=== PATIENT | male | born 1950 | race Two or more races ===

== ENCOUNTER → 2018-08-31 | Outpatient (CLI) | payer OTHER, SELFPAY ==
--- NOTE | 2018-08-31 11:10 | US_ITS ---
STUDY: SCROTUM ULTRASOUND REASON FOR EXAM: Male, 68 years old. History of right testicular trauma 20 years ago, pain TECHNIQUE: Ultrasound evaluation of the scrotum was performed with color Doppler and static aparicio-scale imaging. COMPARISON: None. FINDINGS: RIGHT TESTICLE INTRATESTICULAR: There is a normal size of the right testicle. The right testicle measures 4.6 x 3.7 x 2.9 cm. There is a homogenous echotexture. There is normal arterial and normal venous vascularity. There is no demonstrated right testicular mass or cyst. EXTRATESTICULAR: The epididymis is normal in size. The epididymis head measures 0.9 x 1.0 x 0.9 cm. There is normal vascularity of the epididymis. There is an epididymal head cyst. There is a small hydrocele. There is no demonstrated varicocele. There is a hyperechoic nodule of the right epididymal body measuring 0.8 x 0.5 x 0.6 cm. LEFT TESTICLE INTRATESTICULAR: There is a normal size of the left testicle. The left testicle measures 4.9 x 3.3 x 3.3 cm. There is a homogenous echotexture. There is normal arterial and normal venous vascularity. There is no demonstrated left testicular mass or cyst. EXTRATESTICULAR: The epididymis is normal in size. The epididymis head measures 0.9 x 0.8 x 1.0 cm. There is normal vascularity of the epididymis. There is an epididymal head cyst. There is a small hydrocele. There is no demonstrated varicocele. There is no demonstrated extratesticular mass or cyst. US/Testicular with Arterial Flow IMPRESSION: The left and right testicles appear within normal limits. There are small bilateral epididymal head cysts and small bilateral hydroceles. There is a hyperechoic nodule of the right epididymal body measuring 0.8 x 0.5 x 0.6 cm. This is of unknown etiology or significance. It may represent process such as spermatocele. Close interval ultrasound follow-up is recommended. Electronically Signed: Calixto Vargas MD at 17:18 EDT , Service support ,
== END | disposition home or self-care (01) ==
LOC: US 11:07
PROVIDERS: Family Provider Family Medicine; PCP Family Medicine; Referring Provider Family Medicine; Visit Provider Family Medicine
DX: N50.811 Right testicular pain (principal)
CPT/HCPCS: 76870; 93976

== ENCOUNTER → 2018-09-14 08:59 | Outpatient (CLI) | payer OTHER, MEDICARE, SELFPAY ==
[2018-09-14 10:09] LABS: Hemoglobin 16.2 g/dL (13.0-16.5); Mean Corp Hgb Conc 35.2 g/dL (32-36); Mean Corpuscular Hgb 31.7 pg (27.0-32.0); Mean Platelet Vol. 8.8 fl (6.2-12.0); Platelet Count 217 K/mm3 (150-450); RBC Distribution Width CV 12.4 % (11.6-14.6); RBC Distribution Width SD 40.6 fl (35.1-43.9); Red Blood Count 5.11 M/mm3 (4.6-6.2); White Blood Count 4.3 K/mm3 (4.4-11.0)
[2018-09-14 10:31] LABS: ALB/GLOB Ratio 1.2 RATIO (0.9-2.4); AST(SGOT) 15 U/L (15-37); Alanine Aminotransfer ALT/SGPT 19 U/L (16-61); Albumin, Serum 3.9 g/dL (3.2-5.0); Alkaline Phosphatase 37 U/L (45-117); Anion Gap 10 (5-15); BUN 16 mg/dL (7-18); BUN/Creat Ratio 22.8 RATIO (10-20); Calcium,Total 8.4 mg/dL (8.5-10.1); Chloride 107 mmol/L (98-107); Cholesterol 209 mg/dL (200); EST Glomerular Filtration Rate 120 mL/min (>60); Est Glom Filt Rate - Afr Amer 145 mL/min (>60); Globulin 3.3 g/dL (2.2-4.2); Glucose 78 mg/dL (74-106); High Density Lipoprotein 69 mg/dL; PSA,Total - Annual Screen 2.72 ng/mL (0.00-4.00); Potassium 4.2 mmol/L (3.5-5.1); Protein, Total 7.2 g/dL (6.4-8.2); Sodium Level 140 mmol/L (136-145); Triglycerides 73 mg/dL; Very Low Density Lipoprotein 15 mg/dL (5-40)
== END ==
PROVIDERS: Family Provider Family Medicine; PCP Family Medicine; Referring Provider Family Medicine; Visit Provider Family Medicine
DX: Z01.818 Encounter for other preprocedural examination (principal); Z12.5 Encounter for screening for malignant neoplasm of prostate; N45.1 Epididymitis
CPT/HCPCS: 36415; 80053; 80061; 84153; 85027; G0103

== ENCOUNTER → 2018-10-04 17:55 | Outpatient (CLI) | payer OTHER, MEDICARE, SELFPAY ==
--- NOTE | 2018-10-04 | LES_PTH ---
PATIENT: GURINDER MI LOC: [facility] U#:[id number] AGE/SX: 74/M ROOM: RE10/04/[address]: Dr. Darrin Thorpe MD : 1950 BED: DIS: SPEC #: [id number] RECD: 10/04/18 17:55 STATUS: JEWEL MINDY #: [id number] JAYCEE: 10/04/18 00:[address]: Darrin Thorpe DEPT: SURGICAL PATHOLOGY RECD BY: Jamil Puri Tissues: Skin of arm Procedures: Surgery Specimen Level IV HEADER OPERATION: Excision right arm PRE-OP DIAGNOSIS: Atypical nevus TISSUE SUBMITTED: Fusiform area MICROSCOPIC DIAGNOSIS Skin lesion, right arm, fusiform area, excisional biopsy: Benign vascular proliferation, consistent with capillary hemangioma, completely excised. Hyperkeratosis. LYN:maida 10/08/18 MICROSCOPIC DESCRIPTION Slides are reviewed. GROSS DESCRIPTION Received is one container labeled with the patient's name and not further designated. The specimen consists of mcclain white skin ellipse measuring 1.2 x 0.7 cm and up to 0.5 cm in thickness. The specimen is inked, serially sectioned and submitted entirely in one cassette. /SJ:sp 10/05/18 TC: 1 CPT: 30779
== END ==
PROVIDERS: Family Provider Family Medicine; PCP Family Medicine; Referring Provider Family Medicine; Visit Provider Family Medicine
DX: D22.61 Melanocytic nevi of right upper limb, including shoulder (principal)
CPT/HCPCS: 88305

== ENCOUNTER 2018-10-23 05:29 | Day surgery (SDC) | payer OTHER, MEDICARE, SELFPAY ==
[2018-10-23] VITALS (11 sets, daily range): BP systolic 110–134; BP diastolic 75–88; PULSE 64–75; RESP 16–18; TEMP 36.2; O2SAT 93–100; BMI 27.1
[2018-10-23] MEDS: Lactated Ringers 1,000 ML 100 ML IV (06:04)
--- NOTE | 2018-10-23 06:11 | PCM.HP.STD ---
Problem List (1) Screening for intestinal cancer Status: Acute History of Present Illness Date of Admission: 10/23/18 The patient is a 68 year old M who presents for screening colonoscopy today. He is referred by his primary care physician Dr. Darrin Thorpe. His previous colonoscopy was possibly in 1995 greater than 10 years ago. He denies bright red blood per rectum or melena. No personal or family history of colon polyps or colon cancer. He otherwise has been enjoying good health. He denies cardiopulmonary disease. He is not on any anticoagulants. He has not had any abdominal pain or any unexpected weight loss. He has not had any difficulty with anesthesia Past Medical History Allergies No Known Allergies Allergy (Verified 10/23/18 05:49) Home Medications: Ambulatory Orders Medication Instructions Recorded Ibuprofen 200 mg PO PRN PRN 10/19/18 Multivitamin [Multiple Vitamins] 1 ea PO DAILY 10/19/18 Smoking Status: Former smoker Tobacco Use: Non-smoker Review of Systems Constitutional: Denies: Anorexia HEENT: Denies: Difficulty Swallowing Cardiovascular: Denies: Chest Pain Respiratory: Denies: Cough, Shortness of Breath Gastrointestinal: Denies: Abdominal Pain, Constipation, Diarrhea Endocrine: Denies: Change in Body Habitus VTE Information - Inpt Only VTE Present on Admission: No Patient Problems: Active and Suspected Problems Screening for intestinal cancer (Acute) - Physical Exam General: Alert, Oriented x3, Cooperative, No apparent distress HEENT: Atraumatic Oral: Moist Mucosa Neck: Supple Lungs: Clear to auscultation, Normal air movement Cardiovascular: Regular rate, Regular Rhythm Abdomen: Bowel Sounds Present, Soft, Non Tender, Non-Distended Extremities: No Calf Tenderness Neurological: - - Normal cognition, mild hearing loss Vital Signs Temp Pulse Resp BP Pulse Ox 97.2 F L 72 16 128/88 H 95 10/23/18 05:50 10/23/18 05:50 10/23/18 05:50 10/23/18 05:50 10/23/18 05:50 Oxygen Delivery Method Room Air Weight: 194 lb 7.163 oz Body Mass Index (BMI) 27.1 Assessment/Plan All Active Problems Screening for intestinal cancer (Acute) I recommended the patient is screening colonoscopy with possible biopsy or polypectomy is indicated. He is aware of the technique, benefits, risks, alternatives. He presents via our open access program today. Mareclo Reid M.D., F.A.C.S.
--- NOTE | 2018-10-23 06:30 | COLBX_PTH ---
PATIENT: GURINDER MI LOC: EN U#:[id number] AGE/SX: 68/M ROOM: RE10/23/[address]: Dr. Marcelo Reid MD : 1950 BED: DIS: 10/23/2018 SPEC #: [id number] RECD: 10/23/18 09:30 STATUS: JEWEL MINDY #: [id number] JAYCEE: 10/23/18 06:[address]: Marcelo Reid DEPT: SURGICAL PATHOLOGY RECD BY: [place] ENTERED: 10/23/18 10:39 SP TYPE: COLON BX OTHR DR: Dr. Darrin Thorpe MD Tissues: A - Transverse colon B - Rectum, NOS Procedures: Surgery Specimen Level IV HEADER OPERATION: Colonoscopy - open access (MOD) PRE-OP DIAGNOSIS: Colonoscopy screening TISSUE SUBMITTED: A. Mid transverse colon polyp biopsy, B. Rectal polyp MICROSCOPIC DIAGNOSIS A. Mid transverse colon polyp, biopsy: Fragments of tubular adenoma. B. Rectal polyp: Tubular adenoma. AM:tangela 10/24/18 MICROSCOPIC DESCRIPTION Slides are reviewed. GROSS DESCRIPTION A - Received in fixative is one container labeled with the patient's name and designated mid transverse colon polyp biopsy. The specimen consists of multiple irregular fragments of light mcclain soft tissue that in aggregate measure 0.6 x 0.3 x 0.1 cm. The specimen is totally submitted in one cassette. B - Received in fixative is one container labeled with the patient's name and designated rectal polyp. The specimen consists of one irregular fragment of light mcclain soft tissue that measures 0.3 x 0.3 x 0.1 cm. A minute fragment of fecal material is also noted. The specimen is totally submitted in one cassette. / SJ:tangela 10/23/18 TC:5 [facility]: [id number] x2
--- NOTE | 2018-10-23 06:58 | OP.ENDO_ITS ---
10/23/2018 Darrin Thorpe [address] [place] [address] Re : Colonoscopy procedure for Kishoreaddison Chang Dear Dr. Thorpe This procedure was performed on Tuesday, October 23, 2018. My impressions and recommendations are as follows: Impressions : - Hemorrhoids found on perianal exam. - One 4 mm polyp in the mid transverse colon, removed with a cold biopsy forceps. Resected and retrieved. - One 6 mm polyp in the rectum, removed with a hot snare. Resected and retrieved. - Diverticulosis in the sigmoid colon. Recommendations : - Discharge patient to home. - Resume previous diet. - Continue present medications. - Repeat colonoscopy in 5 years for surveillance based on pathology results. - Telephone my office for pathology results in 1 week. My findings are described in the full procedure note, which is enclosed. If I can be of further assistance, please feel free to contact me at Doctor phone number(s): Work: . Sincerely, Marcelo Reid MD 10/23/2018 6:57:58 AM This report has been signed electronically.
== END 2018-10-23 08:11 | disposition home or self-care (01) ==
LOC: EN 05:30 → AC 05:30
PROVIDERS: Family Provider Family Medicine; PCP Family Medicine; Referring Provider Surgery; Visit Provider Surgery
PROC: 0DJD8ZZ Inspection of Lower Intestinal Tract, Via Natural or Artificial Opening Endoscopic (ICD-10-PCS; CPT 45378; principal; 2018-10-23 06:25)
DX: Z12.11 Encounter for screening for malignant neoplasm of colon (principal); D12.3 Benign neoplasm of transverse colon; D12.8 Benign neoplasm of rectum; K64.9 Unspecified hemorrhoids; K57.30 Diverticulosis of large intestine without perforation or abscess without bleeding; Z87.891 Personal history of nicotine dependence
CPT/HCPCS: 45380; 45385; 88305; 99152; 99153; J7120

== ENCOUNTER 2020-04-24 20:09 | Outpatient (RCR) | payer OTHER, MEDICARE, SELFPAY ==
[2020-04-24] MEDS: COVID-19 VACC, MRNA(PFIZER)/PF 30 MCG/0.3 ML SYRINGE IM (14:55)
[2020-05-15] MEDS: COVID-19 VACC, MRNA(PFIZER)/PF 30 MCG/0.3 ML SYRINGE IM (14:40)
== END 2020-07-21 23:59 ==
LOC: IMMUN 20:09
PROVIDERS: PCP Family Medicine; Visit Provider Family Medicine
DX: Z23 Encounter for immunization (principal)
CPT/HCPCS: 0001A; 0002A; 91300

== ENCOUNTER 2021-02-27 08:26 | Outpatient (CLI) | payer OTHER, MEDICARE, SELFPAY ==
[2021-02-27 08:33] VITALS: BP 146/100; PULSE 86; RESP 16; TEMP 36.9; O2SAT 95; BMI 29.2
[2021-02-27] MEDS: 0.9% Saline Lock 10 ML Syringe IV (08:47)
[2021-02-27 09:13] VITALS: BP 133/86; PULSE 75; RESP 16; TEMP 36.9; O2SAT 97
[2021-02-27 09:58] VITALS: BP 145/92; PULSE 74; RESP 16; TEMP 36.9; O2SAT 97
== END 2021-02-27 23:59 | disposition home or self-care (01) ==
LOC: MS3OUT 08:26 → MS3 08:27
PROVIDERS: PCP Family Medicine; Referring Provider Nurse Practitioner Adult Health; Visit Provider Nurse Practitioner Adult Health
DX: Z23 Encounter for immunization (principal); U07.1 COVID-19
CPT/HCPCS: J7050; M0245; Q0245; A4216

== ENCOUNTER 2021-03-11 09:10 | Outpatient (CLI) | payer OTHER, MEDICARE, SELFPAY ==
--- NOTE | 2021-03-11 09:15 | RAD_ITS ---
INDICATION: COUGH EXAMINATION/TECHNIQUE: X-RAY - XR Chest 2 Views COMPARISON: Chest x-ray 01/27/2021. FINDINGS: LINES/DEVICES: None. LUNGS: Symmetric normal lung volumes. No airspace opacity or abnormal interstitial pattern. No nodule or mass. No pleural effusion or pneumothorax. MEDIASTINUM AND CARDIOVASCULAR STRUCTURES: Normal size and contour of the cardiomediastinal silhouette. No evidence of pulmonary vascular congestion. BONES AND SOFT TISSUES: No abnormality within limits of the exam. RAD/Chest PA and Lateral IMPRESSION: 1. No radiographic evidence of acute cardiopulmonary disease. Electronically Signed: Lee Mercedes DO at 20:49 EST ,
[2021-03-11 10:10] LABS: Hematocrit 47.8 % (40-54); Hemoglobin 16.2 g/dL (13.0-16.5); Mean Corp Hgb Conc 33.9 g/dL (32-36); Mean Corpuscular Hgb 29.9 pg (27.0-32.0); Mean Corpuscular Volume 88.4 fL (80-94); Mean Platelet Vol. 8.8 fl (6.2-12.0); Platelet Count 292 K/mm3 (150-450); RBC Distribution Width SD 42.3 fl (35.1-43.9); Red Blood Count 5.41 M/mm3 (4.6-6.2); White Blood Count 5.5 K/mm3 (4.4-11.0)
[2021-03-11 11:13] LABS: Anion Gap 6 (5-15); BUN 15 mg/dL (7-18); BUN/Creat Ratio 17.2 RATIO (10-20); Calcium,Total 8.5 mg/dL (8.5-10.1); Chloride 109 mmol/L (98-107); Creatinine, Serum 0.87 mg/dL (0.70-1.30); EST Glomerular Filtration Rate 92 mL/min (>60); Est Glom Filt Rate - Afr Amer 112 mL/min (>60); Glucose 98 mg/dL (74-106); Potassium 3.9 mmol/L (3.5-5.1); Sodium Level 140 mmol/L (136-145); Thyroid Stim Hormone (TSH) 2.87 uIU/mL (0.358-3.74)
== END 2021-03-11 23:59 | disposition short-term general hospital (02) ==
LOC: MTLAB 09:13
PROVIDERS: PCP Family Medicine; Referring Provider Family Medicine; Visit Provider Family Medicine
DX: R05.9 Cough, unspecified (principal)
CPT/HCPCS: 36415; 71046; 80048; 84443; 85027

== ENCOUNTER 2021-04-02 14:28 | Outpatient (CLI) | payer OTHER, MEDICARE, SELFPAY ==
[2021-04-02 17:56] LABS: BNP,B-Type NATRIURETIC PEPTIDE 4.1 pg/mL (0-100)
[2021-04-02 17:57] LABS: Vitamin B12 438 pg/mL (211-911)
[2021-04-02 18:10] LABS: AST(SGOT) 20 U/L (15-37); Alanine Aminotransfer ALT/SGPT 34 U/L (16-61); Albumin, Serum 3.7 g/dL (3.2-5.0); Alkaline Phosphatase 51 U/L (45-117); Anion Gap 6 (5-15); BUN 17 mg/dL (7-18); BUN/Creat Ratio 17.2 RATIO (10-20); Calcium,Total 8.1 mg/dL (8.5-10.1); Chloride 108 mmol/L (98-107); Creatinine, Serum 0.99 mg/dL (0.70-1.30); EST Glomerular Filtration Rate 80 mL/min (>60); Est Glom Filt Rate - Afr Amer 96 mL/min (>60); Globulin 3.6 g/dL (2.2-4.2); Glucose 90 mg/dL (74-106); Potassium 3.8 mmol/L (3.5-5.1); Protein, Total 7.3 g/dL (6.4-8.2); Sodium Level 138 mmol/L (136-145)
[2021-04-02 19:25] LABS: D-Dimer Quantitative (DVT/PE) 1.08 FEU/ug/m (0.27-0.49)
== END 2021-04-02 23:59 | disposition home or self-care (01) ==
LOC: MTLAB 14:28
PROVIDERS: PCP Family Medicine; Referring Provider Family Medicine; Visit Provider Family Medicine
DX: R53.83 Other fatigue (principal); R06.00 Dyspnea, unspecified
CPT/HCPCS: 36415; 80053; 82607; 82746; 83880; 85379

== ENCOUNTER 2021-04-05 13:07 | Outpatient (CLI) | payer OTHER, MEDICARE, SELFPAY ==
--- NOTE | 2021-04-05 13:20 | CT_ITS ---
STUDY: CTA CHEST REASON FOR EXAM: Male, 70 years old. Positive D Dimer. STAT RADIATION DOSAGE (If Supplied By Facility): CTDIvol = ( 12.37 ) mGy, DLP = ( 506.65 ) mGycm TECHNIQUE: The examination was performed with the intravenous administration of IV 100mL Isovue-370. Post-processing of the angiographic images was performed, with multiplanar reformation and 3D reconstruction. Individualized dose optimization techniques were used for this CT. COMPARISON: None. FINDINGS: Small benign-appearing bilateral axillary lymph nodes. Normal enhancement of the main pulmonary artery and right and left pulmonary arteries. Normal enhancement of the bilateral peripheral pulmonary arteries. There is no demonstrated pulmonary embolism. Normal thoracic aorta and visualized great vessels. There is no demonstrated aortic dissection. Normal heart and pericardium. There are visualized mediastinal lymph nodes, which are within normal size limits, and with normal morphology. Normal hilar regions. Normal visualized trachea and bronchi. There is elevation of the right hemidiaphragm. Normal pulmonary parenchyma. Normal pleura. Normal chest wall structures. There are degenerative changes of thoracic spine. There is a 1.8 cm x 1.6 cm cyst in the anterior aspect of the right lobe of the liver in the region of the dome. CT/CTA Chest W/WO Contrast IMPRESSION: No evidence of pulmonary embolism. 1.8 cm x 1.6 cm cyst in the anterior right lobe of the liver in the region of the dome of the liver. Electronically Signed: Aureliano Palomino MD at 13:43 EST ,
== END 2021-04-05 23:59 | disposition home or self-care (01) ==
LOC: CT 13:09
PROVIDERS: PCP Family Medicine; Referring Provider Family Medicine; Visit Provider Family Medicine
DX: R79.89 Other specified abnormal findings of blood chemistry (principal)
CPT/HCPCS: 71275; Q9967

== ENCOUNTER 2021-09-14 15:04 | Emergency (ER) | payer OTHER, MEDICARE, SELFPAY ==
[2021-09-14 15:05] VITALS: BP 166/98; PULSE 86; RESP 16; TEMP 36; O2SAT 98; BMI 31.4
--- NOTE | 2021-09-14 15:28 | EKG12_ITS ---
Test Reason : CP Blood Pressure : / mmHG Vent. Rate : 073 BPM Atrial Rate : 073 BPM P-R Int : 170 ms QRS Dur : 080 ms QT Int : 378 ms P-R-T Axes : 055 018 016 degrees QTc Int : 416 ms Normal sinus rhythm Normal ECG Confirmed by TAMI MCLAUGHLIN, DEANN ([id number]), technical writer and editor YURIDIA WHITE ([id number]) on 09/16/2021 1:56:22 PM Referred By: Chastity Confirmed By:DEANN GARRETT MD
--- NOTE | 2021-09-14 15:28 | ED.VIS.CHEST ---
HPI History of Present Illness Chief Complaint: Chest Pain Informant: patient Narrative Narrative: 71-year-old male presenting to the emergency department for the evaluation of chest pain. Patient states that he was driving and began to have a tightness near his subxiphoid region. He states he did not have any other associated symptoms with it and it did not radiate anywhere. It lasted about 15 to 20 minutes and started to dissipate. He believes it is gone now but is not sure. He denies any radiation to the back of the legs. No nausea. He states that earlier today he was painting using a roller stick wonders if he would have caused a muscle spasm. He denies any significant indigestion. Has not anything to eat today but has had 2 cups of coffee. He states is very normal for him to go significant time periods without food. [facility] Medical History Acute bronchitis, unspecified Acute maxillary sinusitis, unspecified Encounter for screening for COVID-19 Home Medications NK 09/14/21 [History Last Taken Unknown] Allergy/AdvReac Type Severity Reaction Status Date / Time No Known Allergies Allergy Verified 09/14/21 15:08 Social History (Updated 09/14/21 @ 18:[address] Rahul Haywood DO) Smoking Status: Former smoker substance use type: does not use ROS ROS ED Constitutional Constitutional ED: Denies chills, fever(s) or weight loss Eyes Eyes: Denies change in vision or diplopia ENT ENT ED: Denies ear pain, rhinorrhea or sore throat Cardiovascular Cardiovascular: Reports chest pain; Denies orthopnea, palpitations or racing heartbeat Respiratory/Chest Respiratory/Chest: Denies cough, dyspnea or orthopnea Gastrointestinal Gastrointestinal: Denies abdominal pain, diarrhea, nausea or vomiting Genitourinary Genitourinary ED: Denies dysuria, hematuria or urinary frequency Musculoskeletal Musculoskeletal: Denies arthralgias or myalgias Integumentary Denies abscess or rash Neurologic Neurologic: Denies headache(s) or weakness Psychiatric Psychiatric: Denies anxiety, depression, suicidal ideation or suicidal thoughts Endocrine Endocrinology: Denies polydipsia, polyphagia or polyuria Allergic/Immunologic Allergic/Immunologic ED: Denies mouth swelling, tongue swelling or urticaria EXAM Physical Exam Const Vital Signs: 09/14/21 15:05 09/14/21 15:11 09/14/21 16:04 Temperature 96.8 F L Temperature Source Temporal Pulse Rate 86 77 Respiratory Rate 16 18 Respiratory Effort Normal Non-Labored Blood Pressure 166/98 H 142/86 H Blood Pressure Mean 120 104 Pulse Ox 98 98 Oxygen Delivery Method Room Air Room Air 09/14/21 17:40 09/14/21 18:22 Temperature Temperature Source Pulse Rate 69 71 Respiratory Rate 18 19 H Respiratory Effort Blood Pressure 145/88 H 145/87 H Blood Pressure Mean 107 106 Pulse Ox 95 96 Oxygen Delivery Method Room Air Room Air Positive well nourished and well developed General Appearance ED: well developed HEENT Reports normocephalic, head/scalp atraumatic and moist mucous membranes Eyes PERRL and EOMs intact bilaterally Neck no lymphadenopathy, supple and no JVD Resp normal respiratory effort and clear to auscultation bilaterally Cardio regular rate, regular rhythm and no murmurs GI normal to inspection, nondistended, normoactive bowel sounds and non-tender Palpation: soft Back/Spine no CVA tenderness and normal ROM Extremity normal to inspection General Extremety ED: Negative for edema General Extremity: Negative for edema Neuro oriented x3 and CN's II-XII intact bilaterally Sensorium / Orientation: alert Motor Exam: strength 5/5 throughout Psych mental status grossly normal Mood & Affect: Negative for depressed or tearful Skin no rashes or lesions noted and no wounds Heart Score History: Slightly/Non-Suspicious ECG: Normal Age: >/= 65 years Risk Factors: 1 or 2 Risk Factors Score: 3 MDM MDM MDM Narrative Medical decision making narrative: My interpretation of the chest x-ray is no acute process. CBC with a hemoglobin of 17. 2 sets of cardiac enzymes high-sensitivity are negative. D-dimer is within the normal range. My interpretation of the chest x-ray is no acute process. Patient has been asymptomatic since being here. I wonder if the patient experienced esophageal spasm. I do not see anything concerning on his work-up here would recommend PCP follow-up return if worsening or repeat episode. Lab Data Attestation: I reviewed the patient's lab results. Labs: Laboratory Results - last 24 hr 09/14/21 09/14/21 09/14/21 15:20 15:20 15:20 WBC 7.2 RBC 5.56 Hgb 17.0 H Hct 49.3 MCV 88.7 MCH 30.6 MCHC 34.5 RDW Std Deviation 42.5 RDW Coeff of Olga 13.0 Plt Count 256 MPV 8.9 Immature Gran % (Auto) 0.400 Neut % (Auto) 62.7 Lymph % (Auto) 24.9 [place] % (Auto) 8.6 Eos % (Auto) 2.6 Baso % (Auto) 0.8 Absolute Neuts (auto) 4.5 Absolute Lymphs (auto) 1.79 Nucleated RBC % 0 D-Dimer Quant (PE/DVT) 0.44 Sodium 139 Potassium 3.9 Chloride 108 H Carbon Dioxide 26.0 Anion Gap 5 BUN 17 Creatinine 0.87 Estim Creat Clear Calc 85.35 Est GFR (MDRD) Af Amer 112 Est GFR (MDRD) Non-Af 93 BUN/Creatinine Ratio 19.6 Glucose 88 Calcium 8.8 Troponin I High Sens < 3 L 09/14/21 17:49 WBC RBC Hgb Hct MCV MCH MCHC RDW Std Deviation RDW Coeff of Olga Plt Count MPV Immature Gran % (Auto) Neut % (Auto) Lymph % (Auto) [place] % (Auto) Eos % (Auto) Baso % (Auto) Absolute Neuts (auto) Absolute Lymphs (auto) Nucleated RBC % D-Dimer Quant (PE/DVT) Sodium Potassium Chloride Carbon Dioxide Anion Gap BUN Creatinine Estim Creat Clear Calc Est GFR (MDRD) Af Amer Est GFR (MDRD) Non-Af BUN/Creatinine Ratio Glucose Calcium Troponin I High Sens < 3 L Radiography Diagnostic Testing: Clinical Impression(s) from Imaging Studies Chest X-Ray 09/14/21 15:33 IMPRESSION: There are no acute findings. Electronically Signed: Colin Arthur MD at 18:02 EDT Reading Location ID and State: [facility] / [place] , Service support , EKG Initial EKG: Attestation: I personally reviewed and interpreted this EKG as follows: Comments: Normal sinus rhythm with a ventricular rate of 73 bpm Discharge Plan Triage Chief Complaint: Chest Pain ED Provider: Rahul Haywood Dx/Rx/DC Orders Clinical Impression: Chest pain Instructions: ED Chest Pain, Uncertain Cause, ED Esophageal Spasm Prescriptions: No Action NK Primary Care Provider: Darrin Thorpe Referrals: Darrin Thorpe MD [Primary Care Provider] - 1 Week Disposition Disposition: Home, Self Care
--- NOTE | 2021-09-14 15:33 | RAD_ITS ---
STUDY: X-RAY CHEST REASON FOR EXAM: Male, 71 years old. Technologist Notes CHEST PAIN/PRESSURE WITH SWEATING 15-20 MIN AGO WHILE PT WAS DRIVING. NO CARDIAC HX, PT HAS NEVER FELT THIS WAY. chest pain TECHNIQUE: XR Chest 1 View COMPARISON: 03.11.21 FINDINGS: There is no demonstrated pleural abnormality. Normal size heart. Normal mediastinum and ahsan. Normal visualized pulmonary arteries. Normal visualized aortic arch and descending thoracic aorta. Normal visualized thoracic spine. Normal visualized ribs, clavicles, and shoulders. There is no demonstrated abnormality of the visualized soft tissue structures of the upper abdomen. RAD/Chest 1 View (Portable) IMPRESSION: There are no acute findings. Electronically Signed: Colin Arthur MD at 18:02 EDT ,
[2021-09-14 15:56] LABS: Absolute Lymphocyte Count 1.79 X10^3/uL (0.83-4.51); Absolute Neutrophil Count 4.5 X10^3/uL (2.0-7.7); Basophil# 0.06 X10^3/uL; Basophil% 0.8 % (0-1); Eosinophil# 0.19 X10^3/uL; Eosinophils% 2.6 % (0-5); Hematocrit 49.3 % (40-54); Lymphocyte # 1.79 X10^3/ul (0.83-4.51); Lymphocyte % 24.9 % (19-41); Mean Corp Hgb Conc 34.5 g/dL (32-36); Mean Corpuscular Hgb 30.6 pg (27.0-32.0); Mean Corpuscular Volume 88.7 fL (80-94); Mean Platelet Vol. 8.9 fl (6.2-12.0); Monocyte# 0.62 X10^3/uL; Monocyte% 8.6 % (0-10); NRBC Flagged by Analyzer 0 % (0-5); Neutrophil % 62.7 % (47-70); Platelet Count 256 K/mm3 (150-450); RBC Distribution Width SD 42.5 fl (35.1-43.9); Red Blood Count 5.56 M/mm3 (4.6-6.2); White Blood Count 7.2 K/mm3 (4.4-11.0)
[2021-09-14 16:04] VITALS: BP 142/86; PULSE 77; RESP 18; O2SAT 98
[2021-09-14 16:08] LABS: Anion Gap 5 (5-15); BUN 17 mg/dL (7-18); BUN/Creat Ratio 19.6 RATIO (10-20); Calcium,Total 8.8 mg/dL (8.5-10.1); Chloride 108 mmol/L (98-107); Creatinine, Serum 0.87 mg/dL (0.70-1.30); EST Glomerular Filtration Rate 93 mL/min (>60); Est Glom Filt Rate - Afr Amer 112 mL/min (>60); Estimated Creatinine Clearance 85.35 ml/min; Glucose 88 mg/dL (74-106); Potassium 3.9 mmol/L (3.5-5.1); Sodium Level 139 mmol/L (136-145); Troponin-I HS (w/2H Reflex) < 3 pg/mL (3.0-78.0)
[2021-09-14 16:15] LABS: D-Dimer Quantitative (DVT/PE) 0.44 FEU/ug/m (0.27-0.49)
[2021-09-14 17:40] VITALS: BP 145/88; PULSE 69; RESP 18; O2SAT 95
[2021-09-14 17:45] LABS: Reflex Troponin-HS? (from REC) Y
[2021-09-14 18:18] LABS: Troponin-I HS < 3 pg/mL (3.0-78.0)
[2021-09-14 18:22] VITALS: BP 145/87; PULSE 71; RESP 19; O2SAT 96
== END 2021-09-14 18:46 | disposition home or self-care (01) ==
PROVIDERS: Emergency Provider Emergency Medicine; PCP Family Medicine; Visit Provider Emergency Medicine
DX: R07.9 Chest pain, unspecified (principal); Z87.891 Personal history of nicotine dependence
CPT/HCPCS: 71045; 80048; 84484; 85025; 85379; 93005; 99284; A4216

== ENCOUNTER → 2021-09-15 | Outpatient (CLI) | payer OTHER, MEDICARE, SELFPAY ==
[2021-09-15 10:48] LABS: AST(SGOT) 18 U/L (15-37); Alanine Aminotransfer ALT/SGPT 27 U/L (16-61); Albumin, Serum 4.1 g/dL (3.2-5.0); Alkaline Phosphatase 41 U/L (45-117); Bilirubin, Direct 0.11 mg/dL (0.00-0.30); Cholesterol 227 mg/dL (200); Globulin 3.1 g/dL (2.2-4.2); High Density Lipoprotein 65 mg/dL; Protein, Total 7.2 g/dL (6.4-8.2); Triglycerides 86 mg/dL; Very Low Density Lipoprotein 17 mg/dL (5-40)
== END | disposition home or self-care (01) ==
PROVIDERS: PCP Family Medicine; Referring Provider Internal Medicine Cardiovascular Disease; Visit Provider Internal Medicine Cardiovascular Disease
DX: E66.9 Obesity, unspecified (principal)
CPT/HCPCS: 36415; 80061; 80076

== ENCOUNTER → 2021-09-15 | Outpatient (CLI) | payer OTHER, MEDICARE, SELFPAY ==
--- NOTE | 2021-09-15 14:01 | ECHOD_ITS ---
Reason For Study: CHEST PAIN Procedure This was a 2D Doppler, Color Flow transthoracic echocardiogram. The study was technically difficult. Exam performed in department. Left Ventricle Normal LV size. Left ventricular systolic function is normal. The estimated ejection fraction is 65 %. Stage 1 diastolic dysfunction. No regional wall motion abnormalities noted. Right Ventricle Normal RV size. Normal systolic function. Atria Normal left atrium. Normal right atrium. Mitral Valve Normal mitral valve. Tricuspid Valve Normal tricuspid valve. Mild tricuspid valve insufficiency. Pulmonary artery systolic pressure is 27 mmHg. Aortic Valve Normal aortic valve. Trisinus/trileaflet aortic valve. Pulmonic Valve Normal pulmonic valve. Great Vessels Normal aortic root. The pulmonary artery is normal size. Normal inferior vena cava. Pericardium/Pleural No pericardial effusion. Medication 22 gauge I.V. with prn adaptor inserted into right arm. Diluted definity 2ml given slow IV push to enhance endocardial definition. MMode/2D Measurements & Calculations LVIDd: 4.1 cm IVSd: 0.97 cm Ao root diam: 3.3 cm LVIDs: 2.6 cm LVPWd: 0.87 cm RVDd: 3.9 cm FS: 35.9 % LAV(MOD-bp): 39.3 ml LVAd ap4: 27.8 cm2 SV(MOD-sp4): 59.0 ml LAV(MOD-bp) Indexed: 17.7 ml/m2 LVLd ap4: 7.4 cm LAV(MOD-sp2): 40.3 ml EDV(MOD-sp4): 85.0 ml LAV(MOD-sp4): 38.1 ml EDV(sp4-el): 88.0 ml LVAs ap4: 13.9 cm2 LVLs ap4: 6.6 cm ESV(MOD-sp4): 26.0 ml ESV(sp4-el): 25.1 ml EF(MOD-sp4): 69.4 % EF(sp4-el): 71.5 % SV(sp4-el): 62.9 ml LA A4 area: 15.2 cm2 LA dimension(2D): 3.2 cm RA A4 area: 12.6 cm2 Time Measurements MV dec time: 0.23 sec Doppler Measurements & Calculations MV E max jw: 57.0 cm/sec Lat Peak E' Jw: 12.6 cm/sec Med Peak E' Jw: 9.5 cm/sec MV A max jw: 64.1 cm/sec E/E' lat: 4.5 E/E' med: 6.0 MV E/A: 0.89 MV dec slope: 252.8 cm/sec2 Ao V2 max: 125.9 cm/sec LV V1 max: 117.0 cm/sec Ao max P.3 mmHg LV V1 max P.5 mmHg PA V2 max: 111.8 cm/sec TR max jw: 241.9 cm/sec TR max P.5 mmHg ECHO/Echo Complete W/ Contrast Interpretation Summary Normal LV size. Left ventricular systolic function is normal. The estimated ejection fraction is 65 %. Stage 1 diastolic dysfunction. Mild tricuspid valve insufficiency. Pulmonary artery systolic pressure is 27 mmHg. Contrast injection was performed. Ordering Physician: Luis Onofre Referring Physician: CATRINA BURNETTE Performed By: Antonia Cantrell RDCS
== END | disposition home or self-care (01) ==
LOC: CVS 13:59
PROVIDERS: PCP Family Medicine; Referring Provider Internal Medicine Cardiovascular Disease; Visit Provider Internal Medicine Cardiovascular Disease
DX: R07.9 Chest pain, unspecified (principal)
CPT/HCPCS: 93306; Q9957; A4216; C8929

== ENCOUNTER → 2021-09-20 | Outpatient (CLI) | payer OTHER, MEDICARE, SELFPAY ==
--- NOTE | 2021-09-20 18:31 | STRESSREP ---
Stress Test Report Exercise stress test. 71-year-old man with a history of chest pain. Resting EKG demonstrates normal sinus rhythm with a rate of 67 bpm normal intervals are noted resting blood pressure is 160/88 mmHg. The patient exercised according to regular Beck protocol for total duration of 7 minutes and 16 seconds. The maximum heart rate attained was 157 bpm which was 103% of max impacted heart rate the maximum workload was 10.1 metabolic equivalents. At rest there were no ST or T wave changes noted to suggest ischemia and at peak exercise upsloping ST changes were noted with did not meet the criteria for ischemia. Shortness of breath was noted but no chest pain was noted. The peak blood pressure was 202/70 mmHg with a rate-pressure product of 26,866. No clinical angina was noted. Myocardial perfusion protocol. 14.4 mCi of technetium 99m sestamibi was injected at rest. The patient exercised according to regular Beck protocol and at peak exercise 44.4 mCi of technetium 99m sestamibi was injected stress images were obtained stress and rest images were reconstructed in comparing the short axis vertical long and horizontal long axis. Gated images were also obtained to Perfusion SPECT analysis: Review of the stress images demonstrate normal uptake of tracer noted in all areas of the myocardium. The resting images similar demonstrate normal uptake of tracer noted in all areas of the myocardium. No areas of reversibility are noted to suggest ischemia and no previous infarct is noted. Gated SPECT analysis: The gated ejection fraction is noted to be 68%. Conclusion: Normal exercise myocardial perfusion stress test at a high workload. No clinical angina noted. Hypertensive response to exercise.
== END | disposition home or self-care (01) ==
LOC: CVS 07:26
PROVIDERS: PCP Family Medicine; Referring Provider Internal Medicine Cardiovascular Disease; Visit Provider Internal Medicine Cardiovascular Disease
DX: R07.9 Chest pain, unspecified (principal)
CPT/HCPCS: 78452; 93017; A9500; A4216

== ENCOUNTER → 2021-12-27 | Outpatient (CLI) | payer OTHER, MEDICARE, SELFPAY | END | disposition home or self-care (01) | LOC: SL 20:11 | PROVIDERS: PCP Family Medicine; Visit Provider Physician Assistant Medical | DX: G47.33 Obstructive sleep apnea (adult) (pediatric) (principal); I10 Essential (primary) hypertension | CPT/HCPCS: 95810 ==

== ENCOUNTER → 2022-09-20 | Outpatient (CLI) | payer OTHER, MEDICARE, SELFPAY ==
[2022-09-20 11:03] LABS: AST(SGOT) 12 U/L (15-37); Alanine Aminotransfer ALT/SGPT 30 U/L (16-61); Albumin, Serum 3.7 g/dL (3.2-5.0); Alkaline Phosphatase 51 U/L (45-117); Bilirubin, Direct 0.11 mg/dL (0.00-0.30); Cholesterol 212 mg/dL (200); Globulin 3.5 g/dL (2.2-4.2); High Density Lipoprotein 62 mg/dL; Protein, Total 7.2 g/dL (6.4-8.2); Thyroid Stim Hormone (TSH) 2.84 uIU/mL (0.358-3.74); Triglycerides 130 mg/dL; Very Low Density Lipoprotein 26 mg/dL (5-40)
== END | disposition home or self-care (01) ==
LOC: LAB 10:03
PROVIDERS: PCP Family Medicine; Referring Provider Internal Medicine Cardiovascular Disease; Visit Provider Internal Medicine Cardiovascular Disease
DX: I10 Essential (primary) hypertension (principal); G47.33 Obstructive sleep apnea (adult) (pediatric)
CPT/HCPCS: 36415; 80061; 80076; 84443

== ENCOUNTER → 2023-04-13 | Outpatient (CLI) | payer OTHER, MEDICARE, SELFPAY ==
[2023-04-13 17:44] LABS: Absolute Lymphocyte Count 2.38 X10^3/uL (0.83-4.51); Absolute Neutrophil Count 4.1 X10^3/uL (2.0-7.7); Basophil# 0.07 X10^3/uL; Basophil% 0.9 % (0-1); Eosinophil# 0.35 X10^3/uL; Eosinophils% 4.5 % (0-5); Hematocrit 49.3 % (40-54); Hemoglobin 16.7 g/dL (13.0-16.5); Lymphocyte # 2.38 X10^3/ul (0.83-4.51); Lymphocyte % 30.7 % (19-41); Mean Corp Hgb Conc 33.9 g/dL (32-36); Mean Corpuscular Volume 88.5 fL (80-94); Mean Platelet Vol. 9.2 fl (6.2-12.0); Monocyte% 10.3 % (0-10); NRBC Flagged by Analyzer 0 % (0-5); Neutrophil # 4.12 X10^3/uL (2.7-7.7); Neutrophil % 53.2 % (47-70); Platelet Count 298 K/mm3 (150-450); RBC Distribution Width SD 42.1 fl (35.1-43.9); Red Blood Count 5.57 M/mm3 (4.6-6.2); White Blood Count 7.8 K/mm3 (4.4-11.0)
[2023-04-13 18:23] LABS: ALB/GLOB Ratio 1.1 RATIO (0.9-2.4); AST(SGOT) 17 U/L (15-37); Alanine Aminotransfer ALT/SGPT 36 U/L (16-61); Alkaline Phosphatase 50 U/L (45-117); Anion Gap 6 (5-15); BUN 20 mg/dL (7-18); BUN/Creat Ratio 22.8 RATIO (10-20); Calcium,Total 9.1 mg/dL (8.5-10.1); Chloride 108 mmol/L (98-107); Creatinine, Serum 0.88 mg/dL (0.70-1.30); EST Glomerular Filtration Rate 91 mL/min (>60); Est Glom Filt Rate - Afr Amer 110 mL/min (>60); Globulin 3.6 g/dL (2.2-4.2); Glucose 86 mg/dL (74-106); Potassium 3.9 mmol/L (3.5-5.1); Protein, Total 7.6 g/dL (6.4-8.2); Sodium Level 138 mmol/L (136-145); Thyroid Stim Hormone (TSH) 4.07 uIU/mL (0.358-3.74)
[2023-04-17 08:42] LABS: Ferritin 154 ng/mL (26-388); Free T3 3.1 pg/mL (2.18-3.98); T4 Free Direct 0.94 ng/dL (0.76-1.46)
[2023-04-20 14:10] LABS: Lyme Scn Total Ab w/Rflx Negative (Negative); PROEL- A/G Ratio 1.3 (0.7-1.7); PROEL- Alpha-1 Globulin 0.2 g/dL (0.0-0.4); PROEL- Alpha-2 Globulin 0.8 g/dL (0.4-1.0); PROEL- Gamma Globulin 0.9 g/dL (0.4-1.8); PROEL-M-Spike Not Observed g/dL (Not Observed); Testosterone, % Free 2.77 % (1.50-4.20); Testosterone, Free 9.06 ng/dL (5.00-21.00); Testosterone, Total 327 ng/dL (264-916)
== END | disposition home or self-care (01) ==
LOC: MFPLAB 15:48
PROVIDERS: PCP Family Medicine; Visit Provider Family Medicine
DX: R53.83 Other fatigue (principal); R79.89 Other specified abnormal findings of blood chemistry
CPT/HCPCS: 36415; 80053; 82728; 84165; 84402; 84403; 84439; 84443; 84481; 85025; 86618

== ENCOUNTER → 2023-04-20 | Outpatient (CLI) | payer OTHER, MEDICARE, SELFPAY ==
--- OUTSIDE RECORDS SUMMARY | 2023-04-20 06:58 | XMS RPT_ITS | CCD ---
Author Name Unknown Address [address] [place] [address] Organization [facility] Results Test Name Value Interpretation Reference Range Facil ity Summary Purpose Family History No Family History Records Found Advance Directives No Advanced Directives Records Found Additional Source Comments (unrecognized sect ion and content) No Status Records Found INFORMATION SOURCE (unrecogn ized section and content) FOR RECORDS PERTAINING TO PATIENTS WHO ARE OR HAVE BEEN ENROLLED IN A CHEMICAL DEPENDENCY/SUBSTANCEABUSE PROGRAM, SOME INFORMATION MAY BE OMITTED. This clinical summary was aggregated from multiple sources. Caution should be exercised in using it in the provision of clinical care. This summary normalizes information from multiple sources, and as a consequence, information in this document may materially change the coding, format and clinical context of patient data. In addition, data may be omitted in some cases. CLINICAL DECISIONS SHOULD BE BASED ON THE PRIMARY CLINICAL RECORDS. [facility]. provides no warranty or guarantee of the accuracy or completeness of information in this document.
--- NOTE | 2023-04-20 07:13 | CPS ---
Pre and Post only
== END | disposition home or self-care (01) ==
PROVIDERS: PCP Family Medicine; Referring Provider Family Medicine; Visit Provider Family Medicine
DX: R06.09 Other forms of dyspnea (principal)
CPT/HCPCS: 94010

== ENCOUNTER → 2023-05-03 | Outpatient (CLI) | payer OTHER, MEDICARE, SELFPAY ==
--- NOTE | 2023-05-03 10:08 | RAD_ITS ---
EXAM: XR CHEST, 2 VIEWS CLINICAL INDICATION: ACUTE BRONCHITIS TECHNIQUE: Frontal and lateral views of the chest. COMPARISON: September 14, 2021 FINDINGS: LUNGS AND PLEURAL SPACES: Redemonstration of lateral parenchymal scarring at the periphery of the left lower lung. No pneumothorax. No effusion. HEART: Unremarkable. Cardiac silhouette not enlarged. MEDIASTINUM: Central airways and mediastinal contour are unremarkable. BONES/JOINTS: Degenerative changes of the acromioclavicular joints and spine. No acute fracture. SOFT TISSUES: Unremarkable. RAD/Chest PA and Lateral IMPRESSION: No acute cardiopulmonary disease. Electronically Signed: Carlito Blankenship MD at 4:49 EDT ,
== END | disposition home or self-care (01) ==
LOC: MTRAD 10:07
PROVIDERS: PCP Family Medicine; Referring Provider Family Medicine; Visit Provider Family Medicine
DX: J20.9 Acute bronchitis, unspecified (principal)
CPT/HCPCS: 71046

== ENCOUNTER → 2023-06-27 | Outpatient (CLI) | payer OTHER, MEDICARE, SELFPAY ==
[2023-06-27 19:29] LABS: Ferritin 179 ng/mL (26-388); Free T3 2.7 pg/mL (2.18-3.98); T4 Free Direct 0.97 ng/dL (0.76-1.46); Thyroid Stim Hormone (TSH) 2.45 uIU/mL (0.358-3.74)
== END | disposition home or self-care (01) ==
LOC: MTLAB 16:25
PROVIDERS: PCP Family Medicine; Referring Provider Family Medicine; Visit Provider Family Medicine
DX: R79.89 Other specified abnormal findings of blood chemistry (principal); D58.2 Other hemoglobinopathies
CPT/HCPCS: 36415; 82728; 84439; 84443; 84481

== ENCOUNTER → 2023-07-21 | Outpatient (CLI) | payer OTHER, MEDICARE, SELFPAY | END | disposition home or self-care (01) | LOC: PSN 12:42 | PROVIDERS: PCP Family Medicine; Referring Provider Family Medicine; Visit Provider Family Medicine | DX: R06.09 Other forms of dyspnea (principal) | CPT/HCPCS: 94726; 94729 ==

== ENCOUNTER → 2024-01-10 | Outpatient (CLI) | payer OTHER, MEDICARE, SELFPAY ==
[2024-01-10 10:35] LABS: Absolute Lymphocyte Count 1.77 X10^3/uL (0.83-4.51); Absolute Neutrophil Count 3.9 X10^3/uL (2.0-7.7); Basophil# 0.08 X10^3/uL; Basophil% 1.2 % (0-1); Eosinophil# 0.26 X10^3/uL; Eosinophils% 3.9 % (0-5); Hematocrit 45.3 % (40-54); Hemoglobin 14.9 g/dL (13.0-16.5); Lymphocyte # 1.77 X10^3/ul (0.83-4.51); Lymphocyte % 26.7 % (19-41); Mean Corp Hgb Conc 32.9 g/dL (32-36); Mean Corpuscular Hgb 29.4 pg (27.0-32.0); Mean Corpuscular Volume 89.3 fL (80-94); NRBC Flagged by Analyzer 0 % (0-5); Neutrophil % 58.9 % (47-70); Platelet Count 289 K/mm3 (150-450); RBC Distribution Width SD 42.7 fl (35.1-43.9); Red Blood Count 5.07 M/mm3 (4.6-6.2); White Blood Count 6.6 K/mm3 (4.4-11.0)
[2024-01-10 12:38] LABS: ALB/GLOB Ratio 1.1 RATIO (0.9-2.4); AST(SGOT) 13 U/L (15-37); Alanine Aminotransfer ALT/SGPT 21 U/L (16-61); Albumin, Serum 3.6 g/dL (3.2-5.0); Alkaline Phosphatase 47 U/L (45-117); Anion Gap 6 (5-15); BUN 17 mg/dL (7-18); BUN/Creat Ratio 21.2 RATIO (10-20); Calcium,Total 8.9 mg/dL (8.5-10.1); Chloride 108 mmol/L (98-107); Cholesterol 207 mg/dL (200); EST Glomerular Filtration Rate 101 mL/min (>60); Est Glom Filt Rate - Afr Amer 122 mL/min (>60); Globulin 3.3 g/dL (2.2-4.2); Glucose 99 mg/dL (74-106); High Density Lipoprotein 68 mg/dL; PSA,Total - Annual Screen 1.63 ng/mL (0.00-4.00); Protein, Total 6.9 g/dL (6.4-8.2); Sodium Level 138 mmol/L (136-145); Triglycerides 77 mg/dL; Very Low Density Lipoprotein 15 mg/dL (5-40)
== END | disposition home or self-care (01) ==
LOC: MTLAB 09:14
PROVIDERS: PCP Family Medicine; Referring Provider Family Medicine; Visit Provider Family Medicine
DX: E78.00 Pure hypercholesterolemia, unspecified (principal); D58.2 Other hemoglobinopathies; Z12.5 Encounter for screening for malignant neoplasm of prostate
CPT/HCPCS: 36415; 80053; 80061; 84153; 85025; G0103

== ENCOUNTER 2024-05-17 07:15 | Day surgery (SDC) | payer OTHER, MEDICARE, SELFPAY ==
--- NOTE | 2024-05-15 09:24 | PAT.ANE_ITS ---
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 When Was Last Pacemaker Check QUESTION #4 FULL TEXT: You/Your Family Experience fever (hyperthermia) with Anesthesia Last Oral Intake Last Oral intake: Last Oral Intake NPO since Meds taken in AM with sips of water? Meds patient instructed to take am of surgery PONV PONV - information technology auditor: PONV - information technology auditor Female No 05/15/24 08:11 HX of Motion Sickness No 05/15/24 08:11 HX of N/V After Surgery No 05/15/24 08:11 Non-Smoker Yes 05/15/24 08:11 Duration of Surgery greater No 05/15/24 08:11 than 60 minutes Number of Risk Factors 1 05/15/24 08:11 PONV Score Low Risk 05/15/24 08:11 Height & Weight Height & Weight: Anesthesia: Height & Weight Height 5 ft 11 in 03/26/24 11:42 Respiratory Assessment Respiratory Assessment - information technology auditor: Respiratory Tract Infection Hx - information technology auditor Hx Respiratory Tract Infection No 05/15/24 08:11 STOP Sleep Apnea STOP Sleep Apnea - information technology auditor: STOP Sleep Apnea - information technology auditor Hx Hypertension Yes: CONTROLLED WITH MEDS 05/15/24 08:11 Hx Sleep Apnea No 05/15/24 08:11 CPAP BIPAP Do you snore loudly (louder No 05/15/24 08:11 than talking or can be heard Do you often feel tired/ Yes 05/15/24 08:11 fatigued/ sleepy during daytime? Has anyone observed you stop No 05/15/24 08:11 breathing during sleep? STOP Results Positive 05/15/24 08:11 QUESTION #5 FULL TEXT : Do you snore loudly (louder than talking or can be heard through closed doors)? 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 Specify any problems Hx of Preganancy in last 3 N/A 05/15/24 08:11 Months Nurse Filling Out Transfusion DSCHRIBER 05/15/24 08:11 & Questions: Date: 05/15/24 05/15/24 08:11 Time: 08:13 05/15/24 08:11 Patient unable to answer at this time (ie. confused, unrespo /Reproduction History /Reproductive History - information technology auditor: /Reproductive Hx- information technology auditor Hx Now No 05/15/24 08:11 Gestational Age (in weeks): EDC: Hx Hx Para Hx Section SAB No 05/15/24 08:11 [facility] Medical History (Updated 05/15/24 @ 08:20 by Daisy Andrews) Wears hearing aid Wears glasses Alcohol use High cholesterol Migraine headache Shortness of breath on exertion Non-smoker Leg cramps History of echocardiogram History of stress test Cardiology follow-up encounter Essential hypertension COVID-19 (02/20/21) Home Medications ?Medication ?Instructions ?Recorded ?Last Taken ?Type aspirin 81 mg tablet,delayed 81 mg PO DAILY 09/15/21 0 05/13/24 History release (Adult Low Dose Aspirin) Oral appliance #1 ea 01/24/22 Unknown Rx losartan 50 mg tablet 50 mg PO DAILY #90 tabs 10/06 Unknown Rx amlodipine 5 mg tablet 5 mg PO DAILY #90 tabs 11/02 Unknown Rx multivitamin (Daily Multi-Vitamin 1 tab PO DAILY 05/1505/13/24 History tablet) Allergy/AdvReac Type Severity Reaction Status Date / Time No Known Allergies Allergy Verified 05/15/24 08:09 Surgical History (Updated 05/15/24 @ 08:20 by Daisy Andrews) Hx of oral surgery History of colonoscopy with polypectomy (2019) History of tonsillectomy Social History (Updated 03/26/24 @ 11:38 by Janey Mike) household members: spouse current occupational status: retired Smoking Status: Never smoker how long ago did patient quit smokin + years ago alcohol intake: current alcohol intake frequency: a few times a month substance use type: does not use caffeine: Yes Type: coffee Number of servings: 2 Audit: Pertinent Findings Pertinent Findings EKG Perinent findings: 09/14/2021. Sinus rhythm 73 bpm. Stress test pertinent findings: 09/20/2021. Normal at high workload. Echo (EF%) pertinent findings: 09/15/2021. Normal size function EF 65% Consult pertinent findings: Cardiology 09/21/2023. Hypertension. Now slightly on the low side. Decrease losartan. Continue with amlodipine. Otherwise no changes. Recommendation Anesthesia Recommendation Anesthesia recommendation: OPTIMIZED for anesthesia
[2024-05-17] VITALS (9 sets, daily range): BP systolic 100–128; BP diastolic 67–84; PULSE 79–82; RESP 16; TEMP 36.1–36.8; O2SAT 93–98; BMI 30.4
--- NOTE | 2024-05-17 07:43 | HP.PCM_ITS ---
[facility] - General General Date of Admission: 05/17/24 Date of Service: 05/17/24 [facility] Narrative UGRINDER MI, is a 74 M who presents for surveillance colonoscopy. Patient has a history of colon polyps. He cannot recall when his last colonoscopy was performed. He has no family history of colon polyps or colon cancer [facility] Medical History Wears hearing aid Wears glasses Alcohol use High cholesterol Migraine headache Shortness of breath on exertion Non-smoker Leg cramps History of echocardiogram History of stress test Cardiology follow-up encounter Essential hypertension COVID-19 (02/20/21) Home Medications ?Medication ?Instructions ?Recorded ?Last Taken ?Type aspirin 81 mg tablet,delayed 81 mg PO DAILY 09/15/21 0 05/13/24 History release (Adult Low Dose Aspirin) Oral appliance #1 ea 01/24/22 Unknown Rx losartan 50 mg tablet 50 mg PO DAILY #90 tabs 10/0605/17/24 Rx amlodipine 5 mg tablet 5 mg PO DAILY #90 tabs 11/0205/17/24 Rx multivitamin (Daily Multi-Vitamin 1 tab PO DAILY 05/1505/13/24 History tablet) Allergy/AdvReac Type Severity Reaction Status Date / Time No Known Allergies Allergy Verified 05/17/24 07:27 Surgical History Hx of oral surgery History of colonoscopy with polypectomy (2018) History of tonsillectomy Social History household members: spouse current occupational status: retired Smoking Status: Former smoker how long ago did patient quit smokin + years ago alcohol intake: current alcohol intake frequency: a few times a month substance use type: does not use caffeine: Yes Type: coffee Number of servings: 2 Vital Signs Vital Signs Vital Signs: 05/17/24 07:28 05/17/24 07:28 Temperature 97.6 F L Temperature Source Temporal Pulse Rate 79 Respiratory Rate 16 Respiratory Pattern Normal Blood Pressure 128/78 H Blood Pressure Mean 94 Blood Pressure Source Monitor Blood Pressure Position Semi-Fowlers Blood Pressure Location Right Arm Pulse Ox 96 Oxygen Delivery Method Room Air Weight Weight: 218 lb 4.122 oz Body Mass Index (BMI) 30.4 Physical Exam Const alert, oriented x3 and no apparent distress Assessment & Plan Assessment/Plan (1) Encounter for screening for malignant neoplasm of colon: PLAN: Plan The patient is a 74-year-old male with personal history of colon polyps in the past. He presents today for colonoscopy. We discussed the details of the planned procedure as well as risks benefits and alternatives. He wishes to proceed. Is to be scheduled in a timely manner. Charges/Coding Visit Charges Inpatient E&M: 26633 Init Hosp L1
--- NOTE | 2024-05-17 07:58 | PRE.ANES_ITS ---
ASA Classification* ASA Classification ASA Classification: 2 Assessment & Plan Anesthesia* Anesthesia Assessment Anesthesia Assessment: Discussed sedation and/or anesthesia options, risks, benefits, and alternatives with patient/parents/legal guardian/POA. Questions invited. The patient/parents/legal guardian/POA seems to understand and agrees to proceed with anesthesia plan. Reviewed the physical assessment, medical history, allergy history and patient home medications list prior to surgery/procedure/anesthetic and documented any changes. Performed airway and anesthesia risk assessments. Anesthesia Type Anesthesia Type: MAC History Source History Obtained from:: Patient and Chart Anesthesia Focused Assessment* Temperature: 97.6 F Pulse Rate: 79 Blood Pressure: 128/78 Respiratory Rate: 16 Pulse Ox: 96 Oxygen Delivery Method: Room Air Airway Assessment Mouth opens: >3 cm Mallampati Score: III Teeth Condition: Loose (Patient has a pediatric incisor #25. It is slightly loose.) and Partial (Patient has implant that tooth #8. It is tight) Neck Range of motion (ROM): Limited ROM (Slight decrease in extension) Focused Labs Anesthesia Preop lab: CBC WBC 6.6 K/mm3 (4.4-11.0) 01/10/24 09:17 01/10/24 RBC 5.07 M/mm3 (4.6-6.2) 01/10/24 09:17 01/10/24 Hgb 14.9 g/dL (13.0-16.5) 01/10/24 09:17 01/10/24 Hct 45.3 % (40-54) 01/10/24 09:17 01/10/24 Plt Count 289 K/mm3 (150-450) 01/10/24 09:17 01/10/24 CHEMISTRY Potassium 4.0 mmol/L (3.5-5.1) 01/10/24 09:17 01/10/24 Sodium 138 mmol/L (136-145) 01/10/24 09:17 01/10/24 BUN 17 mg/dL (7-18) 01/10/24 09:17 01/10/24 Creatinine 0.80 mg/dL (0.70-1.30) 01/10/24 09:17 01/10/24 Glucose 99 mg/dL (74-106) 01/10/24 09:17 01/10/24 TSH 2.45 uIU/mL (0.358-3.74) 06/27/23 16:30 COAG Pre-Assessment Diagnosis/Proposed Procedure Planned Operative Procedure(s): CSCOPE OA Anesthesia History 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 When Was Last Pacemaker Check QUESTION #4 FULL TEXT: You/Your Family Experience fever (hyperthermia) with Anesthesia Last Oral Intake Last Oral intake: Last Oral Intake NPO since 04:30 05/17/24 07:28 Meds taken in AM with sips of Yes 05/17/24 07:28 water? Meds patient instructed to take am of surgery Any additional information?: Yes NPO since: 04:30 (Patient finished prep at 4:30 AM.) Meds taken in AM with sips of water?: Yes PONV PONV - outsole leveler: PONV - outsole leveler Female No 05/15/24 08:11 HX of Motion Sickness No 05/15/24 08:11 HX of N/V After Surgery No 05/15/24 08:11 Non-Smoker Yes 05/15/24 08:11 Duration of Surgery greater No 05/15/24 08:11 than 60 minutes Number of Risk Factors 1 05/15/24 08:11 PONV Score Low Risk 05/15/24 08:11 Height & Weight Height & Weight: Anesthesia: Height & Weight Height 5 ft 11 in 05/17/24 07:28 Weight: 99 kg 05/17/24 07:28 Body Mass Index (BMI) 30.4 05/17/24 07:28 Respiratory Assessment Respiratory Assessment - outsole leveler: Respiratory Tract Infection Hx - outsole leveler Hx Respiratory Tract Infection No 05/15/24 08:11 STOP Sleep Apnea STOP Sleep Apnea - outsole leveler: STOP Sleep Apnea - outsole leveler Hx Hypertension Yes: CONTROLLED WITH MEDS 05/15/24 08:11 Hx Sleep Apnea No 05/15/24 08:11 CPAP BIPAP Do you snore loudly (louder No 05/15/24 08:11 than talking or can be heard Do you often feel tired/ Yes 05/15/24 08:11 fatigued/ sleepy during daytime? Has anyone observed you stop No 05/15/24 08:11 breathing during sleep? STOP Results Positive 05/15/24 08:11 QUESTION #5 FULL TEXT : Do you snore loudly (louder than talking or can be heard through closed doors)? 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 Specify any problems Hx of Preganancy in last 3 N/A 05/15/24 08:11 Months Nurse Filling Out Transfusion DSCHRIBER 05/15/24 08:11 & Questions: Date: 05/15/24 05/15/24 08:11 Time: 08:13 05/15/24 08:11 Patient unable to answer at this time (ie. confused, unrespo /Reproduction History /Reproductive History - outsole leveler: /Reproductive Hx- outsole leveler Hx Now No 05/15/24 08:11 Gestational Age (in weeks): EDC: Hx Hx Para Hx Section SAB No 05/15/24 08:11 PFSH Medical History Wears hearing aid Wears glasses Alcohol use High cholesterol Migraine headache Shortness of breath on exertion Non-smoker Leg cramps History of echocardiogram History of stress test Cardiology follow-up encounter Essential hypertension COVID-19 (02/20/21) Home Medications ?Medication ?Instructions ?Recorded ?Last Taken ?Type aspirin 81 mg tablet,delayed 81 mg PO DAILY 09/15/21 0 05/13/24 History release (Adult Low Dose Aspirin) Oral appliance #1 ea 01/24/22 Unknown Rx losartan 50 mg tablet 50 mg PO DAILY #90 tabs 10/0605/17/24 Rx amlodipine 5 mg tablet 5 mg PO DAILY #90 tabs 11/0205/17/24 Rx multivitamin (Daily Multi-Vitamin 1 tab PO DAILY 05/1505/13/24 History tablet) Allergy/AdvReac Type Severity Reaction Status Date / Time No Known Allergies Allergy Verified 05/17/24 07:27 Surgical History Hx of oral surgery History of colonoscopy with polypectomy (2019) History of tonsillectomy Social History household members: spouse current occupational status: retired Smoking Status: Former smoker how long ago did patient quit smokin + years ago alcohol intake: current alcohol intake frequency: a few times a month substance use type: does not use caffeine: Yes Type: coffee Number of servings: 2 Review of Systems (Anesthesia) ROS Narrative System reviewed and no additional complaints, except as documented.
--- NOTE | 2024-05-17 08:15 | POL_PTH ---
PATIENT: GURIDNER MI LOC: EN U#:[id number] AGE/SX: 74/M ROOM: RE05/17/[address]: Dr. Marcus Ibrahim MD : 1950 BED: DIS: 05/17/2024 SPEC #: [id number] RECD: 05/17/24 14:20 STATUS: JEWEL REDylan #: [id number] JAYCEE: 05/17/24 08:[address]: Marcus Ibrahim DEPT: SURGICAL PATHOLOGY RECD BY: Kleber Clayton ENTERED: 05/17/24 14:20 SP TYPE: Polyp OTHR DR: Dr. Darrin Thorpe MD Tissues: A - POLYP Procedures: Surgery Specimen Level IV HEADER OPERATION: Colonoscopy with polypectomy PRE-OP DIAGNOSIS: Encounter for screening for malignant neoplasm of colon TISSUE SUBMITTED: A- Sigmoid polyp MICROSCOPIC DIAGNOSIS A. Sigmoid colon, polyp, biopsy: - Cauterized polypoid fragment of colonic mucosa - see note. Note: The findings are suggestive of hyperplastic polyp, however the cautery distortiont limits the assessment. MICROSCOPIC DESCRIPTION Slides are reviewed. GROSS DESCRIPTION A. Received in formalin in a container labeled with the patient's name, date of , and sigmoid polyp is a 0.2 x 0.2 x 0.2 cm fragment of mcclain-pink mucosal tissue. Submitted in toto in A1. [facility] 05-17-2024 CPT:[id number]
--- NOTE | 2024-05-17 09:05 | PCM.POST.ANE ---
Anesthesia: Postop Eval I Current Vital Signs Temperature: 97 F Pulse Rate: 82 Blood Pressure: 105/69 Respiratory Rate: 16 Pulse Ox: 98 Oxygen Delivery Method: Room Air Assessment Airway patent: Yes Spontaneous unlabored respirations: Yes Mental status: Awake and Calm nausea: No Vomiting: No Anesthesia Complication: No Fluid Hydration Crystalloid volume administer (ml): 30 Total IV fluid infused: 30 Progress Note Anesthesia document: Postop Eval 1 completed: Yes
--- NOTE | 2024-05-17 09:09 | POSTOPAN2_ITS ---
Anesthesia Postop Eval I Sum Postop Eval Completion status Anesthesia document: Postop Eval 1 completed: Yes Anesthesia Postop Eval I Summary Anesthesia Postop Eval I Summary: Anesthesia Postop Eval I: Assessment Summary Airway patent Yes 05/17/24 09:05 LOGGING EQUIPMENT [email or web address] Spontaneous unlabored Yes 05/17/24 09:05 LOGGING EQUIPMENT [email or web address] respirations Mental status Awake,Calm 05/17/24 09:05 LOGGING EQUIPMENT MECHANIC.OT nausea No 05/17/24 09:05 LOGGING EQUIPMENT MECHANIC.OT Vomiting No 05/17/24 09:05 LOGGING EQUIPMENT [email or web address] Anesthesia Postop Eval I: Fluid Summary Crystalloid volume administer 30 05/17/24 09:05 LOGGING EQUIPMENT MECHANIC.MDOT (ml) Colloids volume administered ( ml) Blood Product volume administered (ml) Total IV fluid infused 30 05/17/24 09:05 LOGGING EQUIPMENT [email or web address] Anesthesia Postop Eval I: Summary Notes Anesthesia Complication No 05/17/24 09:05 LOGGING EQUIPMENT [email or web address] Anesthesia Complication Comment: Post-operative progress note Anesthesia: Postop Eval II Evaluation Mental status: Awake and Calm Pain Level: 0 nausea: No Vomiting: No Complications Anesthesia Complication: No
--- NOTE | 2024-05-17 09:09 | PCM.POSTANE2 ---
Anesthesia Postop Eval I Sum Postop Eval Completion status Anesthesia document: Postop Eval 1 completed: Yes Anesthesia Postop Eval I Summary Anesthesia Postop Eval I Summary: Anesthesia Postop Eval I: Assessment Summary Airway patent Yes 05/17/24 09:05 [email or web address] Spontaneous unlabored Yes 05/17/24 09:05 PHARMACEUTICAL [email or web address] respirations Mental status Awake,Calm 05/17/24 09:05 PHARMACEUTICAL SALESPERSON.OT nausea No 05/17/24 09:05 PHARMACEUTICAL SALESPERSON.OT Vomiting No 05/17/24 09:05 [email or web address] Anesthesia Postop Eval I: Fluid Summary Crystalloid volume administer 30 05/17/24 09:05 PHARMACEUTICAL SALESPERSON.MDOT (ml) Colloids volume administered ( ml) Blood Product volume administered (ml) Total IV fluid infused 30 05/17/24 09:05 [email or web address] Anesthesia Postop Eval I: Summary Notes Anesthesia Complication No 05/17/24 09:05 [email or web address] Anesthesia Complication Comment: Post-operative progress note Anesthesia: Postop Eval II Evaluation Mental status: Awake and Calm Pain Level: 0 nausea: No Vomiting: No Complications Anesthesia Complication: No
--- NOTE | 2024-05-17 09:12 | OP.CCLET_ITS ---
05/17/2024 Darrin Thorpe [address] [place] [address] Re : Colonoscopy procedure for Kishore Chang Dear Dr. Thorpe This procedure was performed on Friday, May 17, 2024. My impressions and recommendations are as follows: Impressions : - Diverticulosis in the sigmoid colon. - One 5 mm polyp in the sigmoid colon, removed with a hot snare. Resected and retrieved. - Internal hemorrhoids. - The examination was otherwise normal on direct and retroflexion views. Recommendations : - Discharge patient to home (ambulatory). - High fiber diet indefinitely. - Await pathology results. - Repeat colonoscopy in 3 - 5 years for surveillance. - Return to my office PRN. - Continue present medications. My findings are described in the full procedure note, which is enclosed. If I can be of further assistance, please feel free to contact me at . Sincerely, Marcus Ibrahim MD 05/17/2024 9:11:53 AM This report has been signed electronically.
--- NOTE | 2024-05-17 09:12 | OP.COLON_ITS ---
Patient Name: Kishore Chang Procedure Date: 05/17/2024 8:41 AM Date of : 1950 Age: 74 Procedure: Colonoscopy Indications: High risk colon cancer surveillance: Personal history of colonic polyps Providers: Marcus Ibrahim MD Referring MD: Darrin Thorpe Medicines: Monitored Anesthesia Care Patient Profile: Refer to note in patient chart for documentation of history and physical. Last Colonoscopy: several years ago. Complications: No immediate complications. Estimated blood loss: Minimal. Procedure: Pre-Anesthesia Assessment: - Prior to the procedure, a History and Physical was performed, and patient medications and allergies were reviewed. The patient's tolerance of previous anesthesia was also reviewed. The risks and benefits of the procedure and the sedation options and risks were discussed with the patient. All questions were answered, and informed consent was obtained. Prior Anticoagulants: The patient has taken no anticoagulant or antiplatelet agents. ASA Grade Assessment: II - A patient with mild systemic disease. After reviewing the risks and benefits, the patient was deemed in satisfactory condition to undergo the procedure. After I obtained informed consent, the scope was passed under direct vision. Throughout the procedure, the patient's blood pressure, pulse, and oxygen saturations were monitored continuously. The colonoscope was introduced through the anus and advanced to the cecum, identified by appendiceal orifice and ileocecal valve. The ileocecal valve, appendiceal orifice, and rectum were photographed. The entire colon was well visualized. The colonoscopy was performed without difficulty. The patient tolerated the procedure well. The quality of the bowel preparation was adequate. Moderate Sedation: See the other procedure note for documentation of moderate sedation with intraservice time. Scope In: 8:47:14 AM Scope Withdrawal Time 0 hours 12 minutes 34 seconds Scope Out: 9:03:19 AM Total Procedure Duration Time 0 hours 16 minutes 5 seconds Findings: The perianal and digital rectal examinations were normal. Multiple small-mouthed diverticula were found in the sigmoid colon. A 5 mm polyp was found in the sigmoid colon. The polyp was semi-pedunculated. The polyp was removed with a hot snare. Resection and retrieval were complete. Verification of patient identification for the specimen was done by the physician using the patient's name, date and medical record number. Estimated blood loss was minimal. Internal hemorrhoids were found during retroflexion. The hemorrhoids were moderate. The exam was otherwise without abnormality on direct and retroflexion views. Impression: - Diverticulosis in the sigmoid colon. - One 5 mm polyp in the sigmoid colon, removed with a hot snare. Resected and retrieved. - Internal hemorrhoids. - The examination was otherwise normal on direct and retroflexion views. Recommendation: - Discharge patient to home (ambulatory). - High fiber diet indefinitely. - Await pathology results. - Repeat colonoscopy in 3 - 5 years for surveillance. - Return to my office PRN. - Continue present medications. Procedure Code(s): --- Professional --- 32550, Colonoscopy, flexible; with removal of tumor(s), polyp(s), or other lesion(s) by snare technique Diagnosis Code(s): --- Professional --- Z86.010, Personal history of colonic polyps K57.30, Diverticulosis of large intestine without perforation or abscess without bleeding K64.8, Other hemorrhoids D12.5, Benign neoplasm of sigmoid colon CPT copyright 2021 [employer]. All rights reserved. The codes documented in this report are preliminary and upon agricultural equipment mechanic review may be revised to meet current compliance requirements. Marcus Ibrahim MD 05/17/2024 9:11:53 AM This report has been signed electronically. Number of Addenda: 0 Note Initiated On: 05/17/2024 8:41 AM
--- NOTE | 2024-05-17 09:28 | POSTOPAN2_ITS ---
Anesthesia Postop Eval I Sum Postop Eval Completion status Anesthesia document: Postop Eval 1 completed: Yes Anesthesia Postop Eval I Summary Anesthesia Postop Eval I Summary: Anesthesia Postop Eval I: Assessment Summary Airway patent Yes 05/17/24 09:05 OB SCRUB [email or web address] Spontaneous unlabored Yes 05/17/24 09:05 OB SCRUB [email or web address].OT respirations Mental status Awake,Calm 05/17/24 09:10 OB SCRUB [email or web address] nausea No 05/17/24 09:10 OB SCRUB [email or web address] Vomiting No 05/17/24 09:10 OB SCRUB [email or web address].[email or web address] Anesthesia Postop Eval I: Fluid Summary Crystalloid volume administer 30 05/17/24 09:05 OB SCRUB [email or web address].MDOT (ml) Colloids volume administered ( ml) Blood Product volume administered (ml) Total IV fluid infused 30 05/17/24 09:05 OB SCRUB [email or web address].OT Anesthesia Postop Eval I: Summary Notes Anesthesia Complication No 05/17/24 09:10 OB SCRUB [email or web address].OT Anesthesia Complication Comment: Post-operative progress note Anesthesia: Postop Eval II Evaluation Mental status: Awake Pain Level: 0 nausea: No Vomiting: No
--- NOTE | 2024-05-17 09:28 | PCM.POSTANE2 ---
Anesthesia Postop Eval I Sum Postop Eval Completion status Anesthesia document: Postop Eval 1 completed: Yes Anesthesia Postop Eval I Summary Anesthesia Postop Eval I Summary: Anesthesia Postop Eval I: Assessment Summary Airway patent Yes 05/17/24 09:05 PEANUT [email or web address] Spontaneous unlabored Yes 05/17/24 09:05 PEANUT [email or web address].OT respirations Mental status Awake,Calm 05/17/24 09:10 PEANUT [email or web address] nausea No 05/17/24 09:10 PEANUT [email or web address] Vomiting No 05/17/24 09:10 PEANUT [email or web address] Anesthesia Postop Eval I: Fluid Summary Crystalloid volume administer 30 05/17/24 09:05 PEANUT [email or web address].MDOT (ml) Colloids volume administered ( ml) Blood Product volume administered (ml) Total IV fluid infused 30 05/17/24 09:05 PEANUT [email or web address].OT Anesthesia Postop Eval I: Summary Notes Anesthesia Complication No 05/17/24 09:10 PEANUT SALTER.OT Anesthesia Complication Comment: Post-operative progress note Anesthesia: Postop Eval II Evaluation Mental status: Awake Pain Level: 0 nausea: No Vomiting: No
== END 2024-05-17 10:00 | disposition home or self-care (01) ==
LOC: EN 07:16 → AC 07:18
PROVIDERS: PCP Family Medicine; Referring Provider Family Medicine; Visit Provider Surgery
PROC: 0DJD8ZZ Inspection of Lower Intestinal Tract, Via Natural or Artificial Opening Endoscopic (ICD-10-PCS; CPT 45378; principal; 2024-05-17 08:10)
DX: Z12.11 Encounter for screening for malignant neoplasm of colon (principal); K57.30 Diverticulosis of large intestine without perforation or abscess without bleeding; I10 Essential (primary) hypertension; E78.00 Pure hypercholesterolemia, unspecified; K64.8 Other hemorrhoids; K63.5 Polyp of colon; Z79.82 Long term (current) use of aspirin; Z87.891 Personal history of nicotine dependence; Z86.0100 Personal history of colon polyps, unspecified; Z86.16 Personal history of COVID-19
CPT/HCPCS: 45385; 88305; A4216

== ENCOUNTER 2024-10-20 08:15 | Emergency (ER) | payer OTHER, MEDICARE, SELFPAY ==
[2024-10-20 08:16] VITALS: BP 148/99; PULSE 100; RESP 16; TEMP 36.6; O2SAT 95; BMI 31.4
[2024-10-20 08:26] VITALS: O2SAT 95
--- NOTE | 2024-10-20 08:26 | EKG12_ITS ---
Test Reason : CP Blood Pressure : */* mmHG Vent. Rate : 99 BPM Atrial Rate : 99 BPM P-R Int : 162 ms QRS Dur : 72 ms QT Int : 336 ms P-R-T Axes : 61 25 37 degrees QTcB Int : 431 ms Normal sinus rhythm Low voltage QRS Borderline ECG Confirmed by Lee Miranda ([id number]), city editor YURIDIA WHITE ([id number]) on 10/21/2024 9:49:43 AM Referred By: Confirmed By: Lee Miranda
--- NOTE | 2024-10-20 08:30 | RAD_ITS ---
PROCEDURE: CHEST PA AND LATERAL 10/20/2024 REASON FOR EXAM: CHEST PAIN TECHNIQUE: Procedure Code: RADCXR Modality: DX Procedure: CHEST PA AND LATERAL COMPARISON: 05/14/2023. FINDINGS: The heart is normal in size. The lungs are clear. No acute osseous abnormalities. RAD/Chest PA and Lateral IMPRESSION: No acute abnormalities. Reading Location: [id number]
--- NOTE | 2024-10-20 08:32 | ED.VIS.CHEST ---
HPI History of Present Illness Chief Complaint: Chest Pain Informant: patient Narrative Narrative: Patient is a 74-year-old male with history of hypertension and GERD presenting with chest pain in his epigastric/xiphoid area. Patient states started at 11 PM last night. Notes he could not sleep because of the symptoms. He states he would try to change position and it would just come back worse. States it has been constant since then but has fluctuated in intensity. Denies any radiation of the pain. Did have an episode of vomiting this morning. Denies any shortness of breath. Did try to take a Pepcid this morning with his normal aspirin and blood pressure medicine but continued to have his symptoms. No did spaghetti for dinner last night. Has had symptoms like this in the past but it been reflux related. States has never had the symptoms last so long and when he told his about this when he came in for further evaluation. His notes this morning he seemed cold and clammy. He does note that his socks seemed a little tight this morning but otherwise denies any leg swelling. He denies any shortness of breath or difficulty breathing. Denies any fever or chills. Denies any black or blood in his stool. No other complaints or concerns at this time. [facility] Medical History Wears hearing aid Wears glasses Alcohol use High cholesterol Migraine headache Shortness of breath on exertion Non-smoker Leg cramps History of echocardiogram History of stress test Cardiology follow-up encounter Essential hypertension COVID-19 (02/20/21) Home Medications ?Medication ?Instructions ?Recorded ?Last Taken ?Type aspirin 81 mg tablet,delayed 81 mg PO DAILY 09/15/21 05/13/24 History release (Adult Low Dose Aspirin) Oral appliance #1 ea 01/24/22 Unknown Rx multivitamin (Daily Multi-Vitamin 1 tab PO DAILY 05/15/24 05/13/24 History tablet) amlodipine 5 mg tablet 5 mg PO DAILY #90 tabs 09/19/24 Unknown Rx losartan 50 mg tablet 50 mg PO DAILY #90 tabs 09/19/24 Unknown Rx pantoprazole 20 mg tablet,delayed 20 mg PO DAILY #14 tabs 10/20/24 Unknown Rx release Allergy/AdvReac Type Severity Reaction Status Date / Time No Known Allergies Allergy Verified 09/19/24 08:46 Surgical History Hx of oral surgery History of colonoscopy with polypectomy (2019) History of tonsillectomy Social History household members: spouse current occupational status: retired Smoking Status: Former smoker how long ago did patient quit smokin + years ago alcohol intake: current alcohol intake frequency: a few times a month substance use type: does not use caffeine: Yes Type: coffee Number of servings: 2 ROS ROS ED Constitutional Constitutional ED: Denies chills, fever(s) or sweats Cardiovascular Cardiovascular: Reports as per HPI and chest pain; Denies palpitations Respiratory/Chest Respiratory/Chest: Denies cough or dyspnea Gastrointestinal Gastrointestinal: Reports abdominal pain, nausea and vomiting; Denies diarrhea Musculoskeletal Musculoskeletal: Denies arthralgias or myalgias Integumentary Denies rash Neurologic Neurologic: Denies weakness Hematologic/Lymphatic Hematologic/Lymphatic: Denies easy bleeding or easy bruising EXAM Physical Exam Const Vital Signs: 10/20/24 08:16 10/20/24 08:26 10/20/24 09:15 Temperature 97.9 F Temperature Source Temporal Pulse Rate 100 90 Respiratory Rate 16 22 H Blood Pressure 148/99 H 138/86 H Blood Pressure Mean 115 103 Pulse Ox 95 95 95 Oxygen Delivery Method Room Air Room Air Room Air 10/20/24 10:12 Temperature 98.6 F Temperature Source Pulse Rate 996 H Respiratory Rate 22 H Blood Pressure 130/85 H Blood Pressure Mean 100 Pulse Ox 95 Oxygen Delivery Method Positive well nourished and well developed General Appearance ED: well developed and NAD; Negative for pallor HEENT Reports moist mucous membranes Neck supple and no JVD Chest Wall inspection of chest normal and palpation of chest normal Resp normal respiratory effort and clear to auscultation bilaterally Cardio regular rate, regular rhythm and no murmurs GI soft to palpation and non-distended GI Narrative: Mild epigastric tenderness palpation. Negative Turner sign. Normal bowel sounds. Protuberant abdomen. Extremity normal to inspection Extremity Narrative: 2+ radial pulses. General Extremety ED: Negative for edema General Extremity: Negative for edema Neuro oriented x3 Sensorium / Orientation: awake and alert Psych mental status grossly normal Skin no rashes or lesions noted and no wounds General Skin Exam: Negative for jaundice or pallor Heart Score History: Slightly/Non-Suspicious ECG: Normal Age: >/= 65 years Risk Factors: 1 or 2 Risk Factors Score: 3 MDM MDM MDM Narrative Medical decision making narrative: Patient evaluated for epigastric/xiphoid pain. Overall well-appearing. Vital signs consistent with mild hypertension the emergency room. Differential includes is not limited to ACS, pancreatitis, gastritis, peptic ulcer disease, cholecystitis. Based on HPI lower suspicion for pulmonary pathology as he does not report any shortness of breath or difficulty breathing. Lower suspicion for pulmonary emboli as he does not report any pleuritic pain, shortness of breath or signs symptoms of a DVT. Patient given Maalox as EKG does not show ACS but will obtain cardiac workup as he does have cardiac risk factors in addition to checking liver panel and lipase. Patient does have improvement of symptoms after Mylanta. Still has some mild gurgling discomfort states that more severe pain has improved. Workup otherwise normal. His high-sensitivity troponin is less than 6. Given his had constant symptoms since 11 PM last night (greater than 6 hours) I do not think he requires serial troponins. He does not have any ischemic EKG changes. Will be started on pantoprazole and given first dose in the emergency room. Given outpatient GI follow-up. Also encouraged follow-up with primary care doctor. Given return precautions. Discussed signs of GI bleeding in case he has a bleeding ulcer. Right now lab work not consistent with that as he has a slightly elevated hemoglobin and normal BUN. Discharged home in stable condition. Lab Data Attestation: I reviewed the patient's lab results. Labs: Laboratory Results - last 24 hr 10/20/24 08:23 WBC 9.2 RBC 5.74 Hgb 17.4 H Hct 50.8 MCV 88.5 MCH 30.3 MCHC 34.3 RDW Std Deviation 41.7 RDW Coeff of Olga 12.8 Plt Count 285 MPV 8.9 Immature Gran % (Auto) 0.400 Neut % (Auto) 76.2 H Lymph % (Auto) 14.7 L [place] % (Auto) 7.0 Eos % (Auto) 1.3 Baso % (Auto) 0.4 Absolute Neuts (auto) 7.0 Absolute Lymphs (auto) 1.35 Nucleated RBC % 0 Sodium 136 Potassium 4.2 Chloride 101 Carbon Dioxide 22.4 Anion Gap 12 BUN 12 Creatinine 0.71 Estim Creat Clear Calc 101.69 Est GFR (MDRD) Non-Af 97 BUN/Creatinine Ratio 17.5 Glucose 136 H Calcium 9.2 Total Bilirubin 0.47 Direct Bilirubin 0.19 AST 27 ALT 30 Alkaline Phosphatase 50 Troponin T High Sens < 6 Total Protein 7.8 Albumin 4.5 Globulin 3.3 Lipase 22 Radiography Diagnostic Testing: Clinical Impression(s) from Imaging Studies Chest X-Ray 10/20/24 08:30 IMPRESSION: No acute abnormalities. Reading Location: [address] Rhythm Strip Rhythm Strip: Sinus Rhythm Rate: 99 Ectopy: None EKG Initial EKG: Attestation: I personally reviewed and interpreted this EKG as follows: Interpretation: Sinus Rhythm Comments: Normal sinus rhythm rate of 90 bpm Normal axis Normal intervals Normal ST segments Prior EKG tracings: available for review Prior: Unchanged Discharge Plan Triage Chief Complaint: Chest Pain ED Provider: Dottie Rausch Dx/Rx/DC Orders Clinical Impression: Chest pain, Abdominal pain, acute, epigastric Instructions: ED Chest Pain, Uncertain Cause, ED Gastritis Ulcer No Abx Prescriptions: New pantoprazole 20 mg tablet,delayed release (DR/EC) 20 mg PO DAILY Qty: 14 0RF No Action aspirin [Adult Low Dose Aspirin] 81 mg tablet,delayed release (DR/EC) 81 mg PO DAILY (DME) Oral appliance See Rx Instructions .ROUTE .MEDSUPPLY Qty: 1 0RF Rx Instructions: As directed amlodipine 5 mg tablet 5 mg PO DAILY Qty: 90 3RF losartan 50 mg tablet 50 mg PO DAILY Qty: 90 3RF multivitamin [Daily Multi-Vitamin] Tablet 1 tab PO DAILY Primary Care Provider: Darrin Thorpe Referrals: Darrin Thorpe MD [Primary Care Provider] - Friend,DO Rudy [[facility] Staff - Active Staff] - Activity Restrictions/Additional Instructions: Your heart workup was normal today. Your lab work was all very reassuring as well as your EKG. I am concerned you could have inflammation of your stomach given a stomach ulcer that is causing your pain. Please follow-up with the GI doctor, let them know you are seen in the ER. You may take [id number] antacid such as Tums, Mylanta or Maalox as well for breakthrough symptoms. You been started on a daily antacid medication to further help with your symptoms. If you develop worsening pain, black or blood in your stool or other chest pain/further concerns please return to the emergency room. Print Language: New Zealander Disposition Disposition: Home, Self Care Discharge Date/Time: 10/20/24 10:12
[2024-10-20 08:47] LABS: Hematocrit 50.8 % (40-54); Hemoglobin 17.4 g/dL (13.0-16.5); Immature Granulocytes Count 0.040 X10^3/uL (0.0-0.0); Mean Corp Hgb Conc 34.3 g/dL (32-36); Mean Corpuscular Volume 88.5 fL (80-94); Mean Platelet Vol. 8.9 fl (6.2-12.0); NRBC Flagged by Analyzer 0 % (0-5); Platelet Count 285 K/mm3 (150-450); RBC Distribution Width CV 12.8 % (11.6-14.6); RBC Distribution Width SD 41.7 fl (35.1-43.9); Red Blood Count 5.74 M/mm3 (4.6-6.2); White Blood Count 9.2 K/mm3 (4.4-11.0)
--- OUTSIDE RECORDS SUMMARY | 2024-10-20 08:58 | XMS RPT_ITS | CCD ---
Author Organization [facility] CliniSyaz Care Team Providers Care Maintenance And Custodian Supervisor Name Role Phone Dr. Darrin Thorpe Primary Care Provider [phone] Dr. Darrin Thorpe Referring Provider Dr. Luis Onofre Attending Provider [phone] Luis Onofre Referring Provider Dr. Luis Onofre Other Provider Dr. Darrin Thorpe Primary Care Provider Dr. Darrin Thorpe Referring Provider Dr. Luis Onofre Attending Provider Dr. Luis Onofre Referring Provider Dr. Luis Onofre Other Provider DAWIT Grubbs Attending Provider PATRICIA Frazier Attending Provider Dr. Darrin Thorpe Primary Care Provider Dr. Darrin Thorpe Referring Provider Dr. Luis Onofre Attending Provider Dr. Darrin Thorpe Primary Care Provider [phone] Dr. Darrin Thorpe Referring Provider PATRICIA Flannery Attending Provider Dr. Darrin Thorpe Primary Care Provider [phone] Dr. Darrin Thorpe Referring Provider PATRICIA Flannery Attending Provider Dr. Darrin Thorpe MD Primary Care Provider 1([facility])3 [phone] Janey Mike Attending Provider Unavailable Maurilio MCLAUGHLIN, Dr. Clifford Referring Provider Marcus Vasquez Attending Provider Patrice MCLAUGHLIN, Dr. Marcus Quigley Attending Provider Patrice MCLAUGHLIN, Dr. Marcus Quigley Other Provider Maurilio MCLAUGHLIN, Dr. Clifford Primary Care Provider Maurilio MCLAUGHLIN, Dr. Clifford Referring Provider Nicole Frazier Attending Provider Nicole Frazier Attending Unavail able Thorpe, Darrin Referring Unavailable Thorpe, Darrin Primary Care Unavailable Thorpe, Darrin Primary Care Unavailable Janey Mike Attending Unavailable Maurilio, Darrin Primary Care Unavailable Marcus Ibrahim Consulting Unavailable Marcus Ibrahim Attending Unavailable Thorpe, Darrin Referring Unavailable Thorpe, Darrin Primary Care Unavailable Marcus Ibrahim Attending Unavailable Thorpe, Darrin Referring Unavailable Thorpe, Darrin Primary Care Unavailable Thorpe, Darrin Attending Unavailable Maurilio, Darrin Referring Unavailable Nicole Frazier Attending Unavail able Nicole Frazier Referring Unavail able Maurilio, Darrin Primary Care Unavailable Thorpe, Darrin Primary Care Unavailable Marcus Vasquez Attending Unavailable Thorpe, Darrin Referring Unavailable Medications Current Medications Medication Drug Class(es) Dates Sig (Normalized) Sig (Original) amLODIPine 5 mg oral tablet (20 sources) Dihydropyridine Calcium Channel Joseph Start: 09-20-2021 End: 09-19-2024 take 1 tablet by mouth once daily Amlodipine 5 mg tablet Active 5 mg PO DAILY 90 3 September 19, 2024 9:04am aspirin 81 mg delayed release oral tablet (9 sources) Platelet Aggregation Inhibitor, Nonsteroidal Anti-inflammatory Drug Start: 09-15-2021 Aspirin (Adult Low Dose Aspirin) 81 mg tablet,delayed release (DR/EC) Active 81 mg PO DAILY September 15, 2021 12:00am losartan potassium 50 mg oral tablet (20 sources) Angiotensin 2 Receptor Joseph Start: 09-21-2023 End: 09-19-2024 take 1 tablet by mouth once daily Losartan 50 mg tablet Active 50 mg PO DAILY 90 3 September 19, 2024 9:04am Start: 09-15-2021 End: 09-21-2023 take 1 tablet by mouth once daily Losartan 100 mg tablet Discontinued 100 mg PO DAILY 90 3 October 31, 2022 1:23pm September 21, 2023 9:22am Multivitamin (Daily Multi-Vitamin) tablet (2 sources) Start: 05-15-2024 Multivitamin ( Daily Multi-Vitamin) tablet Active 1 {tbl} PO DAILY May 15, 2024 12:00am Olivarez (Nk) (1 source) Start: 09-14-2021 Olivarez (Nk) A ctive September 14, 2021 12:00am Oral appliance (6 sources) Start: 01-24-2022 Oral appliance Active 0 .ROUTE .MEDSUPPLY 1 0 January 24, 2022 1:00am Obstructive sleep apnea syndrome Obstructive sleep apnea (adult) (pediatric) As directed Start: 01-24-2022 Oral appliance Active 0 .ROUTE .MEDSUPPLY January 24, 2022 12:00am As directed Start: 01-24-2022 Oral appliance Active 0 .ROUTE .MEDSUPPLY January 24, 2022 1:00am As directed Completed/Discontinued Medications Medication Drug Class(es) Dates Sig (Normalized) Sig (Original) omeprazole 20 mg delayed release oral capsule (9 sources) Proton Pump Inhibitor Start: 09-15-2021 End: 03-26-2024 take 1 capsule by mouth once daily as needed Omeprazole 20 mg capsule,delayed release(DR/EC) Discontinued 20 mg PO DAILY as needed September 15, 2021 12:00am March 26, 2024 12:39pm Problems Active Problems Problem Classification Problem Date Documented Date Episodic/Chronic Acute bronchitis (10 sources) Acute bronchitis; Translations: [Acute bronchitis, unspecified] 09-14-2021 Episodic Disorders of lipid metabolism (1 source) Pure hypercholesterolemia, unspecified; Translations: [Pure hypercholesterolemia, unspecified] Onset: 02-05-2024 Chronic Esophageal disorders (9 sources) Gastroesophageal reflux disease; Translations: [Gastro-esophageal reflux disease without esophagitis] 09-15-2021 Chronic Essential hypertension (20 sources) Hypertensive disorder; Translations: [Essential (primary) hypertension] Onset: 09-19-2024 Chronic Comment on above: CONTROLLED WITH MED Immunizations and screening for infectious disease (20 sources) Patient encounter status; Translations: [Encounter for screening for COVID-19] Episodic Nonspecific chest pain (11 sources) Chest pain; Translations: [Chest pain, unspecified] Episodic Other eye disorders (5 sources) Subconjunctival hemorrhage; Translations: [Conjunctival hemorrhage, unspecified eye] 01-05-2023 Episodic Other eye disorders (2 sources) Conjunctival hemorrhage, unspecified eye; Translations: [Conjunctival hemorrhage] 01-05-2023 Episodic Other injuries and conditions due to external causes (8 sources) Foreign body in ear; Translations: [Foreign body in right ear, initial encounter] 09-14-2021 Episodic Other injuries and conditions due to external causes (5 sources) Foreign body in right ear; Translations: [Foreign body in right ear, initial encounter] 09-14-2021 Episodic Other nutritional; endocrine; and metabolic disorders (9 sources) Obese class I; Translations: [Obesity, unspecified] 04-19-2022 Chronic Comment on above: As above BMI was 32. 5 today. Other upper respiratory infections (18 sources) Acute maxillary sinusitis; Translations: [Acute maxillary sinusitis, unspecified] Episodic Residual codes; unclassified (7 sources) Obstructive sleep apnea syndrome; Translations: [Obstructive sleep apnea (adult) (pediatric)] 09-20-2022 Chronic Comment on above: Mild, AHI is just ab ove the normal range. He is a good candidate for a dental appliance, the implementation process is delayed because of insurance hold-up. - Weight loss and increased exercise was recommended, he was provided counseling regarding this for approximately 5 minutes of the visit. - Patient was told to call us after he has the dental device and has become accustomed to using it. - Final determination of the efficacy of the future dental device will be with another split-night polysomnography, the first half with no treatment, and the second half wearing the dental device. Residual codes; unclassified (2 sources) Obstructive sleep apnea (adult) (pediatric); Translations: [Obstructive sleep apnea (adult)(pediatric)] Chronic Unclassified (1 source) Age more than 65 years; Translations: [Over 65 years old] Past or Other Problems Problem Classification Problem Date Documented Da te Episodic/Chronic Other screening for suspected conditions (not mental disorders or infectious disease) (2 sources) Encounter for screening for malignant neoplasm of colon; Translations: [Encounter for screening for malignant neoplasm of colon] Onset: 05-24-2024 Episodic Viral infection (10 sources) Disease caused by 2019-nCoV; Translations: [COVID-19] Onset: 02-20-2021 09-14-2021 Episodic Results Test Name Value Interpretation Reference Range Facility Cardiology Visit Reporton Cardiology Visit Report [facility] [address] [place] [address] OFFICE VISIT Date of Service: 09/19/24 MR#: [id number] Acct: [id number] Name: KISHORE CHANG Rep #: [id number] : 1950 Provider: PATRICIA Mast Age/Sex: 74/M Location: [facility] Status: Signed HPI HPI History of Present Illness Details: Kishore Chang is a 73 year old gentleman that is established with us for chest discomfort and hypertension. He did undergo a stress test which was negative for ischemia but he did have an exaggerated hypertensive response to exercise. Echocardiogram demonstrated an ejection fraction of 65% with stage I diastolic dysfunction. He was started on medications. Unfortunately he has gained weight. From a cardiac standpoint, patient is doing well. He does not have any chest discomfort/heaviness/ tightness. He does not have any worsening symptoms of shortness of breath. He denies any PND. He does not have any orthopnea. He does not have any symptoms of congestive heart failure. He does not have any palpitations that he is aware of. He does not have any lightheadedness or dizziness. He does not have any near-syncope or syncope. He does not have any lower extremity edema. He does not have any symptoms of claudication. Intake Vital Signs 09/21/23 08:53 05/17/24 07:28 09/19/24 08:43 Height 5 ft 11 in 5 ft 11 in 5 ft 11 in Weight: 226 lb BMI 31.5 BP 127/84 H Blood Pressure Location Lt brachial Position Sitting Respiration 18 Pulse 79 Pulse Source NIBP Intake Visit Reasons: 1 Y FU Radiologic Technologist Chief Required: No Is patient in pain?: No Allergies No Known Allergies Allergy (Verified 09/19/24 08:46) Medications ???Medication ???Instructions ???Recorded ???Confirmed ???Type aspirin 81 mg tablet,delayed 81 mg PO DAILY 09/15/21 09/19/24 H istory release (Adult Low Dose Aspirin) Oral appliance #1 ea 01/24/22 05/15/24 Rx multivitamin (Daily Multi-Vitamin 1 tab PO DAILY 05/15/24 09/19/24 History tablet) amlodipine 5 mg tablet 5 mg PO DAILY #90 tabs 09/19/24 Rx losartan 50 mg tablet 50 mg PO DAILY #90 tabs 09/19/24 0 09/19/24 Rx Ejection fraction %: 65 Have you fallen in the past year?: No PFSH Medical History Wears hearing aid Wears glasses Alcohol use High cholesterol Migraine headache Shortness of breath on exertion Non-smoker Leg cramps History of echocardiogram History of stress test Cardiology follow-up encounter Essential hypertension COVID-19 (02/20/21) Surgical History Hx of oral surgery History of colonoscopy with polypectomy (2018) History of tonsillectomy Social History household members: spouse current occupational status: retired Smoking Status: Former smoker how long ago did patient quit smokin + years ago alcohol intake: current alcohol intake frequency: a few times a month substance use type: does not use caffeine: Yes Type: coffee Number of servings: 2 ROS Const Const: Positive for weight gain (12 lbs since September 2024); Negative for fatigue or weakness Eyes Eyes: Negative for change in vision ENT ENT: Negative for dizziness or balance problems Cardio Chest Pain: No Palpitations: No Edema: Bilateral (Occasional mild) Resp Respiratory: Positive for SOB with activity (Get winded easily. Relates to deconditioning); Negative for SOB at rest or SOB orthopnea SOB lying down GI GI: Negative nausea or heartburn Musc Musc: Positive for muscle weakness; Negative for balance problems Neuro Neuro: Positive for lightheadedness (Occasionally when overheated. ); Negative for dizziness, near syncope, syncope or weakness Endo Endo: Negative for fatigue Cardiology Exam Const Appearance: cooperative, healthy appearing, comfortable, no acute distress and well developed Orientation: alert, awake and oriented x3 Head Head: normal to inspection Ears: hearing grossly normal bilaterally Nose: external nose normal Face and Sinus: face symmetric Mouth: oral mucosae normal, lip normal and moist mucous membranes Eyes General: appearance normal, both eyes and all related structures Eyelids: eyelids normal Conjunctivae: conjunctivae normal Pupils: PERRL EOM: EOM intact bilaterally Neck Neck: normal visual inspection and trachea midline; Negative no JVD Carotids: Negative bruit Chest Chest inspection: normal inspection of the chest Auscultation: Bilateral: Clear to Auscultation Cardio Palpation: normal PMI Rate: regular rate Rhythm: regular rhythm Heart sounds: S1 normal and S2 normal; Negative rub, gallop or murmur GI GI: soft, no hepatosplenomegaly and bowel sounds (more content not included)... Normal [facility] Colonoscopy Reporton 025 Colonoscopy Report [facility] Medical Records Department [address] [place] [address] Colonoscopy Report MR#: [id number] Acct: [id number] Name: KISHORE CHANG Rep #: [id number] : 1950 74 From: Marcus Ibrahim MD PCP: Dr. Darrin Thorpe MD Status:[facility] Patient Name: Kishore Chang Procedure Date: 05/17/2024 8:41 AM Date of : 1950 Age: 74 Procedure: Colonoscopy Indications: High risk colon cancer surveillance: Personal history of colonic polyps Providers: Marcus Ibrahim MD Referring MD: Darrin Thorpe Medicines: Monitored Anesthesia Care Patient Profile: Refer to note in patient chart for documentation of history and physical. Last Colonoscopy: several years ago. Complications: No immediate complications. Estimated blood loss: Minimal. Procedure: Pre-Anesthesia Assessment: - Prior to the procedure, a History and Physical was performed, and patient medications and allergies were reviewed. The patient's tolerance of previous anesthesia was also reviewed. The risks and benefits of the procedure and the sedation options and risks were discussed with the patient. All questions were answered, and informed consent was obtained. Prior Anticoagulants: The patient has taken no anticoagulant or antiplatelet agents. ASA Grade Assessment: II - A patient with mild systemic disease. After reviewing the risks and benefits, the patient was deemed in satisfactory condition to undergo the procedure. After I obtained informed consent, the scope was passed under direct vision. Throughout the procedure, the patient's blood pressure, pulse, and oxygen saturations were monitored continuously. The colonoscope was introduced through the anus and advanced to the cecum, identified by appendiceal orifice and ileocecal valve. The ileocecal valve, appendiceal orifice, and rectum were photographed. The entire colon was well visualized. The colonoscopy was performed without difficulty. The patient tolerated the procedure well. The quality of the bowel preparation was adequate. Moderate Sedation: See the other procedure note for documentation of moderate sedation with intraservice time. Scope In: 8:47:14 AM Scope Withdrawal Time 0 hours 12 minutes 34 seconds Scope Out: 9:03:19 AM Total Procedure Duration Time 0 hours 16 minutes 5 seconds Findings: The perianal and digital rectal examinations were normal. Multiple small-mouthed diverticula were found in the sigmoid colon. A 5 mm polyp was found in the sigmoid colon. The polyp was semi-pedunculated. The polyp was removed with a hot snare. Resection and retrieval were complete. Verification of patient identification for the specimen was done by the physician using the patient's name, date and medical record number. Estimated blood loss was minimal. Internal hemorrhoids were found during retroflexion. The hemorrhoids were moderate. The exam was otherwise without abnormality on direct and retroflexion views. Impression: - Diverticulosis in the sigmoid colon. - One 5 mm polyp in the sigmoid colon, removed with a hot snare. Resected and retrieved. - Internal hemorrhoids. - The examination was otherwise normal on direct and retroflexion views. Recommendation: - Discharge patient to home (ambulatory). - High fiber diet indefinitely. - Await pathology results. - Repeat colonoscopy in 3 - 5 years for surveillance. - Return to my office PRN. - Continue present medications. Procedure Code(s): --- Professional --- 45054, Colonoscopy, flexible; with removal of tumor(s), polyp(s), or other lesion(s) by snare technique Diagnosis Code(s): --- Professional --- Z86.010, Personal history of colonic polyps K57.30, Diverticulosis of large intestine without perforation or abscess without bleeding K64.8, Other hemorrhoids D12.5, Benign neoplasm of sigmoid colon CPT copyright 2021 [employer]. All rights reserved. The codes documented in this report are preliminary and upon tyre retreader review may be revised to meet current compliance requirements. Marcus Ibrahim MD 05/17/2024 9:11:53 AM This report has been signed electronically. Number of Addenda: 0 Note Initiated On: 05/17/2024 8:41 AM 05/17/24911 Date Marcus Ibrahim MD Cosigner Signature: Date (if indicated) CC: Dr. Darrin Thorpe MD; Dr. Marcus Ibrahim MD Date Dictated: 05/17/24840 Date Transcribed: County Records Management Officer: SW Signed [facility] MR/POSTOP.[facility] 05-17-2024 MR/POSTOP.[facility] Medical Records Department [address] [place] [id number] Anesthesia Postop Eval I 05/17/24904 MR#: [id number] Acct: [id number] Name: KISHORE CHANG Rep #: [id number] : 1950 74 From: Sidney John PCP: Dr. Darrin Thorpe MD Status:REG [facility] Y Race: [facility] Location: [place] [address] Anesthesia: Postop Eval I Current Vital Signs Temperature: 97 F Pulse Rate: 82 Blood Pressure: 105/69 Respiratory Rate: 16 Pulse Ox: 98 Oxygen Delivery Method: Room Air Assessment Airway patent: Yes Spontaneous unlabored respirations: Yes Mental status: Awake and Calm nausea: No Vomiting: No Anesthesia Complication: No Fluid Hydration Crystalloid volume administer (ml): 30 Total IV fluid infused: 30 Progress Note Anesthesia document: Postop Eval 1 completed: Yes 05/17/24904 Date Sidney Dotterer Cosigner Signature: Date CC: Signed Normal [facility] MR/QMCPCOMP5ue 05-17-2024 MR/POSTOPAN2 [facility] Medical Records Department [address] [place] [address] Anesthesia Postop Eval II 05/17/24927 MR#: [id number] Acct: [id number] Name: KISHORE CHANG Rep #: [id number] : 1950 74 From: Cristiana Koo PCP: Dr. Darrin Thorpe MD Status:REG SDC Y Race: WAD Location: [place] [address] Anesthesia Postop Eval I Sum Postop Eval Completion status Anesthesia document: Postop Eval 1 completed: Yes Anesthesia Postop Eval I Summary Anesthesia Postop Eval I Summary: Anesthesia Postop Eval I: Assessment Summary Airway patent Yes 05/17/24 09:05 [email or web address] Spontaneous unlabored Yes 05/17/24 09:05 SHRIMP [email or web address] respirations Mental status Awake,Calm 05/17/24 09:10 SHRIMP [email or web address] nausea No 05/17/24 09:10 SHRIMP [email or web address].MDOT Vomiting No 05/17/24 09:10 SHRIMP [email or web address] Anesthesia Postop Eval I: Fluid Summary Crystalloid volume administer 30 05/17/24 09:05 SHRIMP [email or web address].MDOT (ml) Colloids volume administered ( ml) Blood Product volume administered (ml) Total IV fluid infused 30 05/17/24 09:05 SHRIMP [email or web address] Anesthesia Postop Eval I: Summary Notes Anesthesia Complication No 05/17/24 09:10 SHRIMP [email or web address].MDOT Anesthesia Complication Comment: Post-operative progress note Anesthesia: Postop Eval II Evaluation Mental status: Awake Pain Level: 0 nausea: No Vomiting: No 05/17/24927 Cristiana Koo Cosigner Signature: CC: Signed Normal [facility] MR/POSTOPAN2 [facility] Medical Records Department [address] [place] [address] Anesthesia Postop Eval II 05/17/24908 MR#: [id number] Acct: [id number] Name: KISHORE CHANG Rep #: [id number] : 1950 74 From: Sidney John PCP: Dr. Darrin Thorpe MD Status:REG SDC Y Race: [facility] Location: [address] Anesthesia Postop Eval I Sum Postop Eval Completion status Anesthesia document: Postop Eval 1 completed: Yes Anesthesia Postop Eval I Summary Anesthesia Postop Eval I Summary: Anesthesia Postop Eval I: Assessment Summary Airway patent Yes 05/17/24 09:05 [email or web address] Spontaneous unlabored Yes 05/17/24 09:05 SHRIMP [email or web address] respirations Mental status Awake,Calm 05/17/24 09:05 SHRIMP [email or web address].MDOT nausea No 05/17/24 09:05 SHRIMP [email or web address].MDOT Vomiting No 05/17/24 09:05 SHRIMP [email or web address] Anesthesia Postop Eval I: Fluid Summary Crystalloid volume administer 30 05/17/24 09:05 SHRIMP [email or web address].MDOT (ml) Colloids volume administered ( ml) Blood Product volume administered (ml) Total IV fluid infused 30 05/17/24 09:05 SHRIMP [email or web address] Anesthesia Postop Eval I: Summary Notes Anesthesia Complication No 05/17/24 09:05 SHRIMP [email or web address].MDOT Anesthesia Complication Comment: Post-operative progress note Anesthesia: Postop Eval II Evaluation Mental status: Awake and Calm Pain Level: 0 nausea: No Vomiting: No Complications Anesthesia Complication: No 05/17/24909 Sidney Carbajaligner Signature: Date CC: Signed Normal [facility] Surgery Specimen Level Leora 05-17-2024 Surgery Specimen Level IV ------- -------- Patient Age/Sex Location Account Attending Physician -------- KISHORE CHANG 74/M EN [id number] Dr. Marcus Ibrahim MD -------- Specimen: [id number] Received: 05/17/24 Status: JEWEL Null Num: [id number] Spec Type: Polyp Subm Dr: Dr. Marcus Ibrahim MD HEADER OPERATION: Colonoscopy with polypectomy PRE-OP DIAGNOSIS: Encounter for screening for malignant neoplasm of colon TISSUE SUBMITTED: A- Sigmoid polyp -------- MICROSCOPIC DIAGNOSIS A. Sigmoid colon, polyp, biopsy: - Cauterized polypoid fragment of colonic mucosa - see note. Note: The findings are suggestive of hyperplastic polyp, however the cautery distortiont limits the assessment. MICROSCOPIC DESCRIPTION Slides are reviewed. GROSS DESCRIPTION A. Received in formalin in a container labeled with the patient's name, date of , and sigmoid polyp is a 0.2 x 0.2 x 0.2 cm fragment of mcclain-pink mucosal tissue. Submitted in toto in A1. [facility] 05-17-2024 CPT:08974 -------- Patient Age/Sex Location Account Attending Physician -------- KISHORE CHANG 74/M EN [id number] Dr. Marcus Ibrahim MD -------- Signed (signature on file) Dr. Ella Tubbs MD 05/22/24 1740 -------- Normal [facility] Comment on above: Performed By: #### P SUIV #### [facility] [address] [place], [address] MR/PAT.ANEon 05-15-2024 MR/PAT.[facility] Medical Records Department [address] [place] [address] PAT - Anesthesia 05/15/24923 MR#: [id number] Acct: [id number] Name: KISHORE CHANG Rep #: [id number] : 1950 74 From: Jhonathan Gil MD PCP: Dr. 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 When Was Last Pacemaker Check QUESTION #4 FULL TEXT: You/Your Family Experience fever (hyperthermia) with Anesthesia Last Oral Intake Last Oral intake: Last Oral Intake NPO since Meds taken in AM with sips of water? 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 Female No 05/15/24 08:11 HX of Motion Sickness No 05/15/24 08:11 HX of N/V After Surgery No 05/15/24 08:11 Non-Smoker Yes 05/15/24 08:11 Duration of Surgery greater No 05/15/24 08:11 than 60 minutes Number of Risk Factors 1 05/15/24 08:11 PONV Score Low Risk 05/15/24 08:11 Height Weight Height Weight: Anesthesia: Height Weight Height 5 ft 11 in 03/26/24 11:42 Respiratory Assessment 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 Has anyone observed you stop No 05/15/24 08:11 breathing during sleep? STOP Results Positive 05/15/24 08:11 QUESTION #5 FULL TEXT : Do you snore loudly (louder than talking or can be heard through closed doors)? 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 Hx Now No 05/15/24 08:11 Gestational Age (in weeks): EDC: Hx Hx Para Hx Section SAB No 05/15/24 08:11 [facility] Medical History (Updated 05/15/24 @ 08:20 by Daisy Andrews) Wears hearing aid Wears glasses Alcohol use High cholesterol Migraine headache Shortness of breath on exertion Non-smoker Leg cramps History of echocardiogram History of stress test Cardiology follow-up encounter Essential hypertension COVID-19 (02/20/21) Home Medications ???Medication ???Instructions ???Recorded ???Last Taken ???Type aspirin 81 mg tablet,delayed 81 mg PO DAILY 09/15/21 05/13/24 H istory release (Adult Low Dose Aspirin) Oral appliance #1 ea 01/24/22 Unknown Rx losartan 50 mg tablet 50 mg PO DAILY #90 tabs 09/21/23 U nknown Rx amlodipine 5 mg tablet 5 mg PO DAILY #90 tabs 11/03/23 Un known Rx multivitamin (Daily Multi-Vitamin 1 tab PO DAILY 05/15/24 05/13/24 History tablet) Allergy/AdvReac Type Severity Reaction Status Date / Time No Known Allergies Allergy Verified 05/15/24 08:09 Surgical History (Updat (more content not included)... Normal [facility] Urgent Care Visit Reporton 0 04-16-2024 Urgent Care Visit Report [facility] [address], [address] [place] [address] OFFICE VISIT Date of Service: 04/16/24 MR#: [id number] Acct: [id number] Name: SHMUELKISHORE ELOISA Rep #: [id number] : 1950 Provider: PATRICIA Briggs Age/Sex: 73/M Location: [facility] Status: Signed Intake Vital Signs 03/26/24 11:42 04/16/24 12:23 Height 5 ft 11 in Weight: 212 lb BMI 29.5 BP 122/62 H Position Sitting Pulse 103 H Temp 98.1 F Temp Source Oral Pulse Oximetry (%) 97 Oxygen Delivery Method room air Comment Sees [facility] Cardiology yearly for HTN Intake Visit Reasons: FB RIGHT EAR Accompanied by: Self Allergies No Known Allergies Allergy (Verified 04/16/24 12:18) Medications ???Medication ???Instructions ???Recorded ???Confirmed ???Type aspirin 81 mg tablet,delayed 81 mg PO DAILY 09/15/21 04/16/24 H istory release (Adult Low Dose Aspirin) Oral appliance #1 ea 01/24/22 04/16/24 Rx losartan 50 mg tablet 50 mg PO DAILY #90 tabs 09/21/23 0 04/16/24 Rx amlodipine 5 mg tablet 5 mg PO DAILY #90 tabs 11/03/23 Rx Have you fallen in the past year?: No Nurse's Note: Patient rubber piece from his hearing aide is in his ear. Patient noticed it today after the shower. [facility] Medical History (Updated 04/16/24 @ 12:35 by Marcus GOMEZ, PA) Foreign body in ear Essential hypertension GERD (gastroesophageal reflux disease) Obesity (BMI 30.0-34.9) Foreign body in right ear COVID-19 (02/20/21) Acute bronchitis, unspecified Acute maxillary sinusitis, unspecified Screening for intestinal cancer Surgical History History of colonoscopy with polypectomy (2019) History of tonsillectomy Social History (Updated 03/26/24 @ 11:38 by Janey Mike) household members: spouse current occupational status: retired Smoking Status: Former smoker how long ago did patient quit smokin + years ago alcohol intake: current alcohol intake frequency: a few times a month substance use type: does not use caffeine: Yes Type: coffee Number of servings: 2 HPI HPI Details: KISHORE CHANG, is a 73 M who presents to the office today for initial evaluation status post hearing aid cover was retained within the ear canal and is unable to remove it. He states it happened immediately prior to arrival here today, without complaints of lightheadedness or dizziness or nausea/vomiting. PMH NC. No [id number] products taken to assist. No other associated symptoms and no other alleviating/aggravati ng factors. ROS Const Constitutional: No other (As above) Exam Const General: cooperative, healthy appearing and no acute distress Orientation: alert and awake HENWI Head: normal to inspection Ears: hearing grossly normal bilaterally, external ears normal (after fb removed from AD EAC), TM's normal bilaterally and EAC's normal Nose: external nose normal Neck Neck: normal visual inspection, no lymphadenopathy, no meningeal signs and supple Resp Effort Inspection: normal respiratory effort and able to speak in complete sentences Cardio Rate: regular rate Pulses: radial pulses present Skin General: no rashes or lesions noted Neuro General: patient alert, patient awake and gait normal Cognition: normal cognition Speech: speech normal Psych Appearance: grossly normal Mental Status: mental status grossly normal Mood: congruent mood Affect: normal affect Speech and Movement: speech and movement normal Attitude: cooperative Office Procedures Foreign Body Removal/Debrideme Time Out Consent Signed: No Time out checklist: patient, procedure, site marked/identified, positioning of patient, supplies available and allergies confirmed Procedure Performed By Procedure performed by: Marcus Carter Foreign Body Removal Foreign body, simple: Yes Details Details: Verbal consent given prior to procedure performed. Forceps used in the right ear canal to remove rubber covering of hearing aids patient has in his possession. The cover was removed without incident without trauma to the EAC appreciated upon my inspection after removal. Patient tolerated procedure well. Coding Level of Care Code Attention Chester Diagnoses Foreign body in ear T16.9XXA CPT Codes Foreign Body Removal - Foreign body, simple: Yes (47171) Comment 44604, [id number] Assessment and Plan Assessment and Plan (1) Foreign body in ear: Status: Acute Plan: - w/ removal See procedure. Follow-up with the [facility] on an as-needed basis only. Patient states acknowledging understanding all the above. This note was generated with [employer] dictation software. It may contain incorrect words, spelling, and punctuation that were not noted in checking the note (more content not included)... Normal [facility] CBC W/Diff, Automatedon 11-2 Absolute Lymph 1.77 X10 3/uL Normal 0.83-4.51 [facility] Comment on above: Order Comment: Order Date: 01/09/24 Order Info: [id number] - CBCD Performed By: #### L 500.4050, L500.4100, L501.9910, L100.0100 #### [facility] [address] [place], [address] Absolute Neut 3.9 X10 3/uL Normal 2.0-7.7 [facility] Comment on above: Order Comment: Order Date: 01/09/24 Order Info: [id number] - CBCD Performed By: #### L 500.4050, L500.4100, L501.9910, L100.0100 #### [facility] [address] [place], [address] Basophils/100 WBC (Bld) 1.2 % High 0-1 [facility] Comment on above: Order Comment: Order Date: 01/09/24 Order Info: [id number] - CBCD Performed By: #### L 500.4050, L500.4100, L501.9910, L100.0100 #### [facility] [address] [place], [address] Eosinophils/100 WBC (Bld) 3.9 % Normal 0-5 [facility] Comment on above: Order Comment: Order Date: 01/09/24 Order Info: [id number] - CBCD Performed By: #### L 500.4050, L500.4100, L501.9910, L100.0100 #### [facility] [address] [place], [address] Erythrocyte distribution width (RBC) [Ratio] 13.0 % Normal 11.6-14.6 [facility] Comment on above: Order Comment: Order Date: 01/09/24 Order Info: [id number] - CBCD Performed By: #### L 500.4050, L500.4100, L501.9910, L100.0100 #### [facility] [address] [place], [address] Hematocrit (Bld) [Volume fraction] 45.3 % Normal 40-54 [facility] Comment on above: Order Comment: Order Date: 01/09/24 Order Info: [id number] - CBCD Performed By: #### L 500.4050, L500.4100, L501.9910, L100.0100 #### [facility] [address] [place], [address] Hemoglobin (Bld) [Mass/Vol] 14.9 g/dL Normal 13.0-16.5 [facility] Comment on above: Order Comment: Order Date: 01/09/24 Order Info: [id number]- - CBCD Performed By: #### L 500.4050, L500.4100, L501.9910, L100.0100 #### [facility] [address] [place], [address] IG% 0.300 Normal 0.0-0.9 [facility] Comment on above: Order Comment: Order Date: 01/09/24 Order Info: [id number] - CBCD Result Comment: IG% - Immature Granulocytes (promyelocytes, myelocytes and metamyelocytes) > 1% indicates that a LEFT SHIFT is Present. Performed By: #### L 500.4050, L500.4100, L501.9910, L100.0100 #### [facility] [address] [place], [address] Lymphocytes/100 WBC (Bld) 26.7 % Normal 19-41 [facility] Comment on above: Order Comment: Order Date: 01/09/24 Order Info: [id number]- - CBCD Performed By: #### L 500.4050, L500.4100, L501.9910, L100.0100 #### [facility] [address] [place], [address] MCH (RBC) [Entitic mass] 29.4 pg Normal 27.0-32.0 [facility] Comment on above: Order Comment: Order Date: 01/09/24 Order Info: [id number]- - CBCD Performed By: #### L 500.4050, L500.4100, L501.9910, L100.0100 #### [facility] [address] [place], [address] MCHC (RBC) [Mass/Vol] 32.9 g/dL Normal 32-36 [facility] Comment on above: Order Comment: Order Date: 01/09/24 Order Info: [id number] - CBCD Performed By: #### L 500.4050, L500.4100, L501.9910, L100.0100 #### [facility] [address] [place], [address] MCV (RBC) [Entitic vol] 89.3 fL Normal 80-94 [facility] Comment on above: Order Comment: Order Date: 01/09/24 Order Info: [id number] - CBCD Performed By: #### L 500.4050, L500.4100, L501.9910, L100.0100 #### [facility] [address] [place], [address] Monocytes/100 WBC (Bld) 9.0 % Normal 0-10 [facility] Comment on above: Order Comment: Order Date: 01/09/24 Order Info: 018- - CBCD Performed By: #### L 500.4050, L500.4100, L501.9910, L100.0100 #### [facility] [address] [place], [address] Neutrophils/100 WBC (Bld) 58.9 % Normal 47-70 [facility] Comment on above: Order Comment: Order Date: 01/09/24 Order Info: [id number] - CBCD Performed By: #### L 500.4050, L500.4100, L501.9910, L100.0100 #### [facility] [address] [place], [address] Nucleated RBC (Bld) [#/Vol] 0 10*3/uL Normal 0-5 [facility] Comment on above: Order Comment: Order Date: 01/09/24 Order Info: [id number] - CBCD Performed By: #### L 500.4050, L500.4100, L501.9910, L100.0100 #### [facility] [address] [place], [address] Platelet mean volume (Bld) [Entitic vol] 9.0 fL Normal 6.2-12.0 [facility] Comment on above: Order Comment: Order Date: 01/09/24 Order Info: [id number] - CBCD Performed By: #### L 500.4050, L500.4100, L501.9910, L100.0100 #### [facility] [address] [place], [address] Platelets (Bld) [#/Vol] 289 10*3/uL Normal 150-450 [facility] Comment on above: Order Comment: Order Date: 01/09/24 Order Info: 018- - CBCD Performed By: #### L 500.4050, L500.4100, L501.9910, L100.0100 #### [facility] [address] [place], [address] RBC (Bld) [#/Vol] 5.07 10*6/uL Normal 4.6-6.2 [facility] Comment on above: Order Comment: Order Date: 01/09/24 Order Info: [id number]- - CBCD Performed By: #### L 500.4050, L500.4100, L501.9910, L100.0100 #### [facility] [address] [place], [address] RDW SD 42.7 fl Normal 35.1-43.9 [facility] Comment on above: Order Comment: Order Date: 01/09/24 Order Info: [id number] - CBCD Performed By: #### L 500.4050, L500.4100, L501.9910, L100.0100 #### [facility] [address] [place], [address] WBC (Bld) [#/Vol] 6.6 10*3/uL Normal 4.4-11.0 [facility] Comment on above: Order Comment: Order Date: 01/09/24 Order Info: [id number] - CBCD Performed By: #### L 500.4050, L500.4100, L501.9910, L100.0100 #### [facility] [address] [place], [address] Comprehensive Metabolic Prof ilon 01-10-2024 Albumin [Mass/Vol] 3.6 g/dL Normal 3.2-5.0 [facility] Comment on above: Order Comment: Order Date: 01/09/24Order Info: [id number] - CMPOrder Info: [id number] - LIPIDOrder Info: [id number] - PSA Performed By: #### L 500.4050, L500.4100, L501.9910, L100.0100 ####[facility] [address] [place], [address] Albumin/Globulin [Mass ratio] 1.1 {ratio} Normal 0.9-2.4 [facility] Comment on above: Order Comment: Order Date: 01/09/24Order Info: [id number] - CMPOrder Info: [id number] - LIPIDOrder Info: [id number] - PSA Performed By: #### L 500.4050, L500.4100, L501.9910, L100.0100 ####[facility] [address] [place], [address] ALK P 47 U/L Normal 45-117 [facility] Comment on above: Order Comment: Order Date: 01/09/24Order Info: [id number] - CMPOrder Info: [id number] - LIPIDOrder Info: [id number] - PSA Performed By: #### L 500.4050, L500.4100, L501.9910, L100.0100 ####[facility] [address] [place], [address] ALT [Catalytic activity/Vol] 21 U/L Normal 16-61 [facility] Comment on above: Order Comment: Order Date: 01/09/24Order Info: [id number] - CMPOrder Info: [id number] - LIPIDOrder Info: [id number] - PSA Performed By: #### L 500.4050, L500.4100, L501.9910, L100.0100 ####[facility] [address] [place], [address] AST [Catalytic activity/Vol] 13 U/L Low 15-37 [facility] Comment on above: Order Comment: Order Date: 01/09/24Order Info: [id number]- - CMPOrder Info: [id number] - LIPIDOrder Info: [id number] - PSA Performed By: #### L 500.4050, L500.4100, L501.9910, L100.0100 ####[facility] [address] [place], [address] Bilirubin [Mass/Vol] 0.60 mg/dL Normal 0.20-1.00 [facility] Comment on above: Order Comment: Order Date: 01/09/24Order Info: [id number] - CMPOrder Info: [id number] - LIPIDOrder Info: [id number] - PSA Result Comment: For patients on eltrombopag therapy, use of Dimension [place] TBIL is not recommended. Performed By: #### L 500.4050, L500.4100, L501.9910, L100.0100 ####[facility] [address] [place], [address] BUN/CRE 21.2 RATIO High 10-20 [facility] Comment on above: Order Comment: Order Date: 01/09/24Order Info: [id number] - CMPOrder Info: [id number] - LIPIDOrder Info: [id number] - PSA Performed By: #### L 500.4050, L500.4100, L501.9910, L100.0100 ####[facility] [address] [place], [address] CA,Total 8.9 mg/dL Normal 8.5-10.1 [facility] Comment on above: Order Comment: Order Date: 01/09/24Order Info: [id number] - CMPOrder Info: [id number] - LIPIDOrder Info: [id number] - PSA Performed By: #### L 500.4050, L500.4100, L501.9910, L100.0100 ####[facility] [address] [place], [address] Chloride [Moles/Vol] 108 mmol/L High 98-107 [facility] Comment on above: Order Comment: Order Date: 01/09/24Order Info: [id number]- - CMPOrder Info: - LIPIDOrder Info: [id number] - PSA Performed By: #### L 500.4050, L500.4100, L501.9910, L100.0100 ####[facility] [address] [place], [address] CO2 [Moles/Vol] 24.0 mmol/L Normal 21.0-32.0 [facility] Comment on above: Order Comment: Order Date: 01/09/24Order Info: [id number] - CMPOrder Info: [id number] - LIPIDOrder Info: [id number] - PSA Performed By: #### L 500.4050, L500.4100, L501.9910, L100.0100 ####[facility] [address] [place], [address] Creatinine [Mass/Vol] 0.80 mg/dL Normal 0.70-1.30 [facility] Comment on above: Order Comment: Order Date: 01/09/24Order Info: 07- - CMPOrder Info: [id number] - LIPIDOrder Info: [id number] - PSA Result Comment: The validity of the calculated GFR GFRAA in patients over 70 years has not been determined. Clinical correlation is essential. Performed By: #### L 500.4050, L500.4100, L501.9910, L100.0100 ####[facility] [address] [place], [address] EST GFR - AA 122 mL/min Normal >60 [facility] Comment on above: Order Comment: Order Date: 01/09/24Order Info: [id number] - CMPOrder Info: [id number] - LIPIDOrder Info: [id number] - PSA Result Comment: Afri can Somali GFR Calc Performed By: #### L 500.4050, L500.4100, L501.9910, L100.0100 ####[facility] [address] [place], [address] GAP 6 Normal 5-15 [facility] Comment on above: Order Comment: Order Date: 01/09/24Order Info: [id number]- - CMPOrder Info: [id number] - LIPIDOrder Info: [id number] - PSA Performed By: #### L 500.4050, L500.4100, L501.9910, L100.0100 ####[facility] [address] [place], [address] GFR/1.73 sq M.predicted among non-blacks MDRD (S/P/Bld) [Vol rate/Area] 101 mL/min/{1.73_m2} Normal >60 [facility] Comment on above: Order Comment: Order Date: 01/09/24Order Info: [id number]- - CMPOrder Info: [id number] - LIPIDOrder Info: [id number] - PSA Result Comment: Non- GFR Calc Performed By: #### L 500.4050, L500.4100, L501.9910, L100.0100 ####[facility] [address] [place], [address] Globulin (S) [Mass/Vol] 3.3 g/dL Normal 2.2-4.2 [facility] Comment on above: Order Comment: Order Date: 01/09/24Order Info: [id number]- - CMPOrder Info: [id number] - LIPIDOrder Info: [id number] - PSA Performed By: #### L 500.4050, L500.4100, L501.9910, L100.0100 ####[facility] [address] [place], [address] Glucose [Mass/Vol] 99 mg/dL Normal 74-106 [facility] Comment on above: Order Comment: Order Date: 01/09/24Order Info: [id number] - CMPOrder Info: [id number] - LIPIDOrder Info: [id number] - PSA Performed By: #### L 500.4050, L500.4100, L501.9910, L100.0100 ####[facility] [address] [place], [address] Potassium [Moles/Vol] 4.0 mmol/L Normal 3.5-5.1 [facility] Comment on above: Order Comment: Order Date: 01/09/24Order Info: [id number] - CMPOrder Info: [id number] - LIPIDOrder Info: [id number] - PSA Performed By: #### L 500.4050, L500.4100, L501.9910, L100.0100 ####[facility] [address] [place], [address] Sodium [Moles/Vol] 138 mmol/L Normal 136-145 [facility] Comment on above: Order Comment: Order Date: 01/09/24Order Info: [id number] - CMPOrder Info: [id number] - LIPIDOrder Info: [id number] - PSA Performed By: #### L 500.4050, L500.4100, L501.9910, L100.0100 ####[facility] [address] [place], [address] T PROT 6.9 g/dL Normal 6.4-8.2 [facility] Comment on above: Order Comment: Order Date: 01/09/24Order Info: 07- - CMPOrder Info: [id number] - LIPIDOrder Info: [id number] - PSA Performed By: #### L 500.4050, L500.4100, L501.9910, L100.0100 ####[facility] [address] [place], [address] Urea nitrogen [Mass/Vol] 17 mg/dL Normal 7-18 [facility] Comment on above: Order Comment: Order Date: 01/09/24Order Info: 07-1 - CMPOrder Info: [id number] - LIPIDOrder Info: [id number] - PSA Performed By: #### L 500.4050, L500.4100, L501.9910, L100.0100 ####[facility] [address] [place], [address] Lipid Profileon 01-10-2024 Cholesterol [Mass/Vol] 207 mg/dL High 200 [facility] Comment on above: Order Comment: Order Date: 01/09/24Order Info: [id number]- - CMPOrder Info: [id number] - LIPIDOrder Info: 7- - PSA Result Comment: <200 mg/dL Desirable 200-240 mg/dL Borderline >240 mg/dL High Risk Performed By: #### L 500.4050, L500.4100, L501.9910, L100.0100 ####[facility] [address] [place], [address] Cholesterol in HDL [Mass/Vol] 68 mg/dL Normal [facility] Comment on above: Order Comment: Order Date: 01/09/24Order Info: 07-1 - CMPOrder Info: [id number] - LIPIDOrder Info: [id number] - PSA Result Comment: The drugs N-Acetylcysteine and Metamizole may falsely depress this assay. Reference Range HDL <40 mg/dL Low HDL Cholesterol HDL >or= 60 mg/dL High HDL Cholesterol Performed By: #### L 500.4050, L500.4100, L501.9910, L100.0100 ####[facility] [address] [place], [address] Cholesterol in LDL [Mass/Vol] 124 mg/dL Normal 0-130 [facility] Comment on above: Order Comment: Order Date: 01/09/24Order Info: [id number]- - CMPOrder Info: - LIPIDOrder Info: [id number] - PSA Performed By: #### L 500.4050, L500.4100, L501.9910, L100.0100 ####[facility] [address] [place], [address] Cholesterol in VLDL [Mass/Vol] 15 mg/dL Normal 5-40 [facility] Comment on above: Order Comment: Order Date: 01/09/24Order Info: [id number] - CMPOrder Info: - LIPIDOrder Info: [id number] - PSA Performed By: #### L 500.4050, L500.4100, L501.9910, L100.0100 ####[facility] [address] [place], [address] Triglyceride [Mass/Vol] 77 mg/dL Normal [facility] Comment on above: Order Comment: Order Date: 01/09/24Order Info: [id number] - CMPOrder Info: - LIPIDOrder Info: [id number] - PSA Result Comment: The drugs N-Acetylcysteine and Metamizole may falsely depress this assay. Serum Triglycerides Reference Interval Normal <150 mg/dL Borderline high 150 - 199 mg/dL High 200 - 499 mg/dL Very High > or = 500 mg/dL Performed By: #### L 500.4050, L500.4100, L501.9910, L100.0100 ####[facility] [address] [place], [address] PSA,Total - Annual Screenon 01-10-2024 PSA,TOT SCREEN 1.63 ng/mL Normal 0.00-4.00 [facility] Comment on above: Order Comment: Order Date: 01/09/24Order Info: [id number] - CMPOrder Info: - LIPIDOrder Info: [id number] - PSA Result Comment: This test was performed using the TPSA assay method for the [employer] chemistry system. Values obtained with different assay methods cannot be used interchangably. When changing PSA assays in the course of monitoring a patient, additional sequential testing should be carried out to confirm baseline values. Performed By: #### L 500.4050, L500.4100, L501.9910, L100.0100 ####[facility] [id number] [place], [address] Laboratory - Chemistry and C hemistry - challengeOrdered By: Darrin Thorpe on 04-17-2023 Ferritin [Mass/Vol] 154 ng/mL 26-388 [facility] No Panel InformationOrdered By: Darrin Thorpe on 04-17-2023 Free Triiodothyronine (T3) pg/dL 3.1 pg/mL 2.18-3.98 [facility] Thin prep Papanicolaou smear with manual screeningOrdered By: Darrin Thorpe on 04-17-2023 Thin prep Papanicolaou smear with manual screening 0.94 ng/dL 0.76-1.46 [facility] Absolute lymphocyte countOrd ered By: Darrin Thorpe on 04-13-2023 Lymphocytes Auto (Unsp spec) [#/Vol] 2.38 10*3/uL 0.83-4.51 [facility] Albumin Elph [Mass/Vol]Order ed By: Darrin Thorpe on 04-13-2023 Albumin [Mass/Vol] 4.0 g/dL 2.9-4.4 [facility] Automated lymphocyte count a s percentage of total leukocytesOrdered By: Darrin Thorpe on 04-13-2023 Lymphocytes/100 WBC Auto (Unsp spec) 30.7 % 19-41 [facility] Basophil percentageOrdered B y: Darrin Thorpe on 04-13-2023 Basophils/100 WBC (Bld) 0.9 % 0-1 [facility] Bilirubin [Mass/Vol] 0.60 mg/dL 0.20-1.00 [facility] Comment on above: For patients on eltr ombopag therapy, use of Dimension [place] TBIL is not recommended. Chloride [Moles/Vol] 108 mmol/L 98-107 [facility] Eosinophils/100 WBC (Bld) 4.5 % 0-5 [facility] Glucose [Mass/Vol] 86 mg/dL 74-106 [facility] Hemoglobin (Bld) [Mass/Vol] 16.7 g/dL 13.0-16.5 [facility] Monocytes/100 WBC (Bld) 10.3 % 0-10 [facility] Neutrophils (Bld) [#/Vol] 4.1 10*3/uL 2.0-7.7 [facility] Neutrophils/100 WBC (Bld) 53.2 % 47-70 [facility] Potassium [Moles/Vol] 3.9 mmol/L 3.5-5.1 [facility] Protein [Mass/Vol] 7.6 g/dL 6.4-8.2 [facility] Sodium [Moles/Vol] 138 mmol/L 136-145 [facility] Testosterone [Mass/Vol] 327 ng/dL 264-916 [facility] Comment on above: Adult male reference interval is based on a population ofhealthy nonobese males (BMI <30) between 19 and 39 yearsold. cain Gallardo.al. JCEM 2017,102;6127-5799. PMID:[id number]. WBC (Bld) [#/Vol] 7.8 10*3/uL 4.4-11.0 [facility] Determination of erythrocyte mean corpuscular volume (MCV)Ordered By: Darrin Thorpe on 04-13-2023 MCV (RBC) [Entitic vol] 88.5 fL 80-94 [facility] Erythrocyte distribution wid th ratioOrdered By: Darrin Thorpe on 04-13-2023 Erythrocyte distribution width (RBC) [Ratio] 13.0 % 11.6-14.6 [facility] Erythrocyte distribution wid th standard deviationOrdered By: Darrin Thorpe on 04-13-2023 Erythrocyte distribution width (RBC) [Entitic vol] 42.1 fL 35.1-43.9 [facility] Free testosterone percentage Ordered By: Darrin Thorpe on 04-13-2023 Testosterone Free/Testosterone.total [Mass fraction] 2.77 % 1.50-4.20 [facility] Hematocrit Auto (Bld) [Volum e fraction]Ordered By: Darrin Thorpe on 04-13-2023 Hematocrit (Bld) [Volume fraction] 49.3 % 40-54 [facility] Immature granulocytes/100 WB C Auto (Bld)Ordered By: Darrin Thorpe on 04-13-2023 Immature granulocytes/100 WBC (Bld) 0.400 % 0.0-0.9 [facility] Comment on above: IG% - Immature Granu locytes (promyelocytes, myelocytes and metamyelocytes) > 1% indicates that a LEFT SHIFT is Present. Laboratory - Chemistry and C hemistry - challengeOrdered By: Darrin Thorpe on 04-13-2023 Albumin/Globulin [Mass ratio] 1.1 {ratio} 0.9-2.4 [facility] ALP [Catalytic activity/Vol] 50 U/L 45-117 [facility] ALT [Catalytic activity/Vol] 36 U/L 16-61 [facility] CO2 [Moles/Vol] 24.0 mmol/L 21.0-32.0 [facility] Globulin (S) [Mass/Vol] 3.6 g/dL 2.2-4.2 [facility] Urea nitrogen/Creatinine [Mass ratio] 22.8 mg/mg 10-20 [facility] Laboratory - Hematology and Cell countsOrdered By: Darrin Thorpe on 04-13-2023 MCH (RBC) [Entitic mass] 30.0 pg 27.0-32.0 [facility] MCHC (RBC) [Mass/Vol] 33.9 g/dL 32-36 [facility] Nucleated RBC/100 WBC (Bld) [Ratio] 0 % 0-5 [facility] Platelet mean volume (Bld) [Entitic vol] 9.2 fL 6.2-12.0 [facility] Platelets (Bld) [#/Vol] 298 10*3/uL 150-450 [facility] No Panel InformationOrdered By: Darrin Thorpe on 04-13-2023 Addendum Document Comment . [facility] Comment on above: The SPE pattern appe ars unremarkable. Evidence ofmonoclonal protein is not apparent. Vvlzc-0-Jrwfyglld 0.2 g/dL 0.0-0.4 [facility] Blilv-7-Ccavfqras 0.8 g/dL 0.4-1.0 [facility] Estimated GFR (MDRD) Amer 110 mL/min >60 [facility] Comment on above: GFR Calc Estimated GFR (MDRD) Non-Af Amer 91 mL/min >60 [facility] Comment on above: Non- GFR Calc Gamma Globulins 0.9 g/dL 0.4-1.8 [facility] Protein Fractions Elph [Inte rp]Ordered By: Darrin Thorpe on 04-13-2023 Protein Fractions [Interp] Comment . [facility] Comment on above: Protein electrophore sis scan will follow via computer,mail, or pouncer machine delivery. RBC Auto (Bld) [#/Vol]Ordere d By: Darrin Thorpe on 04-13-2023 RBC (Bld) [#/Vol] 5.57 10*6/uL 4.6-6.2 [facility] Serum albumin to globulin ra stephany by protein electrophoresisOrdered By: Darrin Thorpe on 04-13-2023 Albumin/Globulin Elph [Mass ratio] 1.3 0.7-1.7 [facility] Serum globulin measurement ( mass/volume)Ordered By: Darrin Thorpe on 04-13-2023 Globulin (S) [Mass/Vol] 3.0 g/dL 2.2-3.9 [facility] Serum or plasma beta globuli n measurement by electrophoresis (mass/volume)Ordered By: Darrin Thorpe on 04-13-2023 Beta globulin Elph [Mass/Vol] 1.0 g/dL 0.7-1.3 [facility] Serum or plasma calcium zoila urement (mass/volume)Ordered By: Darrin Thorpe on 04-13-2023 Calcium [Mass/Vol] 9.1 mg/dL 8.5-10.1 [facility] Serum or plasma creatinine m easurement (mass/volume)Ordered By: Darrin Thorpe on 04-13-2023 Creatinine [Mass/Vol] 0.88 mg/dL 0.70-1.30 [facility] Comment on above: The validity of the calculated GFR & GFRAA in patients over 70 years has not been determined. Clinical correlation is essential. Serum or plasma protein mono clonal measurement by electrophoresis (mass/volume)Ordered By: Darrin Thorpe on 04-13-2023 Protein.monoclonal Elph [Mass/Vol] Not Observed g/dL Not Observed [facility] Serum or plasma testosterone free measurement (mass/volume)Ordered By: Darrin Thorpe on 04-13-2023 Testosterone Free [Mass/Vol] 9.06 ng/dL 5.00-21.00 [facility] Serum or plasma thyroid stim ulating hormone (TSH) measurement (units/volume)Ordered By: Darrin Thorpe on 04-13-2023 TSH Qn 4.07 uIU/mL 0.358-3.74 [facility] Serum or plasma urea nitroge n measurement (mass/volume)Ordered By: Darrin Thorpe on 04-13-2023 Urea nitrogen [Mass/Vol] 20 mg/dL 7-18 [facility] Thin prep Papanicolaou smear with manual screeningOrdered By: Darrin Thorpe on 04-13-2023 Thin prep Papanicolaou smear with manual screening 4.0 g/dL 3.2-5.0 [facility] Thin prep Papanicolaou smear with manual screening 17 U/L 15-37 [facility] Thin prep Papanicolaou smear with manual screening 6 5-15 [facility] Thin prep Papanicolaou smear with manual screening Negative Negative [facility] Comment on above: Lyme antibodies not detected. Reflex testing is notindicated.No laboratory evidence of infection with B. burgdorferi(Lyme disease). Negative results may occur in patientsrecently infected (less than or equal to 14 days) with B.burgdorferi. If recent infection is suspected, repeattesting on a new sample collected in 7 to 14 days isrecommended.Performed at: [facility] [id number] Director: Lc Monique PhD, Phone: [phone] at: [facility] [id number] Director: Kirit Concepcion MD, Phone: [phone] Total protein bloodOrdered B y: Darrin Thorpe on 04-13-2023 Protein [Mass/Vol] 7.0 g/dL 6.0-8.5 [facility] Basophil percentageOrdered B y: [place] Onofre on 09-20-2022 Bilirubin [Mass/Vol] 0.30 mg/dL 0.20-1.00 [facility] Comment on above: For patients on eltr ombopag therapy, use of Dimension [place] TBIL is not recommended. Cholesterol [Mass/Vol] 212 mg/dL <200 [facility] Comment on above: <200 mg/dL Desirable 200-240 mg/dL Borderline >240 mg/dL High Risk Protein [Mass/Vol] 7.2 g/dL 6.4-8.2 [facility] Triglyceride [Mass/Vol] 130 mg/dL <199 [facility] Comment on above: The drugs N-Acetylcy steine and Metamizole may falsely depress this assay.Serum Triglycerides Reference Interval Normal <150 mg/dL Borderline high 150 - 199 mg/dL High 200 - 499 mg/dL Very High > or = 500 mg/dL Direct bilirubinOrdered By: Luis Onofre on 09-20-2022 Bilirubin.direct [Mass/Vol] 0.11 mg/dL 0.00-0.30 [facility] Laboratory - Chemistry and C hemistry - challengeOrdered By: Luis Onofre on 09-20-2022 ALP [Catalytic activity/Vol] 51 U/L 45-117 [facility] ALT [Catalytic activity/Vol] 30 U/L 16-61 [facility] Globulin (S) [Mass/Vol] 3.5 g/dL 2.2-4.2 [facility] No Panel InformationOrdered By: Luis Onofre on 09-20-2022 Thyroid Stimulating Hormone (TSH) 2.84 uIU/mL 0.358-3.74 [facility] Serum or plasma albumin zoila urement (mass/volume)Ordered By: Luis Onofre on 09-20-2022 Albumin [Mass/Vol] 3.7 g/dL 3.2-5.0 [facility] Serum or plasma cholesterol in HDL measurement (mass/volume)Ordered By: Luis Onofre on 09-20-2022 Cholesterol in HDL [Mass/Vol] 62 mg/dL >40 [facility] Comment on above: The drugs N-Acetylcy steine and Metamizole may falsely depress this assay. Reference Range HDL <40 mg/dL Low HDL Cholesterol HDL >or= 60 mg/dL High HDL Cholesterol Serum or plasma cholesterol in VLDL measurement (mass/volume)Ordered By: Luis Onofre on 09-20-2022 Cholesterol in VLDL [Mass/Vol] 26 mg/dL 5-40 [facility] Serum or plasma low density lipoprotein (LDL) cholesterol measurement (mass/volume)Ordered By: [place] on 09-20-2022 Cholesterol in LDL [Mass/Vol] 124 mg/dL 0-130 [facility] Thin prep Papanicolaou smear with manual screeningOrdered By: [place] on 09-20-2022 Thin prep Papanicolaou smear with manual screening 12 U/L 15-37 [facility] Laboratory - Microbiology an d Antimicrobial susceptibilityon 11-06-2021 SARS-CoV-2 (COVID-19) RNA SARI+probe Ql (Unsp spec) Not detected [facility] Work Phone: No Panel Informationon 11-06 Influenza Types A,B Rapid (Clinic) Not detected [facility] Work Phone: Absolute lymphocyte counton 09-14-2021 Lymphocytes Auto (Unsp spec) [#/Vol] 1.79 10*3/uL 0.83-4.51 [facility] Work Phone: Basophil percentageon 2021 Bilirubin [Mass/Vol] 0.50 mg/dL 0.20-1.00 [facility] Work Phone: Comment on above: For patients on eltr ombopag therapy, use of Dimension [place] TBIL is not recommended. Cholesterol [Mass/Vol] 227 mg/dL <200 [facility] Work Phone: Comment on above: <200 mg/dL Desirable 200-240 mg/dL Borderline >240 mg/dL High Risk Protein [Mass/Vol] 7.2 g/dL 6.4-8.2 [facility] Work Phone: [phone] Triglyceride [Mass/Vol] 86 mg/dL <199 [facility] Work Phone: Comment on above: The drugs N-Acetylcy steine and Metamizole may falsely depress this assay.Serum Triglycerides Reference Interval Normal <150 mg/dL Borderline high 150 - 199 mg/dL High 200 - 499 mg/dL Very High > or = 500 mg/dL Basophils/100 WBC (Bld) 0.8 % 0-1 [facility] Work Phone: Chloride [Moles/Vol] 108 mmol/L 98-107 [facility] Work Phone: Eosinophils/100 WBC (Bld) 2.6 % 0-5 [facility] Work Phone: Glucose [Mass/Vol] 88 mg/dL 74-106 [facility] Work Phone: Neutrophils (Bld) [#/Vol] 4.5 10*3/uL 2.0-7.7 [facility] Work Phone: Neutrophils/100 WBC (Bld) 62.7 % 47-70 [facility] Work Phone: Potassium [Moles/Vol] 3.9 mmol/L 3.5-5.1 [facility] Work Phone: Sodium [Moles/Vol] 139 mmol/L 136-145 [facility] Work Phone: WBC (Bld) [#/Vol] 7.2 10*3/uL 4.4-11.0 [facility] Work Phone: Blood erythrocytes count (nu mber/volume)on 09-14-2021 RBC (Bld) [#/Vol] 5.56 10*6/uL 4.6-6.2 [facility] Work Phone: Blood hemoglobin measurement (mass/volume)on 09-14-2021 Hemoglobin (Bld) [Mass/Vol] 17.0 g/dL 13.0-16.5 [facility] Work Phone: Blood lymphocytes/100 leukoc yteson 09-14-2021 Lymphocytes/100 WBC (Bld) 24.9 % 19-41 [facility] Work Phone: Blood monocytes/100 leukocyt eson 09-14-2021 Monocytes/100 WBC (Bld) 8.6 % 0-10 [facility] Work Phone: Blood platelet mean volumeon 09-14-2021 Platelet mean volume (Bld) [Entitic vol] 8.9 fL 6.2-12.0 [facility] Work Phone: [phone] Determination of erythrocyte mean corpuscular volume (MCV)on 09-14-2021 MCV (RBC) [Entitic vol] 88.7 fL 80-94 [facility] Work Phone: [phone] Direct bilirubinon Bilirubin.direct [Mass/Vol] 0.11 mg/dL 0.00-0.30 [facility] Work Phone: [phone] Hematocrit Auto (Bld) [Volum e fraction]on 09-14-2021 Hematocrit (Bld) [Volume fraction] 49.3 % 40-54 [facility] Work Phone: [phone] Laboratory - Chemistry and C hemistry - challengeon 09-14-2021 ALP [Catalytic activity/Vol] 41 U/L 45-117 [facility] Work Phone: [phone] ALT [Catalytic activity/Vol] 27 U/L 16-61 [facility] Work Phone: [phone] Globulin (S) [Mass/Vol] 3.1 g/dL 2.2-4.2 [facility] Work Phone: [phone] CO2 [Moles/Vol] 26.0 mmol/L 21.0-32.0 [facility] Work Phone: [phone] Urea nitrogen/Creatinine [Mass ratio] 19.6 mg/mg 10-20 [facility] Work Phone: [phone] Laboratory - Hematology and Cell countson 09-14-2021 Erythrocyte distribution width (RBC) [Entitic vol] 42.5 fL 35.1-43.9 [facility] Work Phone: [phone] Erythrocyte distribution width (RBC) [Ratio] 13.0 % 11.6-14.6 [facility] Work Phone: [phone] Immature granulocytes/100 WBC (Bld) 0.400 % 0.0-0.9 [facility] Work Phone: [phone] Comment on above: IG% - Immature Granu locytes (promyelocytes, myelocytes and metamyelocytes) > 1% indicates that a LEFT SHIFT is Present. MCH (RBC) [Entitic mass] 30.6 pg 27.0-32.0 [facility] Work Phone: [phone] Nucleated RBC/100 WBC (Bld) [Ratio] 0 % 0-5 [facility] Work Phone: [phone] MCHC Auto (RBC) [Mass/Vol]on 09-14-2021 MCHC (RBC) [Mass/Vol] 34.5 g/dL 32-36 [facility] Work Phone: [phone] No Panel Informationon 09-14 Troponin I High Sensitivity < 3 pg/mL 3.0-78.0 [facility] Work Phone: [phone] Comment on above: Please Note: New Maritza t Units and Gender Specific Reference Ranges. For more information see Policy Stat Procedure [place] High Sensitivity Troponin (TNIH) and attachments. D-Dimer Quantitative (PE/DVT) 0.44 FEU/ug/m 0.27-0.49 [facility] Work Phone: [phone] Comment on above: NORMAL D-Dimer level (<0.50) indicates no DVT or PE. Estimated Creatinine Clearance Calc 85.35 ml/min [facility] Work Phone: [phone] Estimated GFR (MDRD) Amer 112 mL/min >60 [facility] Work Phone: [phone] Comment on above: GFR Calc Estimated GFR (MDRD) Non-Af Amer 93 mL/min >60 [facility] Work Phone: [phone] Comment on above: Non- GFR Calc Platelets bldon 09-14-2021 Platelets (Bld) [#/Vol] 256 10*3/uL 150-450 [facility] Work Phone: [phone] Serum or plasma albumin zoila urement (mass/volume)on 09-14-2021 Albumin [Mass/Vol] 4.1 g/dL 3.2-5.0 [facility] Work Phone: [phone] Serum or plasma calcium zoila urement (mass/volume)on 09-14-2021 Calcium [Mass/Vol] 8.8 mg/dL 8.5-10.1 [facility] Work Phone: Serum or plasma cholesterol in HDL measurement (mass/volume)on 09-14-2021 Cholesterol in HDL [Mass/Vol] 65 mg/dL >40 [facility] Work Phone: Comment on above: The drugs N-Acetylcy steine and Metamizole may falsely depress this assay. Reference Range HDL <40 mg/dL Low HDL Cholesterol HDL >or= 60 mg/dL High HDL Cholesterol Serum or plasma cholesterol in VLDL measurement (mass/volume)on 09-14-2021 Cholesterol in VLDL [Mass/Vol] 17 mg/dL 5-40 [facility] Work Phone: Serum or plasma creatinine m easurement (mass/volume)on 09-14-2021 Creatinine [Mass/Vol] 0.87 mg/dL 0.70-1.30 [facility] Work Phone: Comment on above: The validity of the calculated GFR & GFRAA in patients over 70 years has not been determined. Clinical correlation is essential. Serum or plasma low density lipoprotein (LDL) cholesterol measurement (mass/volume)on 09-14-2021 Cholesterol in LDL [Mass/Vol] 145 mg/dL 0-130 [facility] Work Phone: Serum or plasma urea nitroge n measurement (mass/volume)on 09-14-2021 Urea nitrogen [Mass/Vol] 17 mg/dL 7-18 [facility] Work Phone: Thin prep Papanicolaou smear with manual screeningon 09-14-2021 Thin prep Papanicolaou smear with manual screening 18 U/L 15-37 [facility] Work Phone: Thin prep Papanicolaou smear with manual screening 5 5-15 [facility] Work Phone: ALT/SGPTon 01-27-2017 Alanine aminotransferase (ALT) 27 U/L Normal 12-55 [facility] ([place]) Comment on above: Performed By: #### A ST, PSA, ALT, LIPID ####[address] [address] [place] 01-27-2017 Aspartate aminotransferase (AST) 17 U/L Normal 8-34 [facility] ([place] Comment on above: Performed By: #### A ST, PSA, ALT, LIPID ####[address] [address] LIPIDon 01-27-2017 Cholesterol 131 mg/dL Normal 50-199 [facility] ([place] Comment on above: Result Comment: Chol esterol Reference Interval:Less than 200 [id number] Borderline high [id number] and above High risk Performed By: #### A ST, PSA, ALT, LIPID ####[place] [address] HDL Cholesterol 70 mg/dL High 40-59 [facility] ([place] Comment on above: Result Comment: HDL Reference Interval:Less than 40 Low - high risk60 or above Optimal/lowers risk Performed By: #### A ST, PSA, ALT, LIPID ####[place] [address] LDL Cholesterol 51 mg/dL Normal 0-129 [facility] ([place] Comment on above: Result Comment: LDL is a calculated result and requires a 12-hr fast.LDL Reference Interval:Less than 100 [id number] Near or above [id number] Borderline high [id number] High grfa343 and above Very high risk Performed By: #### A ST, PSA, ALT, LIPID ####[place] [address] Triglyceride 48 mg/dL Normal 3-149 [facility] ([place] Comment on above: Result Comment: Trig lyceride Reference Interval:Less than 150 [id number] Borderline high [id number] High [id number] or higher Very high risk Performed By: #### A ST, PSA, ALT, LIPID ####[place] [address] PSAon 01-27-2017 Prostate Specific Antigen 1.49 ng/mL Normal 0.02-4.00 [facility] ([place] Comment on above: Performed By: #### A ST, PSA, ALT, LIPID ####[place] [address] Vital Signs Date Time Vital Sign Value Performing Clinician Emelia gil 09-19-2024 08:43-0400 Body height 180.[address] Darrin Thorpe MD Work Phone: [facility] 09-19-2024 08:43-0400 Body mass index (BMI) [Ratio] 31.5 kg/m2 Dr. Darrin Thorpe MD Work Phone: [phone] [place] [address] 09-19-2024 08:43-0400 Body weight 102.[address] Darrin Thorpe MD Work Phone: [phone] [place] [address] 09-19-2024 08:43-0400 Diastolic blood pressure 84 mm[Hg] Dr. Darrin Thorpe MD Work Phone: [phone] [place] [address] 09-19-2024 08:43-0400 Heart rate 79 /min Dr. Darrin Thorpe MD Work Phone: [phone] [place] [address] 09-19-2024 08:43-0400 Respiratory rate 18 /min Dr. Darrin Thorpe MD Work Phone: [phone] [address] 09-19-2024 08:43-0400 Systolic blood pressure 127 mm[Hg] Dr. Darrin Thorpe MD Work Phone: [phone] [address] 05-17-2024 09:21-0400 Body temperature 98.2 [degF] Dr. Darrin Thorpe MD Work Phone: [phone] [place] [address] 05-17-2024 09:21-0400 Diastolic blood pressure 79 mm[Hg] Dr. Darrin Thorpe MD Work Phone: [phone](013)287-802069 [address] 05-17-2024 09:21-0400 Heart rate 79 /min Dr. Darrin Thorpe MD Work Phone: [facility] 05-17-2024 09:21-0400 Respiratory rate 16 /min Dr. Darrin Thorpe MD Work Phone: [facility] 05-17-2024 09:21-0400 SaO2% (BldA) [Mass fraction] 93 % Dr. Darrin Thorpe MD Work Phone: [facility] 05-17-2024 09:21-0400 Systolic blood pressure 111 mm[Hg] Dr. Darrin Thorpe MD Work Phone: [phone] [place] [address] 05-17-2024 07:28-0400 Body height 180.[address] Darrin Thorpe MD Work Phone: [phone] [place] [address] 05-17-2024 07:28-0400 Body mass index (BMI) [Ratio] 30.4 kg/m2 Dr. Darrin Thorpe MD Work Phone: 1(995)146-797469 [address] 05-17-2024 07:28-0400 Body weight [address] Darrin Thorpe MD Work Phone: [phone] [place] [address] 04-16-2024 12:23-0500 Body temperature 98.1 [degF] Dr. Darrin Thorpe MD Work Phone: [phone](369)969-199806 [place] [address] 04-16-2024 12:23-0500 Diastolic blood pressure 62 mm[Hg] Dr. Darrin Thorpe MD Work Phone: 0([phone])564-164706 [place] [address] 04-16-2024 12:23-0500 Heart rate 103 /min Dr. Darrin Thorpe MD Work Phone: [phone] [place] [address] 04-16-2024 12:23-0500 SaO2% (BldA) [Mass fraction] 97 % Dr. Darrin Thorpe MD Work Phone: [phone] [place] [address] 04-16-2024 12:23-0500 Systolic blood pressure 122 mm[Hg] Dr. Darrin Thorpe MD Work Phone: [phone] [place] [address] 03-26-2024 11:42-0500 Body mass index (BMI) [Ratio] 29.5 kg/m2 Dr. Darrin Thorpe MD Work Phone: [phone] [place] [address] 03-26-2024 11:42-0500 Body weight 96.[address] Darrin Thorpe MD Work Phone: [phone] [place] [address] 01-05-2023 10:39-0500 Body temperature 98.7 [degF] Dr. Darrin Thorpe Work Phone: [facility] 01-05-2023 10:39-0500 Diastolic blood pressure 74 mm[Hg] Dr. Darrin Thorpe Work Phone: [facility] 01-05-2023 10:39-0500 Heart rate 89 /min Dr. Darrin Thorpe Work Phone: [facility] 01-05-2023 10:39-0500 Respiratory rate 14 /min Dr. Darrin Thorpe Work Phone: [facility] 01-05-2023 10:39-0500 SaO2% (BldA) [Mass fraction] 94 % Dr. Darrin Thorpe Work Phone: [facility] 01-05-2023 10:39-0500 Systolic blood pressure 132 mm[Hg] Dr. Darrin Thorpe Work Phone: [facility] 09-20-2022 09:20-0400 Body height 180.[address] Darrin Thorpe Work Phone: [facility] 09-20-2022 09:20-0400 Body mass index (BMI) [Ratio] 32.8 kg/m2 Dr. Darrin Thorpe Work Phone: [facility] 09-20-2022 09:20-0400 Body weight 106.[address] Darrin Thorpe Work Phone: [facility] 09-20-2022 09:20-0400 Diastolic blood pressure 60 mm[Hg] Dr. Darrin Thorpe Work Phone: [facility] 09-20-2022 09:20-0400 Heart rate 80 /min Dr. Darrin Thorpe Work Phone: [facility] 09-20-2022 09:20-0400 Respiratory rate 16 /min Dr. Darrin Thorpe Work Phone: [facility] 09-20-2022 09:20-0400 Systolic blood pressure 103 mm[Hg] Dr. Darrin Thorpe Work Phone: [facility] 12-16-2021 08:14-0400 Body height 180.[address] Darrin Thorpe Work Phone: [facility] Work Phone: 12-16-2021 08:14-0400 Body mass index (BMI) [Ratio] 32.3 kg/m2 Dr. Darrin Thorpe Work Phone: [facility] Work Phone: 12-16-2021 08:14-0400 Body weight 105.[address] Darrin Thorpe Work Phone: [facility] Work Phone: 12-16-2021 08:14-0400 Diastolic blood pressure 79 mm[Hg] Dr. Darrin Thorpe Work Phone: [facility] Work Phone: 12-16-2021 08:14-0400 Heart rate 79 /min Dr. Darrin Thorpe Work Phone: [facility] Work Phone: 12-16-2021 08:14-0400 Respiratory rate 18 /min Dr. Darrin Thorpe Work Phone: [facility] Work Phone: 12-16-2021 08:14-0400 SaO2% (BldA) [Mass fraction] 95 % Dr. Darrin Thorpe Work Phone: [facility] Work Phone: 12-16-2021 08:14-0400 Systolic blood pressure 127 mm[Hg] Dr. Darrin Thorpe Work Phone: [facility] Work Phone: 11-06-2021 12:29-0400 Body temperature 97.5 [degF] Dr. Darrin Thorpe Work Phone: [facility] Work Phone: 11-06-2021 12:29-0400 Diastolic blood pressure 80 mm[Hg] Dr. Darrin Thorpe Work Phone: [facility] Work Phone: 11-06-2021 12:29-0400 Heart rate 80 /min Dr. Darrin Thorpe Work Phone: [facility] Work Phone: 11-06-2021 12:29-0400 Respiratory rate 15 /min Dr. Darrin Thorpe Work Phone: [facility] Work Phone: 11-06-2021 12:29-0400 SaO2% (BldA) [Mass fraction] 96 % Dr. Darrin Thorpe Work Phone: [facility] Work Phone: 11-06-2021 12:29-0400 Systolic blood pressure 124 mm[Hg] Dr. Darrin Thorpe Work Phone: [facility] Work Phone: 09-15-2021 08:11-0400 Body height 180.[address] Darrin Thorpe Work Phone: [facility] Work Phone: 09-15-2021 08:11-0400 Body mass index (BMI) [Ratio] 31.5 kg/m2 Dr. Darrin Thorpe Work Phone: [facility] Work Phone: 09-15-2021 08:11-0400 Body weight 102.[address] Darrin Thorpe Work Phone: [facility] Work Phone: 09-15-2021 08:11-0400 Diastolic blood pressure 88 mm[Hg] Dr. Darrin Thorpe Work Phone: [facility] Work Phone: 09-15-2021 08:11-0400 Heart rate 80 /min Dr. Darrin Thorpe Work Phone: [facility] Work Phone: 09-15-2021 08:11-0400 Respiratory rate 16 /min Dr. Darrin Thorpe Work Phone: [facility] Work Phone: 09-15-2021 08:11-0400 SaO2% (BldA) [Mass fraction] 96 % Dr. Darrin Thorpe Work Phone: [facility] Work Phone: 09-15-2021 08:11-0400 Systolic blood pressure 142 mm[Hg] Dr. Darrin Thorpe Work Phone: [facility] Work Phone: 09-14-2021 18:22-0400 Diastolic blood pressure 87 mm[Hg] [facility] Work Phone: 09-14-2021 18:22-0400 Heart rate 71 /min [facility] Work Phone: 09-14-2021 18:22-0400 Respiratory rate 19 /min [facility] Work Phone: 09-14-2021 18:22-0400 SaO2% (BldA) [Mass fraction] 96 % [facility] Work Phone: 09-14-2021 18:22-0400 Systolic blood pressure 145 mm[Hg] [facility] Work Phone: 09-14-2021 15:05-0400 Body height 180.34 cm [facility] Work Phone: 09-14-2021 15:05-0400 Body mass index (BMI) [Ratio] 31.4 kg/m2 [facility] Work Phone: 09-14-2021 15:05-0400 Body temperature 96.8 [degF] [facility] Work Phone: 09-14-2021 15:05-0400 Body weight 102.05 kg [facility] Work Phone: Encounters Encounter Date Encounter Type Care Provider Facility Start: 10-23-2024 ambulatory Nicole GOMEZ Facility:[facility] Start: 09-19-2024 End: 09-19-2024 Patient encounter procedure Nicole GOMEZ -[facility] Work Phone: Start: 09-19-2024 End: 09-19-[address] Darrin Thorpe MD Work Phone: -[facility] Start: 05-17-2024 Non-patient / Non-visit Dr. Marcus Ibrahim MD -[facility] Start: 05-17-2024 End: 05-17-2024 Admission to same day surgery center Dr. Marcus Ibrahim MD -Endoscopy Work Phone: Start: 05-17-2024 End: 05-17-[address] Darrin Thorpe MD Work Phone: [facility] Work Phone: Start: 04-16-2024 End: 04-16-2024 Patient encounter procedure Marcus GOMEZ -[facility] Work Phone: Start: 04-16-2024 End: 04-16-2024 ambulatory Darrin Thorpe Facility:[facility] Start: 03-26-2024 Non-patient / Non-visit Dr. Daniel Thorpe MD Work Phone: -[facility] Work Phone: Start: 03-26-2024 ambulatory Darrin Thorpe Facility:[facility] Start: 01-10-2024 End: 01-10-2024 ambulatory Darrin Thorpe Facility:[facility] Start: 05-03-2023 End: 05-03-2023 ambulatory [facility] Work Phone: Start: 05-03-2023 End: 05-03-2023 Patient encounter procedure [facility]-Radiology, [place] Work Phone: Start: 04-20-2023 End: 04-20-[address] Darrin Thorpe Work Phone: [facility] Work Phone: Start: 04-20-2023 End: 04-20-[address] Darrin Thorpe Work Phone: [facility]-Pulmonary Services/Neurology Work Phone: Start: 04-13-2023 End: 04-13-[address] Darrin Thorpe Work Phone: [facility] Work Phone: Start: 04-13-2023 End: 04-13-[address] Darrin Thorpe Work Phone: [facility] Start: 01-05-2023 End: 01-05-[address] Darrin Thorpe Work Phone: [facility] Work Phone: Start: 09-20-2022 End: 09-20-[address] Darrin Thorpe Work Phone: [facility] Work Phone: Start: 09-20-2022 End: 09-20-[address] Darrin Thorpe Work Phone: [facility] Work Phone: Start: 12-27-2021 End: 12-27-[address] Darrin Thorpe Work Phone: [facility] Work Phone: Start: 12-27-2021 End: 12-27-[address] Darrin Thorpe Work Phone: [facility]-Sleep Lab Start: 12-16-2021 End: 12-16-[address] Darrin Thorpe Work Phone: [facility] Start: 11-06-2021 End: 11-06-[address] Darrin Thorpe Work Phone: [facility] Start: 09-20-2021 Non-patient / Non-visit Dr. Daniel Thorpe Work Phone: [facility] Start: 09-20-2021 End: 09-20-[address] Darrin Thorpe Work Phone: [facility]-Cardiovascular Services Start: 09-15-2021 Non-patient / Non-visit Dr. Daniel Thorpe Work Phone: [facility] Start: 09-15-2021 End: 09-15-[address] Darrin Thorpe Work Phone: [facility]-Cardiovascular Services Start: 09-15-2021 End: 09-15-[address] Darrin Thorpe Work Phone: [facility]-Laboratory Start: 09-15-2021 End: 09-15-[address] Darrin Thorpe Work Phone: [facility] Start: 09-14-2021 End: 09-14-2021 Emergency department patient visit [facility]-Emergency Department Procedures Date Procedure Procedure Detail Performing Clinician Start: 05-17-[address] Darrin riavs MD Work Phone: Start: 05-03-2023 Plain chest X-ray Start: 09-20-2021 Radionuclide imaging of perfusion of myocardium under exercise stress Dr. Darrin Thorpe Work Phone: Start: 09-14-2021 Plain chest X-ray Plan of Treatment Date Care Activity Detail Author Start: 05-17-2024 Patient discharge [facility] Albumin/Globulin [Ma ss Ratio] in Serum or Plasma by Electrophoresis [facility] Colonoscopy [facility] CT angiography of co ronary arteries [facility] Electrophoresis: albumin [facility] Electrophoresis: [id number] [facility] Electrophoresis: [id number] [facility] Electrophoresis: marleny ma globulin [facility] Globulin measurement [facility] Measurement of Borre alla burgdorferi antibody [facility] Patient Education ED Chest Pain, Uncertain Cause ED Esophageal Spasm [facility] Work Phone: Patient referral [place] Work Phone: Protein electrophore sis panel - Serum or Plasma [facility] Serum protein electrophoresis [facility] Serum testosterone measurement [facility] Testosterone Free [Mass/volume] in Serum or Plasma [facility] Testosterone measurement [facility] Total globulins measurement [facility] Immunizations Immunization Date Immunization Notes Care Provider Fa cility 05-15-2020 Covid (Pfizer) [facility] 04-24-2020 Covid (Pfizer) [facility] 11-15-2019 influenza, injectabl e, quadrivalent, preservative free Dr. Darrin Thorpe Work Phone: [facility] 11-15-2019 influenza, seasonal, injectable [facility] 12-19-2017 Influenza virus vaccine W [facility] Payers Date Payer Category Payer Self-pay [id number] 2023 Medicare [id number] 2023 [id number] Unknown [id number] 2.16.8 [id number] Unknown [id number] 2.16.8 [id number] Unknown [id number] 2.16.8 [id number] Unknown [id number] 2.16.8 [id number] Unknown [id number] 2.16.8 [id number] Unknown [id number] 2.16.8 [id number] Unknown [id number] 2.16.8 [id number] Social History Date Type Detail Facility Start: 09-14-2021 End: 01-05-2023 Tobacco smoking status NHIS Unknown if ever smoked [facility] Start: 10-19-2018 Non-smoker [facility] Start: 1950 Sex Assigned At Male W [facility] Start: 05-15-2024 Tobacco smoking stat us NHIS Never smoked tobacco (finding) [facility] Start: 05-17-2024 Sex Male (finding) [facility] Goals Date Patient Goal Desired Activity /State Mental Status Date Assessment Result Facility 05-17-2024 Cognitive function Voice/Name;Touch/Shaki ng [facility] Work Phone: 09-14-2021 Cognitive function Awake;Alert;A ppropriate;Fol lows Commands [facility] Work Phone: Clinical Notes 04-16-2024 to 05-17-2024 Note Date & Type Note Facility 05-17-2024 Consult note [facility] 05-17-2024 Consult note Note Date/Time May 17, 2024 8:06am [facility] Medical Records Department [address] [place] [place] [address] Pre-Anesthesia Evaluation 05/17/24 0758 MR#: [id number] Acct: [id number] Name: KISHORE CHANG Rep #:[id number] : 1950 74 From: Steve Snider MD PCP: Dr. Darrin Thorpe MD Status:REG SD Y Race: WAD Location: [place] [address] ASA Classification* ASA Classification ASA Classification: 2 Assessment & Plan Anesthesia* Anesthesia Assessment Anesthesia Assessment: Discussed sedation and/or anesthesia options, risks, benefits, and alternatives with patient/parents/legal guardian/POA. Questions invited. The patient/parents/legal guardian/POA seems to understand and agrees to proceedwith anesthesia plan. Reviewed the physical assessment, medical history, allergy history and patient home medications list prior to surgery/procedure/anesthetic and documented any changes. Performed airway and anesthesia risk assessments. Anesthesia Type Anesthesia Type: MAC History Source History Obtained from:: Patient and Chart Anesthesia Focused Assessment* Temperature: 97.6 F Pulse Rate: 79 Blood Pressure: 128/78 Respiratory Rate: 16 Pulse Ox: 96 Oxygen Delivery Method: Room Air Airway Assessment Mouth opens: >3 cm Mallampati Score: III Teeth Condition: Loose (Patient has a pediatric incisor #25. It is slightly loose.) and Partial (Patient has implant that tooth #8. It is tight) Neck Range of motion (ROM): Limited ROM (Slight decrease in extension) Focused Labs Anesthesia Preop lab: CBC WBC 6.6 K/mm3 (4.4-11.0) 01/10/24 09:17 01/10/24 RBC 5.07 M/mm3 (4.6-6.2) 01/10/24 09:17 01/10/24 Hgb 14.9 g/dL (13.0-16.5) 01/10/24 09:17 01/10/24 Hct 45.3 % (40-54) 01/10/24 09:17 01/10/24 Plt Count 289 K/mm3 (150-450) 01/10/24 09:17 01/10/24 CHEMISTRY Potassium 4.0 mmol/L (3.5-5.1) 01/10/24 09:17 01/10/24 Sodium 138 mmol/L (136-145) 01/10/24 09:17 01/10/24 BUN 17 mg/dL (7-18) 01/10/24 09:17 01/10/24 Creatinine 0.80 mg/dL (0.70-1.30) 01/10/24 09:17 01/10/24 Glucose 99 mg/dL (74-106) 01/10/24 09:17 01/10/24 TSH 2.45 uIU/mL (0.358-3.74) 06/27/23 16:30 COAG Pre-Assessment Diagnosis/Proposed Procedure Planned Operative Procedure(s): CSCOPE OA Anesthesia History 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 When Was Last Pacemaker Check QUESTION #4 FULL TEXT: You/Your Family Experience fever (hyperthermia) with Anesthesia Last Oral Intake Last Oral intake: Last Oral Intake NPO since :05/17/24 07:28 Meds taken in AM with sips of Yes 05/17/24 07:28 water? 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 Female No 05/15/24 08:11 HX of Motion Sickness No 05/15/24 08:11 HX of N/V After Surgery No 05/15/24 08:11 Non-Smoker Yes 05/15/24 08:11 Duration of Surgery greater No 05/15/24 08:11 than 60 minutes Number of Risk Factors 1 05/15/24 08:11 PONV Score Low Risk 05/15/24 08:11 Height & Weight Height & Weight: Anesthesia: Height & Weight Height 5 ft 11 in 05/17/24 07:28 Weight: 99 kg 05/17/24 07:28 Body Mass Index (BMI) 30.4 05/17/24 07:28 Respiratory Assessment 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 Has anyone observed you stop No 05/15/24 08:11 breathing during sleep? STOP Results Positive 05/15/24 08:11 QUESTION #5 FULL TEXT : Do you snore loudly (louder than talking or can be heard through closed doors)? 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 Specify any problems Hx of Preganancy in last 3 N/A 05/15/24 08:11 Months Nurse Filling Out Transfusion DSCHRIBER 05/15/24 08:11 & Questions: Date: 05/15/24 05/15/24 08:11 Time: 08:13 05/15/24 08:11 Patient unable to answer at this time (ie. 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: /Reproductive Hx- supervisor stage carpentry Hx Now No 05/15/24 08:11 Gestational Age (in weeks): EDC: Hx Hx Para Hx Section SAB No 05/15/24 08:11 [facility] Medical History Wears hearing aid Wears glasses Alcohol use High cholesterol Migraine headache Shortness of breath on exertion Non-smoker Leg cramps History of echocardiogram History of stress test Cardiology follow-up encounter Essential hypertension COVID-19 (02/20/21) Home Medications ?Medication ?Instructions ?Recorded ?Last Taken ?Type aspirin 81 mg tablet,delayed 81 mg PO DAILY 09/15/21 0 05/13/24 History release (Adult Low Dose Aspirin) Oral appliance #1 ea 01/24/22 Unknown Rx losartan 50 mg tablet 50 mg PO DAILY #90 tabs 10/0605/17/24 Rx amlodipine 5 mg tablet 5 mg PO DAILY #90 tabs 11/0205/17/24 Rx multivitamin (Daily Multi-Vitamin 1 tab PO DAILY 05/1505/13/24 History tablet) Allergy/AdvReac Type Severity Reaction Status Date / Time No Known Allergies Allergy Verified 05/17/24 07:27 Surgical History Hx of oral surgery History of colonoscopy with polypectomy (2019) History of tonsillectomy Social History household members: spouse current occupational status: retired Smoking Status: Former smoker how long ago did patient quit smokin + years ago alcohol intake: current alcohol intake frequency: a few times a month substance use type: does not use caffeine: Yes Type: coffee Number of servings: 2 Review of Systems (Anesthesia) ROS Narrative System reviewed and no additional complaints, except as documented. 05/17/24805 <Electronically signed by Steve tavarez MD> Date _ Steve Snider MD Cosigner Signature: Date CC: ~ Signed [facility] Work Phone: 1(359) 910-906804-04-2025 History and physical note Author Marcus Ibrahim [facility] Note Date/Time May 17, 2024 7:45 am [facility] Medical Records Department [address] [place] [address] History & Physical Exam 05/17/2443 MR#: [id number] Acct: [id number] Name: KISHORE CHANG Rep #:[id number] : 1950 74 From: Marcus Ibrahim MD PCP: Dr. Darrin Thorpe MD Status:[facility] Location: [place] [address] HPI - General General Date of Admission: 05/17/24 Date of Service: 05/17/24 HPI Narrative KISHORE CHANG, is a 74 M who presents for surveillance colonoscopy. Patient has a history of colon polyps. He cannot recall when his last colonoscopy was performed. He has no family history of colon polyps or colon cancer [facility] Medical History Wears hearing aid Wears glasses Alcohol use High cholesterol Migraine headache Shortness of breath on exertion Non-smoker Leg cramps History of echocardiogram History of stress test Cardiology follow-up encounter Essential hypertension COVID-19 (02/20/21) Home Medications ?Medication ?Instructions ?Recorded ?Last Taken ?Type aspirin 81 mg tablet,delayed 81 mg PO DAILY 09/15/21 0 05/13/24 History release (Adult Low Dose Aspirin) Oral appliance #1 ea 01/24/22 Unknown Rx losartan 50 mg tablet 50 mg PO DAILY #90 tabs 08/10/0605/17/24 Rx amlodipine 5 mg tablet 5 mg PO DAILY #90 tabs 11/0205/17/24 Rx multivitamin (Daily Multi-Vitamin 1 tab PO DAILY 05/1505/13/24 History tablet) Allergy/AdvReac Type Severity Reaction Status Date / Time No Known Allergies Allergy Verified 05/17/24 07:27 Surgical History Hx of oral surgery History of colonoscopy with polypectomy (2018) History of tonsillectomy Social History household members: spouse current occupational status: retired Smoking Status: Former smoker how long ago did patient quit smokin + years ago alcohol intake: current alcohol intake frequency: a few times a month substance use type: does not use caffeine: Yes Type: coffee Number of servings: 2 Vital Signs Vital Signs Vital Signs: 05/17/24 07:28 05/17/24 07:28 Temperature 97.6 F L Temperature Source Temporal Pulse Rate 79 Respiratory Rate 16 Respiratory Pattern Normal Blood Pressure 128/78 H Blood Pressure Mean 94 Blood Pressure Source Monitor Blood Pressure Position Semi-Fowlers Blood Pressure Location Right Arm Pulse Ox 96 Oxygen Delivery Method Room Air Weight Weight: 218 lb 4.122 oz Body Mass Index (BMI) 30.4 Physical Exam Const alert, oriented x3 and no apparent distress Assessment & Plan Assessment/Plan (1) Encounter for screening for malignant neoplasm of colon: PLAN: Plan The patient is a 74-year-old male with personal history of colon polyps in the past. He presents today for colonoscopy. We discussed the details of the planned procedure as well as risks benefits and alternatives. He wishes to proceed. Is to be scheduled in a timely manner. Charges/Coding Visit Charges Inpatient E&M: 66210 Init Hosp L1 05/17/24 0745 <Electronically signed by Marcus Ibrahim MD> Cosigner Signature (if applicable): CC: Dr. Darrin Thorpe MD; Dr. Marcus Ibrahim MD~ Signed [facility] Work Phone: 1(704) 899-211304-04-2025 Procedure note [facility] Medical Records Department [address] [place] [address] Colonoscopy Report MR#: [id number] Acct: [id number] Name: KISHORE CHANG Rep #:[id number] : 1950 74 From: Marcus Ibrahim MD PCP: Dr. Darrin Thorpe MD Status:REG [facility] Patient Name: Kishore Chang Procedure Date: 05/17/2024 8:41 AM Date of : 1950 Age: 74 Procedure: Colonoscopy Indications: High risk colon cancer surveillance: Personal history of colonic polyps Providers: Marcus Ibrahim MD Referring MD: Darrin Thorpe Medicines: Monitored Anesthesia Care Patient Profile: Refer to note in patient chart for documentation of history and physical. Last Colonoscopy: several years ago. Complications: No immediate complications. Estimated blood loss: Minimal. Procedure: Pre-Anesthesia Assessment: - Prior to the procedure, a History and Physical was performed, and patient medications and allergies were reviewed. The patient's tolerance of previous anesthesia was also reviewed. The risks and benefits of the procedure and the sedation options and risks were discussed with the patient. All questions were answered, and informed consent was obtained. Prior Anticoagulants: The patient has taken no anticoagulant or antiplatelet agents. ASA Grade Assessment: II - A patient with mild systemic disease. After reviewing the risks and benefits, the patient was deemed in satisfactory condition to undergo the procedure. After I obtained informed consent, the scope was passed under direct vision. Throughout the procedure, the patient's blood pressure, pulse, and oxygen saturations were monitored continuously. The colonoscope was introduced through the anus and advanced to the cecum, identified by appendiceal orifice and ileocecal valve. The ileocecal valve, appendiceal orifice, and rectum were photographed. The entire colon was well visualized. The colonoscopy was performed without difficulty. The patient tolerated the procedure well. The quality of the bowel preparation was adequate. Moderate Sedation: See the other procedure note for documentation of moderate sedation with intraservice time. Scope In: 8:47:14 AM Scope Withdrawal Time 0 hours 12 minutes 34 seconds Scope Out: 9:03:19 AM Total Procedure Duration Time 0 hours 16 minutes 5 seconds Findings: The perianal and digital rectal examinations were normal. Multiple small-mouthed diverticula were found in the sigmoid colon. A 5 mm polyp was found in the sigmoid colon. The polyp was semi-pedunculated. The polyp was removed with a hot snare. Resection and retrieval were complete. Verification of patient identification for the specimen was done by the physician using the patient's name, date and medical record number. Estimated blood loss was minimal. Internal hemorrhoids were found during retroflexion. The hemorrhoids were moderate. The exam was otherwise without abnormality on direct and retroflexion views. Impression: - Diverticulosis in the sigmoid colon. - One 5 mm polyp in the sigmoid colon, removed with a hot snare. Resected and retrieved. - Internal hemorrhoids. - The examination was otherwise normal on direct and retroflexion views. Recommendation: - Discharge patient to home (ambulatory). - High fiber diet indefinitely. - Await pathology results. - Repeat colonoscopy in 3 - 5 years for surveillance. - Return to my office PRN. - Continue present medications. Procedure Code(s): --- Professional --- 34791, Colonoscopy, flexible; with removal of tumor(s), polyp(s), or other lesion(s) by snare technique Diagnosis Code(s): --- Professional --- Z86.010, Personal history of colonic polyps K57.30, Diverticulosis of large intestine without perforation or abscess without bleeding K64.8, Other hemorrhoids D12.5, Benign neoplasm of sigmoid colon CPT copyright 2021 [employer]. All rights reserved. The codes documented in this report are preliminary and upon tyre retreader review may be revised to meet current compliance requirements. Marcus Ibrahim MD 05/17/2024 9:11:53 AM This report has been signed electronically. Number of Addenda: 0 Note Initiated On: 05/17/2024 8:41 AM 05/17/24 0912 Date _ Marcus Ibrahim MD Cosigner Signature: Date (if indicated) CC: Dr. Darrin Thorpe MD; Dr. Marcus Ibrahim MD ~ Date Dictated: 05/17/24840 Date Transcribed: County Records Management Officer: SW Signed [facility]04-04-2025 Procedure note [facility] Medical Records Department [address] [place] [address] Operative Report - CC Letter MR#: [id number] Acct: [id number] Name: KISHORE CHANG Rep #:[id number] : 1950 74 From: Marcus Ibrahim MD PCP: Dr. Darrin Thorpe MD Status:[facility] 05/17/2024 Darrin Thorpe [address] [place] [address] Re : Colonoscopy procedure for Kishore Chang Dear Dr. Thorpe This procedure was performed on Friday, May 17, 2024. My impressions and recommendations are as follows: Impressions : - Diverticulosis in the sigmoid colon. - One 5 mm polyp in the sigmoid colon, removed with a hot snare. Resected and retrieved. - Internal hemorrhoids. - The examination was otherwise normal on direct and retroflexion views. Recommendations : - Discharge patient to home (ambulatory). - High fiber diet indefinitely. - Await pathology results. - Repeat colonoscopy in 3 - 5 years for surveillance. - Return to my office PRN. - Continue present medications. My findings are described in the full procedure note, which is enclosed. If I can be of further assistance, please feel free to contact me at . Sincerely, Marcus Ibrahim MD 05/17/2024 9:11:53 AM This report has been signed electronically. 05/17/24911 Date _ Marcus Ibrahim MD Cosigndaniel Signature: Date (if indicated) CC: Dr. Darrin Thorpe MD; Dr. Marcus Ibrahim MD ~ Date Dictated: 05/17/24840 Date Transcribed: County Records Management Officer: ROCÍO Signed [facility]04-04-2025 Consult note [facility] Medical Records Department [address] [place] [address] Anesthesia Postop Eval II 05/17/24908 MR#: [id number] Acct: [id number] Name: KISHORE CHANG Rep #:[id number] : 1950 74 From: Sidney John PCP: Dr. Darrni Tohrpe MD Status:REG [facility] Y Race: WAD Location: [place] [address] Anesthesia Postop Eval I Sum Postop Eval Completion status Anesthesia document: Postop Eval 1 completed: Yes Anesthesia Postop Eval I Summary Anesthesia Postop Eval I Summary: Anesthesia Postop Eval I: Assessment Summary Airway patent Yes 05/17/24 09:05 [email or web address] Spontaneous unlabored Yes 05/17/24 09:05 SHRIMP [email or web address].MDOT respirations Mental status Awake,Calm 05/17/24 09:05 SHRIMP [email or web address].MDOT nausea No 05/17/24 09:05 SHRIMP [email or web address].MDOT Vomiting No 05/17/24 09:05 SHRIMP [email or web address].MDOT Anesthesia Postop Eval I: Fluid Summary Crystalloid volume administer 30 05/17/24 09:05 SHRIMP [email or web address].MDOT (ml) Colloids volume administered ( ml) Blood Product volume administered (ml) Total IV fluid infused 30 05/17/24 09:05 SHRIMP [email or web address].MDOT Anesthesia Postop Eval I: Summary Notes Anesthesia Complication No 05/17/24 09:05 SHRIMP [email or web address].MDOT Anesthesia Complication Comment: Post-operative progress note Anesthesia: Postop Eval II Evaluation Mental status: Awake and Calm Pain Level: 0 nausea: No Vomiting: No Complications Anesthesia Complication: No 05/17/24 0910 > Date _ Sidney Brandtchemadaniel Cosigner Signature: CC: ~ Signed [facility]04-04-2025 Consult note [facility] Medical Records Department [address] [place] [address] Anesthesia Postop Eval I 05/17/24904 MR#: [id number] Acct: [id number] Name: KISHORE CHANG Rep #:[id number] : 1950 74 From: Sidney John PCP: Dr. Darrin Thorpe MD Status:REG [facility] Y Race: [facility] Location: [place] [address] Anesthesia: Postop Eval I Current Vital Signs Temperature: 97 F Pulse Rate: 82 Blood Pressure: 105/69 Respiratory Rate: 16 Pulse Ox: 98 Oxygen Delivery Method: Room Air Assessment Airway patent: Yes Spontaneous unlabored respirations: Yes Mental status: Awake and Calm nausea: No Vomiting: No Anesthesia Complication: No Fluid Hydration Crystalloid volume administer (ml): 30 Total IV fluid infused: 30 Progress Note Anesthesia document: Postop Eval 1 completed: Yes 05/17/24904 > Date _ Sidney Carbajaligner Signature: Date CC: ~ Signed [facility]04-04-2025 Consult note [facility] Medical Records Department [address] [place] [address] Pre-Anesthesia Evaluation 05/17/24 075 MR#: [id number] Acct: [id number] Name: KISHORE CHANG Rep #:[id number] : 1950 74 From: Steve Sniedr MD PCP: Dr. Darrin Thorpe MD Status:REG SD Y Race: UTD Location: [place] [address] ASA Classification* ASA Classification ASA Classification: 2 Assessment & Plan Anesthesia* Anesthesia Assessment Anesthesia Assessment: Discussed sedation and/or anesthesia options, risks, benefits, and alternatives with patient/parents/legal guardian/POA. Questions invited. The patient/parents/legal guardian/POA seems to understand and agrees to proceedwith anesthesia plan. Reviewed the physical assessment, medical history, allergy history and patient home medications list prior to surgery/procedure/anesthetic and documented any changes. Performed airway and anesthesia risk assessments. Anesthesia Type Anesthesia Type: MAC History Source History Obtained from:: Patient and Chart Anesthesia Focused Assessment* Temperature: 97.6 F Pulse Rate: 79 Blood Pressure: 128/78 Respiratory Rate: 16 Pulse Ox: 96 Oxygen Delivery Method: Room Air Airway Assessment Mouth opens: >3 cm Mallampati Score: III Teeth Condition: Loose (Patient has a pediatric incisor #25. It is slightly loose.) and Partial (Patient has implant that tooth #8. It is tight) Neck Range of motion (ROM): Limited ROM (Slight decrease in extension) Focused Labs Anesthesia Preop lab: CBC WBC 6.6 K/mm3 (4.4-11.0) 01/10/24 09:17 01/10/24 RBC 5.07 M/mm3 (4.6-6.2) 01/10/24 09:17 01/10/24 Hgb 14.9 g/dL (13.0-16.5) 01/10/24 09:17 01/10/24 Hct 45.3 % (40-54) 01/10/24 09:17 01/10/24 Plt Count 289 K/mm3 (150-450) 01/10/24 09:17 01/10/24 CHEMISTRY Potassium 4.0 mmol/L (3.5-5.1) 01/10/24 09:17 01/10/24 Sodium 138 mmol/L (136-145) 01/10/24 09:17 01/10/24 BUN 17 mg/dL (7-18) 01/10/24 09:17 01/10/24 Creatinine 0.80 mg/dL (0.70-1.30) 01/10/24 09:17 01/10/24 Glucose 99 mg/dL (74-106) 01/10/24 09:17 01/10/24 TSH 2.45 uIU/mL (0.358-3.74) 06/27/23 16:30 COAG Pre-Assessment Diagnosis/Proposed Procedure Planned Operative Procedure(s): CSCOPE OA Anesthesia History 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 When Was Last Pacemaker Check QUESTION #4 FULL TEXT: You/Your Family Experience fever (hyperthermia) with Anesthesia Last Oral Intake Last Oral intake: Last Oral Intake NPO since 04:30 05/17/24 07:28 Meds taken in AM with sips of Yes 05/17/24 07:28 water? 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 Female No 05/15/24 08:11 HX of Motion Sickness No 05/15/24 08:11 HX of N/V After Surgery No 05/15/24 08:11 Non-Smoker Yes 05/15/24 08:11 Duration of Surgery greater No 05/15/24 08:11 than 60 minutes Number of Risk Factors 1 05/15/24 08:11 PONV Score Low Risk 05/15/24 08:11 Height & Weight Height & Weight: Anesthesia: Height & Weight Height 5 ft 11 in 05/17/24 07:28 Weight: 99 kg 05/17/24 07:28 Body Mass Index (BMI) 30.4 05/17/24 07:28 Respiratory Assessment 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 Has anyone observed you stop No 05/15/24 08:11 breathing during sleep? STOP Results Positive 05/15/24 08:11 QUESTION #5 FULL TEXT : Do you snore loudly (louder than talking or can be heard through closeddoors)? 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 Specify any problems Hx of Preganancy in last 3 N/A 05/15/24 08:11 Months Nurse Filling Out Transfusion DSCHRIBER 05/15/24 08:11 & Questions: Date: 05/15/24 05/15/24 08:11 Time: 08:13 05/15/24 08:11 Patient unable to answer at this time (ie. 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: /Reproductive Hx- supervisor stage carpentry Hx Now No 05/15/24 08:11 Gestational Age (in weeks): EDC: Hx Hx Para Hx Section SAB No 05/15/24 08:11 PFSH Medical History Wears hearing aid Wears glasses Alcohol use High cholesterol Migraine headache Shortness of breath on exertion Non-smoker Leg cramps History of echocardiogram History of stress test Cardiology follow-up encounter Essential hypertension COVID-19 (02/20/21) Home Medications ?Medication ?Instructions ?Recorded ?Last Taken ?Type aspirin 81 mg tablet,delayed 81 mg PO DAILY 09/15/21 0 05/13/24 History release (Adult Low Dose Aspirin) Oral appliance #1 ea 01/24/22 Unknown Rx losartan 50 mg tablet 50 mg PO DAILY #90 tabs 10/0605/17/24 Rx amlodipine 5 mg tablet 5 mg PO DAILY #90 tabs 11/0205/17/24 Rx multivitamin (Daily Multi-Vitamin 1 tab PO DAILY 05/1505/13/24 History tablet) Allergy/AdvReac Type Severity Reaction Status Date / Time No Known Allergies Allergy Verified 05/17/24 07:27 Surgical History Hx of oral surgery History of colonoscopy with polypectomy (2019) History of tonsillectomy Social History household members: spouse current occupational status: retired Smoking Status: Former smoker how long ago did patient quit smokin + years ago alcohol intake: current alcohol intake frequency: a few times a month substance use type: does not use caffeine: Yes Type: coffee Number of servings: 2 Review of Systems (Anesthesia) ROS Narrative System reviewed and no additional complaints, except as documented. 05/17/24 0806 daysi [facility]> Date _ Steve Snider MD Cosigner Signature: Date CC: ~ Signed [facility]04-04-2025 History and physical note [facility] Medical Records Department [address] [place] [address] History & Physical Exam 05/17/2443 MR#: [id number] Acct: [id number] Name: KISHORE CHANG Rep #:[id number] : 1950 74 From: Marcus Ibrahim MD PCP: Dr. Darrin Thorpe MD Status:[facility] Location: [place] [address] HPI - General General Date of Admission: 05/17/24 Date of Service: 05/17/24 HPI Narrative KISHORE CHANG, is a 74 M who presents for surveillance colonoscopy. Patient has a history of colon polyps. He cannot recall when his last colonoscopy was performed. He has no family history of colon polyps or colon cancer [facility] Medical History Wears hearing aid Wears glasses Alcohol use High cholesterol Migraine headache Shortness of breath on exertion Non-smoker Leg cramps History of echocardiogram History of stress test Cardiology follow-up encounter Essential hypertension COVID-19 (02/20/21) Home Medications ?Medication ?Instructions ?Recorded ?Last Taken ?Type aspirin 81 mg tablet,delayed 81 mg PO DAILY 09/15/21 0 05/13/24 History release (Adult Low Dose Aspirin) Oral appliance #1 ea 01/24/22 Unknown Rx losartan 50 mg tablet 50 mg PO DAILY #90 tabs 08/10/0605/17/24 Rx amlodipine 5 mg tablet 5 mg PO DAILY #90 tabs 11/0205/17/24 Rx multivitamin (Daily Multi-Vitamin 1 tab PO DAILY 05/1505/13/24 History tablet) Allergy/AdvReac Type Severity Reaction Status Date / Time No Known Allergies Allergy Verified 05/17/24 07:27 Surgical History Hx of oral surgery History of colonoscopy with polypectomy (2019) History of tonsillectomy Social History household members: spouse current occupational status: retired Smoking Status: Former smoker how long ago did patient quit smokin + years ago alcohol intake: current alcohol intake frequency: a few times a month substance use type: does not use caffeine: Yes Type: coffee Number of servings: 2 Vital Signs Vital Signs Vital Signs: 05/17/24 07:28 05/17/24 07:28 Temperature 97.6 F L Temperature Source Temporal Pulse Rate 79 Respiratory Rate 16 Respiratory Pattern Normal Blood Pressure 128/78 H Blood Pressure Mean 94 Blood Pressure Source Monitor Blood Pressure Position Semi-Fowlers Blood Pressure Location Right Arm Pulse Ox 96 Oxygen Delivery Method Room Air Weight Weight: 218 lb 4.122 oz Body Mass Index (BMI) 30.4 Physical Exam Const alert, oriented x3 and no apparent distress Assessment & Plan Assessment/Plan (1) Encounter for screening for malignant neoplasm of colon: PLAN: Plan The patient is a 74-year-old male with personal history of colon polyps in the past. He presents today for colonoscopy. We discussed the details of the planned procedure as well as risks benefits andalternatives. He wishes to proceed. Is to be scheduled in a timely manner. Charges/Coding Visit Charges Inpatient E&M: 32478 Init Hosp L1 05/17/24 0745 Cosigner Signature (if applicable): CC: Dr. Darrin Thorpe MD; Dr. Marcus Ibrahim MD~ Signed [facility]04-04-2025 [facility] Medical Records Department [address] [place] [address] History Physical Exam 05/17/24 0743 MR#: [id number] Acct: [id number] Name: KISHORE CHANG Rep #: [id number] : 1950 74 From: Marcus Ibrahim MD PCP: Dr. Darrin Thorpe MD Status:REG [facility] Location: [place] [address] HPI - General General Date of Admission: 05/17/24 Date of Service: 05/17/24 HPI Narrative KISHORE CAHNG, is a 74 M who presents for surveillance colonoscopy. Patient has a history of colon polyps. He cannot recall when his last colonoscopy was performed. He has no family history of colon polyps or colon cancer [facility] Medical History Wears hearing aid Wears glasses Alcohol use High cholesterol Migraine headache Shortness of breath on exertion Non-smoker Leg cramps History of echocardiogram History of stress test Cardiology follow-up encounter Essential hypertension COVID-19 (02/20/21) Home Medications ???Medication ???Instructions ???Recorded ???Last Taken ???Type aspirin 81 mg tablet,delayed 81 mg PO DAILY 09/15/21 05/13/24 H istory release (Adult Low Dose Aspirin) Oral appliance #1 ea 01/24/22 Unknown Rx losartan 50 mg tablet 50 mg PO DAILY #90 tabs 09/21/23 0 05/17/24 Rx amlodipine 5 mg tablet 5 mg PO DAILY #90 tabs 11/03/23 Rx multivitamin (Daily Multi-Vitamin 1 tab PO DAILY 05/15/24 05/13/24 History tablet) Allergy/AdvReac Type Severity Reaction Status Date / Time No Known Allergies Allergy Verified 05/17/24 07:27 Surgical History Hx of oral surgery History of colonoscopy with polypectomy (2019) History of tonsillectomy Social History household members: spouse current occupational status: retired Smoking Status: Former smoker how long ago did patient quit smokin + years ago alcohol intake: current alcohol intake frequency: a few times a month substance use type: does not use caffeine: Yes Type: coffee Number of servings: 2 Vital Signs Vital Signs Vital Signs: 05/17/24 07:28 05/17/24 07:28 Temperature 97.6 F L Temperature Source Temporal Pulse Rate 79 Respiratory Rate 16 Respiratory Pattern Normal Blood Pressure 128/78 H Blood Pressure Mean 94 Blood Pressure Source Monitor Blood Pressure Position Semi-Fowlers Blood Pressure Location Right Arm Pulse Ox 96 Oxygen Delivery Method Room Air Weight Weight: 218 lb 4.122 oz Body Mass Index (BMI) 30.4 Physical Exam Const alert, oriented x3 and no apparent distress Assessment Plan Assessment/Plan (1) Encounter for screening for malignant neoplasm of colon: PLAN: Plan The patient is a 74-year-old male with personal history of colon polyps in the past. He presents today for colonoscopy. We discussed the details of the planned procedure as well as risks benefits and alternatives. He wishes to proceed. Is to be scheduled in a timely manner. Charges/Coding Visit Charges Inpatient E M: 41038 Init Hosp L1 05/17/24 0745 Cosigner Signature (if applicable): CC: Dr. Darrin Thorpe MD; Dr. Marcus Ibrahim [facility] Evaluation note* Diagnosis Onset Date Resolution Status Admit Date Foreign body in ear acute April 16, 2024 12:13pm Encounter for screening for malignant neoplasm of colon acute Apri l 2024 7:15am [facility] Work Phone: Consult note Author Sidney John [facility] Note Date/Time May 17, 2024 9:05 am [facility] Medical Records Department [address] [place] [address] Anesthesia Postop Eval I 05/17/24904 MR#: [id number] Acct: [id number] Name: KISHORE CHANG Rep #:[id number] : 1950 74 From: Sidney John PCP: Dr. Darrin Thorpe MD Status:REG SD Y Race: [facility] Location: [place] [address] Anesthesia: Postop Eval I Current Vital Signs Temperature: 97 F Pulse Rate: 82 Blood Pressure: 105/69 Respiratory Rate: 16 Pulse Ox: 98 Oxygen Delivery Method: Room Air Assessment Airway patent: Yes Spontaneous unlabored respirations: Yes Mental status: Awake and Calm nausea: No Vomiting: No Anesthesia Complication: No Fluid Hydration Crystalloid volume administer (ml): 30 Total IV fluid infused: 30 Progress Note Anesthesia document: Postop Eval 1 completed: Yes 05/17/24904 <Electronically signed by Sidney John > Date _ Sidney Enamorado Signature: Date CC: ~ Signed [facility] Work Phone: Consult note Author Sidney John [facility] Note Date/Time May 17, 2024 9:10 am [facility] Medical Records Department [address] [place] [address] Anesthesia Postop Eval II 05/17/24908 MR#: [id number] Acct: [id number] Name: KISHORE CHANG Rep #:[id number] : 1950 74 From: Sidney John PCP: Dr. Darrin Thorpe MD Status:REG SDC Y Race: WAD Location: [place] [address] Anesthesia Postop Eval I Sum Postop Eval Completion status Anesthesia document: Postop Eval 1 completed: Yes Anesthesia Postop Eval I Summary Anesthesia Postop Eval I Summary: Anesthesia Postop Eval I: Assessment Summary Airway patent Yes 05/17/24 09:05 [email or web address] Spontaneous unlabored Yes 05/17/24 09:05 [email or web address] respirations Mental status Awake,Calm 05/17/24 09:05 [email or web address] nausea No 05/17/24 09:05 [email or web address] Vomiting No 05/17/24 09:05 [email or web address] Anesthesia Postop Eval I: Fluid Summary Crystalloid volume administer 30 05/17/24 09:05 SHRIMP [email or web address].MDOT (ml) Colloids volume administered ( ml) Blood Product volume administered (ml) Total IV fluid infused 30 05/17/24 09:05 SHRIMP [email or web address] Anesthesia Postop Eval I: Summary Notes Anesthesia Complication No 05/17/24 09:05 [email or web address] [email or web address] Anesthesia Complication Comment: Post-operative progress note Anesthesia: Postop Eval II Evaluation Mental status: Awake and Calm Pain Level: 0 nausea: No Vomiting: No Complications Anesthesia Complication: No 05/17/24 0910 <Electronically signed by Sidney John > Date _ Sidney John Cosigndaniel Signature: Date CC: ~ Signed [facility] Work Phone: Consult note Author Cristiana Koo [facility] Note Date/Time May 17, 2024 10:0 0am [facility] Medical Records Department [address] [place] [address] Anesthesia Postop Eval II 05/17/24927 MR#: [id number] Acct: [id number] Name: KISHORE CHANG Rep #:[id number] : 1950 74 From: Cristiana Koo PCP: Dr. Darrin Thorpe MD Status:REG SDC Y Race: WAD Location: [place] [address] Anesthesia Postop Eval I Sum Postop Eval Completion status Anesthesia document: Postop Eval 1 completed: Yes Anesthesia Postop Eval I Summary Anesthesia Postop Eval I Summary: Anesthesia Postop Eval I: Assessment Summary Airway patent Yes 05/17/24 09:05 SHRIMP [email or web address] Spontaneous unlabored Yes 05/17/24 09:05 SHRIMP [email or web address].MDOT respirations Mental status Awake,Calm 05/17/24 09:10 SHRIMP [email or web address].MDOT nausea No 05/17/24 09:10 SHRIMP [email or web address].MDOT Vomiting No 05/17/24 09:10 SHRIMP [email or web address] Anesthesia Postop Eval I: Fluid Summary Crystalloid volume administer 30 05/17/24 09:05 SHRIMP [email or web address].MDOT (ml) Colloids volume administered ( ml) Blood Product volume administered (ml) Total IV fluid infused 30 05/17/24 09:05 SHRIMP [email or web address] Anesthesia Postop Eval I: Summary Notes Anesthesia Complication No 05/17/24 09:10 SHRIMP [email or web address].MDOT Anesthesia Complication Comment: Post-operative progress note Anesthesia: Postop Eval II Evaluation Mental status: Awake Pain Level: 0 nausea: No Vomiting: No 05/17/24927 <Electronically signed by Cristiana quigley> Date _ Cristiana Carbajaligndaniel Signature: Date CC: ~ Signed [facility] Work Phone: Evaluation noteNo assessment information available [facility] Work Phone: Evaluation note* Diagnosis Onset Date Resolution Status Chest pain acute Hypertension chronic [facility] Work Phone: Evaluation note* Diagnosis Onset Date Resolution Status Hypertension chronic [facility] Work Phone: Evaluation note* Diagnosis Onset Date Resolution Status Hypertension chronic Acute nasopharyngitis [common cold] acute Encounter for immunization a cut Encounter for screening for COVID-19 acute Essential hypertension acute CESAR (obstructive sleep apnea) acute [facility] Work Phone: Evaluation note* Diagnosis Onset Date Resolution Status Essential hypertension acute CESAR (obstructive sleep apnea) acute [facility] Work Phone: evaluation note* Diagnosis Onset Date Resolution Status Subconjunctival hemorrhage a cute [facility] Work Phone: Evaluation note* Diagnosis Onset Date Resolution Status Admit Date Essential hypertension acute Au 2024 8:38am Hypertension chronic September 19, 2024 8:38am [facility] Work Phone: Reason for referral (narrative)No reason for referral [facility]: Summary Purpose Family History No Family History Records FoundNo Family History Records Found Advance Directives No Advanced Directives Records Found Advance Directive Response Recorded Date/ Time Living Will No September 14, 2021 3:19pm Power of Nursing Associate No September 14 3:19pm Advance Directive Response Recorded Date/ Time Living Will No September 14, 2021 2:19pm Power of Nursing Associate No September 14 2:19pm Advance Directive Response Recorded Date/ Time Living Will Yes May 15, 2024 8:11am Do you have a Healthcare Power of Nursing Associate? Yes May 15, 2024 8:11am Name of Medical Power of Nursing Associate May 15, 2024 8:11am Advance Directive Response Recorded Date/ Time Living Will No September 14, 2021 3:19pm Do you have a Healthcare Power of Nursing Associate? No September 14, 2021 3:19pm Chief Complaint and Reason for Visit Chief Complaint CHEST PAIN Chief Complaint CHEST PAIN CP INT LABS CHEST PAIN CHEST PAIN Reason for Visit Chest pain Hypertension Chief Complaint CHEST PAIN CP INT LABS CHEST PAIN CHEST PAIN CHEST PAIN Reason for Visit Hypertension Chief Complaint CHEST PAIN CP INT LABS CHEST PAIN CHEST PAIN CHEST PAIN COVID 3 M FU CESAR Reason for Visit Hypertension Acute nasopharyngitis [common cold] Encounter for immunization Encounter for screening for COVID-19 Essential hypertension CESAR (obstructive sleep apnea) Chief Complaint 9 M FU E ORDERS Reason for Visit Essential hypertensi on CESAR (obstructive sleep apnea) Chief Complaint RED RIGHT EYE Reason for Visit Subconjunctival hemo rrhage Chief Complaint RED RIGHT EYE Other forms of dyspnea Reason for Visit Subconjunctival hemo rrhage Chief Complaint Other forms of dyspn ea CHEST XRAY Chief Complaint Admit Date Amb Documentation March 26, 2024 11:36am FB RIGHT EAR April 16, 2024 12:1 3pm Reason for Visit Admit Date Foreign body in ear April 16, 2024 12:1 3pm Encounter for screening for malignant ne oplasm of colon May 17, 2024 7:15am Chief Complaint Admit Date 1 Y FU September 19, 2024 8:3 8am Reason for Visit Admit Date Essential hypertension September 19, 2024 8:38am Hypertension September 19, 2024 8:3 8am Additional Source Comments (unrecognized sect ion and content) No Status Records FoundNo Status Records Found INFORMATION SOURCE (unrecogn ized section and content) DATE CREATED AUTHOR 08/08/2017 [facility] ([place]) DATE CREATED AUTHOR AUTHOR'S ORGANIZ ATION 09/21/2024 [facility] Goals (unrecognized section and content) Goals may be documented in a n alternate sectionGoals may be documented in an alternate sectionGoals may be documented in an alternate sectionGoals may be documented in an alternate sectionGoals may be documented in an alternate sectionGoals may be documented in an alternate sectionGoals may be documented in an alternate sectionGoals may be documented in an alternate sectionGoals may be documented in an alternate section Care Teams (unrecognized sec tion and content) Team Status: Active Member Role Status Dates Dr. Darrin Thorpe MD Family Provider Active Dr. Darrin Thorpe MD Primary Care Provider Active Team Status: Inactive Member Role Status Dates Dr. Darrin Thorpe MD Primary Care Provider, Referring P rovider Active Dr. Luis Onofre MD Attending Provider Active Team Status: Inactive Member Role Status Dates Dr. Darrin Thorpe MD Primary Care Provider Active Dr. Luis Onofre MD Attending Provider, Referring Pro vider Active Team Status: Inactive Member Role Status Dates Dr. Darrin Thorpe MD Primary Care Provider, Referring P rovider Active Yony GOMEZ, PA Attending Provider Active Team Status: Inactive Member Role Status Dates Dr. Darrin Thorpe MD Primary Care Provider, Attending P rovider Active Team Status: Inactive Member Role Status Dates Dr. Darrin Thorpe MD Primary Care Provide r, Attending Provider, Referring Provider Active Team Status: Inactive Member Role Status Dates Dr. Darrin Thorpe MD Primary Care Provider Active Dr. Umair Cesar MD Attending Provider, Referring Provider Active Team Status: Active Member Role Status Dates Dr. Darrin Thorpe MD Primary Care Provider Active Team Status: Active Member Role Status Dates Dr. Darrin Thorpe MD Primary Care Provider Active Start: [facility] Team Status: Inactive Member Role Status Dates Dr. Darrin Thorpe MD Primary Care Provider Active Start: April 16, 2024 End: April 16, 2024 Dr. Darrin Thorpe MD Referring Provider Active St art: April 16, 2024 End: April 16, 2024 Marcus GOMEZ, PA Attending Provider Active Start: April 16, 2024 End: April 16, 2024 Team Status: Inactive Member Role Status Dates Dr. Darrin Thorpe MD Primary Care Provider Active Start: May 17, 2024 End: May 17, 2024 Dr. Darrin Thorpe MD Referring Provider Active St art: May 17, 2024 End: May 17, 2024 Dr. Marcus Ibrahim MD Attending Provider Active Start: May 17, 2024 End: May 17, 2024 Team Status: Active Member Role Status Dates Dr. Darrin Thorpe MD Primary Care Provider Active Start: May 17, 2024 Dr. Darrin Thorpe MD Referring Provider Active St art: May 17, 2024 Dr. Marcus Ibrahim MD Attending Provider Active Start: May 17, 2024 Dr. Marcus Ibrahim MD Other Provider Active St art: May 17, 2024 Team Status: Active Member Role/Relationship Status Dates Dr. Darrin Thorpe MD Primary Care Provider Active Team Status: Inactive Member Role/Relationship Status Dates Dr. Darrin Thorpe MD Primary Care Provider Active Start: September 19, 2024 End: September 19, 2024 Dr. Darrin Thorpe MD Referring Provider Active St art: September 19, 2024 End: September 19, 2024 Nicole Kay PA, PA Attending Provider Active Start: September 19, 2024 End: September 19, 2024 FOR RECORDS PERTAINING TO PATIENTS WHO ARE [...] BE BASED ON THE PRIMARY CLINICAL RECORDS. [employer] provides no warranty or guarantee of the accuracy or completeness of information in this document.
[2024-10-20 09:14] LABS: AST(SGOT) 27 U/L (<=37); Alanine Aminotransfer ALT/SGPT 30 U/L (<=46); Albumin, Serum 4.5 g/dL (3.4-4.8); Alkaline Phosphatase 50 U/L (40-129); Anion Gap 12 (5-15); BUN 12 mg/dL (4-19); BUN/Creat Ratio 17.5 RATIO (10-20); Bilirubin, Direct 0.19 mg/dL (0.00-0.30); Calcium,Total 9.2 mg/dL (7.6-11.0); Carbon Dioxide 22.4 mmol/L (21.0-32.0); Chloride 101 mmol/L (98-108); Estimated Creatinine Clearance 101.69 ml/min (50-250); Globulin 3.3 g/dL (2.2-4.2); Glucose 136 mg/dL (70-99); Lipase 22 U/L (13-75); Potassium 4.2 mmol/L (3.3-5.1)
[2024-10-20 09:15] VITALS: BP 138/86; PULSE 90; RESP 22; O2SAT 95
[2024-10-20 09:27] LABS: Troponin T High Sensitivity < 6 ng/L (<=22)
[2024-10-20 10:12] VITALS: BP 130/85; PULSE 996; RESP 22; TEMP 37; O2SAT 95
== END 2024-10-20 10:12 | disposition home or self-care (01) ==
PROVIDERS: Emergency Provider Emergency Medicine; PCP Family Medicine; Visit Provider Emergency Medicine
DX: R07.9 Chest pain, unspecified (principal); R10.13 Epigastric pain; I10 Essential (primary) hypertension; Z79.82 Long term (current) use of aspirin; Z79.899 Other long term (current) drug therapy; Z86.16 Personal history of COVID-19; Z87.891 Personal history of nicotine dependence
CPT/HCPCS: 71046; 80048; 80076; 83690; 84484; 85025; 93005; 99284; A4216

== ENCOUNTER → 2024-11-01 | Outpatient (CLI) | payer OTHER, MEDICARE, SELFPAY ==
--- OUTSIDE RECORDS SUMMARY | 2024-11-01 07:43 | XMS RPT_ITS | CCD ---
Author Organization [facility] [place] [facility] Care Team Providers [facility] Rep Name Role Phone Dr. Darrin Thorpe Primary Care Provider Dr. Darrin Thorpe Referring Provider Dr. Luis Onofre Attending Provider [phone]([phone] Luis Onofre Referring Provider 1([facility])-[phone] [place], Dr. Smith Other Provider Dr. Darrin Thorpe Primary Care Provider [phone]([phone] Dr. Darrin Thorpe Referring Provider 1([facility])[phone] Luis Onofre Attending Provider [place], Dr. Smith Referring Provider [phone] Luis Onofre Other Provider DAWIT Grubbs Attending Provider PATRICIA Frazier Attending Provider Dr. Darrin Thorpe Primary Care Provider Dr. Darrin Thorpe Referring Provider [phone]([facility])[phone] Luis Onofre Attending Provider Dr. Darrin Thorpe Primary Care Provider Dr. Darrin Thorpe Referring Provider PATRICIA Flannery Attending Provider Dr. Darrin Thorpe Primary Care Provider [phone] Dr. Darrin Thorpe Referring Provider PATRICIA Flannery Attending Provider [phone] Dr. Darrin Thorpe MD Primary Care Provider 1([facility])[phone] Janey Mike Attending Provider Unavailable Maurilio MCLAUGHLIN, Dr. Clifford Referring Provider Marcus Vasquez Attending Provider Patrice MCLAUGHLIN, Dr. Marcus Quigley Attending Provider Patrice MCLAUGHLIN, Dr. Marcus Quigley Other Provider Maurilio MCLAUGHLIN, Dr. Clifford Primary Care Provider Maurilio MCLAUGHLIN, Dr. Clifford Referring Provider [phone] Nicole Frazier Attending Provider Dr. Dottie Rausch DO Emergency Provider [phone] Darrin Thorpe Attending Unavailable Thorpe, Darrin Referring Unavailable Thorpe, Darrin Primary Care Unavailable Dottie Rausch Attending Unavailable Thorpe, Darrin Primary Care Unavailable Thorpe, Darrin Primary Care Unavailable Rahul GOMEZ, Nicole Chu Attending Unavail able Rahul GOMEZ, Nicole Chu Referring Unavail able Rahul GOMEZ, Nicole Chu Attending Unavail able Thorpe, Darrin Referring Unavailable Thorpe, Darrin Primary Care Unavailable Janey Mike Attending Unavailable Thorpe, Darrin Primary Care Unavailable Marcus Ibrahim Consulting Unavailable Marcus Ibrahim Attending Unavailable Thorpe, Darrin Referring Unavailable Thorpe, Darrin Primary Care Unavailable Marcus Vasquez Attending Unavailable Thorpe, Darrin Referring Unavailable Thorpe, Darrin Primary Care Unavailable Marcus Ibrahim Attending Unavailable Thorpe, Darrin Referring Unavailable Thorpe, Darrin Primary Care Unavailable Medications Current Medications Medication Drug Class(es) Dates Sig (Normalized) Sig (Original) aspirin 81 mg delayed release oral tablet (10 sources) Platelet Aggregation Inhibitor, Nonsteroidal Anti-inflammatory Drug Start: 09-15-2021 Aspirin (Adult Low Dose Aspirin) 81 mg tablet,delayed release (/EC) Active 81 mg PO DAILY September 15, 2021 12:00am losartan potassium 50 mg oral tablet (20 sources) Angiotensin 2 Receptor Joseph Start: 09-21-2023 End: 09-19-2024 take 1 tablet by mouth once daily Losartan 50 mg tablet Active 50 mg PO DAILY 90 September 19, 2024 9:04am Start: 09-15-2021 End: 09-21-2023 take 1 tablet by mouth once daily Losartan 100 mg tablet Discontinued 100 mg PO DAILY 90 October 31, 2022 1:23pm September 21, 2023 9:22am Multivitamin (Daily Multi-Vitamin) tablet (3 sources) Start: 05-15-2024 Multivitamin ( Daily Multi-Vitamin) tablet Active 1 {tbl} PO DAILY May 15, 2024 12:00am [place] (Nk) (1 source) Start: 09-14-2021 [place] (Nk) A ctive September 14, 2021 12:00am Oral appliance (7 sources) Start: 01-24-2022 Oral appliance Active 0 .ROUTE .MEDSUPPLY 1 0 January 24, 2022 1:00am Obstructive sleep apnea syndrome Obstructive sleep apnea (adult) (pediatric) As directed Start: 01-24-2022 Oral appliance Active 0 .ROUTE .MEDSUPPLY January 24, 2022 12:00am As directed Start: 01-24-2022 Oral appliance Active 0 .ROUTE .MEDSUPPLY January 24, 2022 1:00am As directed pantoprazole 20 mg delayed release oral tablet (1 source) Proton Pump Inhibitor Start: 10-20-2024 take 1 tablet by mouth once daily Pantoprazole 20 mg tablet,delayed release (DR/EC) Active 20 mg PO DAILY 14 0 October 20, 2024 12:00am Completed/Discontinued Medications Medication Drug Class(es) Dates Sig (Normalized) Sig (Original) amLODIPine 5 mg oral tablet (20 sources) Dihydropyridine Calcium Channel Joseph Start: 09-20-2021 End: 09-19-2024 take 1 tablet by mouth once daily Amlodipine 5 mg tablet Discontinued 5 mg PO DAILY 90 3 November 03, 2023 8:31am September 19, 2024 9:04am omeprazole 20 mg delayed release oral capsule (10 sources) Proton Pump Inhibitor Start: 09-15-2021 End: 03-26-2024 take 1 capsule by mouth once daily as needed Omeprazole 20 mg capsule,delayed release(DR/EC) Discontinued 20 mg PO DAILY as needed September 15, 2021 12:00am March 26, 2024 12:39pm Problems Active Problems Problem Classification Problem Date Documented Date Episodic/Chronic Abdominal pain (1 source) Epigastric pain; Translations: [Epigastric pain] 10-20-2024 Episodic Acute bronchitis (11 sources) Acute bronchitis; Translations: [Acute bronchitis, unspecified] 09-14-2021 Episodic Disorders of lipid metabolism (1 source) Pure hypercholesterolemia, unspecified; Translations: [Pure hypercholesterolemia, unspecified] Onset: 02-05-2024 Chronic Esophageal disorders (10 sources) Gastroesophageal reflux disease; Translations: [Gastro-esophageal reflux disease without esophagitis] 09-15-2021 Chronic Essential hypertension (20 sources) Hypertensive disorder; Translations: [Essential (primary) hypertension] Onset: 09-19-2024 Chronic Comment on above: CONTROLLED WITH MED Immunizations and screening for infectious disease (20 sources) Patient encounter status; Translations: [Encounter for screening for COVID-19] Episodic Nonspecific chest pain (14 sources) Chest pain; Translations: [Chest pain, unspecified] Onset: 10-24-2024 Episodic Other eye disorders (6 sources) Subconjunctival hemorrhage; Translations: [Conjunctival hemorrhage, unspecified eye] 01-05-2023 Episodic Other eye disorders (2 sources) Conjunctival hemorrhage, unspecified eye; Translations: [Conjunctival hemorrhage] 01-05-2023 Episodic Other injuries and conditions due to external causes (9 sources) Foreign body in ear; Translations: [Foreign body in right ear, initial encounter] 09-14-2021 Episodic Other injuries and conditions due to external causes (6 sources) Foreign body in right ear; Translations: [Foreign body in right ear, initial encounter] 09-14-2021 Episodic Other nutritional; endocrine; and metabolic disorders (10 sources) Obese class I; Translations: [Obesity, unspecified] 04-19-2022 Chronic Comment on above: As above BMI was 32. 5 today. Other upper respiratory infections (20 sources) Acute maxillary sinusitis; Translations: [Acute maxillary sinusitis, unspecified] Episodic Residual codes; unclassified (8 sources) Obstructive sleep apnea syndrome; Translations: [Obstructive [...] of colon] Onset: 05-24-2024 Episodic Viral infection (11 sources) Disease caused by 2019-nCoV; Translations: [COVID-19] Onset: 02-20-2021 09-14-2021 Episodic Results Test Name Value Interpretation Reference Range Facility Limited Chest CT Cardiac Onl yon 10-23-[address] Cardiac Only [facility] Imaging Services [address] [place] [id number] Cardiac Only MR#: [id number] Acct: [id number] Name: KISHORE CHANG Rep #: [id number] : 1950 M 74 From: Derrick Alejandro PCP: Dr. Darrin Thorpe MD Status: REG REF Study: Limited Chest CT Cardiac Only Date of Exam: Exam# [id number] Ordering Dr: Nicole Kay PROCEDURE: LIMITED CHEST CT CARDIAC ONLY 10/23/2024 REASON FOR EXAM: CAD Family history of coronary artery disease. TECHNIQUE: Procedure Code: CTCCTACHLIM Modality: CT Procedure: LIMITED CHEST CT CARDIAC ONLY CT performed for coronary artery calcium scoring. One or more dose reduction techniques were used (e.g., Automated exposure control, adjustment of the mA and/or kV according to patient size, use of iterative reconstruction technique). RADIATION DOSE SUMMARY: CTDlvol: 12.19 mGy DLP: 219.42 mGycm COMPARISON: Chest x-ray 10/20/2024. CT/Limited Chest CT Cardiac Only IMPRESSION: Nonspecific multiple mediastinal lymph nodes are seen. Incidental note is made of a right hepatic cyst. Limited imaging of the lungs demonstrates no acute process. No pleural effusion or pneumothorax is seen in visualized areas. The visualized upper abdomen demonstrates no significant abnormality. Reading Location: [place] [address] CC: Dr. Darrin Thorpe MD; PATRICIA Singh Seam Stay Stitcher: Signed Normal [facility] 12 Lead EKGon 10-20-2024 12 Lead EKG [facility] Cardiovascular Services [address] [place] [address] 12 Lead EKG 10/20/24 0820 MR#: [id number] Acct: [id number] Name: KISHORE CHANG Rep #: [id number] : 1950 74 From: Lee Miranda MD Attending Dr: Status: DEP ER Ordering Dr: Dottie Rausch DO Date: 10/20/24 Location: ED Sex: M UTD Admitted: Test Reason : CP Blood Pressure : */* mmHG Vent. Rate : 99 BPM Atrial Rate : 99 BPM P-R Int : 162 ms QRS Dur : 72 ms QT Int : 336 ms P-R-T Axes : 61 25 37 degrees QTcB Int : 431 ms Normal sinus rhythm Low voltage QRS Borderline ECG Confirmed by Lee Miranda ([id number]), manager editorial YURIDIA WHITE ([id number]) on 10/21/2024 9:49:43 AM Referred By: Confirmed By: Lee Miranda 10/21/24 0949 Date Lee Miranda MD CC: Dr. Dottie Rausch DO; Dr. Darrin Thorpe MD Signed Normal [facility] Absolute lymphocyte countOrd ered By: Dottie Rausch on 10-20-2024 Lymphocytes Auto (Unsp spec) [#/Vol] 1.35 10*3/uL 0.83-4.51 [facility] Absolute neutrophil countOrd ered By: Dottie Rausch on 10-20-2024 Neutrophils (Bld) [#/Vol] 7.0 10*3/uL 2.0-7.7 [facility] Anion gap in Serum or Plasma Ordered By: Dottie Rausch on 10-20-2024 Anion gap [Moles/Vol] 12 mmol/L 5-15 [facility] Automated lymphocyte count a s percentage of total leukocytesOrdered By: Dottie Rausch on 10-20-2024 Lymphocytes/100 WBC Auto (Unsp spec) 14.7 % Low 19-41 [facility] BUN/creatinine ratioOrdered By: Dottie Rausch on 10-20-2024 Urea nitrogen/Creatinine [Mass ratio] 17.5 mg/mg 10- [facility] Basic Metabolic Profile (BMP )on 10-20-2024 BUN/CRE 17.5 RATIO Normal - [facility] Comment on above: Performed By: #### L 100.0100, L500.4050, L500.4100, L501.9910 #### [facility] [address] [place], [address] Calcium [Mass/Vol] 9.2 mg/dL Normal 7.6-11.0 [facility] Comment on above: Performed By: #### L 100.0100, L500.4050, L500.4100, L501.9910 #### [facility] [address] [place], [address] Chloride [Moles/Vol] 101 mmol/L Normal 98-108 [facility] Comment on above: Performed By: #### L 100.0100, L500.4050, L500.4100, L501.9910 #### [facility] [address] [place], [address] CO2 [Moles/Vol] 22.4 mmol/L Normal 21.0-32.0 [facility] Comment on above: Performed By: #### L 100.0100, L500.4050, L500.4100, L501.9910 #### [facility] [address] [place], [address] Creatinine [Mass/Vol] 0.71 mg/dL Normal 0.70-1.20 [facility] Comment on above: Performed By: #### L 100.0100, L500.4050, L500.4100, L501.9910 #### [facility] [address] [place], [address] ECRCL 101.69 ml/min Normal 50-250 [facility] Comment on above: Performed By: #### L 100.0100, L500.4050, L500.4100, L501.9910 #### [facility] [address] [place], [address] GAP 12 Normal 5-15 [facility] Comment on above: Performed By: #### L 100.0100, L500.4050, L500.4100, L501.9910 #### [facility] [address] [place], [address] GFR/1.73 sq M.predicted among non-blacks MDRD (S/P/Bld) [Vol rate/Area] 97 mL/min/{1.73_m2} Normal >60 [facility] Comment on above: Result Comment: mL/m in/1.73m2 CKD-EPI Creatinine Equation (2020) Performed By: #### L 100.0100, L500.4050, L500.4100, L501.9910 #### [facility] [address] [place], [address] Glucose [Mass/Vol] 136 mg/dL High 70-99 [facility] Comment on above: Performed By: #### L 100.0100, L500.4050, L500.4100, L501.9910 #### [facility] [address] [place], [address] Potassium [Moles/Vol] 4.2 mmol/L Normal 3.3-5.1 [facility] Comment on above: Performed By: #### L 100.0100, L500.4050, L500.4100, L501.9910 #### [facility] [address] [place], [address] Sodium [Moles/Vol] 136 mmol/L Normal 133-145 [facility] Comment on above: Performed By: #### L 100.0100, L500.4050, L500.4100, L501.9910 #### [facility] [address] [place], [address] Urea nitrogen [Mass/Vol] 12 mg/dL Normal 4-19 [facility] Comment on above: Performed By: #### L 100.0100, L500.4050, L500.4100, L501.9910 #### [facility] [address] [place], [address] Basophil percentageOrdered B y: Dottie Rausch on 10-20-2024 Basophils/100 WBC (Bld) 0.4 % 0-1 [facility] Bilirubin directOrdered By: Dottie Rausch on 10-20-2024 Bilirubin.direct [Mass/Vol] 0.19 mg/dL 0.00-0.30 [facility] Bilirubin, totalOrdered By: Dottie Rausch on 10-20-2024 Bilirubin [Mass/Vol] 0.47 mg/dL 0.00-1.30 [facility] CBC W/Diff, Automatedon Absolute Lymph 1.35 X10 3/uL Normal 0.83-4.51 [facility] Comment on above: Performed By: #### L 501.4021, L100.0100 #### [facility] [address] [place], [address] Absolute Neut 7.0 X10 3/uL Normal 2.0-7.7 [facility] Comment on above: Performed By: #### L 501.4021, L100.0100 #### [facility] [address] [place], [address] Basophils/100 WBC (Bld) 0.4 % Normal 0-1 [facility] Comment on above: Performed By: #### L 501.4021, L100.0100 #### [facility] [address] [place], [address] Eosinophils/100 WBC (Bld) 1.3 % Normal 0-5 [facility] Comment on above: Performed By: #### L 501.4021, L100.0100 #### [facility] [address] [place], [address] Erythrocyte distribution width (RBC) [Ratio] 12.8 % Normal 11.6-14.6 [facility] Comment on above: Performed By: #### L 501.4021, L100.0100 #### [facility] [address] [place], [address] Hematocrit (Bld) [Volume fraction] 50.8 % Normal 40-54 [facility] Comment on above: Performed By: #### L 501.4021, L100.0100 #### [facility] [address] [place], [address] Hemoglobin (Bld) [Mass/Vol] 17.4 g/dL High 13.0-16.5 [facility] Comment on above: Performed By: #### L 501.4021, L100.0100 #### [facility] [address] [place], [address] IG% 0.400 Normal 0.0-0.9 [facility] Comment on above: Result Comment: IG% - Immature Granulocytes (promyelocytes, myelocytes and metamyelocytes) > 1% indicates that a LEFT SHIFT is Present. Performed By: #### L 501.4021, L100.0100 #### [facility] [address] [place], [address] Lymphocytes/100 WBC (Bld) 14.7 % Low 19-41 [facility] Comment on above: Performed By: #### L 501.4021, L100.0100 #### [facility] [address] [place], [address] MCH (RBC) [Entitic mass] 30.3 pg Normal 27.0-32.0 [facility] Comment on above: Performed By: #### L 501.4021, L100.0100 #### [facility] [address] [place], [address] MCHC (RBC) [Mass/Vol] 34.3 g/dL Normal 32-36 [facility] Comment on above: Performed By: #### L 501.4021, L100.0100 #### [facility] [address] [place], [address] MCV (RBC) [Entitic vol] 88.5 fL Normal 80-94 [facility] Comment on above: Performed By: #### L 501.4021, L100.0100 #### [facility] [address] [place], [address] Monocytes/100 WBC (Bld) 7.0 % Normal 0-10 [facility] Comment on above: Performed By: #### L 501.4021, L100.0100 #### [facility] [address] [place], [address] Neutrophils/100 WBC (Bld) 76.2 % High 47-70 [facility] Comment on above: Performed By: #### L 501.4021, L100.0100 #### [facility] [address] [place], [address] Nucleated RBC (Bld) [#/Vol] 0 10*3/uL Normal 0-5 [facility] Comment on above: Performed By: #### L 501.4021, L100.0100 #### [facility] [address] [place], [address] Platelet mean volume (Bld) [Entitic vol] 8.9 fL Normal 6.2-12.0 [facility] Comment on above: Performed By: #### L 501.4021, L100.0100 #### [facility] [address] [place], [address] Platelets (Bld) [#/Vol] 285 10*3/uL Normal 150-450 [facility] Comment on above: Performed By: #### L 501.4021, L100.0100 #### [facility] [address] [place], [address] RBC (Bld) [#/Vol] 5.74 10*6/uL Normal 4.6-6.2 [facility] Comment on above: Performed By: #### L 501.4021, L100.0100 #### [facility] [address] [place], [address] RDW SD 41.7 fl Normal 35.1-43.9 [facility] Comment on above: Performed By: #### L 501.4021, L100.0100 #### [facility] [address] [place], [address] WBC (Bld) [#/Vol] 9.2 10*3/uL Normal 4.4-11.0 [facility] Comment on above: Performed By: #### L 501.4021, L100.0100 #### [facility] [address] [place], [address] Carbon dioxide, total [Moles /volume] in Central venous bloodOrdered By: Dottie Rausch on 10-20-2024 CO2 [Moles/Vol] 22.4 mmol/L 21.0-32.0 [facility] Chest PA and Lateralon 10-20 Chest PA and Lateral [facility] Imaging Services [address] [place] [address] Chest PA and Lateral MR#: [id number] Acct: [id number] Name: KISHORE CHANG Rep #: [id number] : 1950 M 74 From: Juan Daniel Zavala MD PCP: Dr. Darrin Thorpe MD Status: PRE ER Study: Chest PA and Lateral Date of Exam: 10/20/24 Exam# [id number] Ordering Dr: Dottie Rausch DO PROCEDURE: CHEST PA AND LATERAL 10/20/2024 REASON FOR EXAM: CHEST PAIN TECHNIQUE: Procedure Code: RADCXR Modality: DX Procedure: CHEST PA AND LATERAL COMPARISON: 05/14/2023. FINDINGS: The heart is normal in size. The lungs are clear. No acute osseous abnormalities. RAD/Chest PA and Lateral IMPRESSION: No acute abnormalities. Reading Location: [address] CC: Dr. Dottie Rausch DO; Dr. Darrin Thorpe MD Seam Stay Stitcher: Signed Normal [facility] Chloride assayOrdered By: Gary Rausch on 10-20-2024 Chloride [Moles/Vol] 101 mmol/L 98-108 [facility] Emergency Department Summary on 10-20-2024 Emergency Department Summary [facility] Medical Records Department [address] [place] [address] Emergency Department Summary 10/20/24 MR#: [id number] Acct: [id number] Name: KISHORE CHANG Rep #: [id number] : 1950 74 From: Dottie Rausch DO PCP: Dr. Darrin Thorpe MD Status:DEP ER Location: ED HPI History of Present Illness Chief Complaint: Chest Pain Informant: patient Narrative Narrative: Patient is a 74-year-old male with history of hypertension and GERD presenting with chest pain in his epigastric/xiphoid area. Patient states started at 11 PM last night. Notes he could not sleep because of the symptoms. He states he would try to change position and it would just come back worse. States it has been constant since then but has fluctuated in intensity. Denies any radiation of the pain. Did have an episode of vomiting this morning. Denies any shortness of breath. Did try to take a Pepcid this morning with his normal aspirin and blood pressure medicine but continued to have his symptoms. No did spaghetti for dinner last night. Has had symptoms like this in the past but it been reflux related. States has never had the symptoms last so long and when he told his about this when he came in for further evaluation. His notes this morning he seemed cold and clammy. He does note that his socks seemed a little tight this morning but otherwise denies any leg swelling. He denies any shortness of breath or difficulty breathing. Denies any fever or chills. Denies any black or blood in his stool. No other complaints or concerns at this time. [facility] Medical History Wears hearing aid Wears glasses [...] Oral appliance #1 ea 01/24/22 Unknown Rx multivitamin (Daily Multi-Vitamin 1 tab PO DAILY 05/15/24 05/13/24 History tablet) amlodipine 5 mg tablet 5 mg PO DAILY #90 tabs 09/19/24 Un known Rx losartan 50 mg tablet 50 mg PO DAILY #90 tabs 09/19/24 U nknown Rx pantoprazole 20 mg tablet,delayed 20 mg PO DAILY #14 tabs 10/20/24 Unknown Rx release Allergy/AdvReac Type Severity Reaction Status Date / Time No Known Allergies Allergy Verified 09/19/24 08:46 Surgical History Hx of oral surgery History [...] Type: coffee Number of servings: 2 ROS ROS ED Constitutional Constitutional ED: Denies chills, fever(s) or sweats Cardiovascular Cardiovascular: Reports as per HPI and chest pain; Denies palpitations Respiratory/Chest Respiratory/Chest: Denies cough or dyspnea Gastrointestinal Gastrointestinal: Reports abdominal pain, nausea and vomiting; Denies diarrhea Musculoskeletal Musculoskeletal: Denies arthralgias or myalgias Integumentary Denies rash Neurologic Neurologic: Denies weakness Hematologic/Lymphatic Hematologic/Lymphatic : Denies easy bleeding or easy bruising EXAM Physical Exam Const Vital Signs: 10/20/24 08:16 10/20/24 08:26 10/20/24 09:15 Temperature 97.9 F Temperature Source Temporal Pulse Rate 100 90 Respiratory Rate 16 22 H Blood Pressure 148/99 H 138/86 H Blood Pressure Mean 115 103 Pulse Ox 95 95 95 Oxygen Delivery Method Room Air Room Air Room Air 10/20/24 10:12 Temperature 98.6 F Temperature Source Pulse Rate 996 H Respiratory Rate 22 H Blood Pressure 130/85 H Blood Pressure Mean 100 Pulse Ox 95 Oxygen Delivery Method Positive well nourished and well developed General Appearance ED: well developed and NAD; Negative for pallor HEENT Reports moist mucous membranes Neck supple and no JVD Chest Wall inspection of chest normal and palpation of chest normal Resp normal respiratory effort and clear to auscultation bilaterally Cardio regular rate, regular rhythm and no murmurs GI soft to palpation and non-distended GI Narrative: Mild epigastric tenderness palpation. Negative Turner sign. Normal bowel sounds. Protuberant (more content not included)... Normal [facility] Eosinophil percentageOrdered By: Dottie Rausch on 10-20-2024 Eosinophils/100 WBC (Bld) 1.3 % 0-5 [facility] Erythrocyte distribution wid th ratioOrdered By: Dottie Rausch on 10-20-2024 Erythrocyte distribution width (RBC) [Ratio] 12.8 % 11.6-14.6 [facility] Erythrocyte distribution wid th standard deviationOrdered By: Dottie Rausch on 10-20-2024 Erythrocyte distribution width (RBC) [Ratio] 41.7 fl 35.1-43.9 [facility] Glomerular filtration rate ( GFR) estimation/1.73 sq m using serum, plasma, or whole bOrdered By: Dottie Rausch on 10-20-2024 GFR/1.73 sq M.predicted among non-blacks MDRD (S/P/Bld) [Vol rate/Area] 97 mL/min/{1.73_m2} >60 [facility] Comment on above: mL/min/1.73m2 CKD-EP I Creatinine Equation (2020) Hematocrit Auto (Bld) [Volum e fraction]Ordered By: Dottie Rausch on 10-20-2024 Hematocrit (Bld) [Volume fraction] 50.8 % 40-54 [facility] Hemoglobin measurementOrdere d By: Dottie Rausch on 10-20-2024 Hemoglobin (Bld) [Mass/Vol] 17.4 g/dL High 13.0-16.5 [facility] Immature granulocytes/100 WB C Auto (Bld)Ordered By: Dottie Rausch on 10-20-2024 Immature granulocytes/100 WBC (Bld) 0.400 % 0.0-0.9 [facility] Comment on above: IG% - Immature Granu locytes (promyelocytes, myelocytes and metamyelocytes) > 1% indicates that a LEFT SHIFT is Present. L501.4021on 10-20-2024 Trop T High Sen < 6 Normal <=22 [facility] Comment on above: Performed By: #### L 501.4021, L100.0100 #### [facility] Laboratory [address], [place], [address] Laboratory - Chemistry and C hemistry - challengeOrdered By: Dottie Rausch on 10-20-2024 AST [Catalytic activity/Vol] 27 U/L <38 [facility] Lipaseon 10-20-2024 Lipase [Catalytic activity/Vol] 22 U/L Normal 13-75 [facility] Comment on above: Result Comment: Christiano paige note: LIPASE revised reference range effective 22. New Lipase methodology. Expected to produce lower values than the previous assay method. NEW Reference Range: 13 - 75 U/L Performed By: #### L 100.0100, L500.4050, L500.4100, L501.9910 #### [facility] Laboratory [address] [place], [address] Lipase measurementOrdered By : Dottie Rausch on 10-20-2024 Lipase [Catalytic activity/Vol] 22 U/L 13-75 [facility] Comment on above: Please note:LIPASE r evised reference range effective 22. New Lipase methodology. Expected to produce lower values than the previous assay method. NEW Reference Range: 13 - 75 U/L Liver Profileon 10-20-2024 Albumin [Mass/Vol] 4.5 g/dL Normal 3.4-4.8 [facility] Comment on above: Performed By: #### L 100.0100, L500.4050, L500.4100, L501.9910 #### [facility] Laboratory [address] [place], [address] ALK PHOS 50 U/L Normal 40-129 [facility] Comment on above: Performed By: #### L 100.0100, L500.4050, L500.4100, L501.9910 #### [facility] Laboratory [address] [place], [address] ALT [Catalytic activity/Vol] 30 U/L Normal <=46 [facility] Comment on above: Performed By: #### L 100.0100, L500.4050, L500.4100, L501.9910 #### [facility] Laboratory [address] [place], [address] AST [Catalytic activity/Vol] 27 U/L Normal <=37 [facility] Comment on above: Performed By: #### L 100.0100, L500.4050, L500.4100, L501.9910 #### [facility] Laboratory [address] [place], [address] Bilirubin [Mass/Vol] 0.47 mg/dL Normal 0.00-1.30 [facility] Comment on above: Performed By: #### L 100.0100, L500.4050, L500.4100, L501.9910 #### [facility] Laboratory [address] [place], [address] Bilirubin.direct [Mass/Vol] 0.19 mg/dL Normal 0.00-0.30 [facility] Comment on above: Performed By: #### L 100.0100, L500.4050, L500.4100, L501.9910 #### [facility] Laboratory [address] [place], [address] Globulin (S) [Mass/Vol] 3.3 g/dL Normal 2.2-4.2 [facility] Comment on above: Performed By: #### L 100.0100, L500.4050, L500.4100, L501.9910 #### [facility] Laboratory [address] [place], [address] T PROT 7.8 g/dL Normal 5.9-8.4 [facility] Comment on above: Performed By: #### L 100.0100, L500.4050, L500.4100, L501.9910 #### [facility] Laboratory [address] [place], [address] MCV (mean corpuscular volume ) determinationOrdered By: Dottie Rausch on 10-20-2024 MCV (RBC) [Entitic vol] 88.5 fL 80-94 [facility] Mean corpuscular hemoglobin (MCH) determinationOrdered By: Dottie Rausch on 10-20-2024 MCH (RBC) [Entitic mass] 30.3 pg 27.0-32.0 [facility] Mean corpuscular hemoglobin concentration (MCHC) determinationOrdered By: Dottie Rausch on 10-20-2024 MCHC (RBC) [Mass/Vol] 34.3 g/dL 32-36 [facility] Mean platelet volume determi nationOrdered By: Dottie Rausch on 10-20-2024 Platelet mean volume (Bld) [Entitic vol] 8.9 fL 6.2-12.0 [facility] Monocyte percentageOrdered B y: Dottie Rausch on 10-20-2024 Monocytes/100 WBC (Bld) 7.0 % 0-10 [facility] Neutrophil percentageOrdered By: Dottie Rausch on 10-20-2024 Neutrophils/100 WBC (Bld) 76.2 % High 47-70 [facility] Nucleated red blood cell per centageOrdered By: Dottie Rausch on 10-20-2024 Nucleated RBC/100 WBC (Bld) [Ratio] 0 % 0-5 [facility] Platelet countOrdered By: Gary Rausch on 10-20-2024 Platelets (Bld) [#/Vol] 285 10*3/uL 150-450 [facility] Potassium measurement (mass/ volume)Ordered By: Dottie Rausch on 10-20-2024 Potassium (Unsp spec) [Mass/Vol] 4.2 mmol/L 3.3-5.1 [facility] RBC Auto (Bld) [#/Vol]Ordere d By: Dottie Rausch on 10-20-2024 RBC (Bld) [#/Vol] 5.74 10*6/uL 4.6-6.2 [facility] Serum creatinine measurement (mass/volume)Ordered By: Dottie Rausch on 10-20-2024 Creatinine [Mass/Vol] 0.71 mg/dL 0.70-1.20 [facility] Serum globulin measurementOr dered By: Dottie Rausch on 10-20-2024 Globulin (S) [Mass/Vol] 3.3 g/dL 2.2-4.2 [facility] Serum glucose measurement (m ass/volume)Ordered By: Dottie Rausch on 10-20-2024 Glucose [Mass/Vol] 136 mg/dL High 70-99 [facility] Serum or plasma alanine hidalgo otransferase (ALT) measurementOrdered By: Dottie Rausch on 10-20-2024 ALT [Catalytic activity/Vol] 30 U/L <47 [facility] Serum or plasma albumin zoila urement (mass/volume)Ordered By: Dottie Rausch on 10-20-2024 Albumin [Mass/Vol] 4.5 g/dL 3.4-4.8 [facility] Serum or plasma alkaline aissatou sphatase measurementOrdered By: Dottie Rausch on 10-20-2024 ALP [Catalytic activity/Vol] 50 U/L 40-129 [facility] Serum or plasma calcium zoila urement (mass/volume)Ordered By: Dottie Rausch on 10-20-2024 Calcium [Mass/Vol] 9.2 mg/dL 7.6-11.0 [facility] Serum or plasma urea nitroge n measurement (mass/volume)Ordered By: Dottie Rausch on 10-20-2024 Urea nitrogen [Mass/Vol] 12 mg/dL 4-19 [facility] Sodium levelOrdered By: Sharan Rausch on 10-20-2024 Sodium [Moles/Vol] 136 mmol/L 133-145 [facility] Total proteinOrdered By: Lauren Rausch on 10-20-2024 Protein [Mass/Vol] 7.8 g/dL 5.9-8.4 [facility] Troponin T HS 2 HRon 025 Trop T High Sen Normal <=22 [facility] Comment on above: Result Comment: Canc elled via OM: Order cancelled - Patient discharged Performed By: #### L 499.0042 #### [facility] Laboratory [address] [place], [address] Troponin T HS 4 HRon 025 Trop T High Sen Normal <=22 [facility] Comment on above: Result Comment: Canc elled via OM: Order cancelled - Patient discharged Performed By: #### L 100.0100, L500.4050, L500.4100, L501.9910 #### [facility] Laboratory [address] [place], [address] Troponin T.cardiac [Mass/vol ume] in Serum or Plasma by High sensitivity methodOrdered By: Dottie Rausch on 10-20-2024 Troponin T.cardiac High sensitivity method [Mass/Vol] < 6 ng/L <22 [facility] White blood cell (WBC) count Ordered By: Dottie Rausch on 10-20-2024 WBC (Bld) [#/Vol] 9.2 10*3/uL 4.4-11.0 [facility] Cardiology Visit Reporton Cardiology Visit Report [facility] [address] [place], [place] [address] OFFICE VISIT Date of Service: 09/19/24 MR#: [id number] Acct: [id number] Name: KISHORE CHANG Rep #: [id number] : 1950 Provider: PATRICIA Mast Age/Sex: 74/M Location: [facility] Status: Signed HPI HPI History of Present [...] NIBP Intake Visit Reasons: 1 Y FU Outsole Skiver Required: No Is patient in pain?: No [...] bowel sounds (more content not included)... Normal [facility] Colonoscopy Reporton 025 Colonoscopy Report [facility] Medical Records Department [address] [place] [address] Colonoscopy Report MR#: [id number] Acct: [id number] Name: KISHORE CHANG Rep #: [id number] : 1950 74 From: Marcus Ibrahim MD PCP: Dr. Darrin Thorpe MD Status:[facility] Patient Name: Kishore Chang Procedure Date: 05/17/2024 [...] present medications. Procedure Code(s): --- Professional --- 32614, Colonoscopy, flexible; with removal of tumor(s), polyp(s), or other lesion(s) by snare technique Diagnosis Code(s): --- Professional --- Z86.010, Personal history of colonic polyps K57.30, Diverticulosis of large intestine without perforation or abscess without bleeding K64.8, Other hemorrhoids D12.5, Benign neoplasm of sigmoid colon CPT copyright 2021 [employer]. All rights reserved. The codes documented in this report are preliminary and upon site monitor review may be revised to meet current compliance requirements. Marcus Ibrahim MD 05/17/2024 9:11:53 AM This report has been signed electronically. Number of Addenda: 0 Note Initiated On: 05/17/2024 8:41 AM 05/17/24911 Date Marcus Ibrahim MD Cosigner Signature: Date (if indicated) CC: Dr. Darrin Thorpe MD; Dr. Marcus Ibrahim MD Date Dictated: 05/17/24840 Date Transcribed: Seam Stay Stitcher: [facility] MR/POSTOP.[facility] 05-17-2024 MR/POSTOP.[facility] Medical Records Department [address] [place] [address] Anesthesia Postop Eval I 05/17/24904 MR#: [id number] Acct: [id number] Name: KISHORE CHANG Rep #: [id number] : 1950 74 From: Sidney oJhn PCP: Dr. Darrin Thorpe MD Status:REG [facility] Y Race: [facility] Location: [place] [address] Anesthesia: Postop Eval I Current Vital Signs [...] Eval 1 completed: Yes 05/17/24904 Date Sidney Enamorado Signature: Date CC: Signed Normal [facility] [id number] 05-17-2024 MR/POSTOPAN2 [facility] Medical Records Department [address] [place] [address] Anesthesia Postop Eval II 05/17/24927 MR#: [id number] Acct: [id number] Name: KISHORE CHANG Rep #: [id number] : 1950 74 From: Cristiana Koo PCP: Dr. Darrin Thorpe MD Status:REG [facility]C Y Race: PRD Location: [place] [address] Anesthesia Postop Eval I Sum Postop Eval Completion status Anesthesia document: Postop Eval 1 completed: Yes Anesthesia Postop Eval I Summary Anesthesia Postop Eval I Summary: Anesthesia Postop Eval I: Assessment Summary Airway patent Yes 05/17/24 09:05 WINE [email or web address].MDOT Spontaneous unlabored Yes 05/17/24 09:05 WINE PASTEURIZER.MDOT respirations Mental status Awake,Calm 05/17/24 09:10 WINE PASTEURIZER.MDOT nausea No 05/17/24 09:10 WINE PASTEURIZER.MDOT Vomiting No 05/17/24 09:10 WINE [email or web address].MDOT Anesthesia Postop Eval I: Fluid Summary Crystalloid volume administer 30 05/17/24 09:05 WINE PASTEURIZER.MDOT (ml) Colloids volume administered ( ml) Blood Product volume administered (ml) Total IV fluid infused 30 05/17/24 09:05 WINE [email or web address].MDOT Anesthesia Postop Eval I: Summary Notes Anesthesia Complication No 05/17/24 09:10 WINE [email or web address].MDOT Anesthesia Complication Comment: Post-operative progress note Anesthesia: Postop Eval II Evaluation Mental status: Awake Pain Level: 0 nausea: No Vomiting: No 05/17/24927 Date Cristiana Enamorado Signature: CC: Signed Normal [facility] MR/POSTOPAN2 [facility] Medical Records Department [address] [place] [address] Anesthesia Postop Eval II 05/17/24908 MR#: [id number] Acct: [id number] Name: IKSHORE CHANG Rep #: [id number] : 1950 74 From: Sidney John PCP: Dr. Darrin Thorpe MD Status:REG SDC Y Race: [facility] Location: [place] [address] Anesthesia Postop Eval I Sum Postop Eval Completion status Anesthesia document: Postop Eval 1 completed: Yes Anesthesia Postop Eval I Summary Anesthesia Postop Eval I Summary: Anesthesia Postop Eval I: Assessment Summary Airway patent Yes 05/17/24 09:05 WINE [email or web address].MDOT Spontaneous unlabored Yes 05/17/24 09:05 WINE PASTEURIZER.MDOT respirations Mental status Awake,Calm 05/17/24 09:05 WINE PASTEURIZER.MDOT nausea No 05/17/24 09:05 WINE PASTEURIZER.MDOT Vomiting No 05/17/24 09:05 WINE [email or web address].MDOT Anesthesia Postop Eval I: Fluid Summary Crystalloid volume administer 30 05/17/24 09:05 WINE PASTEURIZER.MDOT (ml) Colloids volume administered ( ml) Blood Product volume administered (ml) Total IV fluid infused 30 05/17/24 09:05 WINE [email or web address].MDOT Anesthesia Postop Eval I: Summary Notes Anesthesia Complication No 05/17/24 09:05 WINE [email or web address].MDOT Anesthesia Complication Comment: Post-operative progress note Anesthesia: Postop Eval II Evaluation Mental status: Awake and Calm Pain Level: 0 nausea: No Vomiting: No Complications Anesthesia Complication: No 05/17/24909 Sidney Carbajaligndaniel Signature: Date CC: Signed Normal [facility] Surgery Specimen Level Leora 05-17-2024 Surgery Specimen Level IV ------- -------- Patient Age/Sex Location Account Attending Physician -------- KISHORE CHANG 74/M EN [id number] Dr. Marcus Ibrahim MD -------- Specimen: [id number] Received: 05/17/24 Status: JEWEL Null Num: [id number] Spec Type: Polyp Subm Dr: Dr. Marcus [...] the patient's name, date of , and "sigmoid polyp" is a 0.2 x 0.2 x 0.2 cm fragment of mcclain-pink mucosal tissue. Submitted in toto in A1. [facility] 05-17-2024 [facility]:[id number] -------- Patient Age/Sex Location Account Attending Physician -------- KISHORE CHANG 74/M EN [id number] Dr. Marcus Ibrahim MD -------- Signed (signature on file) Dr. Ella Tubbs MD 05/22/24 6238 -------- Normal [facility] Comment on above: Performed By: #### P SUIV #### [facility] Laboratory [address] [facility] [address] [place], [place], [address] MR/PAT.ANEon 05-15-2024 MR/PAT.[facility] Medical Records Department [address] [place] [address] PAT - Anesthesia 05/15/24923 MR#: [id number] Acct: [id number] Name: KISHORE CHANG Rep #: [id number] : 1950 74 From: Jhonathan Gil MD PCP: Dr. Darrin Thorpe MD Status:PRE [facility] Y Race: UTD Location: EN Pre-Assessment Diagnosis/Proposed Procedure Planned Operative Procedure(s): CSCOPE OA Anesthesia History Anesthesia History - commission broker: Anesthesia History - commission broker Hx Hospitalization No 05/15/24 08:11 Any Problems [...] take am of surgery PONV PONV - commission broker: PONV - commission broker Female No 05/15/24 08:11 HX of Motion [...] 03/26/24 11:42 Respiratory Assessment Respiratory Assessment - commission broker: Respiratory Tract Infection Hx - commission broker Hx Respiratory Tract Infection No 05/15/24 08:11 STOP Sleep Apnea STOP Sleep Apnea - commission broker: STOP Sleep Apnea - commission broker Hx Hypertension Yes: CONTROLLED WITH MEDS 05/15/24 [...] Tobacco Use History Tobacco Use History - commission broker: Tobacco Use History - commission broker Tobacco Use Smoking Status Never smoker 05/15/24 08:11 Hx Tobacco Use No 05/15/24 08:11 Years Smoking Packs Smoked per Day Smoking Cessation Date was within the last 15 years Hx Smoking Cessation Date 02/13/89 05/15/24 08:11 Hx Smoking Cessation Counseling Hematologic Medial History Hematologic Hx - commission broker: Hematologic 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 Normal [facility] Urgent Care Visit Reporton 0 04-16-2024 Urgent Care Visit Report [facility] [address], [address] [place] [address] OFFICE VISIT Date of Service: 04/16/24 MR#: [id number] Acct: [id number] Name: KISHORE CHANG Rep #: [id number] : 1950 Provider: PATRICIA Briggs Age/Sex: 73/M Location: [facility] Status: Signed Intake Vital Signs 03/26/24 11:42 04/16/24 12:23 Height 5 ft 11 in Weight: 212 lb BMI 29.5 BP 122/62 H Position Sitting Pulse 103 H Temp 98.1 F Temp Source Oral Pulse Oximetry (%) 97 Oxygen Delivery Method room air Comment Sees [facility] Cardiology yearly for HTN Intake Visit Reasons: [...] Patient noticed it today after the shower. [facility] Medical History (Updated 04/16/24 @ 12:35 by [...] or dizziness or nausea/vomiting. PMH NC. No krld-mdi-[id number] products taken to assist. No other associated symptoms and no other alleviating/aggravati ng factors. ROS Const Constitutional: No other (As above) Exam Const General: cooperative, healthy appearing and no acute distress Orientation: alert and awake [facility] Head: normal to inspection Ears: hearing grossly [...] Body Removal - Foreign body, simple: Yes (04505) Comment [id number], [address] Assessment and Plan Assessment and Plan (1) Foreign body in ear: Status: Acute Plan: - w/ removal See procedure. Follow-up with the [facility] on an as-needed basis only. Patient states acknowledging understanding all the above. This note was generated with [employer] dictation software. It may contain incorrect words, spelling, and punctuation that were not noted in checking the note (more content not included)... Normal [facility] CBC W/Diff, Automatedon 11-2 Absolute Lymph 1.77 X10 3/uL Normal 0.83-4.51 [facility] Comment on above: Order Comment: Order Date: 01/09/24 Order Info: 0184-1 - CBCD Performed By: #### L 100.0100, L500.4050, L500.4100, L501.9910 #### [facility] Laboratory [address] [place], [address] Absolute Neut 3.9 X10 3/uL Normal 2.0-7.7 [facility] Comment on above: Order Comment: Order Date: 01/09/24 Order Info: 0184-1 - CBCD Performed By: #### L 100.0100, L500.4050, L500.4100, L501.9910 #### [facility] [address] [place], [address] Basophils/100 WBC (Bld) 1.2 % High 0-1 [facility] Comment on above: Order Comment: Order Date: 01/09/24 Order Info: 018-1 - CBCD Performed By: #### L 100.0100, L500.4050, L500.4100, L501.9910 #### [facility] [address] [place], [address] Eosinophils/100 WBC (Bld) 3.9 % Normal 0-5 [facility] Comment on above: Order Comment: Order Date: 01/09/24 Order Info: 018- - CBCD Performed By: #### L 100.0100, L500.4050, L500.4100, L501.9910 #### [facility] [address] [place], [address] Erythrocyte distribution width (RBC) [Ratio] 13.0 % Normal 11.6-14.6 [facility] Comment on above: Order Comment: Order Date: 01/09/24 Order Info: 0184-1 - CBCD Performed By: #### L 100.0100, L500.4050, L500.4100, L501.9910 #### [facility] [address] [place], [address] Hematocrit (Bld) [Volume fraction] 45.3 % Normal 40-54 [facility] Comment on above: Order Comment: Order Date: 01/09/24 Order Info: 0184-1 - CBCD Performed By: #### L 100.0100, L500.4050, L500.4100, L501.9910 #### [facility] Laboratory [address] [place], [address] Hemoglobin (Bld) [Mass/Vol] 14.9 g/dL Normal 13.0-16.5 [facility] Comment on above: Order Comment: Order Date: 01/09/24 Order Info: 0184- - CBCD Performed By: #### L 100.0100, L500.4050, L500.4100, L501.9910 #### [facility] [address] [place], [address] IG% 0.300 Normal 0.0-0.9 [facility] Comment on above: Order Comment: Order Date: 01/09/24 Order Info: [id number] - CBCD Result Comment: IG% - Immature Granulocytes (promyelocytes, myelocytes and metamyelocytes) > 1% indicates that a LEFT SHIFT is Present. Performed By: #### L 100.0100, L500.4050, L500.4100, L501.9910 #### [facility] [address] [place], [address] Lymphocytes/100 WBC (Bld) 26.7 % Normal 19-41 [facility] Comment on above: Order Comment: Order Date: 01/09/24 Order Info: 0184- - CBCD Performed By: #### L 100.0100, L500.4050, L500.4100, L501.9910 #### [facility] [address] [place], [address] MCH (RBC) [Entitic mass] 29.4 pg Normal 27.0-32.0 [facility] Comment on above: Order Comment: Order Date: 01/09/24 Order Info: 0184- - CBCD Performed By: #### L 100.0100, L500.4050, L500.4100, L501.9910 #### [facility] [address] [place], [address] MCHC (RBC) [Mass/Vol] 32.9 g/dL Normal 32-36 [facility] Comment on above: Order Comment: Order Date: 01/09/24 Order Info: 0184-1 - CBCD Performed By: #### L 100.0100, L500.4050, L500.4100, L501.9910 #### [facility] [address] [place], [address] MCV (RBC) [Entitic vol] 89.3 fL Normal 80-94 [facility] Comment on above: Order Comment: Order Date: 01/09/24 Order Info: 018-1 - CBCD Performed By: #### L 100.0100, L500.4050, L500.4100, L501.9910 #### [facility] [address] [place], [address] Monocytes/100 WBC (Bld) 9.0 % Normal 0-10 [facility] Comment on above: Order Comment: Order Date: 01/09/24 Order Info: 018- - CBCD Performed By: #### L 100.0100, L500.4050, L500.4100, L501.9910 #### [facility] [address] [place], [address] Neutrophils/100 WBC (Bld) 58.9 % Normal 47-70 [facility] Comment on above: Order Comment: Order Date: 01/09/24 Order Info: 0184-1 - CBCD Performed By: #### L 100.0100, L500.4050, L500.4100, L501.9910 #### [facility] [address] [place], [address] Nucleated RBC (Bld) [#/Vol] 0 10*3/uL Normal 0-5 [facility] Comment on above: Order Comment: Order Date: 01/09/24 Order Info: 0184-1 - CBCD Performed By: #### L 100.0100, L500.4050, L500.4100, L501.9910 #### [facility] [address] [place], [address] Platelet mean volume (Bld) [Entitic vol] 9.0 fL Normal 6.2-12.0 [facility] Comment on above: Order Comment: Order Date: 01/09/24 Order Info: 0184-1 - CBCD Performed By: #### L 100.0100, L500.4050, L500.4100, L501.9910 #### [facility] [address] [place], [address] Platelets (Bld) [#/Vol] 289 10*3/uL Normal 150-450 [facility] Comment on above: Order Comment: Order Date: 01/09/24 Order Info: [id number]- - CBCD Performed By: #### L 100.0100, L500.4050, L500.4100, L501.9910 #### [facility] [address] [place], [address] RBC (Bld) [#/Vol] 5.07 10*6/uL Normal 4.6-6.2 [facility] Comment on above: Order Comment: Order Date: 01/09/24 Order Info: [id number]- - CBCD Performed By: #### L 100.0100, L500.4050, L500.4100, L501.9910 #### [facility] [address] [place], [address] RDW SD 42.7 fl Normal 35.1-43.9 [facility] Comment on above: Order Comment: Order Date: 01/09/24 Order Info: [id number] - CBCD Performed By: #### L 100.0100, L500.4050, L500.4100, L501.9910 #### [facility] [address] [place], [address] WBC (Bld) [#/Vol] 6.6 10*3/uL Normal 4.4-11.0 [facility] Comment on above: Order Comment: Order Date: 01/09/24 Order Info: [id number] - CBCD Performed By: #### L 100.0100, L500.4050, L500.4100, L501.9910 #### [facility] [address] [place], [address] Comprehensive Metabolic Prof ilon 01-10-2024 Albumin [Mass/Vol] 3.6 g/dL Normal 3.2-5.0 [facility] Comment on above: Order Comment: Order Date: 01/09/24 Order Info: [id number] - CMP Order Info: [id number] - LIPID Order Info: [id number] - PSA Performed By: #### L 100.0100, L500.4050, L500.4100, L501.9910 #### [facility] [address] [place], [address] Albumin/Globulin [Mass ratio] 1.1 {ratio} Normal 0.9-2.4 [facility] Comment on above: Order Comment: Order Date: 01/09/24 Order Info: [id number]- - CMP Order Info: [id number] - LIPID Order Info: [id number] - PSA Performed By: #### L 100.0100, L500.4050, L500.4100, L501.9910 #### [facility] [address] [place], [address] ALK P 47 U/L Normal 45-117 [facility] Comment on above: Order Comment: Order Date: 01/09/24 Order Info: [id number] - CMP Order Info: [id number] - LIPID Order Info: [id number] - PSA Performed By: #### L 100.0100, L500.4050, L500.4100, L501.9910 #### [facility] [address] [place], [address] ALT [Catalytic activity/Vol] 21 U/L Normal 16-61 [facility] Comment on above: Order Comment: Order Date: 01/09/24 Order Info: [id number]- - CMP Order Info: - LIPID Order Info: [id number] - PSA Performed By: #### L 100.0100, L500.4050, L500.4100, L501.9910 #### [facility] [address] [place], [address] AST [Catalytic activity/Vol] 13 U/L Low 15-37 [facility] Comment on above: Order Comment: Order Date: 01/09/24 Order Info: [id number] - CMP Order Info: - LIPID Order Info: [id number] - PSA Performed By: #### L 100.0100, L500.4050, L500.4100, L501.9910 #### [facility] [address] [place], [address] Bilirubin [Mass/Vol] 0.60 mg/dL Normal 0.20-1.00 [facility] Comment on above: Order Comment: Order Date: 01/09/24 Order Info: [id number] - CMP Order Info: - LIPID Order Info: [id number] - PSA Result Comment: For patients on eltrombopag therapy, use of Dimension [place] TBIL is not recommended. Performed By: #### L 100.0100, L500.4050, L500.4100, L501.9910 #### [facility] [address] [place], [address] BUN/CRE 21.2 RATIO High 10-20 [facility] Comment on above: Order Comment: Order Date: 01/09/24 Order Info: [id number] - CMP Order Info: [id number] - LIPID Order Info: [id number] - PSA Performed By: #### L 100.0100, L500.4050, L500.4100, L501.9910 #### [facility] [address] [place], [place], [address] CA,Total 8.9 mg/dL Normal 8.5-10.1 [facility] Comment on above: Order Comment: Order Date: 01/09/24 Order Info: 07 - CMP Order Info: [id number] - LIPID Order Info: [id number] - PSA Performed By: #### L 100.0100, L500.4050, L500.4100, L501.9910 #### [facility] [address] [place], [place], [id number] Chloride [Moles/Vol] 108 mmol/L High 98-107 [facility] Comment on above: Order Comment: Order Date: 01/09/24 Order Info: 07 - CMP Order Info: - LIPID Order Info: [id number] - PSA Performed By: #### L 100.0100, L500.4050, L500.4100, L501.9910 #### [facility] [address] [place], [place], [id number] CO2 [Moles/Vol] 24.0 mmol/L Normal 21.0-32.0 [facility] Comment on above: Order Comment: Order Date: 01/09/24 Order Info: 07 - CMP Order Info: [id number] - LIPID Order Info: [id number] - PSA Performed By: #### L 100.0100, L500.4050, L500.4100, L501.9910 #### [facility] [address] [place], [place], [id number] Creatinine [Mass/Vol] 0.80 mg/dL Normal 0.70-1.30 [facility] Comment on above: Order Comment: Order Date: 01/09/24 Order Info: [id number] - CMP Order Info: [id number] - LIPID Order Info: [id number] - PSA Result Comment: The validity of the calculated GFR GFRAA in patients over 70 years has not been determined. Clinical correlation is essential. Performed By: #### L 100.0100, L500.4050, L500.4100, L501.9910 #### [facility] [address] [place], [address] EST GFR - AA 122 mL/min Normal >60 [facility] Comment on above: Order Comment: Order Date: 01/09/24 Order Info: [id number] - CMP Order Info: [id number] - LIPID Order Info: [id number] - PSA Result Comment: Afri can Dominican GFR Calc Performed By: #### L 100.0100, L500.4050, L500.4100, L501.9910 #### [facility] [address] [place], [address] GAP 6 Normal 5-15 [facility] Comment on above: Order Comment: Order Date: 01/09/24 Order Info: [id number] - CMP Order Info: - LIPID Order Info: [id number] - PSA Performed By: #### L 100.0100, L500.4050, L500.4100, L501.9910 #### [facility] [address] [place], [address] GFR/1.73 sq M.predicted among non-blacks MDRD (S/P/Bld) [Vol rate/Area] 101 mL/min/{1.73_m2} Normal >60 [facility] Comment on above: Order Comment: Order Date: 01/09/24 Order Info: [id number] - CMP Order Info: - LIPID Order Info: 1 - PSA Result Comment: Non- GFR Calc Performed By: #### L 100.0100, L500.4050, L500.4100, L501.9910 #### [facility] [address] [place], [address] Globulin (S) [Mass/Vol] 3.3 g/dL Normal 2.2-4.2 [facility] Comment on above: Order Comment: Order Date: 01/09/24 Order Info: [id number] - CMP Order Info: - LIPID Order Info: [id number] - PSA Performed By: #### L 100.0100, L500.4050, L500.4100, L501.9910 #### [facility] [address] [place], [address] Glucose [Mass/Vol] 99 mg/dL Normal 74-106 [facility] Comment on above: Order Comment: Order Date: 01/09/24 Order Info: [id number]- - CMP Order Info: [id number] - LIPID Order Info: [id number] - PSA Performed By: #### L 100.0100, L500.4050, L500.4100, L501.9910 #### [facility] [address] [place], [address] Potassium [Moles/Vol] 4.0 mmol/L Normal 3.5-5.1 [facility] Comment on above: Order Comment: Order Date: 01/09/24 Order Info: [id number] - CMP Order Info: [id number] - LIPID Order Info: [id number] - PSA Performed By: #### L 100.0100, L500.4050, L500.4100, L501.9910 #### [facility] [address] [place], [address] Sodium [Moles/Vol] 138 mmol/L Normal 136-145 [facility] Comment on above: Order Comment: Order Date: 01/09/24 Order Info: 07 - CMP Order Info: [id number] - LIPID Order Info: [id number] - PSA Performed By: #### L 100.0100, L500.4050, L500.4100, L501.9910 #### [facility] [address] [place], [address] T PROT 6.9 g/dL Normal 6.4-8.2 [facility] Comment on above: Order Comment: Order Date: 01/09/24 Order Info: [id number]- - CMP Order Info: [id number] - LIPID Order Info: [id number] - PSA Performed By: #### L 100.0100, L500.4050, L500.4100, L501.9910 #### [facility] [address] [place], [address] Urea nitrogen [Mass/Vol] 17 mg/dL Normal 7-18 [facility] Comment on above: Order Comment: Order Date: 01/09/24 Order Info: [id number]- - CMP Order Info: [id number] - LIPID Order Info: [id number] - PSA Performed By: #### L 100.0100, L500.4050, L500.4100, L501.9910 #### [facility] [address] [place], [address] Lipid Profileon 01-10-2024 Cholesterol [Mass/Vol] 207 mg/dL High 200 [facility] Comment on above: Order Comment: Order Date: 01/09/24 Order Info: 0786 - CMP Order Info: [id number] - LIPID Order Info: [id number] - PSA Result Comment: <200 mg/dL Desirable 200-240 mg/dL Borderline >240 mg/dL High Risk Performed By: #### L 100.0100, L500.4050, L500.4100, L501.9910 #### [facility] [address] [place], [address] Cholesterol in HDL [Mass/Vol] 68 mg/dL Normal [facility] Comment on above: Order Comment: Order Date: 01/09/24 Order Info: [id number]- - CMP Order Info: [id number] - LIPID Order Info: [id number] - PSA Result Comment: The drugs N-Acetylcysteine and Metamizole may falsely depress this assay. Reference Range HDL <40 mg/dL Low HDL Cholesterol HDL >or= 60 mg/dL High HDL Cholesterol Performed By: #### L 100.0100, L500.4050, L500.4100, L501.9910 #### [facility] [address] [place], [address] Cholesterol in LDL [Mass/Vol] 124 mg/dL Normal 0-130 [facility] Comment on above: Order Comment: Order Date: 01/09/24 Order Info: [id number] - CMP Order Info: - LIPID Order Info: [id number] - PSA Performed By: #### L 100.0100, L500.4050, L500.4100, L501.9910 #### [facility] [address] [place], [address] Cholesterol in VLDL [Mass/Vol] 15 mg/dL Normal 5-40 [facility] Comment on above: Order Comment: Order Date: 01/09/24 Order Info: [id number] - CMP Order Info: - LIPID Order Info: [id number] - PSA Performed By: #### L 100.0100, L500.4050, L500.4100, L501.9910 #### [facility] [address] [place], [address] Triglyceride [Mass/Vol] 77 mg/dL Normal [facility] Comment on above: Order Comment: Order Date: 01/09/24 Order Info: [id number] - CMP Order Info: - LIPID Order Info: [id number] - PSA Result Comment: The drugs N-Acetylcysteine and Metamizole may falsely depress this assay. Serum Triglycerides Reference Interval Normal <150 mg/dL Borderline high 150 - 199 mg/dL High 200 - 499 mg/dL Very High > or = 500 mg/dL Performed By: #### L 100.0100, L500.4050, L500.4100, L501.9910 #### [facility] [address] [place], [address] PSA,Total - Annual Screenon 01-10-2024 PSA,TOT SCREEN 1.63 ng/mL Normal 0.00-4.00 [facility] Comment on above: Order Comment: Order Date: 01/09/24 Order Info: [id number] - CMP Order Info: - LIPID Order Info: [id number] - PSA Result Comment: This test was performed using the TPSA assay method for the [employer] chemistry system. Values obtained with different assay methods cannot be used interchangably. When changing PSA assays in the course of monitoring a patient, additional sequential testing should be carried out to confirm baseline values. Performed By: #### L 100.0100, L500.4050, L500.4100, L501.9910 #### [facility] [address] [place], [address] Laboratory - Chemistry and C hemistry - challengeOrdered By: Darrin Thorpe on 04-17-2023 Ferritin [Mass/Vol] 154 ng/mL 26-388 [facility] No Panel InformationOrdered By: Darrin Thorpe on 04-17-2023 Free Triiodothyronine (T3) pg/dL 3.1 pg/mL 2.18-3.98 [facility] Thin prep Papanicolaou smear with manual screeningOrdered By: Darrin Thorpe on 04-17-2023 Thin prep Papanicolaou smear with manual screening 0.94 ng/dL 0.76-1.46 [facility] Absolute lymphocyte countOrd ered By: Darrin Thorpe on 04-13-2023 Lymphocytes Auto (Unsp spec) [#/Vol] 2.38 10*3/uL 0.83-4.51 [facility] Albumin Elph [Mass/Vol]Order ed By: Darrin Thorpe on 04-13-2023 Albumin [Mass/Vol] 4.0 g/dL 2.9-4.4 [facility] Automated lymphocyte count a s percentage of total leukocytesOrdered By: Darrin Thorpe on 04-13-2023 Lymphocytes/100 WBC Auto (Unsp spec) 30.7 % 19-41 [facility] Basophil percentageOrdered B y: Darrin Thorpe on 04-13-2023 Basophils/100 WBC (Bld) 0.9 % 0-1 [facility] Bilirubin [Mass/Vol] 0.60 mg/dL 0.20-1.00 [facility] Comment on above: For patients on eltr ombopag therapy, use of Dimension [place] TBIL is not recommended. Chloride [Moles/Vol] 108 mmol/L 98-107 [facility] Eosinophils/100 WBC (Bld) 4.5 % 0-5 [facility] Glucose [Mass/Vol] 86 mg/dL 74-106 [facility] Hemoglobin (Bld) [Mass/Vol] 16.7 g/dL 13.0-16.5 [facility] Monocytes/100 WBC (Bld) 10.3 % 0-10 [facility] Neutrophils (Bld) [#/Vol] 4.1 10*3/uL 2.0-7.7 [facility] Neutrophils/100 WBC (Bld) 53.2 % 47-70 [facility] Potassium [Moles/Vol] 3.9 mmol/L 3.5-5.1 [facility] Protein [Mass/Vol] 7.6 g/dL 6.4-8.2 [facility] Sodium [Moles/Vol] 138 mmol/L 136-145 [facility] Testosterone [Mass/Vol] 327 ng/dL 264-916 [facility] Comment on above: Adult male reference interval is based on a population ofhealthy nonobese males (BMI <30) between 19 and 39 yearsold. cain Gallardo.al. JCEM 2017,102;2689-9865. PMID:[id number]. WBC (Bld) [#/Vol] 7.8 10*3/uL 4.4-11.0 [facility] Determination of erythrocyte mean corpuscular volume (MCV)Ordered By: Darrin Thorpe on 04-13-2023 MCV (RBC) [Entitic vol] 88.5 fL 80-94 [facility] Erythrocyte distribution wid th ratioOrdered By: Darrin Thorpe on 04-13-2023 Erythrocyte distribution width (RBC) [Ratio] 13.0 % 11.6-14.6 [facility] Erythrocyte distribution wid th standard deviationOrdered By: Darrin Thorpe on 04-13-2023 Erythrocyte distribution width (RBC) [Entitic vol] 42.1 fL 35.1-43.9 [facility] Free testosterone percentage Ordered By: Darrin Thorpe on 04-13-2023 Testosterone Free/Testosterone.total [Mass fraction] 2.77 % 1.50-4.20 [facility] Hematocrit Auto (Bld) [Volum e fraction]Ordered By: Darrin Thorpe on 04-13-2023 Hematocrit (Bld) [Volume fraction] 49.3 % 40-54 [facility] Immature granulocytes/100 WB C Auto (Bld)Ordered By: Darrin Thorpe on 04-13-2023 Immature granulocytes/100 WBC (Bld) 0.400 % 0.0-0.9 [facility] Comment on above: IG% - Immature Granu locytes (promyelocytes, myelocytes and metamyelocytes) > 1% indicates that a LEFT SHIFT is Present. Laboratory - Chemistry and C hemistry - challengeOrdered By: Darrin Thorpe on 04-13-2023 Albumin/Globulin [Mass ratio] 1.1 {ratio} 0.9-2.4 [facility] ALP [Catalytic activity/Vol] 50 U/L 45-117 [facility] ALT [Catalytic activity/Vol] 36 U/L 16-61 [facility] CO2 [Moles/Vol] 24.0 mmol/L 21.0-32.0 [facility] Globulin (S) [Mass/Vol] 3.6 g/dL 2.2-4.2 [facility] Urea nitrogen/Creatinine [Mass ratio] 22.8 mg/mg 10-20 [facility] Laboratory - Hematology and Cell countsOrdered By: Darrin Thorpe on 04-13-2023 MCH (RBC) [Entitic mass] 30.0 pg 27.0-32.0 [facility] MCHC (RBC) [Mass/Vol] 33.9 g/dL 32-36 [facility] Nucleated RBC/100 WBC (Bld) [Ratio] 0 % 0-5 [facility] Platelet mean volume (Bld) [Entitic vol] 9.2 fL 6.2-12.0 [facility] Platelets (Bld) [#/Vol] 298 10*3/uL 150-450 [facility] No Panel InformationOrdered By: Darrin Thorpe on 04-13-2023 Addendum Document Comment . [facility] Comment on above: The SPE pattern appe ars unremarkable. Evidence ofmonoclonal protein is not apparent. Knxpu-9-Wguoprwvc 0.2 g/dL 0.0-0.4 [facility] Vcswe-9-Gbqsopghz 0.8 g/dL 0.4-1.0 [facility] Estimated GFR (MDRD) Amer 110 mL/min >60 [facility] Comment on above: GFR Calc Estimated GFR (MDRD) Non-Af Amer 91 mL/min >60 [facility] Comment on above: Non- GFR Calc Gamma Globulins 0.9 g/dL 0.4-1.8 [facility] Protein Fractions Elph [Inte rp]Ordered By: Darrin Thorpe on 04-13-2023 Protein Fractions [Interp] Comment . [facility] Comment on above: Protein electrophore sis scan will follow via computer,mail, or environmental technology professor delivery. RBC Auto (Bld) [#/Vol]Ordere d By: Darrin Thorpe on 04-13-2023 RBC (Bld) [#/Vol] 5.57 10*6/uL 4.6-6.2 [facility] Serum albumin to globulin ra stephany by protein electrophoresisOrdered By: Darrin Thorpe on 04-13-2023 Albumin/Globulin Elph [Mass ratio] 1.3 0.7-1.7 [facility] Serum globulin measurement ( mass/volume)Ordered By: Darrin Thorpe on 04-13-2023 Globulin (S) [Mass/Vol] 3.0 g/dL 2.2-3.9 [facility] Serum or plasma beta globuli n measurement by electrophoresis (mass/volume)Ordered By: Darrin Thorpe on 04-13-2023 Beta globulin Elph [Mass/Vol] 1.0 g/dL 0.7-1.3 [facility] Serum or plasma calcium zoila urement (mass/volume)Ordered By: Darrin Thorpe on 04-13-2023 Calcium [Mass/Vol] 9.1 mg/dL 8.5-10.1 [facility] Serum or plasma creatinine m easurement (mass/volume)Ordered By: Darrin Thorpe on 04-13-2023 Creatinine [Mass/Vol] 0.88 mg/dL 0.70-1.30 [facility] Comment on above: The validity of the calculated GFR & GFRAA in patients over 70 years has not been determined. Clinical correlation is essential. Serum or plasma protein mono clonal measurement by electrophoresis (mass/volume)Ordered By: Darrin Thorpe on 04-13-2023 Protein.monoclonal Elph [Mass/Vol] Not Observed g/dL Not Observed [facility] Serum or plasma testosterone free measurement (mass/volume)Ordered By: Darrin Thorpe on 04-13-2023 Testosterone Free [Mass/Vol] 9.06 ng/dL 5.00-21.00 [facility] Serum or plasma thyroid stim ulating hormone (TSH) measurement (units/volume)Ordered By: Darrin Thorpe on 04-13-2023 TSH Qn 4.07 uIU/mL 0.358-3.74 [facility] Serum or plasma urea nitroge n measurement (mass/volume)Ordered By: Darrin Thorpe on 04-13-2023 Urea nitrogen [Mass/Vol] 20 mg/dL 7-18 [facility] Thin prep Papanicolaou smear with manual screeningOrdered By: Darrin Thorpe on 04-13-2023 Thin prep Papanicolaou smear with manual screening 4.0 g/dL 3.2-5.0 [facility] Thin prep Papanicolaou smear with manual screening 17 U/L 15-37 [facility] Thin prep Papanicolaou smear with manual screening 6 5-15 [facility] Thin prep Papanicolaou smear with manual screening Negative Negative [facility] Comment on above: Lyme antibodies not detected. Reflex testing is notindicated.No laboratory evidence of infection with B. burgdorferi(Lyme disease). Negative results may occur in patientsrecently infected (less than or equal to 14 days) with B.burgdorferi. If recent infection is suspected, repeattesting on a new sample collected in 7 to 14 days isrecommended.Performed at: - [facility] [id number] Director: Lc Monique PhD, Phone: [phone] at: - [facility] [id number] Director: Kirit Concepcion MD, Phone: [phone] Total protein bloodOrdered B y: Darrin Thorpe on 04-13-2023 Protein [Mass/Vol] 7.0 g/dL 6.0-8.5 [facility] Basophil percentageOrdered B y: Luis Onofre on 09-20-2022 Bilirubin [Mass/Vol] 0.30 mg/dL 0.20-1.00 [facility] Comment on above: For patients on eltr ombopag therapy, use of Dimension [place] TBIL is not recommended. Cholesterol [Mass/Vol] 212 mg/dL <200 [facility] Comment on above: <200 mg/dL Desirable 200-240 mg/dL Borderline >240 mg/dL High Risk Protein [Mass/Vol] 7.2 g/dL 6.4-8.2 [facility] Triglyceride [Mass/Vol] 130 mg/dL <199 [facility] Comment on above: The drugs N-Acetylcy steine and Metamizole may falsely depress this assay.Serum Triglycerides Reference Interval Normal <150 mg/dL Borderline high 150 - 199 mg/dL High 200 - 499 mg/dL Very High > or = 500 mg/dL Direct bilirubinOrdered By: Luis Onofre on 09-20-2022 Bilirubin.direct [Mass/Vol] 0.11 mg/dL 0.00-0.30 [facility] Laboratory - Chemistry and C hemistry - challengeOrdered By: Luis Onofre on 09-20-2022 ALP [Catalytic activity/Vol] 51 U/L 45-117 [facility] ALT [Catalytic activity/Vol] 30 U/L 16-61 [facility] Globulin (S) [Mass/Vol] 3.5 g/dL 2.2-4.2 [facility] No Panel InformationOrdered By: Luis Onofre on 09-20-2022 Thyroid Stimulating Hormone (TSH) 2.84 uIU/mL 0.358-3.74 [facility] Serum or plasma albumin zoila urement (mass/volume)Ordered By: uLis Onofre on 09-20-2022 Albumin [Mass/Vol] 3.7 g/dL 3.2-5.0 [facility] Serum or plasma cholesterol in HDL measurement (mass/volume)Ordered By: Luis Onofre on 09-20-2022 Cholesterol in HDL [Mass/Vol] 62 mg/dL >40 [facility] Comment on above: The drugs N-Acetylcy steine and Metamizole may falsely depress this assay. Reference Range HDL <40 mg/dL Low HDL Cholesterol HDL >or= 60 mg/dL High HDL Cholesterol Serum or plasma cholesterol in VLDL measurement (mass/volume)Ordered By: Luis Onofre on 09-20-2022 Cholesterol in VLDL [Mass/Vol] 26 mg/dL 5-40 [facility] Serum or plasma low density lipoprotein (LDL) cholesterol measurement (mass/volume)Ordered By: Luis Onofre on 09-20-2022 Cholesterol in LDL [Mass/Vol] 124 mg/dL 0-130 [facility] Thin prep Papanicolaou smear with manual screeningOrdered By: Luis Onofre on 09-20-2022 Thin prep Papanicolaou smear with manual screening 12 U/L 15-37 [facility] Laboratory - Microbiology an d Antimicrobial susceptibilityon 11-06-2021 SARS-CoV-2 (COVID-19) RNA SARI+probe Ql (Unsp spec) Not detected [facility] Work Phone: No Panel Informationon 11-06 Influenza Types A,B Rapid (Clinic) Not detected [facility] Work Phone: Absolute lymphocyte counton 09-14-2021 Lymphocytes Auto (Unsp spec) [#/Vol] 1.79 10*3/uL 0.83-4.51 [facility] Work Phone: Basophil percentageon 2021 Bilirubin [Mass/Vol] 0.50 mg/dL 0.20-1.00 [facility] Work Phone: Comment on above: For patients on eltr ombopag therapy, use of Dimension [place] TBIL is not recommended. Cholesterol [Mass/Vol] 227 mg/dL <200 [facility] Work Phone: Comment on above: <200 mg/dL Desirable 200-240 mg/dL Borderline >240 mg/dL High Risk Protein [Mass/Vol] 7.2 g/dL 6.4-8.2 [facility] Work Phone: [phone] Triglyceride [Mass/Vol] 86 mg/dL <199 [facility] Work Phone: Comment on above: The drugs N-Acetylcy steine and Metamizole may falsely depress this assay.Serum Triglycerides Reference Interval Normal <150 mg/dL Borderline high 150 - 199 mg/dL High 200 - 499 mg/dL Very High > or = 500 mg/dL Basophils/100 WBC (Bld) 0.8 % 0-1 [facility] Work Phone: Chloride [Moles/Vol] 108 mmol/L 98-107 [facility] Work Phone: Eosinophils/100 WBC (Bld) 2.6 % 0-5 [facility] Work Phone: Glucose [Mass/Vol] 88 mg/dL 74-106 [facility] Work Phone: Neutrophils (Bld) [#/Vol] 4.5 10*3/uL 2.0-7.7 [facility] Work Phone: Neutrophils/100 WBC (Bld) 62.7 % 47-70 [facility] Work Phone: Potassium [Moles/Vol] 3.9 mmol/L 3.5-5.1 [facility] Work Phone: Sodium [Moles/Vol] 139 mmol/L 136-145 [facility] Work Phone: WBC (Bld) [#/Vol] 7.2 10*3/uL 4.4-11.0 [facility] Work Phone: Blood erythrocytes count (nu mber/volume)on 09-14-2021 RBC (Bld) [#/Vol] 5.56 10*6/uL 4.6-6.2 [facility] Work Phone: Blood hemoglobin measurement (mass/volume)on 09-14-2021 Hemoglobin (Bld) [Mass/Vol] 17.0 g/dL 13.0-16.5 [facility] Work Phone: Blood lymphocytes/100 leukoc yteson 09-14-2021 Lymphocytes/100 WBC (Bld) 24.9 % 19-41 [facility] Work Phone: Blood monocytes/100 leukocyt eson 09-14-2021 Monocytes/100 WBC (Bld) 8.6 % 0-10 [facility] Work Phone: [phone] Blood platelet mean volumeon 09-14-2021 Platelet mean volume (Bld) [Entitic vol] 8.9 fL 6.2-12.0 [facility] Work Phone: [phone] Determination of erythrocyte mean corpuscular volume (MCV)on 09-14-2021 MCV (RBC) [Entitic vol] 88.7 fL 80-94 [facility] Work Phone: [phone] Direct bilirubinon Bilirubin.direct [Mass/Vol] 0.11 mg/dL 0.00-0.30 [facility] Work Phone: [phone] Hematocrit Auto (Bld) [Volum e fraction]on 09-14-2021 Hematocrit (Bld) [Volume fraction] 49.3 % 40-54 [facility] Work Phone: [phone] Laboratory - Chemistry and C hemistry - challengeon 09-14-2021 ALP [Catalytic activity/Vol] 41 U/L 45-117 [facility] Work Phone: [phone] ALT [Catalytic activity/Vol] 27 U/L 16-61 [facility] Work Phone: [phone] Globulin (S) [Mass/Vol] 3.1 g/dL 2.2-4.2 [facility] Work Phone: [phone] CO2 [Moles/Vol] 26.0 mmol/L 21.0-32.0 [facility] Work Phone: [phone] Urea nitrogen/Creatinine [Mass ratio] 19.6 mg/mg 10-20 [facility] Work Phone: [phone] Laboratory - Hematology and Cell countson 09-14-2021 Erythrocyte distribution width (RBC) [Entitic vol] 42.5 fL 35.1-43.9 [facility] Work Phone: [phone] Erythrocyte distribution width (RBC) [Ratio] 13.0 % 11.6-14.6 [facility] Work Phone: [phone] Immature granulocytes/100 WBC (Bld) 0.400 % 0.0-0.9 [facility] Work Phone: [phone] Comment on above: IG% - Immature Granu locytes (promyelocytes, myelocytes and metamyelocytes) > 1% indicates that a LEFT SHIFT is Present. MCH (RBC) [Entitic mass] 30.6 pg 27.0-32.0 [facility] Work Phone: [phone] Nucleated RBC/100 WBC (Bld) [Ratio] 0 % 0-5 [facility] Work Phone: [phone] MCHC Auto (RBC) [Mass/Vol]on 09-14-2021 MCHC (RBC) [Mass/Vol] 34.5 g/dL 32-36 [facility] Work Phone: [phone] No Panel Informationon 09-14 Troponin I High Sensitivity < 3 pg/mL 3.0-78.0 [facility] Work Phone: [phone] Comment on above: Please Note: New Maritza t Units and Gender Specific Reference Ranges. For more information see Policy Stat Procedure [place] High Sensitivity Troponin (TNIH) and attachments. D-Dimer Quantitative (PE/DVT) 0.44 FEU/ug/m 0.27-0.49 [facility] Work Phone: [phone] Comment on above: NORMAL D-Dimer level (<0.50) indicates no DVT or PE. Estimated Creatinine Clearance Calc 85.35 ml/min [facility] Work Phone: [phone] Estimated GFR (MDRD) Amer 112 mL/min >60 [facility] Work Phone: [phone] Comment on above: GFR Calc Estimated GFR (MDRD) Non-Af Amer 93 mL/min >60 [facility] Work Phone: [phone] Comment on above: Non- GFR Calc Platelets bldon 09-14-2021 Platelets (Bld) [#/Vol] 256 10*3/uL 150-450 [facility] Work Phone: [phone] Serum or plasma albumin zoila urement (mass/volume)on 09-14-2021 Albumin [Mass/Vol] 4.1 g/dL 3.2-5.0 [facility] Work Phone: [phone] Serum or plasma calcium zoila urement (mass/volume)on 09-14-2021 Calcium [Mass/Vol] 8.8 mg/dL 8.5-10.1 [facility] Work Phone: Serum or plasma cholesterol in HDL measurement (mass/volume)on 09-14-2021 Cholesterol in HDL [Mass/Vol] 65 mg/dL >40 [facility] Work Phone: Comment on above: The drugs N-Acetylcy steine and Metamizole may falsely depress this assay. Reference Range HDL <40 mg/dL Low HDL Cholesterol HDL >or= 60 mg/dL High HDL Cholesterol Serum or plasma cholesterol in VLDL measurement (mass/volume)on 09-14-2021 Cholesterol in VLDL [Mass/Vol] 17 mg/dL 5-40 [facility] Work Phone: [phone] Serum or plasma creatinine m easurement (mass/volume)on 09-14-2021 Creatinine [Mass/Vol] 0.87 mg/dL 0.70-1.30 [facility] Work Phone: Comment on above: The validity of the calculated GFR & GFRAA in patients over 70 years has not been determined. Clinical correlation is essential. Serum or plasma low density lipoprotein (LDL) cholesterol measurement (mass/volume)on 09-14-2021 Cholesterol in LDL [Mass/Vol] 145 mg/dL 0-130 [facility] Work Phone: Serum or plasma urea nitroge n measurement (mass/volume)on 09-14-2021 Urea nitrogen [Mass/Vol] 17 mg/dL 7-18 [facility] Work Phone: [phone] Thin prep Papanicolaou smear with manual screeningon 09-14-2021 Thin prep Papanicolaou smear with manual screening 18 U/L 15-37 [facility] Work Phone: [phone] Thin prep Papanicolaou smear with manual screening 5 5-15 [facility] Work Phone: [phone] ALT/SGPTon 01-27-2017 Alanine aminotransferase (ALT) 27 U/L Normal 12-55 [facility] ([place]) Comment on above: Performed By: #### A ST, PSA, ALT, LIPID ####[facility] [place] [id number] Maldonado 01-27-2017 Aspartate aminotransferase (AST) 17 U/L Normal 8-34 [facility] ([place]) Comment on above: Performed By: #### A ST, PSA, ALT, LIPID ####[address] [address] LIPIDon 01-27-2017 Cholesterol 131 mg/dL Normal 50-199 [facility] ([place]) Comment on above: Result Comment: Chol esterol Reference Interval:Less than 200 [id number] Borderline high [id number] and above High risk Performed By: #### A ST, PSA, ALT, LIPID ####[place] [address] [place] [address] HDL Cholesterol 70 mg/dL High 40-59 [facility] ([place]) Comment on above: Result Comment: HDL Reference Interval:Less than 40 Low - high risk60 or above Optimal/lowers risk Performed By: #### A ST, PSA, ALT, LIPID ####[place] [address] LDL Cholesterol 51 mg/dL Normal 0-129 [facility] ([place]) Comment on above: Result Comment: LDL is a calculated result and requires a 12-hr fast.LDL Reference Interval:Less than 100 [id number] Near or above [id number] Borderline high [id number] High [id number] and above Very high risk Performed By: #### A ST, PSA, ALT, LIPID ####[place] [address] [place] [address] Triglyceride 48 mg/dL Normal 3-149 [facility] ([place]) Comment on above: Result Comment: Trig lyceride Reference Interval:Less than 150 [id number] Borderline high [id number] High [id number] or higher Very high risk Performed By: #### A ST, PSA, ALT, LIPID ####[place] [address] [place] [id number] PSAon 01-27-2017 Prostate Specific Antigen 1.49 ng/mL Normal 0.02-4.00 [facility] ([place]) Comment on above: Performed By: #### A ST, PSA, ALT, LIPID ####[place] [address] [place] [address] Vital Signs Date Time Vital Sign Value Performing Clinician Faci lity 10-20-2024 10:12-0400 Body temperature 98.6 [degF] Dr. Darrin Thorpe MD Work Phone: 3([phone])260-552717 [place] [address] 10-20-2024 10:12-0400 Diastolic blood pressure 85 mm[Hg] Dr. Darrin Thorpe MD Work Phone: 2(490)376-016817 [place] [address] 10-20-2024 10:12-0400 Heart rate 996 /min Dr. Darrin Thorpe MD Work Phone: 5(803)234-927817 [place] [address] 10-20-2024 10:12-0400 Respiratory rate 22 /min Dr. Drarin Thorpe MD Work Phone: 6(634)423-835017 [place] [address] 10-20-2024 10:12-0400 SaO2% (BldA) [Mass fraction] 95 % Dr. Darrin Thorpe MD Work Phone: 2(750)485-687417 [place] [address] 10-20-2024 10:12-0400 Systolic blood pressure 130 mm[Hg] Dr. Darrin Thorpe MD Work Phone: 3(594)291-558217 [place] [address] 10-20-2024 08:16-0400 Body height 180.[address] Darrin Thorpe MD Work Phone: 4(874)520-717317 [place] [address] 10-20-2024 08:16-0400 Body mass index (BMI) [Ratio] 31.4 kg/m2 Dr. Darrin Thorpe MD Work Phone: 5(068)445-020917 [place] [address] 10-20-2024 08:16-0400 Body weight 102.[address] Darrin Thorpe MD Work Phone: 8(568)322-227917 [place] [address] 09-19-2024 08:43-0400 Body height 180.[address] Darrin Thorpe MD Work Phone: 8(795)200-399217 [place] [address] 09-19-2024 08:43-0400 Body mass index (BMI) [Ratio] 31.5 kg/m2 Dr. Darrin Thorpe MD Work Phone: 6(088)014-617317 [place] [address] 09-19-2024 08:43-0400 Body weight 102.[address] Darrin Thorpe MD Work Phone: [facility] 09-19-2024 08:43-0400 Diastolic blood pressure 84 mm[Hg] Dr. Darrin Thorpe MD Work Phone: 4(455)659-915317 [place] [address] 09-19-2024 08:43-0400 Heart rate 79 /min Dr. Darrin Thorpe MD Work Phone: 6(731)761-552117 [place] [address] 09-19-2024 08:43-0400 Respiratory rate 18 /min Dr. Darrin Thorpe MD Work Phone: 4(650)748-628617 [place] [address] 09-19-2024 08:43-0400 Systolic blood pressure 127 mm[Hg] Dr. Darrin Thorpe MD Work Phone: 1(011)858-172617 [place] [address] 05-17-2024 09:21-0400 Body temperature 98.2 [degF] Dr. Darrin Thorpe MD Work Phone: 7(922)015-573517 [place] [address] 05-17-2024 09:21-0400 Diastolic blood pressure 79 mm[Hg] Dr. Darrin Thorpe MD Work Phone: 8(119)794-987617 [place] [address] 05-17-2024 09:21-0400 Heart rate 79 /min Dr. Darrin Thorpe MD Work Phone: 0(161)885-415117 [place] [address] 05-17-2024 09:21-0400 Respiratory rate 16 /min Dr. Darrin Thorpe MD Work Phone: 3(498)832-893765 [address] 05-17-2024 09:21-0400 SaO2% (BldA) [Mass fraction] 93 % Dr. Darrin Thorpe MD Work Phone: 1(448)974-876217 [place] [address] 05-17-2024 09:21-0400 Systolic blood pressure 111 mm[Hg] Dr. Darrin Thorpe MD Work Phone: 6(408)302-061017 [place] [address] 05-17-2024 07:28-0400 Body height 180.[address] Darrin Thorpe MD Work Phone: 0(794)116-774217 [place] [address] 05-17-2024 07:28-0400 Body mass index (BMI) [Ratio] 30.4 kg/m2 Dr. Darrin Thorpe MD Work Phone: [facility] 05-17-2024 07:28-0400 Body weight [address] Darrin Thorpe MD Work Phone: 4(514)435-117017 [place] [address] 04-16-2024 12:23-0500 Body temperature 98.1 [degF] Dr. Darrin Thorpe MD Work Phone: 5(182)507-773817 [place] [address] 04-16-2024 12:23-0500 Diastolic blood pressure 62 mm[Hg] Dr. Darrin Thorpe MD Work Phone: 8(538)941-585617 [place] [address] 04-16-2024 12:23-0500 Heart rate 103 /min Dr. Darrin Thorpe MD Work Phone: 6(162)387-165465 [address] 04-16-2024 12:23-0500 SaO2% (BldA) [Mass fraction] 97 % Dr. Darrin Thorpe MD Work Phone: 6(632)829-539117 [place] [address] 04-16-2024 12:23-0500 Systolic blood pressure 122 mm[Hg] Dr. Darrin Thorpe MD Work Phone: 1(375)448-413465 [address] 03-26-2024 11:42-0500 Body mass index (BMI) [Ratio] 29.5 kg/m2 Dr. Darrin Thorpe MD Work Phone: 2(756)793-211765 [address] 03-26-2024 11:42-0500 Body weight 96.[address] Darrin Thorpe MD Work Phone: 2(946)307-565417 [place] [address] 01-05-2023 10:39-0500 Body temperature 98.7 [degF] Dr. Darrin Thorpe Work Phone: 0(949)930-282817 [place] [address] 01-05-2023 10:39-0500 Diastolic blood pressure 74 mm[Hg] Dr. Darrin Thorpe Work Phone: 6(697)546-797317 [place] [address] 01-05-2023 10:39-0500 Heart rate 89 /min Dr. Darrin Thopre Work Phone: 1(133)147-664865 [address] 01-05-2023 10:39-0500 Respiratory rate 14 /min Dr. Darrin Thorpe Work Phone: 0(369)900-999417 [place] [address] 01-05-2023 10:39-0500 SaO2% (BldA) [Mass fraction] 94 % Dr. Darrin Thorpe Work Phone: [facility] 01-05-2023 10:39-0500 Systolic blood pressure 132 mm[Hg] Dr. Darrin Thorpe Work Phone: [facility] 09-20-2022 09:20-0400 Body height 180.[address] Darrin Thorpe Work Phone: [facility] 09-20-2022 09:20-0400 Body mass index (BMI) [Ratio] 32.8 kg/m2 Dr. Darrin Thorpe Work Phone: [facility] 09-20-2022 09:20-0400 Body weight 106.[address] Darrin Thorpe Work Phone: [facility] 09-20-2022 09:20-0400 Diastolic blood pressure 60 mm[Hg] Dr. Darrin Thorpe Work Phone: [facility] 09-20-2022 09:20-0400 Heart rate 80 /min Dr. Darrin Thorpe Work Phone: [facility] 09-20-2022 09:20-0400 Respiratory rate 16 /min Dr. Darrin Thorpe Work Phone: [facility] 09-20-2022 09:20-0400 Systolic blood pressure 103 mm[Hg] Dr. Darrin Thorpe Work Phone: [facility] 12-16-2021 08:14-0400 Body height 180.[address] Darrin Thorpe Work Phone: [facility] Work Phone: 12-16-2021 08:14-0400 Body mass index (BMI) [Ratio] 32.3 kg/m2 Dr. Darrin Thorpe Work Phone: [facility] Work Phone: 12-16-2021 08:14-0400 Body weight 105.[address] Darrin Thorpe Work Phone: [facility] Work Phone: 12-16-2021 08:14-0400 Diastolic blood pressure 79 mm[Hg] Dr. Darrin Thorpe Work Phone: [facility] Work Phone: 12-16-2021 08:14-0400 Heart rate 79 /min Dr. Darrin Thorpe Work Phone: [facility] Work Phone: 12-16-2021 08:14-0400 Respiratory rate 18 /min Dr. Darrin Thorpe Work Phone: [facility] Work Phone: 12-16-2021 08:14-0400 SaO2% (BldA) [Mass fraction] 95 % Dr. Darrin Thorpe Work Phone: [facility] Work Phone: 12-16-2021 08:14-0400 Systolic blood pressure 127 mm[Hg] Dr. Darrin Thorpe Work Phone: [facility] Work Phone: 11-06-2021 12:29-0400 Body temperature 97.5 [degF] Dr. Darrin Thorpe Work Phone: [facility] Work Phone: 11-06-2021 12:29-0400 Diastolic blood pressure 80 mm[Hg] Dr. Darrin Thorpe Work Phone: [facility] Work Phone: 11-06-2021 12:29-0400 Heart rate 80 /min Dr. Darrin Thorpe Work Phone: [facility] Work Phone: 11-06-2021 12:29-0400 Respiratory rate 15 /min Dr. Darrin Thorpe Work Phone: [facility] Work Phone: 11-06-2021 12:29-0400 SaO2% (BldA) [Mass fraction] 96 % Dr. Darrin Thorpe Work Phone: [facility] Work Phone: 11-06-2021 12:29-0400 Systolic blood pressure 124 mm[Hg] Dr. Darrin Thorpe Work Phone: [facility] Work Phone: 09-15-2021 08:11-0400 Body height 180.[address] Darrin Thorpe Work Phone: [facility] Work Phone: 09-15-2021 08:11-0400 Body mass index (BMI) [Ratio] 31.5 kg/m2 Dr. Darrin Thorpe Work Phone: [facility] Work Phone: 09-15-2021 08:11-0400 Body weight 102.[address] Darrin Thorpe Work Phone: [facility] Work Phone: 09-15-2021 08:11-0400 Diastolic blood pressure 88 mm[Hg] Dr. Darrin Thorpe Work Phone: [facility] Work Phone: 09-15-2021 08:11-0400 Heart rate 80 /min Dr. Darrin Thorpe Work Phone: [facility] Work Phone: 09-15-2021 08:11-0400 Respiratory rate 16 /min Dr. Darrin Thorpe Work Phone: [facility] Work Phone: 09-15-2021 08:11-0400 SaO2% (BldA) [Mass fraction] 96 % Dr. Darrin Thorpe Work Phone: [facility] Work Phone: 09-15-2021 08:11-0400 Systolic blood pressure 142 mm[Hg] Dr. Darrin Thorpe Work Phone: [facility] Work Phone: 09-14-2021 18:22-0400 Diastolic blood pressure 87 mm[Hg] [facility] Work Phone: 09-14-2021 18:22-0400 Heart rate 71 /min [facility] Work Phone: 09-14-2021 18:22-0400 Respiratory rate 19 /min [facility] Work Phone: 09-14-2021 18:22-0400 SaO2% (BldA) [Mass fraction] 96 % [facility] Work Phone: 09-14-2021 18:22-0400 Systolic blood pressure 145 mm[Hg] [facility] Work Phone: 09-14-2021 15:05-0400 Body height 180.34 cm [facility] Work Phone: 09-14-2021 15:05-0400 Body mass index (BMI) [Ratio] 31.4 kg/m2 [facility] Work Phone: 09-14-2021 15:05-0400 Body temperature 96.8 [degF] [facility] Work Phone: 09-14-2021 15:05-0400 Body weight 102.05 kg [facility] Work Phone: Encounters Encounter Date Encounter Type Care Provider Facility Start: 10-23-2024 ambulatory Darrin Thorpe Facility:[facility] Start: 10-20-2024 End: 10-20-2024 Emergency department patient visit Dr. Darrin Thorpe MD Work Phone: -Emergency Department Work Phone: Start: 09-19-2024 End: 09-19-2024 Patient encounter procedure Nicole GOMEZ -[facility] Work Phone: Start: 09-19-2024 End: 09-19-[address] Darrin Thorpe MD Work Phone: -[facility] Start: 05-17-2024 Non-patient / Non-visit Dr. Marcus Ibrahim MD -[facility] Start: 05-17-2024 End: 05-17-2024 Admission to same day surgery center Dr. Marcus Ibrahim MD -Endoscopy Work Phone: Start: 05-17-2024 End: 05-17-[address] Darrin Thorpe MD Work Phone: [facility] Work Phone: Start: 04-16-2024 End: 04-16-2024 Patient encounter procedure Marcus GOME[facility] Work Phone: Start: 04-16-2024 End: 04-16-2024 ambulatory Marcus GOMEZ Facility:[facility] Start: 03-26-2024 Non-patient / Non-visit Dr. Daniel Thorpe MD Work Phone: -[facility] Work Phone: Start: 03-26-[facility] Start: 01-10-2024 End: 01-10-2024 ambulatory Darrin Thorpe Facility:[facility] Start: 05-03-2023 End: 05-03-2023 ambulatory [facility] Work Phone: Start: 05-03-2023 End: 05-03-2023 [facility] Start: 04-20-2023 End: 04-20-[address] Darrin Thorpe Work Phone: [facility] Work Phone: Start: 04-20-2023 End: 04-20-[address] Darrin Thorpe Work Phone: [facility]-Pulmonary Services/Neurology Work Phone: Start: 04-13-2023 End: 04-13-[address] Darrin Thorpe Work Phone: [facility] Work Phone: Start: 04-13-2023 End: 04-13-[address] Darrin Thorpe Work Phone: [facility] Start: 01-05-2023 End: 01-05-[address] Darrin Thorpe Work Phone: [facility] Work Phone: Start: 09-20-2022 End: 09-20-[address] Darrin Thorpe Work Phone: [facility] Work Phone: Start: 09-20-2022 End: 09-20-[address] Darrin Thorpe Work Phone: [facility] Work Phone: Start: 12-27-2021 End: 12-27-[address] Darrin Thorpe Work Phone: [facility] Work Phone: Start: 12-27-2021 End: 12-27-[address] Darrin Thorpe Work Phone: [facility]-Sleep Lab Start: 12-16-2021 End: 12-16-[address] Darrin Thorpe Work Phone: [facility] Start: 11-06-2021 End: 11-06-[address] Darrin Thorpe Work Phone: [facility] Start: 09-20-2021 Non-patient / Non-visit Dr. Daniel Thorpe Work Phone: [facility] Start: 09-20-2021 End: 09-20-[address] [facility] Start: 09-15-2021 Non-patient / Non-visit Dr. Daniel Thorpe Work Phone: [facility] Start: 09-15-2021 End: 09-15-[address] Darrin Thorpe Work Phone: [facility]-Cardiovascular Services Start: 09-15-2021 End: 09-15-[address] Darrin Thorpe Work Phone: [facility]-Laboratory Start: 09-15-2021 End: 09-15-[address] Darrin Thorpe Work Phone: [facility] Start: 09-14-2021 End: 09-14-2021 Emergency department patient visit [facility]-Emergency Department Procedures Date Procedure Procedure Detail Performing Clinician Start: 10-20-2024 X-ray of chest, PA a nd lateral views Dr. Darrin Thorpe MD Work Phone: Start: 10-20-[address] Darrin Thorpe MD Work Phone: Start: 05-17-[address] Darrin rivas MD Work Phone: Start: 05-03-2023 Plain chest X-ray Start: 09-20-2021 Radionuclide imaging of perfusion of myocardium under exercise stress Dr. Darrin Thorpe Work Phone: Start: 09-14-2021 Plain chest X-ray Plan of Treatment Date Care Activity Detail Author Start: 10-20-2024 End: 10-20-2024 [facility] Start: 10-20-2024 [facility] Start: 05-17-[address] [facility] Albumin/Globulin [Ma ss Ratio] in Serum or Plasma by Electrophoresis [facility] Colonoscopy [facility] CT angiography of co ronary arteries [facility] Electrophoresis: albumin [facility] Electrophoresis: [id number] [facility] Electrophoresis: [id number] [facility] Electrophoresis: gamma globulin [facility] Globulin measurement [facility] Measurement of Borre alla burgdorferi antibody [facility] Patient Education [facility] Work Phone: Patient referral [facility] Work Phone: Protein electrophore sis panel - Serum or Plasma [facility] Serum protein electrophoresis [facility] Serum testosterone measurement [facility] Testosterone Free [M ass/volume] in Serum or Plasma [facility] Testosterone measurement [facility] Total globulins measurement [facility] Immunizations Immunization Date Immunization Notes Care Provider Fa cility 05-15-2020 Covid (Pfizer) [facility] 04-24-2020 Covid (Pfizer) [facility] 11-15-2019 influenza, injectabl e, quadrivalent, preservative free Dr. Darrin Thorpe Work Phone: [facility] 11-15-2019 influenza, seasonal, injectable [facility] 12-19-2017 Influenza virus vaccine [facility] Payers Date Payer Category Payer Self-pay [id number] 2023 Medicare [id number] Unknown [id number] Unknown [id number] Unknown [id number] 2.16.8 [id number] Unknown [id number] 2.16.8 [id number] Unknown [id number] 2.16.8 [id number] Unknown [id number] 2.16.8 [id number] Unknown [id number] 2.16.8 [id number] Unknown [id number] 2.16.8 [id number] Unknown [id number] 2.16.8 [id number] Unknown [id number] 2.16.8 [id number] Social History Date Type Detail Facility Start: 09-14-2021 End: 01-05-2023 Tobacco smoking status NHIS Unknown if ever smoked [facility] Start: 10-19-2018 Non-smoker [facility] Start: 1950 Sex Assigned At Male [facility] Start: 05-15-2024 Tobacco smoking stat [facility] Never smoked tobacco (finding) [facility] Start: 05-17-2024 Sex Male (finding) [facility] Start: 10-20-2024 Tobacco smoking stat [facility] Ex-smoker (finding) [facility] Goals Date Patient Goal Desired Activity /State Mental Status Date Assessment Result Facility 10-20-2024 Cognitive function Voice/Name [facility] Work Phone: 05-17-2024 Cognitive function Voice/Name;Touch/Shaki ng [facility] Work Phone: 09-14-2021 Cognitive function Awake;Alert;A ppropriate;Fol lows Commands [facility] Work Phone: Clinical Notes 04-16-2024 to 10-20-2024 Note Date & Type Note Facility 10-20-2024 Radiology Diagnostic study note [facility] Imaging Services [address] [place], [place] [address] Chest PA and Lateral MR#: [id number] Acct: [id number] Name: KISHORE CHANG Rep #: [id number] : 1950 M 74 From: Vernon Zavala MD PCP: Dr. Darrin Thorpe MD Status: PRE ER Study:Chest PA and Lateral Date of Exam: 10/20/24 Exam# [id number] Ordering Dr: Jovanna Rausch DO PROCEDURE: CHEST PA AND LATERAL 10/20/2024 REASON FOR EXAM: CHEST PAIN TECHNIQUE: Procedure Code: RADCXR Modality: DX Procedure: CHEST PA AND LATERAL COMPARISON: 05/14/2023. FINDINGS: The heart is normal in size. The lungs are clear. No acute osseous abnormalities. RAD/Chest PA and Lateral IMPRESSION: No acute abnormalities. Reading Location: [address] CC: Dr. Dottie Rausch DO; Dr. Darrin Thorpe MD ~ Seam Stay Stitcher: Signed [facility] 09-19-2024 Evaluation note Diagnosis Onset Date Resolution Essential hypertension acute Au yessi 2024 8:38am [facility] Work Phone: 1(785) 806-351204-04-2025 Consult note [facility] Medical Records Department [address] [place] [address] Anesthesia Postop Eval II 05/17/24927 MR#: [id number] Acct: [id number] Name: KISHORE CHANG Rep #:[id number] : 1950 74 From: Cristiana Koo PCP: Dr. Darrin Thorpe MD Status:REG SDC Y Race: [facility] Location: [place] [address] Anesthesia Postop Eval I Sum Postop Eval Completion status Anesthesia document: Postop Eval 1 completed: Yes Anesthesia Postop Eval I Summary Anesthesia Postop Eval I Summary: Anesthesia Postop Eval I: Assessment Summary Airway patent Yes 05/17/24 09:05 WINE [email or web address].MDOT Spontaneous unlabored Yes 05/17/24 09:05 WINE PASTEURIZER.MDOT respirations Mental status Awake,Calm 05/17/24 09:10 WINE [email or web address].MDOT nausea No 05/17/24 09:10 WINE PASTEURIZER.MDOT Vomiting No 05/17/24 09:10 WINE [email or web address].MDOT Anesthesia Postop Eval I: Fluid Summary Crystalloid volume administer 30 05/17/24 09:05 WINE PASTEURIZER.MDOT (ml) Colloids volume administered ( ml) Blood Product volume administered (ml) Total IV fluid infused 30 05/17/24 09:05 WINE PASTEURIZER.MDOT Anesthesia Postop Eval I: Summary Notes Anesthesia Complication No 05/17/24 09:10 WINE [email or web address].MDOT Anesthesia Complication Comment: Post-operative progress note Anesthesia: Postop Eval II Evaluation Mental status: Awake Pain Level: 0 nausea: No Vomiting: No 05/17/24927 a> Date _ Cristiana Sirca Cosigner Signature: Date CC: ~ Signed [facility]04-04-2025 Consult note Author Steve Snider [facility] Note Date/Time May 17, 2024 8:06 am [facility] Medical Records Department [address] [place] [address] Pre-Anesthesia Evaluation 05/17/24 0758 MR#: [id number] Acct: [id number] Name: KISHORE CHANG Rep #:[id number] : 1950 74 From: Steve Snider MD PCP: Dr. Darrin Thorpe MD Status:REG SDC Y Race: [facility] Location: [place] [address] ASA Classification* ASA Classification ASA Classification: 2 [...] CSCOPE OA Anesthesia History Anesthesia History - commission broker: Anesthesia History - commission broker Hx Hospitalization No 05/15/24 08:11 Any Problems [...] sips of water?: Yes PONV PONV - commission broker: PONV - commission broker Female No 05/15/24 08:11 HX of Motion [...] 05/17/24 07:28 Respiratory Assessment Respiratory Assessment - commission broker: Respiratory Tract Infection Hx - commission broker Hx Respiratory Tract Infection No 05/15/24 08:11 STOP Sleep Apnea STOP Sleep Apnea - commission broker: STOP Sleep Apnea - commission broker Hx Hypertension Yes: CONTROLLED WITH MEDS 05/15/24 [...] Tobacco Use History Tobacco Use History - commission broker: Tobacco Use History - commission broker Tobacco Use Smoking Status Never smoker 05/15/24 08:11 Hx Tobacco Use No 05/15/24 08:11 Years Smoking Packs Smoked per Day Smoking Cessation Date was within the last 15 years Hx Smoking Cessation Date 02/13/89 05/15/24 08:11 Hx Smoking Cessation Counseling Hematologic Medial History Hematologic Hx - commission broker: Hematologic Medical Hx - weigh box tender Hx of Blood Transfusion No 05/15/24 08:11 [...] confused, unrespo /Reproduction History /Reproductive History - commission broker: /Reproductive Hx- commission broker Hx Now No 05/15/24 08:11 Gestational Age (in weeks): EDC: Hx Hx Para Hx Section SAB No 05/15/24 08:11 PFS Medical History Wears hearing aid Wears glasses [...] additional complaints, except as documented. 05/17/24 0806 <Electronically signed by Steve tavarez MD> Date _ Steve Snider MD Cosigner Signature: Date CC: ~ Signed [facility] Work Phone: 1(811) 175-785304-04-2025 History and physical note Author Marcus Ibrahim [facility] Note Date/Time May 17, 2024 7:45 am [facility] Medical Records Department [address] [place] [address] History & Physical Exam 05/17/24 0743 MR#: [id number] Acct: [id number] Name: KISHORE CHANG Rep #:[id number] : 1950 74 From: Marcus Ibrahim MD PCP: Dr. Darrin Thorpe MD Status:[facility] Location: [place] [address] HPI - General General Date of Admission: 05/17/24 Date of Service: 05/17/24 HPI Narrative KISHORE CHANG, is a 74 M who presents for surveillance colonoscopy. Patient has a history of colon polyps. He cannot recall when his last colonoscopy was performed. He has no family history of colon polyps or colon cancer [facility] Medical History Wears hearing aid Wears glasses [...] tablet 50 mg PO DAILY #90 tabs 08/0 10/0605/17/24 Rx amlodipine 5 mg tablet 5 [...] timely manner. Charges/Coding Visit Charges Inpatient E&M: 98993 Init Hosp L1 05/17/24 4096 <Electronically signed by Marcus Ibrahim MD> Cosigner Signature (if applicable): CC: Dr. Darrin Thorpe MD; Dr. Marcus Ibrahim MD~ Signed [facility] Work Phone: 1(222) 690-323204-04-2025 Procedure note [facility] Medical Records Department [address] [place] [address] Colonoscopy Report MR#: [id number] Acct: [id number] Name: KISHORE CHANG Rep #:[id number] : 1950 74 From: Marcus Ibrahim MD PCP: Dr. Darrin Thorpe MD Status:REG [facility] Patient Name: Kishore Chang [...] present medications. Procedure Code(s): --- Professional --- 76789, Colonoscopy, flexible; with removal of tumor(s), polyp(s), or other lesion(s) by snare technique Diagnosis Code(s): --- Professional --- Z86.010, Personal history of colonic polyps K57.30, Diverticulosis of large intestine without perforation or abscess without bleeding K64.8, Other hemorrhoids D12.5, Benign neoplasm of sigmoid colon CPT copyright 2021 [employer]. All rights reserved. The codes documented in this report are preliminary and upon site monitor review may be revised to meet current compliance requirements. Marcus Ibrahim MD 05/17/2024 9:11:53 AM This report has been signed electronically. Number of Addenda: 0 Note Initiated On: 05/17/2024 8:41 AM 05/17/24 0912 Date _ Marcus Ibrahim MD Cosigner Signature: Date (if indicated) CC: Dr. Darrin Thorpe MD; Dr. Marcus Ibraihm MD ~ Date Dictated: 05/17/24840 Date Transcribed: Seam Stay Stitcher: ROCÍO Pitts [facility]04-04-2025 Procedure note [facility] Medical Records Department [address] [place] [address] Operative Report - CC Letter MR#: [id number] Acct: [id number] Name: KISHORE CHANG Rep #:[id number] : 1950 74 From: Marcus Ibrahim MD PCP: Dr. Darrin Thorpe MD Status:REG [facility] 05/17/2024 Darrin Thorpe [address] [place] [address] Re : Colonoscopy procedure for Kishore Chang [...] electronically. 05/17/24911 Date _ Marcus Ibrahim MD Cosigner Signature: Date (if indicated) CC: Dr. Darrin Thorpe MD; Dr. Marcus Ibrahim MD ~ Date Dictated: 05/17/24840 Date Transcribed: Seam Stay Stitcher: ROCÍO Signed [facility]04-04-2025 Consult note [facility] Medical Records Department [address] [place] [address] Anesthesia Postop Eval II 05/17/24908 MR#: [id number] Acct: [id number] Name: KISHORE CHANG Rep #:[id number] : 1950 74 From: Sidney John PCP: Dr. Darrin Thorpe MD Status:REG [facility] Y Race: PRD Location: [place] [address] Anesthesia Postop Eval I Sum Postop Eval Completion status Anesthesia document: Postop Eval 1 completed: Yes Anesthesia Postop Eval I Summary Anesthesia Postop Eval I Summary: Anesthesia Postop Eval I: Assessment Summary Airway patent Yes 05/17/24 09:05 WINE [email or web address] Spontaneous unlabored Yes 05/17/24 09:05 WINE [email or web address].MDOT respirations Mental status Awake,Calm 05/17/24 09:05 WINE [email or web address].MDOT nausea No 05/17/24 09:05 WINE PASTEURIZER.MDOT Vomiting No 05/17/24 09:05 WINE PASTEURIZER.MDOT Anesthesia Postop Eval I: Fluid Summary Crystalloid volume administer 30 05/17/24 09:05 WINE PASTEURIZER.MDOT (ml) Colloids volume administered ( ml) Blood Product volume administered (ml) Total IV fluid infused 30 05/17/24 09:05 WINE PASTEURIZER.MDOT Anesthesia Postop Eval I: Summary Notes Anesthesia Complication No 05/17/24 09:05 WINE [email or web address].MDOT Anesthesia Complication Comment: Post-operative progress note Anesthesia: Postop Eval II Evaluation Mental status: Awake and Calm Pain Level: 0 nausea: No Vomiting: No Complications Anesthesia Complication: No 05/17/2410 > Date _ Sidney Carbajaligner Signature: Date CC: ~ Signed [facility]04-04-2025 Consult note [facility] Medical Records Department [address] [place] [address] Anesthesia Postop Eval I 05/17/24 09 MR#: [id number] Acct: [id number] Name: KISHORE CHANG Rep #:[id number] : 1950 74 From: Sidney John PCP: Dr. Darrin Thorpe MD Status:REG [facility] Y Race: PRD Location: [place] [address] Anesthesia: Postop Eval I Current Vital Signs [...] completed: Yes 05/17/24904 > Date _ Sidney Enamorado Signature: Date CC: ~ Signed [facility]04-04-2025 Consult note [facility] Medical Records Department [address] [place] [address] Pre-Anesthesia Evaluation 05/17/24 0758 MR#: [id number] Acct: [id number] Name: KISHORE CHANG Rep #:[id number] : 1950 74 From: Steve Snider MD PCP: Dr. Darrin Thorpe MD Status:REG [facility] Y Race: [facility] Location: [place] [address] ASA Classification* ASA Classification ASA Classification: 2 [...] CSCOPE OA Anesthesia History Anesthesia History - commission broker: Anesthesia History - commission broker Hx Hospitalization No 05/15/24 08:11 Any Problems [...] sips of water?: Yes PONV PONV - commission broker: PONV - commission broker Female No 05/15/24 08:11 HX of Motion [...] 05/17/24 07:28 Respiratory Assessment Respiratory Assessment - commission broker: Respiratory Tract Infection Hx - commission broker Hx Respiratory Tract Infection No 05/15/24 08:11 STOP Sleep Apnea STOP Sleep Apnea - commission broker: STOP Sleep Apnea - commission broker Hx Hypertension Yes: CONTROLLED WITH MEDS 05/15/24 [...] Tobacco Use History Tobacco Use History - commission broker: Tobacco Use History - commission broker Tobacco Use Smoking Status Never smoker 05/15/24 08:11 Hx Tobacco Use No 05/15/24 08:11 Years Smoking Packs Smoked per Day Smoking Cessation Date was within the last 15 years Hx Smoking Cessation Date 02/13/89 05/15/24 08:11 Hx Smoking Cessation Counseling Hematologic Medial History Hematologic Hx - commission broker: Hematologic Medical Hx - weigh box tender Hx of Blood Transfusion No 05/15/24 08:11 [...] confused, unrespo /Reproduction History /Reproductive History - commission broker: /Reproductive Hx- commission broker Hx Now No 05/15/24 08:11 Gestational Age [...] no additional complaints, except as documented. 05/17/24 08 daysi [place]> Date _ Steve Snider MD Cosigner Signature: Date CC: ~ Signed [facility]04-04-2025 History and physical note [facility] Medical Records Department [address] [place] [address] History & Physical Exam 05/17/2443 MR#: [id number] Acct: [id number] Name: KISHORE CHANG Rep #:[id number] : 1950 74 From: Marcus Ibrahim MD PCP: Dr. Darrin Thorpe MD Status:REG [facility] Location: AC15-1 HPI - General General Date of Admission: 05/17/24 Date of Service: 05/17/24 HPI Narrative KISHORE CHANG, is a 74 M who presents for surveillance colonoscopy. Patient has a history of colon polyps. He cannot recall when his last colonoscopy was performed. He has no family history of colon polyps or colon cancer [facility] Medical History Wears hearing aid Wears glasses [...] timely manner. Charges/Coding Visit Charges Inpatient E&M: 30726 Init Hosp L1 05/17/24 0745 Cosigner Signature (if applicable): CC: Dr. Darrin Thorpe MD; Dr. Marcus Ibrahim MD~ Signed [facility]04-04-2025 [facility] Medical Records Department [address] [place] [address] History Physical Exam 05/17/24 0743 MR#: [id number] Acct: [id number] Name: KISHORE CHANG Rep #: [id number] : 1950 74 From: Marcus Ibrahim MD PCP: Dr. Darrin Thorpe MD Status:[facility] Location: [place] [address] HPI - General General Date of Admission: 05/17/24 Date of Service: 05/17/24 HPI Narrative KISHORE CHANG, is a 74 M who presents for surveillance colonoscopy. Patient has a history of colon polyps. He cannot recall when his last colonoscopy was performed. He has no family history of colon polyps or colon cancer [facility] Medical History Wears hearing aid Wears glasses [...] manner. Charges/Coding Visit Charges Inpatient E M: 49397 Init Hosp L1 05/17/24 0745 Cosigner Signature (if applicable): CC: Dr. Darrin Thorpe MD; Dr. Marcus Ibrahim MD [facility]03-04-2025 Evaluation note* Diagnosis Onset Date Resolution Status Admit Date Foreign body in ear acute April 16, 2024 12:13pm Encounter for screening for malignant neoplasm of colon acute Apri l 2024 7:15am [facility] Work Phone: Consult note Author Sidney John [facility] Note Date/Time May 17, 2024 9:05 am [facility] Medical Records Department [address] [place] [address] Anesthesia Postop Eval I 05/17/24904 MR#: [id number] Acct: [id number] Name: KISHORE CHANG Rep #:[id number] : 1950 74 From: Sidney John PCP: Dr. Darrin Thorpe MD Status:REG SDC Y Race: PRD Location: [place] [address] Anesthesia: Postop Eval I Current Vital Signs [...] Sidney Enamorado Signature: Date CC: ~ Signed [facility] Work Phone: Consult note Author Sidney John [facility] Note Date/Time May 17, 2024 9:10 am [facility] Medical Records Department [address] [place] [address] Anesthesia Postop Eval II 05/17/24 0909 MR#: [id number] Acct: [id number] Name: KISHORE CHANG Rep #:[id number] : 1950 74 From: Sidney John PCP: Dr. 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 Spontaneous unlabored Yes 05/17/24 09:05 WINE PASTEURIZER.MDOT respirations Mental status Awake,Calm 05/17/24 09:05 WINE [email or web address].MDOT nausea No 05/17/24 09:05 WINE PASTEURIZER.MDOT Vomiting No 05/17/24 09:05 WINE [email or web address].MDOT Anesthesia Postop Eval I: Fluid Summary Crystalloid volume administer 30 05/17/24 09:05 WINE PASTEURIZER.MDOT (ml) Colloids volume administered ( ml) Blood Product volume administered (ml) Total IV fluid infused 30 05/17/24 09:05 WINE PASTEURIZER.MDOT Anesthesia Postop Eval I: Summary Notes Anesthesia Complication No 05/17/24 09:05 WINE PASTEURIZER.MDOT Anesthesia Complication Comment: Post-operative progress note Anesthesia: Postop Eval II Evaluation Mental status: Awake and Calm Pain Level: 0 nausea: No Vomiting: No Complications Anesthesia Complication: No 05/17/24909 <Electronically signed by Sidney John > Date _ Sidney Enamorado Signature: Date CC: ~ Signed [facility] Work Phone: Consult note Author Cristiana Koo [facility] Note Date/Time May 17, 2024 10:0 0am [facility] Medical Records Department [address] [place] [address] Anesthesia Postop Eval II 05/17/24927 MR#: [id number] Acct: [id number] Name: KISHORE CHANG Rep #:[id number] : 1950 74 From: Cristiana Koo PCP: Dr. 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 Spontaneous unlabored Yes 05/17/24 09:05 WINE PASTEURIZER.MDOT respirations Mental status Awake,Calm 05/17/24 09:10 WINE PASTEURIZER.MDOT nausea No 05/17/24 09:10 WINE PASTEURIZER.MDOT Vomiting No 05/17/24 09:10 WINE PASTEURIZER.MDOT Anesthesia Postop Eval I: Fluid Summary Crystalloid volume administer 30 05/17/24 09:05 WINE PASTEURIZER.MDOT (ml) Colloids volume administered ( ml) Blood Product volume administered (ml) Total IV fluid infused 30 05/17/24 09:05 WINE PASTEURIZER.MDOT Anesthesia Postop Eval I: Summary Notes Anesthesia Complication No 05/17/24 09:10 WINE [email or web address].MDOT Anesthesia Complication Comment: Post-operative progress note Anesthesia: Postop Eval II Evaluation Mental status: Awake Pain Level: 0 nausea: No Vomiting: No 05/17/24927 <Electronically signed by Cristiana quigley> Date _ Cristiana Enamorado Signature: Date CC: ~ Signed [facility] Work Phone: Evaluation noteNo assessment information available [facility] Work Phone: Evaluation note* Diagnosis Onset Date Resolution Status Chest pain acute Hypertension chronic [facility] Work Phone: Evaluation note* Diagnosis Onset Date Resolution Status Hypertension chronic [facility] Work Phone: Evaluation note* Diagnosis Onset Date Resolution Status Hypertension chronic Acute nasopharyngitis [common cold] acute Encounter for immunization a cute Encounter for screening for COVID-19 acute Essential hypertension acute CESAR (obstructive sleep apnea) acute [facility] Work Phone: Evaluation note* Diagnosis Onset Date Resolution Status Essential hypertension acute CESAR (obstructive sleep apnea) acute [facility] Work Phone: Evaluation note* Diagnosis Onset Date Resolution Status Subconjunctival hemorrhage a cute [facility] Work Phone: Evaluation note* Diagnosis Onset Date Resolution Status Admit Date Essential hypertension acute Au 2024 8:38am Hypertension chronic September 19, 2024 8:38am [facility] Work Phone: Hospital Discharge instructionsAdditional Instructions Your heart workup was normal today. Your lab work was all very reassuring as well as your EKG. I am concerned you could have inflammation of your stomach given a stomach ulcer that is causing your pain. Please follow-up with the GI doctor, let them know you are seen in the ER. You may take ocra-ymr-jfbqfdm antacid such as Tums, Mylanta or Maalox as well for breakthrough symptoms. You been started on a daily antacid medication to further help with your symptoms. If you develop worsening pain, black or blood in your stool or other chest pain/further concerns please return to the emergency room.[facility] Work Phone: Reason for referral (narrative)No reason for referral information [facility] Work Phone: Summary Purpose Family History No Family History Records FoundNo Family History Records Found Advance Directives No Advanced Directives Records Found Advance Directive Response Recorded Date/ Time Living Will No September 14, 2021 3:19pm Power of President And Chief Executive Officer No September 14 3:19pm Advance Directive Response Recorded Date/ Time Living Will No September 14, 2021 2:19pm Power of President And Chief Executive Officer No September 14 2:19pm Advance Directive Response Recorded Date/ Time Living Will Yes May 15, 2024 8:11am Do you have a Healthcare Power of President And Chief Executive Officer? Yes May 15, 2024 8:11am Name of Medical Power of President And Chief Executive Officer May 15, 2024 8:11am Advance Directive Response Recorded Date/ Time Living Will No September 14, 2021 3:19pm Do you have a Healthcare Power of President And Chief Executive Officer? No September 14, 2021 3:19pm Advance Directive Response Recorded Date/ Time Living Will No September 14, 2021 3:19pm Do you have a Healthcare Power of President And Chief Executive Officer? No September 14, 2021 3:19pm Do you have a Healthcare Power of President And Chief Executive Officer? No October 20, 2024 8:20am Chief Complaint and Reason for Visit Chief [...] 8:38am Hypertension September 19, 2024 8:3 8am Chief Complaint Admit Date 1 Y FU September 19, 2024 8:3 8am cp October 20, 2024 8:15am Reason for Visit Admit Date Essential hypertension September 19, 2024 8:38am Additional Source Comments (unrecognized sect ion and content) No Status Records FoundNo Status Records Found INFORMATION SOURCE (unrecogn ized section and content) DATE CREATED AUTHOR 08/08/2017 [facility] ([place] DATE CREATED AUTHOR AUTHOR'S ORGANIZ ATION 10/25/2024 [facility] Goals (unrecognized section and content) Goals may [...] Care Provider Active Start: March 26, 2024 Janey Rashid Attending Provider Active Start: [facility]2024 Team Status: Inactive Member Role Status Dates Dr. Darrin Thorpe MD Primary Care Provider Active Start: April 16, 2024 End: April 16, 2024 Dr. Darrin Thorpe MD Referring Provider Active St art: April 16, 2024 End: April 16, 2024 Marcus Carter PA, PA Attending Provider Active Start: April 16, 2024 End: April 16, 2024 Team Status: Inactive Member Role Status Dates Dr. Darrin Thorpe MD Primary Care Provider Active Start: May 17, 2024 End: May 17, 2024 Dr. Darrin Thorpe MD Referring Provider Active St art: May 17, 2024 End: May 17, 2024 Dr. Marcus Ibrhaim MD Attending Provider Active Start: May 17, [...] September 19, 2024 End: September 19, 2024 Team Status: Inactive Member Role/Relationship Status Dates Dr. Darrin Thorpe MD Primary Care Provider Active Start: October 20, 2024 End: October 20, 2024 Dr. Dottie Rausch DO Emergency Provider Active Start: October 20, 2024 End: October 20, 2024 FOR RECORDS PERTAINING TO PATIENTS WHO [...] BE BASED ON THE PRIMARY CLINICAL RECORDS. [facility] provides no warranty or guarantee of the accuracy or completeness of information in this document.
[2024-11-01 12:15] LABS: AST(SGOT) 19 U/L (<=37); Alanine Aminotransfer ALT/SGPT 22 U/L (<=46); Albumin, Serum 4.1 g/dL (3.4-4.8); Alkaline Phosphatase 41 U/L (40-129); Bilirubin, Direct 0.20 mg/dL (0.00-0.30); Cholesterol 203 mg/dL (<=200); Globulin 2.7 g/dL (2.2-4.2); Low Density Lipoprotein Calc. 128 mg/dL; Triglycerides 93 mg/dL; Very Low Density Lipoprotein 19 mg/dL (5-40); cholesterol:hdl ratio screen 3.62
== END | disposition home or self-care (01) ==
LOC: MTLAB 07:34
PROVIDERS: PCP Family Medicine; Referring Provider Physician Assistant Medical; Visit Provider Physician Assistant Medical
DX: I25.10 Atherosclerotic heart disease of native coronary artery without angina pectoris (principal)
CPT/HCPCS: 36415; 80061; 80076

== ENCOUNTER 2024-11-02 12:28 | Emergency (ER) | payer OTHER, MEDICARE, SELFPAY ==
[2024-11-02 12:28] VITALS: BP 129/78; PULSE 67; RESP 16; TEMP 36.8; O2SAT 95; BMI 31.1
--- NOTE | 2024-11-02 13:18 | EKG12_ITS ---
Test Reason : DIZZINESS Blood Pressure : */* mmHG Vent. Rate : 67 BPM Atrial Rate : 67 BPM P-R Int : 178 ms QRS Dur : 86 ms QT Int : 394 ms P-R-T Axes : 54 7 8 degrees QTcB Int : 416 ms Normal sinus rhythm Normal ECG Confirmed by TAMI MCLAUGHLIN, DEANN ([id number]), editor trade journal MANDEEP DOUGLAS ([id number]) on 11/04/2024 8:27:54 AM Referred By: Confirmed By: DEANN GARRETT MD
--- NOTE | 2024-11-02 13:18 | CT_ITS ---
PROCEDURE: BRAIN/HEAD WITHOUT CONTRAST 11/02/2024 REASON FOR EXAM: DIZZINESS TECHNIQUE: Procedure Code: CTBR Modality: CT Procedure: BRAIN/HEAD WITHOUT CONTRAST Coronal and Sagittal reconstruction series were provided. One or more dose reduction techniques were used (e.g., Automated exposure control, adjustment of the mA and/or kV according to patient size, use of iterative reconstruction technique. RADIATION DOSE SUMMARY: CTDlvol: 44.99 mGy DLP: 812.98 mGycm COMPARISON: None. FINDINGS: BRAIN: No acute intraparenchymal hemorrhage. No mass lesion. No CT evidence for acute territorial infarct. No midline shift or extra-axial collection. VENTRICLES: No hydrocephalus. ORBITS: Old right lamina papyracea fracture. No acute abnormality. SINUSES AND MASTOIDS: Mild ethmoid sinus mucosal thickening bilaterally. The mastoid air cells are clear. SOFT TISSUES: No acute abnormality seen. BONES: No acute osseous abnormality seen. CT/Brain/Head without Contrast IMPRESSION: No acute intracranial abnormality. Reading Location: [id number]
[2024-11-02 13:28] VITALS: BP 115/73; PULSE 74; RESP 17; O2SAT 98
[2024-11-02 13:28] LABS: Hematocrit 44.2 % (40-54); Hemoglobin 15.1 g/dL (13.0-16.5); Immature Granulocytes Count 0.030 X10^3/uL (0.0-0.0); Mean Corp Hgb Conc 34.2 g/dL (32-36); Mean Corpuscular Volume 88.6 fL (80-94); Mean Platelet Vol. 8.9 fl (6.2-12.0); NRBC Flagged by Analyzer 0 % (0-5); Platelet Count 271 K/mm3 (150-450); RBC Distribution Width CV 12.6 % (11.6-14.6); RBC Distribution Width SD 41.1 fl (35.1-43.9); Red Blood Count 4.99 M/mm3 (4.6-6.2); White Blood Count 7.3 K/mm3 (4.4-11.0)
--- OUTSIDE RECORDS SUMMARY | 2024-11-02 13:34 | XMS RPT_ITS | CCD ---
Author Organization [facility] CliniSymt Care Team Providers Care Supervisor Pile Driving Name Role Phone Dr. Darrin Thorpe Primary Care Provider Dr. Darrin Thorpe Referring Provider Dr. Luis Onofre Attending Provider 1([phone] Luis Onofre Referring Provider 1([facility])-[phone] [place], Dr. Smith Other Provider Dr. Darrin Thorpe Primary Care Provider 1([facility])[phone] Dr. Darrin Thorpe Referring Provider 1([facility])[phone] Luis Onofre Attending Provider [place], Dr. Smith Referring Provider [phone] Luis Onofre Other Provider DAWIT Grubbs Attending Provider PATRICIA Frazier Attending Provider Dr. Darrin Thorpe Primary Care Provider [phone] Dr. Darrin Thorpe Referring Provider 1([facility])[phone] Luis Onofre Attending Provider Dr. Darrin Thorpe Primary Care Provider Dr. Darrin Thorpe Referring Provider PATRICIA Flannery Attending Provider Dr. Darrin Thorpe Primary Care Provider Dr. Darrin Thorpe Referring Provider PATRICIA Flannery Attending Provider Dr. Darrin Thorpe MD Primary Care Provider 1([facility])[phone] Janey Mike Attending Provider Unavailable Maurilio MCLAUGHLIN, Dr. Clifford Referring Provider Marcus Vasquez Attending Provider Patrice MCLAUGHLIN, Dr. Marcus Quigley Attending Provider Patrice MCLAUGHLIN, Dr. Marcus Quigley Other Provider Maurilio MCLAUGHLIN, Dr. Clifford Primary Care Provider [phone] Maurilio MCLAUGHLIN, Dr. Clifford Referring Provider Nicole Frazier Attending Provider Shalom MCGRAW, Dr. Sinclair Emergency Provider Rahul GOMEZ, Nicole Chu Attending Unavail able Rahul GOMEZ, Nicole Chu Referring Unavail able Thorpe, Darrin Primary Care Unavailable Rahul GOMEZ, Nicole Chu Attending Unavail able Rahul GOMEZ, Nicole Chu Referring Unavail able Thorpe, Darrin Primary Care Unavailable Janey Mike Attending Unavailable Thorpe, Darrin Primary Care Unavailable Thorpe, Darrin Referring Unavailable Thorpe, Darrin Primary Care Unavailable Marcus Ibrahim Consulting Unavailable Marcus Ibrahim Attending Unavailable Thorpe, Darrin Referring Unavailable Thorpe, Darrin Primary Care Unavailable Marcus Vasquez Attending Unavailable Rahul GOMEZ, Nicole Chu Attending Unavail able Thorpe, Darrin Referring Unavailable Thorpe, Darrin Primary Care Unavailable Thorpe, Darrin Referring Unavailable Thorpe, Darrin Primary Care Unavailable Marcus Ibrahim Attending Unavailable Thorpe, Darrin Primary Care Unavailable Thorpe, Darrin Attending Unavailable Thorpe, Darrin Referring Unavailable Dottie Rausch Attending Unavailable Thorpe, Darrin Primary Care Unavailable Medications [...] {tbl} PO DAILY May 15, 2024 12:00am [place] (Nk) (1 source) Start: 09-14-2021 [place] (Nk) A ctive September 14, 2021 12:00am [...] tablet Discontinued 5 mg PO DAILY 90 November 03, 2023 8:31am September 19, 2024 [...] Test Name Value Interpretation Reference Range Facility Lipid Profileon 11-01-2024 CHOL:HDL 3.62 Normal [facility] Comment on above: Performed By: #### L 500.3400, L500.4100 #### [facility] [address] [place], [address] Cholesterol [Mass/Vol] 203 mg/dL High <=200 [place] Comment on above: Result Comment: Chol esterol level, Desirable <200 mg/dL Borderline high cholesterol 200-239 mg/dL High cholesterol >=240 mg/dL Recommendations of the NCEP Adult Treatment Panel for the following risk-cutoff thresholds for the [place] population. Performed By: #### L 500.3400, L500.4100 #### [facility] [address] [place], [address] Cholesterol in HDL [Mass/Vol] 56 mg/dL Normal [facility] Comment on above: Result Comment: Ximena onal Cholesterol Education Program (NCEP) guidelines: <40 mg/dL: Low HDL-cholesterol (major risk factor for CHD) >= 60 mg/dL: High HDL-cholesterol (negative risk factor for CHD) HDL-cholesterol is affected by a number of factors, e.g. smoking, exercise, hormones, sex and age. Performed By: #### L 500.3400, L500.4100 #### [facility] [address] [place], [address] Cholesterol in LDL [Mass/Vol] 128 mg/dL Normal [facility] Comment on above: Result Comment: Bord gcuxwe=458-916 mg/dL Higher Mdvy=182 mg/dL or greater Friedwald Equation for LDL-C Performed By: #### L 500.3400, L500.4100 #### [facility] [address] [place], [address] Cholesterol in VLDL [Mass/Vol] 19 mg/dL Normal 5-40 [facility] Comment on above: Performed By: #### L 500.3400, L500.4100 #### [facility] [address] [place], [address] Triglyceride [Mass/Vol] 93 mg/dL Normal [facility] Comment on above: Result Comment: The drugs N-Acetylcysteine and Metamizole may falsely depress this assay. Normal range: <150 mg/dL Borderline High: 150-199 mg/dL High: 200-499 mg/dL Very High: >500 mg/dL Performed By: #### L 500.3400, L500.4100 #### [facility] [address] [place], [address] Liver Profileon 11-01-2024 Albumin [Mass/Vol] 4.1 g/dL Normal 3.4-4.8 [facility] Comment on above: Performed By: #### L 500.3400, L500.4100 #### [facility] [address] [place], [address] ALK PHOS 41 U/L Normal 40-129 [facility] Comment on above: Performed By: #### L 500.3400, L500.4100 #### [facility] [address] [place], [address] ALT [Catalytic activity/Vol] 22 U/L Normal <=46 [facility] Comment on above: Performed By: #### L 500.3400, L500.4100 #### [facility] [address] [place], [address] AST [Catalytic activity/Vol] 19 U/L Normal <=37 [facility] Comment on above: Performed By: #### L 500.3400, L500.4100 #### [facility] [address] [place], [address] Bilirubin [Mass/Vol] 0.48 mg/dL Normal 0.00-1.30 [facility] Comment on above: Performed By: #### L 500.3400, L500.4100 #### [facility] [address] [place], [address] Bilirubin.direct [Mass/Vol] 0.20 mg/dL Normal 0.00-0.30 [facility] Comment on above: Performed By: #### L 500.3400, L500.4100 #### [facility] [address] [place], [address] Globulin (S) [Mass/Vol] 2.7 g/dL Normal 2.2-4.2 [facility] Comment on above: Performed By: #### L 500.3400, L500.4100 #### [facility] [address] [place], [address] T PROT 6.8 g/dL Normal 5.9-8.4 [facility] Comment on above: Performed By: #### L 500.3400, L500.4100 #### [facility] [address] [place], [address] Coronary Angiography CTon Coronary Angiography CT [facility] Imaging Services [address] [place] [address] 10/31/24 0756 MR#: [id number] Acct: [id number] Name: KISHORE CHANG Rep #: [id number] : 1950 74 From: Luis Onofre MD PCP: Dr. Darrin Thorpe MD Status:REG REF Y Location: CT Calcium Scoring Date of Study:: 10/23/24 Indications Indications: Family history Coronary Calcium Scoring: High-resolution Computed Tomographic imaging of the chest was performed on [10/23/2024], with particular attention paid to the coronary arteries. Images from the examination were analyzed for the presence and extent of coronary artery calcification , using coronary calcium quantification software. The patient tolerated the procedure well and there were no complications. The results of the coronary calcification analysis are provided below. Findings Coronary Artery Left Main (LM): 0 Left Anterior Descending (LAD): 173 Left Circumflex (LCX): 0 Right Coronary Artery (RCA): 109 Total Agatston Score: 282 Percentile Rankin-50 Calcium Scoring Interpretation: Different methods to categorize the overall amount of coronary plaque. Overall amount CAC SIS Visual of coronary plaque P1 Mild -100 <2 1-2 vessels with mild amount of plaque P2 Moderate 101-300 3-4 1-2 vessels with moderate amount, 3 vessels with mild amount of plaque P3 Severe 301-999 5-7 3 vessels with moderate amount, 1 vessel with severe amount of plaque P4 Extensive >1000 >8 2-3 vessels with severe amount of plaque Calcium Score: Moderate: 1-2 vessels w/moderate amt, 3 vessels w/mild amt of plaque Conclusion: Mild to moderate two-vessel plaquing noted. 10/31/24 0757 Date Luis Onofre MD Cosigner Signature (if applicable): Date CC: Dr. Luis Onofre MD; Dr. Darrin Thorpe MD; PATRICIA Singh Signed Normal [facility] Limited Chest CT Cardiac Onl yon 10-23-[address] Cardiac Only [facility] Imaging Services [address] [place] [address] Cardiac Only MR#: [id number] Acct: [id number] Name: KISHORE CHANG Rep #: [id number] : 1950 M 74 From: Derrick Alejandro PCP: Dr. Darrin Thorpe MD Status: REG REF Study: Limited Chest CT Cardiac Only Date of Exam: Exam# [id number] Ordering Dr: Nicole Kay PA PROCEDURE: LIMITED CHEST CT CARDIAC ONLY 10/23/2024 [...] abdomen demonstrates no significant abnormality. Reading Location: [place] [address] CC: Dr. Darrin Thorpe MD; PATRICIA Singh Cst: Signed Normal [facility] 12 Lead EKGon 10-20-2024 12 Lead EKG [facility] Cardiovascular Services [address] [place] [address] 12 Lead EKG 10/20/24 0820 MR#: [id number] Acct: [id number] Name: KISHORE CHANG Rep #: [id number] : 1950 74 From: Lee Miranda MD [...] QRS Borderline ECG Confirmed by Lee Miranda ([id number]), index editor YURIDIA WHITE ([id number]) on 10/21/2024 9:49:43 AM Referred By: Confirmed By: Lee Miranda 10/21/2449 Date Lee Miranda MD CC: Dr. Dottie Rausch DO; Dr. Darrin Thorpe MD Signed Normal [facility] Absolute lymphocyte countOrd ered By: Dottie Rausch on 10-20-2024 Lymphocytes Auto (Unsp spec) [#/Vol] 1.35 10*3/uL 0.83-4.51 [facility] Absolute neutrophil countOrd ered By: Dottie Rausch on 10-20-2024 Neutrophils (Bld) [#/Vol] 7.0 10*3/uL 2.0-7.7 [facility] Anion gap in Serum or Plasma Ordered By: Dottie Rausch on 10-20-2024 Anion gap [Moles/Vol] 12 mmol/L 5-15 [facility] Automated lymphocyte count a s percentage of total leukocytesOrdered By: Dottie Rausch on 10-20-2024 Lymphocytes/100 WBC Auto (Unsp spec) 14.7 % Low 19-41 [facility] BUN/creatinine ratioOrdered By: Dottie Rausch on 10-20-2024 Urea nitrogen/Creatinine [Mass ratio] 17.5 mg/mg - [facility] Basic Metabolic Profile (BMP )on 10-20-2024 BUN/CRE 17.5 RATIO Normal - [facility] Comment on above: Performed By: #### L 501.3540, L500.3400, L500.2500 ####[facility] [address] [place], [address] Calcium [Mass/Vol] 9.2 mg/dL Normal 7.6-11.0 [facility] Comment on above: Performed By: #### L 501.2450, L500.3400, L500.2500 ####[facility] [address] [place], [address] Chloride [Moles/Vol] 101 mmol/L Normal 98-108 [facility] Comment on above: Performed By: #### L 501.2450, L500.3400, L500.2500 ####[facility] [address] [place], [address] CO2 [Moles/Vol] 22.4 mmol/L Normal 21.0-32.0 [facility] Comment on above: Performed By: #### L 501.2450, L500.3400, L500.2500 ####[facility] [address] [place], [address] Creatinine [Mass/Vol] 0.71 mg/dL Normal 0.70-1.20 [facility] Comment on above: Performed By: #### L 501.2450, L500.3400, L500.2500 ####[facility] [address] [place], [address] ECRCL 101.69 ml/min Normal 50-250 [facility] Comment on above: Performed By: #### L 501.2450, L500.3400, L500.2500 ####[facility] [address] [place], [address] GAP 12 Normal 5-15 [facility] Comment on above: Performed By: #### L 501.2450, L500.3400, L500.2500 ####[facility] [address] [place], [address] GFR/1.73 sq M.predicted among non-blacks MDRD (S/P/Bld) [Vol rate/Area] 97 mL/min/{1.73_m2} Normal >60 [place] Comment on above: Result Comment: mL/m in/1.73m2 CKD-EPI Creatinine Equation (2020) Performed By: #### L 501.2450, L500.3400, L500.2500 ####[facility] [address] [place], [address] Glucose [Mass/Vol] 136 mg/dL High 70-99 [facility] Comment on above: Performed By: #### L 501.2450, L500.3400, L500.2500 ####[facility] [address] [place], [address] Potassium [Moles/Vol] 4.2 mmol/L Normal 3.3-5.1 [facility] Comment on above: Performed By: #### L 501.2450, L500.3400, L500.2500 ####[facility] [address] [place], [address] Sodium [Moles/Vol] 136 mmol/L Normal 133-145 [facility] Comment on above: Performed By: #### L 501.2450, L500.3400, L500.2500 ####[facility] [address] [place], [address] Urea nitrogen [Mass/Vol] 12 mg/dL Normal 4-19 [facility] Comment on above: Performed By: #### L 501.2450, L500.3400, L500.2500 ####[facility] [address] [place], [address] Basophil percentageOrdered B y: Dottie Rausch on 10-20-2024 Basophils/100 WBC (Bld) 0.4 % 0-1 [facility] Bilirubin directOrdered By: Dottie Rausch on 10-20-2024 Bilirubin.direct [Mass/Vol] 0.19 mg/dL 0.00-0.30 [facility] Bilirubin, totalOrdered By: Dottie Rausch on 10-20-2024 Bilirubin [Mass/Vol] 0.47 mg/dL 0.00-1.30 [facility] CBC W/Diff, Automatedon Absolute Lymph 1.35 X10 3/uL Normal 0.83-4.51 [facility] Comment on above: Performed By: #### L 501.4021, L100.0100 ####[facility] [address] [place], [address] Absolute Neut 7.0 X10 3/uL Normal 2.0-7.7 [facility] Comment on above: Performed By: #### L 501.4021, L100.0100 ####[facility] [address] [place], [address] Basophils/100 WBC (Bld) 0.4 % Normal 0-1 [facility] Comment on above: Performed By: #### L 501.4021, L100.0100 ####[facility] [address] [place], [address] Eosinophils/100 WBC (Bld) 1.3 % Normal 0-5 [facility] Comment on above: Performed By: #### L 501.4021, L100.0100 ####[facility] [address] [place], [address] Erythrocyte distribution width (RBC) [Ratio] 12.8 % Normal 11.6-14.6 [facility] Comment on above: Performed By: #### L 501.4021, L100.0100 ####[facility] [address] [place], [address] Hematocrit (Bld) [Volume fraction] 50.8 % Normal 40-54 [facility] Comment on above: Performed By: #### L 501.4021, L100.0100 ####[facility] [address] [place], [address] Hemoglobin (Bld) [Mass/Vol] 17.4 g/dL High 13.0-16.5 [facility] Comment on above: Performed By: #### L 501.4021, L100.0100 ####[facility] [address] [place], [address] IG% 0.400 Normal 0.0-0.9 [facility] Comment on above: Result Comment: IG% - Immature Granulocytes (promyelocytes, myelocytes and metamyelocytes) > 1% indicates that a LEFT SHIFT is Present. Performed By: #### L 501.4021, L100.0100 ####[facility] [address] [place], [address] Lymphocytes/100 WBC (Bld) 14.7 % Low 19-41 [facility] Comment on above: Performed By: #### L 501.4021, L100.0100 ####[facility] [address] [place], [address] MCH (RBC) [Entitic mass] 30.3 pg Normal 27.0-32.0 [facility] Comment on above: Performed By: #### L 501.4021, L100.0100 ####[facility] [address] [place], [address] MCHC (RBC) [Mass/Vol] 34.3 g/dL Normal 32-36 [facility] Comment on above: Performed By: #### L 501.4021, L100.0100 ####[facility] [address] [place], [address] MCV (RBC) [Entitic vol] 88.5 fL Normal 80-94 [facility] Comment on above: Performed By: #### L 501.4021, L100.0100 ####[facility] [address] [place], [address] Monocytes/100 WBC (Bld) 7.0 % Normal 0-10 [facility] Comment on above: Performed By: #### L 501.4021, L100.0100 ####[facility] [address] [place], [address] Neutrophils/100 WBC (Bld) 76.2 % High 47-70 [facility] Comment on above: Performed By: #### L 501.4021, L100.0100 ####[facility] [address] [place], [address] Nucleated RBC (Bld) [#/Vol] 0 10*3/uL Normal 0-5 [facility] Comment on above: Performed By: #### L 501.4021, L100.0100 ####[facility] [address] [place], [address] Platelet mean volume (Bld) [Entitic vol] 8.9 fL Normal 6.2-12.0 [facility] Comment on above: Performed By: #### L 501.4021, L100.0100 ####[facility] [address] [place], [address] Platelets (Bld) [#/Vol] 285 10*3/uL Normal 150-450 [facility] Comment on above: Performed By: #### L 501.4021, L100.0100 ####[facility] [address] [place], [address] RBC (Bld) [#/Vol] 5.74 10*6/uL Normal 4.6-6.2 [facility] Comment on above: Performed By: #### L 501.4021, L100.0100 ####[facility] [address] [place], [address] RDW SD 41.7 fl Normal 35.1-43.9 [facility] Comment on above: Performed By: #### L 501.4021, L100.0100 ####[facility] [address] [place], [address] WBC (Bld) [#/Vol] 9.2 10*3/uL Normal 4.4-11.0 [facility] Comment on above: Performed By: #### L 501.4021, L100.0100 ####[facility] [address] [place], [address] Carbon dioxide, total [Moles /volume] in Central venous bloodOrdered By: Dottie Rausch on 10-20-2024 CO2 [Moles/Vol] 22.4 mmol/L 21.0-32.0 [facility] Chest PA and Lateralon 10-20 Chest PA and Lateral [facility] Imaging Services [address] [place] [address] Chest PA and Lateral MR#: [id number] Acct: [id number] Name: KISHORE CHANG Rep #: [id number] : 1950 M 74 From: Juan Daniel Zavala MD PCP: Dr. Darrin Thorpe MD Status: PRE ER Study: Chest PA and Lateral Date of Exam: 10/20/24 Exam# [id number] Ordering Dr: Dottie Rausch DO PROCEDURE: CHEST PA AND LATERAL 10/20/2024 REASON FOR EXAM: CHEST PAIN TECHNIQUE: Procedure Code: RADCXR Modality: DX Procedure: CHEST PA AND LATERAL COMPARISON: 05/14/2023. FINDINGS: The heart is normal in size. The lungs are clear. No acute osseous abnormalities. RAD/Chest PA and Lateral IMPRESSION: No acute abnormalities. Reading Location: [address] CC: Dr. Dottie Rausch DO; Dr. Darrin Thorpe MD Cst: Signed Normal [facility] Chloride assayOrdered By: Gary Rausch on 10-20-2024 Chloride [Moles/Vol] 101 mmol/L 98-108 [facility] Emergency Department Summary on 10-20-2024 Emergency Department Summary [facility] Medical Records Department [address] [place] [address] Emergency Department Summary 10/20/24 MR#: [id number] Acct: [id number] Name: KISHORE CHANG Rep #: [id number] : 1950 74 From: Dottie Rausch DO [...] other complaints or concerns at this time. [facility] Medical History Wears hearing aid Wears glasses [...] sounds. Protuberant (more content not included)... Normal [facility] Eosinophil percentageOrdered By: Dottie Rausch on 10-20-2024 Eosinophils/100 WBC (Bld) 1.3 % 0-5 [facility] Erythrocyte distribution wid th ratioOrdered By: Dottie Rausch on 10-20-2024 Erythrocyte distribution width (RBC) [Ratio] 12.8 % 11.6-14.6 [facility] Erythrocyte distribution wid th standard deviationOrdered By: Dottie Rausch on 10-20-2024 Erythrocyte distribution width (RBC) [Ratio] 41.7 fl 35.1-43.9 [facility] Glomerular filtration rate ( GFR) estimation/1.73 sq m using serum, plasma, or whole bOrdered By: Dottie Rausch on 10-20-2024 GFR/1.73 sq M.predicted among non-blacks MDRD (S/P/Bld) [Vol rate/Area] 97 mL/min/{1.73_m2} >60 [place] Comment on above: mL/min/1.73m2 CKD-EP I Creatinine Equation (2020) Hematocrit Auto (Bld) [Volum e fraction]Ordered By: Dottie Rausch on 10-20-2024 Hematocrit (Bld) [Volume fraction] 50.8 % 40-54 [facility] Hemoglobin measurementOrdere d By: Dottie Rausch on 10-20-2024 Hemoglobin (Bld) [Mass/Vol] 17.4 g/dL High 13.0-16.5 [facility] Immature granulocytes/100 WB C Auto (Bld)Ordered By: Dottie Rausch on 10-20-2024 Immature granulocytes/100 WBC (Bld) 0.400 % 0.0-0.9 [facility] Comment on above: IG% - Immature Granu locytes (promyelocytes, myelocytes and metamyelocytes) > 1% indicates that a LEFT SHIFT is Present. L501.4021on 10-20-2024 Trop T High Sen < 6 Normal <=22 [facility] Comment on above: Performed By: #### L 501.4021, L100.0100 ####[facility] [address] [place], [address] Laboratory - Chemistry and C hemistry - challengeOrdered By: Dottie Rausch on 10-20-2024 AST [Catalytic activity/Vol] 27 U/L <38 [facility] Lipaseon 10-20-2024 Lipase [Catalytic activity/Vol] 22 U/L Normal 13-75 [facility] Comment on above: Result Comment: Christiano paige note: LIPASE revised reference range effective 22. New Lipase methodology. Expected to produce lower values than the previous assay method. NEW Reference Range: 13 - 75 U/L Performed By: #### L 501.2450, L500.3400, L500.2500 ####[facility] [address] [place], [address] Lipase measurementOrdered By : Dottie Rausch on 10-20-2024 Lipase [Catalytic activity/Vol] 22 U/L 13-75 [facility] Comment on above: Please note:LIPASE r evised reference range effective 22. New Lipase methodology. Expected to produce lower values than the previous assay method. NEW Reference Range: 13 - 75 U/L Liver Profileon 10-20-2024 Albumin [Mass/Vol] 4.5 g/dL Normal 3.4-4.8 [facility] Comment on above: Performed By: #### L 501.2450, L500.3400, L500.2500 ####[facility] [address] [place], [address] ALK PHOS 50 U/L Normal 40-129 [facility] Comment on above: Performed By: #### L 501.2450, L500.3400, L500.2500 ####[facility] [address] [place], [address] ALT [Catalytic activity/Vol] 30 U/L Normal <=46 [facility] Comment on above: Performed By: #### L 501.2450, L500.3400, L500.2500 ####[facility] [address] [place], [address] AST [Catalytic activity/Vol] 27 U/L Normal <=37 [facility] Comment on above: Performed By: #### L 501.2450, L500.3400, L500.2500 ####[facility] [address] [place], [address] Bilirubin [Mass/Vol] 0.47 mg/dL Normal 0.00-1.30 [facility] Comment on above: Performed By: #### L 501.2450, L500.3400, L500.2500 ####[facility] [address], [address] Bilirubin.direct [Mass/Vol] 0.19 mg/dL Normal 0.00-0.30 [facility] Comment on above: Performed By: #### L 501.2450, L500.3400, L500.2500 ####[facility] [address] [place], [address] Globulin (S) [Mass/Vol] 3.3 g/dL Normal 2.2-4.2 [facility] Comment on above: Performed By: #### L 501.2450, L500.3400, L500.2500 ####[facility] [address] [place], [address] T PROT 7.8 g/dL Normal 5.9-8.4 [facility] Comment on above: Performed By: #### L 501.2450, L500.3400, L500.2500 ####[facility] [address] [place], [address] MCV (mean corpuscular volume ) determinationOrdered By: Dottie Rausch on 10-20-2024 MCV (RBC) [Entitic vol] 88.5 fL 80-94 [facility] Mean corpuscular hemoglobin (MCH) determinationOrdered By: Dottie Rausch on 10-20-2024 MCH (RBC) [Entitic mass] 30.3 pg 27.0-32.0 [facility] Mean corpuscular hemoglobin concentration (MCHC) determinationOrdered By: Dottie Rausch on 10-20-2024 MCHC (RBC) [Mass/Vol] 34.3 g/dL 32-36 [facility] Mean platelet volume determi nationOrdered By: Dottie Rausch on 10-20-2024 Platelet mean volume (Bld) [Entitic vol] 8.9 fL 6.2-12.0 [facility] Monocyte percentageOrdered B y: Dottie Rausch on 10-20-2024 Monocytes/100 WBC (Bld) 7.0 % 0-10 [facility] Neutrophil percentageOrdered By: Dottie Rausch on 10-20-2024 Neutrophils/100 WBC (Bld) 76.2 % High 47-70 [facility] Nucleated red blood cell per centageOrdered By: Dottie Rausch on 10-20-2024 Nucleated RBC/100 WBC (Bld) [Ratio] 0 % 0-5 [facility] Platelet countOrdered By: Gary Rausch on 10-20-2024 Platelets (Bld) [#/Vol] 285 10*3/uL 150-450 [facility] Potassium measurement (mass/ volume)Ordered By: Dottie Rausch on 10-20-2024 Potassium (Unsp spec) [Mass/Vol] 4.2 mmol/L 3.3-5.1 [facility] RBC Auto (Bld) [#/Vol]Ordere d By: Dottie Rausch on 10-20-2024 RBC (Bld) [#/Vol] 5.74 10*6/uL 4.6-6.2 [facility] Serum creatinine measurement (mass/volume)Ordered By: Dottie Rausch on 10-20-2024 Creatinine [Mass/Vol] 0.71 mg/dL 0.70-1.20 [facility] Serum globulin measurementOr dered By: Dottie Rausch on 10-20-2024 Globulin (S) [Mass/Vol] 3.3 g/dL 2.2-4.2 [facility] Serum glucose measurement (m ass/volume)Ordered By: Dottei Rausch on 10-20-2024 Glucose [Mass/Vol] 136 mg/dL High 70-99 [facility] Serum or plasma alanine hidalgo otransferase (ALT) measurementOrdered By: Dottie Rausch on 10-20-2024 ALT [Catalytic activity/Vol] 30 U/L <47 [facility] Serum or plasma albumin zoila urement (mass/volume)Ordered By: Dottie Rausch on 10-20-2024 Albumin [Mass/Vol] 4.5 g/dL 3.4-4.8 [facility] Serum or plasma alkaline aissatou sphatase measurementOrdered By: Dottie Rausch on 10-20-2024 ALP [Catalytic activity/Vol] 50 U/L 40-129 [facility] Serum or plasma calcium zoila urement (mass/volume)Ordered By: Dottie Rausch on 10-20-2024 Calcium [Mass/Vol] 9.2 mg/dL 7.6-11.0 [facility] Serum or plasma urea nitroge n measurement (mass/volume)Ordered By: Dottie Rausch on 10-20-2024 Urea nitrogen [Mass/Vol] 12 mg/dL 4-19 [facility] Sodium levelOrdered By: Sharan Rausch on 10-20-2024 Sodium [Moles/Vol] 136 mmol/L 133-145 [facility] Total proteinOrdered By: Lauren Rausch on 10-20-2024 Protein [Mass/Vol] 7.8 g/dL 5.9-8.4 [facility] Troponin T HS 2 HRon 025 Trop T High Sen Normal <=22 [facility] Comment on above: Result Comment: Cankarely elled via OM: Order cancelled - Patient discharged Performed By: #### L 499.0042 ####[facility] [address] [place], [address] Troponin T HS 4 HRon 025 Trop T High Sen Normal <=22 [facility] Comment on above: Result Comment: Canc elled via OM: Order cancelled - Patient discharged Performed By: #### L 499.0043 #### [facility] [address] [place], [address] Troponin T.cardiac [Mass/vol ume] in Serum or Plasma by High sensitivity methodOrdered By: Dottie Rausch on 10-20-2024 Troponin T.cardiac High sensitivity method [Mass/Vol] < 6 ng/L <22 [facility] White blood cell (WBC) count Ordered By: Dottie Rausch on 10-20-2024 WBC (Bld) [#/Vol] 9.2 10*3/uL 4.4-11.0 [facility] Cardiology Visit Reporton Cardiology Visit Report [facility] 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 Normal [facility] Colonoscopy Reporton 025 Colonoscopy Report [facility] Medical Records Department [address] [place] [address] Colonoscopy Report MR#: [id number] Acct: [id number] Name: KISHORE CHANG Rep #: [id number] : 1950 74 From: Marcus Ibrahim MD [...] present medications. Procedure Code(s): --- Professional --- 47794, Colonoscopy, flexible; with removal of tumor(s), polyp(s), or other lesion(s) by snare technique Diagnosis Code(s): --- Professional --- Z86.010, Personal history of colonic polyps K57.30, Diverticulosis of large intestine without perforation or abscess without bleeding K64.8, Other hemorrhoids D12.5, Benign neoplasm of sigmoid colon CPT copyright 2021 [employer]. All rights reserved. The codes documented in this report are preliminary and upon tree thinner review may be revised to meet current compliance requirements. Marcus Ibrahim MD 05/17/2024 9:11:53 AM This report has been signed electronically. Number of Addenda: 0 Note Initiated On: 05/17/2024 8:41 AM 05/17/24911 Date Marcus Ibrahim MD Cosigner Signature: Date (if indicated) CC: Dr. Darrin Thorpe MD; Dr. Marcus Ibrahim MD Date Dictated: 05/17/24840 Date Transcribed: Cst: ROCÍO [facility] MR/POSTOP.ANEon 05-17-2024 MR/POSTOP.[facility] Medical Records Department [address] [place] [address] Anesthesia Postop Eval I 05/17/24904 MR#: [id number] Acct: [id number] Name: KISHORE CHANG Rep #: [id number] : 1950 74 From: Sidney John PCP: Dr. Darrin Thorpe MD Status:REG SDC Y Race: UTD Location: [place] [address] Anesthesia: Postop Eval I Current Vital Signs [...] Eval 1 completed: Yes 05/17/24904 Date Sidney John Cosigner Signature: Date CC: Signed Normal [facility]/[id number] 05-17-[address] Medical Records Department [address] [place] [address] Anesthesia Postop Eval II 05/17/24927 MR#: [id number] Acct: [id number] Name: KISHORE CHANG Rep #: [id number] : 1950 74 From: Cristiana Koo PCP: Dr. Darrin Thorpe MD Status:REG SDC Y Race: [facility] Location: [place] [address] Anesthesia Postop Eval I Sum Postop Eval Completion status Anesthesia document: Postop Eval 1 completed: Yes Anesthesia Postop Eval I Summary Anesthesia Postop Eval I Summary: Anesthesia Postop Eval I: Assessment Summary Airway patent Yes 05/17/24 09:05 FUNNEL COATER.MDOT Spontaneous unlabored Yes 05/17/24 09:05 FUNNEL COATER.MDOT respirations Mental status Awake,Calm 05/17/24 09:10 FUNNEL COATER.MDOT nausea No 05/17/24 09:10 FUNNEL COATER.MDOT Vomiting No 05/17/24 09:10 FUNNEL COATER.MDOT Anesthesia Postop Eval I: Fluid Summary Crystalloid volume administer 30 05/17/24 09:05 FUNNEL COATER.MDOT (ml) Colloids volume administered ( ml) Blood Product volume administered (ml) Total IV fluid infused 30 05/17/24 09:05 FUNNEL COATER.DEEPAK Anesthesia Postop Eval I: Summary Notes Anesthesia Complication No 05/17/24 09:10 FUNNEL COATER.MDSAWYER Anesthesia Complication Comment: Post-operative progress note Anesthesia: Postop Eval II Evaluation Mental status: Awake Pain Level: 0 nausea: No Vomiting: No 05/17/24927 Date Cristiana Carbajaligndaniel Signature: Date CC: Signed Normal [facility] MR/POSTOPAN2 [facility] Medical Records Department [address] [place] [address] Anesthesia Postop Eval II 05/17/24908 MR#: [id number] Acct: [id number] Name: KISHORE CHANG Rep #: [id number] : 1950 74 From: Sidney John PCP: Dr. Darrin Thorpe MD Status:REG [facility] Y Race: MAD Location: [place] [address] Anesthesia Postop Eval I Sum Postop Eval Completion status Anesthesia document: Postop Eval 1 completed: Yes Anesthesia Postop Eval I Summary Anesthesia Postop Eval I Summary: Anesthesia Postop Eval I: Assessment Summary Airway patent Yes 05/17/24 09:05 FUNNEL COATER.OT Spontaneous unlabored Yes 05/17/24 09:05 FUNNEL COATEROT respirations Mental status Awake,Calm 05/17/24 09:05 FUNNEL COATER.MDOT nausea No 05/17/24 09:05 FUNNEL COATER.MDOT Vomiting No 05/17/24 09:05 FUNNEL COATERZulmaMDSAWYER Anesthesia Postop Eval I: Fluid Summary Crystalloid volume administer 30 05/17/24 09:05 FUNNEL COATERSUZANNE (ml) Colloids volume administered ( ml) Blood Product volume administered (ml) Total IV fluid infused 30 05/17/24 09:05 FUNNEL COATERSUZANNE Anesthesia Postop Eval I: Summary Notes Anesthesia Complication No 05/17/24 09:05 LAURA Anesthesia Complication Comment: Post-operative progress note Anesthesia: Postop Eval II Evaluation Mental status: Awake and Calm Pain Level: 0 nausea: No Vomiting: No Complications Anesthesia Complication: No 05/17/24 0910 Date Sidney Carbajalsusan Signature: Date CC: Signed Normal [facility] Surgery Specimen Level Leora 05-17-2024 Surgery Specimen Level IV ------- -------- Patient Age/Sex Location Account Attending Physician -------- LEARNED,KISHORE AMIN 74/M EN [id number] Dr. Marcus Ibrahim MD -------- Specimen: [id number] Received: 05/17/24 Status: JEWEL Null Num: [id number] Spec Type: Polyp Subm Dr: Dr. Marcus [...] mucosal tissue. Submitted in toto in A1. [facility] 05-17-2024 CPT:06275 -------- Patient Age/Sex Location Account Attending Physician -------- KISHORE CHANG 74/M EN [id number] Dr. Marcus Ibrahim MD -------- Signed (signature on file) Dr. Ella Tubbs MD 05/22/24 1740 -------- Normal [facility] Comment on above: Performed By: #### P SUIV ####[facility] [address] [place], [address] MR/PATJesus 05-15-2024 MR/PAT.DARLEEN [facility] Medical Records Department [address] [place] [address] PAT - Anesthesia 05/15/24923 MR#: [id number] Acct: [id number] Name: KISHORE CHANG Rep #: [id number] : 1950 74 From: Jhonathan Gil MD PCP: Dr. Darrin Thorpe MD Status:PRE [facility] Y Race: [facility] Location: EN Pre-Assessment Diagnosis/Proposed Procedure Planned Operative Procedure(s): CSCOPE OA Anesthesia History Anesthesia History - plater hot dip: Anesthesia History - plater hot dip Hx Hospitalization No 05/15/24 08:11 Any Problems [...] take am of surgery PONV PONV - plater hot dip: PONV - plater hot dip Female No 05/15/24 08:11 HX of Motion [...] 03/26/24 11:42 Respiratory Assessment Respiratory Assessment - plater hot dip: Respiratory Tract Infection Hx - plater hot dip Hx Respiratory Tract Infection No 05/15/24 08:11 STOP Sleep Apnea STOP Sleep Apnea - plater hot dip: STOP Sleep Apnea - plater hot dip Hx Hypertension Yes: CONTROLLED WITH MEDS 05/15/24 [...] Tobacco Use History Tobacco Use History - plater hot dip: Tobacco Use History - plater hot dip Tobacco Use Smoking Status Never smoker 05/15/24 08:11 Hx Tobacco Use No 05/15/24 08:11 Years Smoking Packs Smoked per Day Smoking Cessation Date was within the last 15 years Hx Smoking Cessation Date 02/13/89 05/15/24 08:11 Hx Smoking Cessation Counseling Hematologic Medial History Hematologic Hx - plater hot dip: 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 Normal [facility] Urgent Care Visit Reporton 0 04-16-2024 Urgent Care Visit Report [facility] [address] , [address] [place] [address] OFFICE VISIT Date of Service: 04/16/24 MR#: [id number] Acct: [id number] Name: KISHORE CHANG Rep #: [id number] : 1950 Provider: PATRICIA [place] Age/Sex: 73/M Location: [facility] Status: Signed Intake Vital Signs 03/26/24 11:42 04/16/24 12:23 Height 5 ft 11 in Weight: 212 lb BMI 29.5 BP 122/62 H Position Sitting Pulse 103 H Temp 98.1 F Temp Source Oral Pulse Oximetry (%) 97 Oxygen Delivery Method room air Comment Sees [facility] Cardiology yearly for HTN Intake Visit Reasons: [...] Patient noticed it today after the shower. [facility] Medical History (Updated 04/16/24 @ 12:35 by PATRICIA Mckay) Foreign body in ear Essential hypertension GERD [...] or dizziness or nausea/vomiting. PMH NC. No dujd-qlk-mwmnxse products taken to assist. No other associated symptoms and no other alleviating/aggravati ng factors. ROS Const Constitutional: No other (As above) Exam Const General: cooperative, healthy appearing and no acute distress Orientation: alert and awake HENMT Head: normal to inspection Ears: hearing grossly [...] well. Coding Level of Care Code Attention Passport Support Associate Diagnoses Foreign body in ear T16.9XXA CPT Codes Foreign Body Removal - Foreign body, simple: Yes (50193) Comment 06888, [address] Assessment and Plan Assessment and Plan (1) Foreign body in ear: Status: Acute Plan: - w/ removal See procedure. Follow-up with the [facility] on an as-needed basis only. Patient states acknowledging understanding all the above. This note was generated with [employer] software. It may contain incorrect words, spelling, and punctuation that were not noted in checking the note (more content not included)... Normal [facility] CBC W/Diff, Automatedon 11-2 -2023 Absolute Lymph 1.77 X10 3/uL Normal 0.83-4.51 [facility] Comment on above: Order Comment: Order Date: 01/09/24 Order Info: 0184-1 - CBCD Performed By: #### L 100.0100, L500.4050, L500.4100, L501.9910 #### [facility] [address] [place], [address] Absolute Neut 3.9 X10 3/uL Normal 2.0-7.7 [facility] Comment on above: Order Comment: Order Date: 01/09/24 Order Info: 0184-1 - CBCD Performed By: #### L 100.0100, L500.4050, L500.4100, L501.9910 #### [facility] [address] [place], [address] Basophils/100 WBC (Bld) 1.2 % High 0-1 [facility] Comment on above: Order Comment: Order Date: 01/09/24 Order Info: 0184-1 - CBCD Performed By: #### L 100.0100, L500.4050, L500.4100, L501.9910 #### [facility] [address] [place], [address] Eosinophils/100 WBC (Bld) 3.9 % Normal 0-5 [facility] Comment on above: Order Comment: Order Date: 01/09/24 Order Info: 0184-1 - CBCD Performed By: #### L 100.0100, L500.4050, L500.4100, L501.9910 #### [facility] [address] [place], [address] Erythrocyte distribution width (RBC) [Ratio] 13.0 % Normal 11.6-14.6 [facility] Comment on above: Order Comment: Order Date: 01/09/24 Order Info: 0184-1 - CBCD Performed By: #### L 100.0100, L500.4050, L500.4100, L501.9910 #### [facility] [address] [place], [address] Hematocrit (Bld) [Volume fraction] 45.3 % Normal 40-54 [facility] Comment on above: Order Comment: Order Date: 01/09/24 Order Info: 0184-1 - CBCD Performed By: #### L 100.0100, L500.4050, L500.4100, L501.9910 #### [facility] [address] [place], [address] Hemoglobin (Bld) [Mass/Vol] 14.9 g/dL Normal 13.0-16.5 [facility] Comment on above: Order Comment: Order Date: 01/09/24 Order Info: 0184- - CBCD Performed By: #### L 100.0100, L500.4050, L500.4100, L501.9910 #### [facility] [address] [place], [address] IG% 0.300 Normal 0.0-0.9 [facility] Comment on above: Order Comment: Order Date: 01/09/24 Order Info: 0184-1 - CBCD Result Comment: IG% - Immature Granulocytes (promyelocytes, myelocytes and metamyelocytes) > 1% indicates that a LEFT SHIFT is Present. Performed By: #### L 100.0100, L500.4050, L500.4100, L501.9910 #### [facility] [address] [place], [address] Lymphocytes/100 WBC (Bld) 26.7 % Normal 19-41 [facility] Comment on above: Order Comment: Order Date: 01/09/24 Order Info: 0184-1 - CBCD Performed By: #### L 100.0100, L500.4050, L500.4100, L501.9910 #### [facility] [address] [place], [address] MCH (RBC) [Entitic mass] 29.4 pg Normal 27.0-32.0 [facility] Comment on above: Order Comment: Order Date: 01/09/24 Order Info: 0184-1 - CBCD Performed By: #### L 100.0100, L500.4050, L500.4100, L501.9910 #### [facility] [address] [place], [address] MCHC (RBC) [Mass/Vol] 32.9 g/dL Normal 32-36 [facility] Comment on above: Order Comment: Order Date: 01/09/24 Order Info: 018- - CBCD Performed By: #### L 100.0100, L500.4050, L500.4100, L501.9910 #### [facility] [address] [place], [address] MCV (RBC) [Entitic vol] 89.3 fL Normal 80-94 [facility] Comment on above: Order Comment: Order Date: 01/09/24 Order Info: 018- - CBCD Performed By: #### L 100.0100, L500.4050, L500.4100, L501.9910 #### [facility] [address] [place], [address] Monocytes/100 WBC (Bld) 9.0 % Normal 0-10 [facility] Comment on above: Order Comment: Order Date: 01/09/24 Order Info: 0184-1 - CBCD Performed By: #### L 100.0100, L500.4050, L500.4100, L501.9910 #### [facility] [address] [place], [address] Neutrophils/100 WBC (Bld) 58.9 % Normal 47-70 [facility] Comment on above: Order Comment: Order Date: 01/09/24 Order Info: 0184-1 - CBCD Performed By: #### L 100.0100, L500.4050, L500.4100, L501.9910 #### [facility] [address] [place] [place], [address] Nucleated RBC (Bld) [#/Vol] 0 10*3/uL Normal 0-5 [facility] Comment on above: Order Comment: Order Date: 01/09/24 Order Info: 0184-1 - CBCD Performed By: #### L 100.0100, L500.4050, L500.4100, L501.9910 #### [facility] [address] [place], [address] Platelet mean volume (Bld) [Entitic vol] 9.0 fL Normal 6.2-12.0 [facility] Comment on above: Order Comment: Order Date: 01/09/24 Order Info: 0184-1 - CBCD Performed By: #### L 100.0100, L500.4050, L500.4100, L501.9910 #### [facility] [address] [place] [place], [address] Platelets (Bld) [#/Vol] 289 10*3/uL Normal 150-450 [facility] Comment on above: Order Comment: Order Date: 01/09/24 Order Info: 0184-1 - CBCD Performed By: #### L 100.0100, L500.4050, L500.4100, L501.9910 #### [facility] [address] [place], [address] RBC (Bld) [#/Vol] 5.07 10*6/uL Normal 4.6-6.2 [facility] Comment on above: Order Comment: Order Date: 01/09/24 Order Info: 0184-1 - CBCD Performed By: #### L 100.0100, L500.4050, L500.4100, L501.9910 #### [facility] [address] [place], [address] RDW SD 42.7 fl Normal 35.1-43.9 [facility] Comment on above: Order Comment: Order Date: 01/09/24 Order Info: 0184-1 - CBCD Performed By: #### L 100.0100, L500.4050, L500.4100, L501.9910 #### [facility] [address] [place], [address] WBC (Bld) [#/Vol] 6.6 10*3/uL Normal 4.4-11.0 [facility] Comment on above: Order Comment: Order Date: 01/09/24 Order Info: 0184-1 - CBCD Performed By: #### L 100.0100, L500.4050, L500.4100, L501.9910 #### [facility] [address] [place], [address] Comprehensive Metabolic Prof [facility] 01-10-2024 Albumin [Mass/Vol] 3.6 g/dL Normal 3.2-5.0 [facility] Comment on above: Order Comment: Order Date: 01/09/24 Order Info: [id number] - CMP Order Info: [id number] - LIPID Order Info: 2857-1 - PSA Performed By: #### L 100.0100, L500.4050, L500.4100, L501.9910 #### [facility] [address] [place], [address] Albumin/Globulin [Mass ratio] 1.1 {ratio} Normal 0.9-2.4 [facility] Comment on above: Order Comment: Order Date: 01/09/24 Order Info: [id number] - CMP Order Info: [id number] - LIPID Order Info: 2857-1 - PSA Performed By: #### L 100.0100, L500.4050, L500.4100, L501.9910 #### [facility] [address] [place], [address] ALK P 47 U/L Normal 45-117 [facility] Comment on above: Order Comment: Order Date: 01/09/24 Order Info: 07- - CMP Order Info: [id number] - LIPID Order Info: [id number] - PSA Performed By: #### L 100.0100, L500.4050, L500.4100, L501.9910 #### [facility] [address] [place], [address] ALT [Catalytic activity/Vol] 21 U/L Normal 16-61 [facility] Comment on above: Order Comment: Order Date: 01/09/24 Order Info: 07 - CMP Order Info: [id number] - LIPID Order Info: [id number] - PSA Performed By: #### L 100.0100, L500.4050, L500.4100, L501.9910 #### [facility] [address] [place], [address] AST [Catalytic activity/Vol] 13 U/L Low 15-37 [facility] Comment on above: Order Comment: Order Date: 01/09/24 Order Info: 0786- - CMP Order Info: [id number] - LIPID Order Info: [id number] - PSA Performed By: #### L 100.0100, L500.4050, L500.4100, L501.9910 #### [facility] [address] [place], [address] Bilirubin [Mass/Vol] 0.60 mg/dL Normal 0.20-1.00 [facility] Comment on above: Order Comment: Order Date: 01/09/24 Order Info: 0786- - CMP Order Info: [id number] - LIPID Order Info: [id number] - PSA Result Comment: For patients on eltrombopag therapy, use of Dimension [place] TBIL is not recommended. Performed By: #### L 100.0100, L500.4050, L500.4100, L501.9910 #### [facility] [address] [place], [address] BUN/CRE 21.2 RATIO High 10-20 [facility] Comment on above: Order Comment: Order Date: 01/09/24 Order Info: [id number] - CMP Order Info: [id number] - LIPID Order Info: [id number] - PSA Performed By: #### L 100.0100, L500.4050, L500.4100, L501.9910 #### [facility] [address] [place], [address] CA,Total 8.9 mg/dL Normal 8.5-10.1 [facility] Comment on above: Order Comment: Order Date: 01/09/24 Order Info: [id number] - CMP Order Info: - LIPID Order Info: [id number] - PSA Performed By: #### L 100.0100, L500.4050, L500.4100, L501.9910 #### [facility] [address] [place], [address] Chloride [Moles/Vol] 108 mmol/L High 98-107 [facility] Comment on above: Order Comment: Order Date: 01/09/24 Order Info: [id number] - CMP Order Info: [id number] - LIPID Order Info: [id number] - PSA Performed By: #### L 100.0100, L500.4050, L500.4100, L501.9910 #### [facility] [address] [place], [address] CO2 [Moles/Vol] 24.0 mmol/L Normal 21.0-32.0 [facility] Comment on above: Order Comment: Order Date: 01/09/24 Order Info: [id number] - CMP Order Info: [id number] - LIPID Order Info: 1 - PSA Performed By: #### L 100.0100, L500.4050, L500.4100, L501.9910 #### [facility] [address] [place], [address] Creatinine [Mass/Vol] 0.80 mg/dL Normal 0.70-1.30 [facility] Comment on above: Order Comment: Order Date: 01/09/24 Order Info: [id number]- - CMP Order Info: [id number] - LIPID Order Info: [id number] - PSA Result Comment: The validity of the calculated GFR GFRAA in patients over 70 years has not been determined. Clinical correlation is essential. Performed By: #### L 100.0100, L500.4050, L500.4100, L501.9910 #### [facility] [address] [place], [address] EST GFR - AA 122 mL/min Normal >60 [facility] Comment on above: Order Comment: Order Date: 01/09/24 Order Info: [id number] - CMP Order Info: - LIPID Order Info: [id number] - PSA Result Comment: Afri can [place] GFR Calc Performed By: #### L 100.0100, L500.4050, L500.4100, L501.9910 #### [facility] [address] [place], [address] GAP 6 Normal 5-15 [facility] Comment on above: Order Comment: Order Date: 01/09/24 Order Info: [id number] - CMP Order Info: - LIPID Order Info: [id number] - PSA Performed By: #### L 100.0100, L500.4050, L500.4100, L501.9910 #### [facility] [address] [place], [address] GFR/1.73 sq M.predicted among non-blacks MDRD (S/P/Bld) [Vol rate/Area] 101 mL/min/{1.73_m2} Normal >60 [facility] Comment on above: Order Comment: Order Date: 01/09/24 Order Info: [id number] - CMP Order Info: [id number] - LIPID Order Info: [id number] - PSA Result Comment: Non- GFR Calc Performed By: #### L 100.0100, L500.4050, L500.4100, L501.9910 #### [facility] [address] [place], [address] Globulin (S) [Mass/Vol] 3.3 g/dL Normal 2.2-4.2 [facility] Comment on above: Order Comment: Order Date: 01/09/24 Order Info: [id number] - CMP Order Info: [id number] - LIPID Order Info: [id number] - PSA Performed By: #### L 100.0100, L500.4050, L500.4100, L501.9910 #### [facility] [address] [place], [address] Glucose [Mass/Vol] 99 mg/dL Normal 74-106 [facility] Comment on above: Order Comment: Order Date: 01/09/24 Order Info: [id number] - CMP Order Info: [id number] - LIPID Order Info: [id number] - PSA Performed By: #### L 100.0100, L500.4050, L500.4100, L501.9910 #### [facility] [address] [place], [address] Potassium [Moles/Vol] 4.0 mmol/L Normal 3.5-5.1 [facility] Comment on above: Order Comment: Order Date: 01/09/24 Order Info: [id number] - CMP Order Info: [id number] - LIPID Order Info: [id number] - PSA Performed By: #### L 100.0100, L500.4050, L500.4100, L501.9910 #### [facility] [address] [place], [address] Sodium [Moles/Vol] 138 mmol/L Normal 136-145 [facility] Comment on above: Order Comment: Order Date: 01/09/24 Order Info: [id number] - CMP Order Info: [id number] - LIPID Order Info: [id number] - PSA Performed By: #### L 100.0100, L500.4050, L500.4100, L501.9910 #### [facility] [address] [place], [address] T PROT 6.9 g/dL Normal 6.4-8.2 [facility] Comment on above: Order Comment: Order Date: 01/09/24 Order Info: [id number] - CMP Order Info: [id number] - LIPID Order Info: [id number] - PSA Performed By: #### L 100.0100, L500.4050, L500.4100, L501.9910 #### [facility] [address] [place], [address] Urea nitrogen [Mass/Vol] 17 mg/dL Normal 7-18 [facility] Comment on above: Order Comment: Order Date: 01/09/24 Order Info: [id number] - CMP Order Info: [id number] - LIPID Order Info: [id number] - PSA Performed By: #### L 100.0100, L500.4050, L500.4100, L501.9910 #### [facility] [address] [place], [address] Lipid Profileon 01-10-2024 Cholesterol [Mass/Vol] 207 mg/dL High 200 [place] Comment on above: Order Comment: Order Date: 01/09/24Order Info: [id number] - CMPOrder Info: [id number] - LIPIDOrder Info: [id number] - PSA Result Comment: <200 mg/dL Desirable 200-240 mg/dL Borderline >240 mg/dL High Risk Performed By: #### L 100.0100, L500.4050, L500.4100, L501.9910 ####[facility] [address] [place], [address] Cholesterol in HDL [Mass/Vol] 68 mg/dL Normal [facility] Comment on above: Order Comment: Order Date: 01/09/24Order Info: [id number] - CMPOrder Info: [id number] - LIPIDOrder Info: [id number] - PSA Result Comment: The drugs N-Acetylcysteine and Metamizole may falsely depress this assay. Reference Range HDL <40 mg/dL Low HDL Cholesterol HDL >or= 60 mg/dL High HDL Cholesterol Performed By: #### L 100.0100, L500.4050, L500.4100, L501.9910 ####[facility] [address] [place], [address] Cholesterol in LDL [Mass/Vol] 124 mg/dL Normal 0-130 [facility] Comment on above: Order Comment: Order Date: 01/09/24Order Info: [id number] - CMPOrder Info: - LIPIDOrder Info: [id number] - PSA Performed By: #### L 100.0100, L500.4050, L500.4100, L501.9910 ####[facility] [address] [place], [address] Cholesterol in VLDL [Mass/Vol] 15 mg/dL Normal 5-40 [facility] Comment on above: Order Comment: Order Date: 01/09/24Order Info: [id number] - CMPOrder Info: - LIPIDOrder Info: [id number] - PSA Performed By: #### L 100.0100, L500.4050, L500.4100, L501.9910 ####[facility] [address] [place], [address] Triglyceride [Mass/Vol] 77 mg/dL Normal [facility] Comment on above: Order Comment: Order Date: 01/09/24Order Info: [id number] - CMPOrder Info: [id number] - LIPIDOrder Info: [id number] - PSA Result Comment: The drugs N-Acetylcysteine and Metamizole may falsely depress this assay. Serum Triglycerides Reference Interval Normal <150 mg/dL Borderline high 150 - 199 mg/dL High 200 - 499 mg/dL Very High > or = 500 mg/dL Performed By: #### L 100.0100, L500.4050, L500.4100, L501.9910 ####[facility] [address] [place], [address] PSA,Total - Annual Screenon 01-10-2024 PSA,TOT SCREEN 1.63 ng/mL Normal 0.00-4.00 [facility] Comment on above: Order Comment: Order Date: 01/09/24Order Info: [id number] - CMPOrder Info: [id number] - LIPIDOrder Info: [id number] - PSA Result Comment: This test was performed using the TPSA assay method for the [employer] chemistry system. Values obtained with different assay methods cannot be used interchangably. When changing PSA assays in the course of monitoring a patient, additional sequential testing should be carried out to confirm baseline values. Performed By: #### L 100.0100, L500.4050, L500.4100, L501.9910 ####[facility] [address] [place], [address] Laboratory - Chemistry and C hemistry - challengeOrdered By: Darrin Thorpe on 04-17-2023 Ferritin [Mass/Vol] 154 ng/mL 26-388 [facility] No Panel InformationOrdered By: Darrin Thorpe on 04-17-2023 Free Triiodothyronine (T3) pg/dL 3.1 pg/mL 2.18-3.98 [facility] Thin prep Papanicolaou smear with manual screeningOrdered By: Darrin Thorpe on 04-17-2023 Thin prep Papanicolaou smear with manual screening 0.94 ng/dL 0.76-1.46 [facility] Absolute lymphocyte countOrd ered By: Darrin Thorpe on 04-13-2023 Lymphocytes Auto (Unsp spec) [#/Vol] 2.38 10*3/uL 0.83-4.51 [facility] Albumin Elph [Mass/Vol]Order ed By: Darrin Tohrpe on 04-13-2023 Albumin [Mass/Vol] 4.0 g/dL 2.9-4.4 [facility] Automated lymphocyte count a s percentage of total leukocytesOrdered By: Darrin Thorpe on 04-13-2023 Lymphocytes/100 WBC Auto (Unsp spec) 30.7 % 19-41 [facility] Basophil percentageOrdered B y: Darrin Thorpe on 04-13-2023 Basophils/100 WBC (Bld) 0.9 % 0-1 [facility] Bilirubin [Mass/Vol] 0.60 mg/dL 0.20-1.00 [facility] Comment on above: For patients on eltr ombopag therapy, use of Dimension [place] TBIL is not recommended. Chloride [Moles/Vol] 108 mmol/L 98-107 [facility] Eosinophils/100 WBC (Bld) 4.5 % 0-5 [facility] Glucose [Mass/Vol] 86 mg/dL 74-106 [facility] Hemoglobin (Bld) [Mass/Vol] 16.7 g/dL 13.0-16.5 [facility] Monocytes/100 WBC (Bld) 10.3 % 0-10 [facility] Neutrophils (Bld) [#/Vol] 4.1 10*3/uL 2.0-7.7 [facility] Neutrophils/100 WBC (Bld) 53.2 % 47-70 [facility] Potassium [Moles/Vol] 3.9 mmol/L 3.5-5.1 [facility] Protein [Mass/Vol] 7.6 g/dL 6.4-8.2 [facility] Sodium [Moles/Vol] 138 mmol/L 136-145 [facility] Testosterone [Mass/Vol] 327 ng/dL 264-916 [facility] Comment on above: Adult male reference interval is based on a population ofhealthy nonobese males (BMI <30) between 19 and 39 yearsold. Sami, et.al. JCEM 2017,102;8221-4846. PMID:[id number]. WBC (Bld) [#/Vol] 7.8 10*3/uL 4.4-11.0 [facility] Determination of erythrocyte mean corpuscular volume (MCV)Ordered By: Darrin Thorpe on 04-13-2023 MCV (RBC) [Entitic vol] 88.5 fL 80-94 [facility] Erythrocyte distribution wid th ratioOrdered By: Darrin Thorpe on 04-13-2023 Erythrocyte distribution width (RBC) [Ratio] 13.0 % 11.6-14.6 [facility] Erythrocyte distribution wid th standard deviationOrdered By: Darrin Thorpe on 04-13-2023 Erythrocyte distribution width (RBC) [Entitic vol] 42.1 fL 35.1-43.9 [facility] Free testosterone percentage Ordered By: Darrin Thorpe on 04-13-2023 Testosterone Free/Testosterone.total [Mass fraction] 2.77 % 1.50-4.20 [facility] Hematocrit Auto (Bld) [Volum e fraction]Ordered By: Darrin Thorpe on 04-13-2023 Hematocrit (Bld) [Volume fraction] 49.3 % 40-54 [facility] Immature granulocytes/100 WB C Auto (Bld)Ordered By: Darrin Thorpe on 04-13-2023 Immature granulocytes/100 WBC (Bld) 0.400 % 0.0-0.9 [facility] Comment on above: IG% - Immature Granu locytes (promyelocytes, myelocytes and metamyelocytes) > 1% indicates that a LEFT SHIFT is Present. Laboratory - Chemistry and C hemistry - challengeOrdered By: Darrin Thorpe on 04-13-2023 Albumin/Globulin [Mass ratio] 1.1 {ratio} 0.9-2.4 [facility] ALP [Catalytic activity/Vol] 50 U/L 45-117 [facility] ALT [Catalytic activity/Vol] 36 U/L 16-61 [facility] CO2 [Moles/Vol] 24.0 mmol/L 21.0-32.0 [facility] Globulin (S) [Mass/Vol] 3.6 g/dL 2.2-4.2 [facility] Urea nitrogen/Creatinine [Mass ratio] 22.8 mg/mg 10-20 [facility] - Hematology and Cell countsOrdered By: Darrin Thorpe on 04-13-2023 MCH (RBC) [Entitic mass] 30.0 pg 27.0-32.0 [facility] MCHC (RBC) [Mass/Vol] 33.9 g/dL 32-36 [facility] Nucleated RBC/100 WBC (Bld) [Ratio] 0 % 0-5 [facility] Platelet mean volume (Bld) [Entitic vol] 9.2 fL 6.2-12.0 [facility] Platelets (Bld) [#/Vol] 298 10*3/uL 150-450 [facility] No Panel InformationOrdered By: Darrin Thorpe on 04-13-2023 Addendum Document Comment . [facility] Comment on above: The SPE pattern appe ars unremarkable. Evidence ofmonoclonal protein is not apparent. Mjkyf-4-Pgksdcigy 0.2 g/dL 0.0-0.4 [facility] Tdoqc-7-Cgcmxtovo 0.8 g/dL 0.4-1.0 [facility] Estimated GFR (MDRD) Amer 110 mL/min >60 [facility] Comment on above: GFR Calc Estimated GFR (MDRD) Non-Af Amer 91 mL/min >60 [facility] Comment on above: Non- GFR Calc Gamma Globulins 0.9 g/dL 0.4-1.8 [facility] Protein Fractions Elph [Inte rp]Ordered By: Darrin Thorpe on 04-13-2023 Protein Fractions [Interp] Comment . [facility] Comment on above: Protein electrophore sis scan will follow via computer,mail, or pharmacy director delivery. RBC Auto (Bld) [#/Vol]Ordere d By: Darrin Thorpe on 04-13-2023 RBC (Bld) [#/Vol] 5.57 10*6/uL 4.6-6.2 [facility] Serum albumin to globulin ra stephany by protein electrophoresisOrdered By: Darrin Thorpe on 04-13-2023 Albumin/Globulin Elph [Mass ratio] 1.3 0.7-1.7 [facility] Serum globulin measurement ( mass/volume)Ordered By: Darrin Thorpe on 04-13-2023 Globulin (S) [Mass/Vol] 3.0 g/dL 2.2-3.9 [facility] Serum or plasma beta globuli n measurement by electrophoresis (mass/volume)Ordered By: Darrin Thorpe on 04-13-2023 Beta globulin Elph [Mass/Vol] 1.0 g/dL 0.7-1.3 [facility] Serum or plasma calcium zoila urement (mass/volume)Ordered By: Darrin Thorpe on 04-13-2023 Calcium [Mass/Vol] 9.1 mg/dL 8.5-10.1 [facility] Serum or plasma creatinine m easurement (mass/volume)Ordered By: Darrin Thorpe on 04-13-2023 Creatinine [Mass/Vol] 0.88 mg/dL 0.70-1.30 [facility] Comment on above: The validity of the calculated GFR & GFRAA in patients over 70 years has not been determined. Clinical correlation is essential. Serum or plasma protein mono clonal measurement by electrophoresis (mass/volume)Ordered By: Darrin Thorpe on 04-13-2023 Protein.monoclonal Elph [Mass/Vol] Not Observed g/dL Not Observed [facility] Serum or plasma testosterone free measurement (mass/volume)Ordered By: Darrin Thorpe on 04-13-2023 Testosterone Free [Mass/Vol] 9.06 ng/dL 5.00-21.00 [facility] Serum or plasma thyroid stim ulating hormone (TSH) measurement (units/volume)Ordered By: Darrin Thorpe on 04-13-2023 TSH Qn 4.07 uIU/mL 0.358-3.74 [facility] Serum or plasma urea nitroge n measurement (mass/volume)Ordered By: Darrin Thorpe on 04-13-2023 Urea nitrogen [Mass/Vol] 20 mg/dL 7-18 [facility] Thin prep Papanicolaou smear with manual screeningOrdered By: Darrin Thorpe on 04-13-2023 Thin prep Papanicolaou smear with manual screening 4.0 g/dL 3.2-5.0 [facility] Thin prep Papanicolaou smear with manual screening 17 U/L 15-37 [facility] Thin prep Papanicolaou smear with manual screening 6 5-15 [facility] Thin prep Papanicolaou smear with manual screening Negative Negative [facility] Comment on above: Lyme antibodies not detected. Reflex testing is notindicated.No laboratory evidence of infection with B. burgdorferi(Lyme disease). Negative results may occur in patientsrecently infected (less than or equal to 14 days) with B.burgdorferi. If recent infection is suspected, repeattesting on a new sample collected in 7 to 14 days isrecommended.Performed at: [address], [place] [id number] Director: Lc Monique PhD, Phone: [phone] at: [address] [id number] Director: Kirit Concepcion MD, Phone: [phone] Total protein bloodOrdered B y: Darrin Thorpe on 04-13-2023 Protein [Mass/Vol] 7.0 g/dL 6.0-8.5 [facility] Basophil percentageOrdered B y: Luis Onofre on 09-20-2022 Bilirubin [Mass/Vol] 0.30 mg/dL 0.20-1.00 [facility] Comment on above: For patients on eltr ombopag therapy, use of Dimension [place] TBIL is not recommended. Cholesterol [Mass/Vol] 212 mg/dL <200 [place] Comment on above: <200 mg/dL Desirable 200-240 mg/dL Borderline >240 mg/dL High Risk Protein [Mass/Vol] 7.2 g/dL 6.4-8.2 [facility] Triglyceride [Mass/Vol] 130 mg/dL <199 [facility] Comment on above: The drugs N-Acetylcy steine and Metamizole may falsely depress this assay.Serum Triglycerides Reference Interval Normal <150 mg/dL Borderline high 150 - 199 mg/dL High 200 - 499 mg/dL Very High > or = 500 mg/dL Direct bilirubinOrdered By: Luis Onofre on 09-20-2022 Bilirubin.direct [Mass/Vol] 0.11 mg/dL 0.00-0.30 [facility] - Chemistry and C hemistry - challengeOrdered By: Luis Onofre on 09-20-2022 ALP [Catalytic activity/Vol] 51 U/L 45-117 [facility] ALT [Catalytic activity/Vol] 30 U/L 16-61 [facility] Globulin (S) [Mass/Vol] 3.5 g/dL 2.2-4.2 [facility] No Panel InformationOrdered By: Luis Onofre on 09-20-2022 Thyroid Stimulating Hormone (TSH) 2.84 uIU/mL 0.358-3.74 [facility] Serum or plasma albumin zoila urement (mass/volume)Ordered By: Luis Kingston on 09-20-2022 Albumin [Mass/Vol] 3.7 g/dL 3.2-5.0 [facility] Serum or plasma cholesterol in HDL measurement (mass/volume)Ordered By: Luis Kingston on 09-20-2022 Cholesterol in HDL [Mass/Vol] 62 mg/dL >40 [facility] Comment on above: The drugs N-Acetylcy steine and Metamizole may falsely depress this assay. Reference Range HDL <40 mg/dL Low HDL Cholesterol HDL >or= 60 mg/dL High HDL Cholesterol Serum or plasma cholesterol in VLDL measurement (mass/volume)Ordered By: [facility] on 09-20-2022 Cholesterol in VLDL [Mass/Vol] 26 mg/dL 5-40 [facility] Serum or plasma low density lipoprotein (LDL) cholesterol measurement (mass/volume)Ordered By: [facility] on 09-20-2022 Cholesterol in LDL [Mass/Vol] 124 mg/dL 0-130 [facility] Thin prep Papanicolaou smear with manual screeningOrdered By: [facility] on 09-20-2022 Thin prep Papanicolaou smear with manual screening 12 U/L 15-37 [facility] - Microbiology an d Antimicrobial susceptibilityon 11-06-2021 SARS-CoV-2 (COVID-19) RNA SARI+probe Ql (Unsp spec) Not detected [facility] Work Phone: No Panel Informationon 11-06 Influenza Types A,B Rapid (Clinic) Not detected [facility] Work Phone: Absolute lymphocyte counton 09-14-2021 Lymphocytes Auto (Unsp spec) [#/Vol] 1.79 10*3/uL 0.83-4.51 [facility] Work Phone: Basophil percentageon 2021 Bilirubin [Mass/Vol] 0.50 mg/dL 0.20-1.00 [facility] Work Phone: Comment on above: For patients on eltr ombopag therapy, use of Dimension [place] TBIL is not recommended. Cholesterol [Mass/Vol] 227 mg/dL <200 [place] Work Phone: Comment on above: <200 mg/dL Desirable 200-240 mg/dL Borderline >240 mg/dL High Risk Protein [Mass/Vol] 7.2 g/dL 6.4-8.2 [facility] Work Phone: Triglyceride [Mass/Vol] 86 mg/dL <199 [facility] Work Phone: Comment on above: The drugs N-Acetylcy steine and Metamizole may falsely depress this assay.Serum Triglycerides Reference Interval Normal <150 mg/dL Borderline high 150 - 199 mg/dL High 200 - 499 mg/dL Very High > or = 500 mg/dL Basophils/100 WBC (Bld) 0.8 % 0-1 [facility] Work Phone: Chloride [Moles/Vol] 108 mmol/L 98-107 [facility] Work Phone: Eosinophils/100 WBC (Bld) 2.6 % 0-5 [facility] Work Phone: Glucose [Mass/Vol] 88 mg/dL 74-106 [facility] Work Phone: Neutrophils (Bld) [#/Vol] 4.5 10*3/uL 2.0-7.7 [facility] Work Phone: Neutrophils/100 WBC (Bld) 62.7 % 47-70 [facility] Work Phone: Potassium [Moles/Vol] 3.9 mmol/L 3.5-5.1 [facility] Work Phone: Sodium [Moles/Vol] 139 mmol/L 136-145 [facility] Work Phone: WBC (Bld) [#/Vol] 7.2 10*3/uL 4.4-11.0 [facility] Work Phone: Blood erythrocytes count (nu mber/volume)on 09-14-2021 RBC (Bld) [#/Vol] 5.56 10*6/uL 4.6-6.2 [facility] Work Phone: Blood hemoglobin measurement (mass/volume)on 09-14-2021 Hemoglobin (Bld) [Mass/Vol] 17.0 g/dL 13.0-16.5 [facility] Work Phone: Blood lymphocytes/100 leukoc yteson 09-14-2021 Lymphocytes/100 WBC (Bld) 24.9 % 19-41 [facility] Work Phone: [phone] Blood monocytes/100 leukocyt eson 09-14-2021 Monocytes/100 WBC (Bld) 8.6 % 0-10 [facility] Work Phone: [phone] Blood platelet mean volumeon 09-14-2021 Platelet mean volume (Bld) [Entitic vol] 8.9 fL 6.2-12.0 [facility] Work Phone: Determination of erythrocyte mean corpuscular volume (MCV)on 09-14-2021 MCV (RBC) [Entitic vol] 88.7 fL 80-94 [facility] Work Phone: Direct bilirubinon Bilirubin.direct [Mass/Vol] 0.11 mg/dL 0.00-0.30 [facility] Work Phone: Hematocrit Auto (Bld) [Volum e fraction]on 09-14-2021 Hematocrit (Bld) [Volume fraction] 49.3 % 40-54 [facility] Work Phone: Laboratory - Chemistry and C hemistry - challengeon 09-14-2021 ALP [Catalytic activity/Vol] 41 U/L 45-117 [facility] Work Phone: ALT [Catalytic activity/Vol] 27 U/L 16-61 [facility] Work Phone: [phone] Globulin (S) [Mass/Vol] 3.1 g/dL 2.2-4.2 [facility] Work Phone: [phone] CO2 [Moles/Vol] 26.0 mmol/L 21.0-32.0 [facility] Work Phone: Urea nitrogen/Creatinine [Mass ratio] 19.6 mg/mg 10-20 [facility] Work Phone: [phone] Laboratory - Hematology and Cell countson 09-14-2021 Erythrocyte distribution width (RBC) [Entitic vol] 42.5 fL 35.1-43.9 [facility] Work Phone: [phone] Erythrocyte distribution width (RBC) [Ratio] 13.0 % 11.6-14.6 [facility] Work Phone: [phone] Immature granulocytes/100 WBC (Bld) 0.400 % 0.0-0.9 [facility] Work Phone: [phone] Comment on above: IG% - Immature Granu locytes (promyelocytes, myelocytes and metamyelocytes) > 1% indicates that a LEFT SHIFT is Present. MCH (RBC) [Entitic mass] 30.6 pg 27.0-32.0 [facility] Work Phone: [phone] Nucleated RBC/100 WBC (Bld) [Ratio] 0 % 0-5 [facility] Work Phone: [phone] MCHC Auto (RBC) [Mass/Vol]on 09-14-2021 MCHC (RBC) [Mass/Vol] 34.5 g/dL 32-36 [facility] [facility] Work Phone: [phone] No Panel Informationon 09-14 Troponin I High Sensitivity < 3 pg/mL 3.0-78.0 [facility] Work Phone: [phone] Comment on above: Please Note: New Maritza t Units and Gender Specific Reference Ranges. For more information see Policy Stat Procedure [place] High Sensitivity Troponin (TNIH) and attachments. D-Dimer Quantitative (PE/DVT) 0.44 FEU/ug/m 0.27-0.49 [facility] Work Phone: [phone] Comment on above: NORMAL D-Dimer level (<0.50) indicates no DVT or PE. Estimated Creatinine Clearance Calc 85.35 ml/min [facility] Work Phone: [phone] Estimated GFR (MDRD) Amer 112 mL/min >60 [facility] Work Phone: Comment on above: GFR Calc Estimated GFR (MDRD) Non-Af Amer 93 mL/min >60 [facility] Work Phone: Comment on above: Non- GFR Calc Platelets bldon 09-14-2021 Platelets (Bld) [#/Vol] 256 10*3/uL 150-450 [facility] Work Phone: Serum or plasma albumin zoila urement (mass/volume)on 09-14-2021 Albumin [Mass/Vol] 4.1 g/dL 3.2-5.0 [facility] Work Phone: Serum or plasma calcium zoila urement (mass/volume)on 09-14-2021 Calcium [Mass/Vol] 8.8 mg/dL 8.5-10.1 [facility] Work Phone: Serum or plasma cholesterol in HDL measurement (mass/volume)on 09-14-2021 Cholesterol in HDL [Mass/Vol] 65 mg/dL >40 [facility] Work Phone: Comment on above: The drugs N-Acetylcy steine and Metamizole may falsely depress this assay. Reference Range HDL <40 mg/dL Low HDL Cholesterol HDL >or= 60 mg/dL High HDL Cholesterol Serum or plasma cholesterol in VLDL measurement (mass/volume)on 09-14-2021 Cholesterol in VLDL [Mass/Vol] 17 mg/dL 5-40 [facility] Work Phone: Serum or plasma creatinine m easurement (mass/volume)on 09-14-2021 Creatinine [Mass/Vol] 0.87 mg/dL 0.70-1.30 [facility] Work Phone: Comment on above: The validity of the calculated GFR & GFRAA in patients over 70 years has not been determined. Clinical correlation is essential. Serum or plasma low density lipoprotein (LDL) cholesterol measurement (mass/volume)on 09-14-2021 Cholesterol in LDL [Mass/Vol] 145 mg/dL 0-130 [facility] Work Phone: Serum or plasma urea nitroge n measurement (mass/volume)on 09-14-2021 Urea nitrogen [Mass/Vol] 17 mg/dL 7-18 [facility] Work Phone: Thin prep Papanicolaou smear with manual screeningon 09-14-2021 Thin prep Papanicolaou smear with manual screening 18 U/L 15-37 [facility] Work Phone: Thin prep Papanicolaou smear with manual screening 5 5-15 [facility] Work Phone: ALT/SGPTon 01-27-2017 Alanine aminotransferase (ALT) 27 U/L Normal 12-55 [facility] Comment on above: Performed By: #### A ST, PSA, ALT, LIPID ####[place] [id number] [place] [address] Maldonado 01-27-2017 Aspartate aminotransferase (AST) 17 U/L Normal 8-34 [facility] Comment on above: Performed By: #### A ST, PSA, ALT, LIPID ####[address] [address] LIPIDon 01-27-2017 Cholesterol 131 mg/dL Normal 50-199 [facility] Comment on above: Result Comment: Chol esterol Reference Interval:Less than 200 [id number] Borderline high [id number] and above High risk Performed By: #### A ST, PSA, ALT, LIPID ####[place] [address] [place] [address] HDL Cholesterol 70 mg/dL High 40-59 [facility] Comment on above: Result Comment: HDL Reference Interval:Less than 40 Low - high risk60 or above Optimal/lowers risk Performed By: #### A ST, PSA, ALT, LIPID ####[facility] [place] [address] 13468 LDL Cholesterol 51 mg/dL Normal 0-129 [facility] Comment on above: Result Comment: LDL is a calculated result and requires a 12-hr fast.LDL Reference Interval:Less than 100 [id number] Near or above [id number] Borderline high [id number] High fdrf062 and above Very high risk Performed By: #### A ST, PSA, ALT, LIPID ####[place] [address] [place] [address] Triglyceride 48 mg/dL Normal 3-149 [facility] Comment on above: Result Comment: Trig lyceride Reference Interval:Less than 150 Spgecy540-064 Borderline high dppv001-165 High enjk720 or higher Very high risk Performed By: #### A ST, PSA, ALT, LIPID ####[place] [address] [place] [address] PSAon 01-27-2017 Prostate Specific Antigen 1.49 ng/mL Normal 0.02-4.00 [facility] Comment on above: Performed By: #### A ST, PSA, ALT, LIPID ####[address] [address] Vital Signs Date Time Vital Sign Value Performing Clinician Emelia gil 10-20-2024 10:12-0400 Body temperature 98.6 [degF] Dr. Darrin Thorpe MD Work Phone: [facility] 10-20-2024 10:12-0400 Diastolic blood pressure 85 mm[Hg] Dr. Darrin Thorpe MD Work Phone: [facility] 10-20-2024 10:12-0400 Heart rate 996 /min Dr. Darrin Thorpe MD Work Phone: [facility] 10-20-2024 10:12-0400 Respiratory rate 22 /min Dr. Darrin Thorpe MD Work Phone: [facility] 10-20-2024 10:12-0400 SaO2% (BldA) [Mass fraction] 95 % Dr. Darrin Thorpe MD Work Phone: [facility] 10-20-2024 10:12-0400 Systolic blood pressure 130 mm[Hg] Dr. Darrin Thorpe MD Work Phone: [facility] 10-20-2024 08:16-0400 Body height 180.[address] Darrin Thorpe MD Work Phone: [facility] 10-20-2024 08:16-0400 Body mass index (BMI) [Ratio] 31.4 kg/m2 Dr. Darrin Thorpe MD Work Phone: 3(604)286-918597 [place] [address] 10-20-2024 08:16-0400 Body weight 102.[address] Darrin Thorpe MD Work Phone: 5(299)493-276084 [place] [address] 09-19-2024 08:43-0400 Body height 180.[address] Darrin Thorpe MD Work Phone: 2(006)077-933684 [place] [address] 09-19-2024 08:43-0400 Body mass index (BMI) [Ratio] 31.5 kg/m2 Dr. Darrin Thorpe MD Work Phone: 6(291)617-139784 [place] [address] 09-19-2024 08:43-0400 Body weight 102.[address] Darrin Thorpe MD Work Phone: 8(884)937-959184 [place] [address] 09-19-2024 08:43-0400 Diastolic blood pressure 84 mm[Hg] Dr. Darrin hTorpe MD Work Phone: 0(894)051-103984 [place] [address] 09-19-2024 08:43-0400 Heart rate 79 /min Dr. Darrin Thorpe MD Work Phone: 6(022)748-824684 [place] [address] 09-19-2024 08:43-0400 Respiratory rate 18 /min Dr. Darrin Thorpe MD Work Phone: 9(315)220-166184 [place] [address] 09-19-2024 08:43-0400 Systolic blood pressure 127 mm[Hg] Dr. Darrin Thorpe MD Work Phone: 4(963)000-085884 [place] [address] 05-17-2024 09:21-0400 Body temperature 98.2 [degF] Dr. Darrin Thorpe MD Work Phone: 0(520)448-659884 [place] [address] 05-17-2024 09:21-0400 Diastolic blood pressure 79 mm[Hg] Dr. Darrin Thorpe MD Work Phone: 5(051)705-710784 [place] [address] 05-17-2024 09:21-0400 Heart rate 79 /min Dr. Darrin Thorpe MD Work Phone: 3(887)631-867797 [place] [address] 05-17-2024 09:21-0400 Respiratory rate 16 /min Dr. Darrin Thorpe MD Work Phone: 7(485)269-598897 [place] [address] 05-17-2024 09:21-0400 SaO2% (BldA) [Mass fraction] 93 % Dr. Darrin Thorpe MD Work Phone: 2(510)857-755384 [place] [address] 05-17-2024 09:21-0400 Systolic blood pressure 111 mm[Hg] Dr. Darrin Thorpe MD Work Phone: 4(615)181-435284 [place] [address] 05-17-2024 07:28-0400 Body height 180.[address] Darrin Thorpe MD Work Phone: 3(603)406-589984 [place] [address] 05-17-2024 07:28-0400 Body mass index (BMI) [Ratio] 30.4 kg/m2 Dr. Darrin Thorpe MD Work Phone: 2(316)531-102484 [place] [address] 05-17-2024 07:28-0400 Body weight [address] Darrin Thorpe MD Work Phone: 5(397)122-700684 [place] [address] 04-16-2024 12:23-0500 Body temperature 98.1 [degF] Dr. Darrin Thorpe MD Work Phone: 3(124)585-773484 [place] [address] 04-16-2024 12:23-0500 Diastolic blood pressure 62 mm[Hg] Dr. Darrin Thorpe MD Work Phone: 5(415)454-789184 [place] [address] 04-16-2024 12:23-0500 Heart rate 103 /min Dr. Darrin Thorpe MD Work Phone: 2(416)509-524784 [place] [address] 04-16-2024 12:23-0500 SaO2% (BldA) [Mass fraction] 97 % Dr. Darrin Thorpe MD Work Phone: 3(941)569-464084 [place] [address] 04-16-2024 12:23-0500 Systolic blood pressure 122 mm[Hg] Dr. Darrin Thorpe MD Work Phone: 3(219)023-363984 [place] [address] 03-26-2024 11:42-0500 Body mass index (BMI) [Ratio] 29.5 kg/m2 Dr. Darrin Thorpe MD Work Phone: 4(931)759-805384 [place] [address] 03-26-2024 11:42-0500 Body weight 96.[address] Darrin Thorpe MD Work Phone: 3(306)398-066784 [place] [address] 01-05-2023 10:39-0500 Body temperature 98.7 [degF] Dr. Darrin Thorpe Work Phone: [facility] 01-05-2023 10:39-0500 Diastolic blood pressure 74 mm[Hg] Dr. Darrin Thorpe Work Phone: [facility] 01-05-2023 10:39-0500 Heart rate 89 /min Dr. Darrin Thorpe Work Phone: [facility] 01-05-2023 10:39-0500 Respiratory rate 14 /min Dr. Darrin Thorpe Work Phone: [facility] 01-05-2023 10:39-0500 SaO2% (BldA) [Mass fraction] 94 % Dr. Darrin Thorpe Work Phone: [facility] 01-05-2023 10:39-0500 Systolic blood pressure 132 mm[Hg] Dr. Darrin Thorpe Work Phone: [facility] 09-20-2022 09:20-0400 Body height 180.[address] Darrin Thorpe Work Phone: [facility] 09-20-2022 09:20-0400 Body mass index (BMI) [Ratio] 32.8 kg/m2 Dr. Darrin Thorpe Work Phone: [facility] 09-20-2022 09:20-0400 Body weight 106.[address] Darrin Thorpe Work Phone: [facility] 09-20-2022 09:20-0400 Diastolic blood pressure 60 mm[Hg] Dr. Darrin Thorpe Work Phone: [facility] 09-20-2022 09:20-0400 Heart rate 80 /min Dr. Darrin Thorpe Work Phone: [facility] 09-20-2022 09:20-0400 Respiratory rate 16 /min Dr. Darrin Thorpe Work Phone: [facility] 09-20-2022 09:20-0400 Systolic blood pressure 103 mm[Hg] Dr. Darrin Thorpe Work Phone: [facility] 12-16-2021 08:14-0400 Body height 180.[address] Darrin Thorpe Work Phone: [facility] Work Phone: 12-16-2021 08:14-0400 Body mass index (BMI) [Ratio] 32.3 kg/m2 Dr. Darrin Thorpe Work Phone: [facility] Work Phone: 12-16-2021 08:14-0400 Body weight 105.[address] Darrin Thorpe Work Phone: [facility] Work Phone: 12-16-2021 08:14-0400 Diastolic blood pressure 79 mm[Hg] Dr. Darrin Thorpe Work Phone: [facility] Work Phone: 12-16-2021 08:14-0400 Heart rate 79 /min Dr. Darrin Thorpe Work Phone: [facility] Work Phone: 12-16-2021 08:14-0400 Respiratory rate 18 /min Dr. Darrin Thorpe Work Phone: [facility] Work Phone: 12-16-2021 08:14-0400 SaO2% (BldA) [Mass fraction] 95 % Dr. Darrin Thorpe Work Phone: [facility] Work Phone: 12-16-2021 08:14-0400 Systolic blood pressure 127 mm[Hg] Dr. Darrin Thorpe Work Phone: [facility] Work Phone: 11-06-2021 12:29-0400 Body temperature 97.5 [degF] Dr. Darrin Thorpe Work Phone: [facility] Work Phone: 11-06-2021 12:29-0400 Diastolic blood pressure 80 mm[Hg] Dr. Darrin Thorpe Work Phone: [facility] Work Phone: 11-06-2021 12:29-0400 Heart rate 80 /min Dr. Darrin Thorpe Work Phone: [facility] Work Phone: 11-06-2021 12:29-0400 Respiratory rate 15 /min Dr. Darrin Thorpe Work Phone: [facility] Work Phone: 11-06-2021 12:29-0400 SaO2% (BldA) [Mass fraction] 96 % Dr. Darrin Thorpe Work Phone: [facility] Work Phone: 11-06-2021 12:29-0400 Systolic blood pressure 124 mm[Hg] Dr. Darrin Thorpe Work Phone: [facility] Work Phone: 09-15-2021 08:11-0400 Body height 180.[address] Darrin Thorpe Work Phone: [facility] Work Phone: 09-15-2021 08:11-0400 Body mass index (BMI) [Ratio] 31.5 kg/m2 Dr. Darrin Thorpe Work Phone: [facility] Work Phone: 09-15-2021 08:11-0400 Body weight 102.[address] Darrin Thorpe Work Phone: [facility] Work Phone: 09-15-2021 08:11-0400 Diastolic blood pressure 88 mm[Hg] Dr. Darrin Thorpe Work Phone: [facility] Work Phone: 09-15-2021 08:11-0400 Heart rate 80 /min Dr. Darrin Thorpe Work Phone: [facility] Work Phone: 09-15-2021 08:11-0400 Respiratory rate 16 /min Dr. Darrin Thorpe Work Phone: [facility] Work Phone: 09-15-2021 08:11-0400 SaO2% (BldA) [Mass fraction] 96 % Dr. Darrin Thorpe Work Phone: [facility] Work Phone: 09-15-2021 08:11-0400 Systolic blood pressure 142 mm[Hg] Dr. Darrin Thorpe Work Phone: [facility] Work Phone: 09-14-2021 18:22-0400 Diastolic blood pressure 87 mm[Hg] [facility] Work Phone: 09-14-2021 18:22-0400 Heart rate 71 /min [facility] Work Phone: 09-14-2021 18:22-0400 Respiratory rate 19 /min [facility] Work Phone: 09-14-2021 18:22-0400 SaO2% (BldA) [Mass fraction] 96 % [facility] Work Phone: 09-14-2021 18:22-0400 Systolic blood pressure 145 mm[Hg] [facility] Work Phone: 09-14-2021 15:05-0400 Body height 180.34 cm [facility] Work Phone: 09-14-2021 15:05-0400 Body mass index (BMI) [Ratio] 31.4 kg/m2 [facility] Work Phone: 09-14-2021 15:05-0400 Body temperature 96.8 [degF] [facility] Work Phone: 09-14-2021 15:05-0400 Body weight 102.05 kg [facility] Work Phone: Encounters Encounter Date Encounter Type Care Provider Facility Start: 11-01-2024 ambulatory Nicole GOMEZ Facility:[facility] Start: 10-23-2024 ambulatory Nicole GOMEZ Facility:[facility] Start: 10-20-2024 End: 10-20-2024 Emergency department patient visit Dr. Darrin Thorpe MD Work Phone: -Emergency Department Work Phone: Start: 09-19-2024 End: 09-19-2024 Patient encounter procedure Nicole GOMEZ -[facility] Work Phone: Start: 09-19-2024 End: 09-19-[address] Darrin Thorpe MD Work Phone: -[facility] Start: 05-17-2024 Non-patient / Non-visit Dr. Marcus Ibrahim MD -[facility] Start: 05-17-2024 End: 05-17-2024 Admission to same day surgery center Dr. Marcus Ibrahim MD -Endoscopy Work Phone: Start: 05-17-2024 End: 05-17-[address] Darrin Thorpe MD Work Phone: [facility] Work Phone: Start: 04-16-2024 End: 04-16-2024 Patient encounter procedure Marcus GOMEZ -[facility] Work Phone: Start: 04-16-2024 End: 04-16-2024 ambulatory Darrin Thorpe Facility:[facility] Start: 03-26-2024 Non-patient / Non-visit Dr. Daniel Thorpe MD Work Phone: -[facility] Work Phone: Start: 03-26-2024 ambulatory Janey Rasihd Facility:[facility] Start: 01-10-2024 End: 01-10-2024 ambulatory Darrin Thorpe Facility:[facility] Start: 05-03-2023 End: 05-03-2023 ambulatory [facility] Work Phone: Start: 05-03-2023 End: 05-03-2023 Patient encounter procedure [facility] Work Phone: Start: 04-20-2023 End: 04-20-[address] Darrin Thorpe Work Phone: [facility] Work Phone: Start: 04-20-2023 End: 04-20-[address] Darrin Thorpe Work Phone: [facility]-Pulmonary Services/Neurology Work Phone: Start: 04-13-2023 End: 04-13-[address] Darrin Thorpe Work Phone: [facility] Work Phone: Start: 04-13-2023 End: 04-13-[address] Darrin Thorpe Work Phone: [facility] Start: 01-05-2023 End: 01-05-[address] Darrin Thorpe Work Phone: [facility] Work Phone: Start: 09-20-2022 End: 09-20-[address] Darrin Thorpe Work Phone: [facility] Work Phone: Start: 09-20-2022 End: 09-20-[address] Darrin Thorpe Work Phone: [facility] Work Phone: Start: 12-27-2021 End: 12-27-[address] Darrin Thorpe Work Phone: [facility] Work Phone: Start: 12-27-2021 End: 12-27-[address] Darrin Thorpe Work Phone: [facility]-Sleep Lab Start: 12-16-2021 End: 12-16-[address] Darrin Thorpe Work Phone: [facility] Start: 11-06-2021 End: 11-06-[address] Darrin Thorpe Work Phone: [facility] Start: 09-20-2021 Non-patient / Non-visit Dr. Daniel Thorpe Work Phone: [facility] Start: 09-20-2021 End: 09-20-[address] [facility] Start: 09-15-2021 Non-patient / Non-visit Dr. Daniel Thorpe Work Phone: [facility] Start: 09-15-2021 End: 09-15-[address] [facility] Start: 09-15-2021 End: 09-15-[address] Darrin Thorpe Work Phone: [facility]-Laboratory Start: 09-15-2021 End: 09-15-[address] Darrin Thorpe Work Phone: [facility] Start: 09-14-2021 End: 09-14-2021 [facility] Procedures Date Procedure Procedure Detail Performing [...] Author Start: 10-20-2024 End: 10-20-2024 [facility] Start: 10-20-2024 [facility] Start: 05-17-2024 Patient discharge [facility] Albumin/Globulin [Ma ss Ratio] in Serum or Plasma by Electrophoresis [facility] Colonoscopy [facility] CT angiography of co ronary arteries [facility] Electrophoresis: albumin [facility] Electrophoresis: [id number] [facility] Electrophoresis: [id number] [facility] Electrophoresis: gamma globulin [facility] Globulin measurement [facility] Measurement of Borre alla burgdorferi antibody [facility] Patient Education [facility] Work Phone: Patient referral [facility] Work Phone: Protein electrophore sis panel - Serum or Plasma [facility] Serum protein electrophoresis [facility] Serum testosterone measurement [facility] Testosterone Free [M ass/volume] in Serum or Plasma [facility] Testosterone measurement [facility] Total globulins measurement [facility] Immunizations Immunization Date Immunization Notes Care Provider Fa cility 05-15-2020 Covid (Pfizer) [facility] 04-24-2020 Covid (Pfizer) [facility] 11-15-2019 influenza, injectabl e, quadrivalent, preservative free Dr. Darrin Thorpe Work Phone: [facility] 11-15-2019 influenza, seasonal, injectable [facility] 12-19-2017 Influenza virus vaccine [facility] Payers Date Payer Category Payer Self-pay [id number] 2023 Medicare [id number] 2023 Unknown [id number] Unknown [id number] Unknown [id number] 2.16.8 [id number] Unknown [id number] 2.16.8 [id number] Unknown [id number] 2.16.8 [id number] Unknown [id number] 2.16.8 [id number] Unknown [id number] 2.16.8 [id number] Unknown [id number] 2.16.8 [id number] Unknown [id number] 2.16.8 [id number] Unknown [id number] 2.16.8 [id number] Unknown [id number] 2.16.8 [id number] Social History Date Type Detail Facility Start: 09-14-2021 End: 01-05-2023 Tobacco smoking status NHIS Unknown if ever smoked [facility] Start: 10-19-2018 Non-smoker [facility] Start: 1950 Sex Assigned At Male [facility] Start: 05-15-2024 Tobacco smoking stat [facility] Never smoked tobacco (finding) [facility] Start: 05-17-2024 Sex Male (finding) [facility] Start: 10-20-2024 Tobacco smoking stat [facility] Ex-smoker (finding) [facility] Goals Date Patient Goal Desired Activity /State Mental Status Date Assessment Result Facility 10-20-2024 Cognitive function Voice/Name [facility] Work Phone: 05-17-2024 Cognitive function Voice/Name;Touch/Shaki ng [facility] Work Phone: 09-14-2021 Cognitive function Awake;Alert;A ppropriate;Fol lows Commands [facility] Work Phone: Clinical Notes 04-16-2024 to 10-20-2024 Note Date & Type Note Facility 10-20-2024 Radiology Diagnostic study note [facility] Imaging Services [address] [place] [address] Chest PA and Lateral MR#: [id number] Acct: [id number] Name: KISHORE CHANG Rep #: [id number] : 1950 M 74 From: Vernon Zavala MD PCP: Dr. Darrin Thorpe MD Status: PRE ER Study:Chest PA and Lateral Date of Exam: 10/20/24 Exam# [id number] Ordering Dr: Karely Rausch DO PROCEDURE: CHEST PA AND LATERAL 10/20/2024 REASON FOR EXAM: CHEST PAIN TECHNIQUE: Procedure Code: RADCXR Modality: DX Procedure: CHEST PA AND LATERAL COMPARISON: 05/14/2023. FINDINGS: The heart is normal in size. The lungs are clear. No acute osseous abnormalities. RAD/Chest PA and Lateral IMPRESSION: No acute abnormalities. Reading Location: [address] CC: Dr. Dottie Rausch DO; Dr. Darrin Thorpe MD ~ Cst: Signed [facility] 09-19-2024 Evaluation note Diagnosis Onset Date Resolution Essential hypertension acute Au yessi 2024 8:38am [facility] Work Phone: 1(621) 210-321604-04-2025 Consult note [facility] Medical Records Department [address] [place] [address] Anesthesia Postop Eval II 05/17/2428 MR#: [id number] Acct: [id number] Name: KISHORE CHANG Rep #:[id number] : 1950 74 From: Cristiana Koo PCP: Dr. Darrin Thorpe MD Status:REG SDC Y Race: MAD Location: [place] [address]-1 Anesthesia Postop Eval I Sum Postop Eval Completion status Anesthesia document: Postop Eval 1 completed: Yes Anesthesia Postop Eval I Summary Anesthesia Postop Eval I Summary: Anesthesia Postop Eval I: Assessment Summary Airway patent Yes 05/17/24 09:05 FUNNEL COATER.MDOT Spontaneous unlabored Yes 05/17/24 09:05 FUNNEL COATER.MDOT respirations Mental status Awake,Calm 05/17/24 09:10 FUNNEL COATER.MDOT nausea No 05/17/24 09:10 FUNNEL COATER.MDOT Vomiting No 05/17/24 09:10 FUNNEL COATER.MDOT Anesthesia Postop Eval I: Fluid Summary Crystalloid volume administer 30 05/17/24 09:05 FUNNEL COATER.MDOT (ml) Colloids volume administered ( ml) Blood Product volume administered (ml) Total IV fluid infused 30 05/17/24 09:05 FUNNEL COATER.MDOT Anesthesia Postop Eval I: Summary Notes Anesthesia Complication No 05/17/24 09:10 FUNNEL COATER.MDOT Anesthesia Complication Comment: Post-operative progress note Anesthesia: Postop Eval II Evaluation Mental status: Awake Pain Level: 0 nausea: No Vomiting: No 05/17/2428 a> Date _ Cristiana Enamorado Signature: Date CC: ~ Signed [facility]04-04-2025 Consult note Author Steve Snider [facility] Note Date/Time May 17, 2024 8:06 am [facility] Medical Records Department [address] [place] [address] Pre-Anesthesia Evaluation 05/17/24 0758 MR#: [id number] Acct: [id number] Name: KISHORE CHANG Rep #:[id number] : 1950 74 From: Steve Snider MD PCP: Dr. Darrin Thorpe MD Status:REG SDC Y Race: [facility] Location: [place] [address] ASA Classification* ASA Classification ASA Classification: 2 [...] CSCOPE OA Anesthesia History Anesthesia History - plater hot dip: Anesthesia History - plater hot dip Hx Hospitalization No 05/15/24 08:11 Any Problems [...] Oral intake: Last Oral Intake NPO since 05/17/24 07:28 Meds taken in AM with sips of Yes 05/17/24 07:28 water? Meds patient instructed to take am of surgery Any additional information?: Yes NPO since: (Patient finished prep at 4:30AM.) Meds taken in AM with sips of water?: Yes PONV PONV - plater hot dip: PONV - plater hot dip Female No 05/15/24 08:11 HX of Motion [...] 05/17/24 07:28 Respiratory Assessment Respiratory Assessment - plater hot dip: Respiratory Tract Infection Hx - plater hot dip Hx Respiratory Tract Infection No 05/15/24 08:11 STOP Sleep Apnea STOP Sleep Apnea - plater hot dip: STOP Sleep Apnea - plater hot dip Hx Hypertension Yes: CONTROLLED WITH MEDS 05/15/24 [...] Tobacco Use History Tobacco Use History - plater hot dip: Tobacco Use History - plater hot dip Tobacco Use Smoking Status Never smoker 05/15/24 08:11 Hx Tobacco Use No 05/15/24 08:11 Years Smoking Packs Smoked per Day Smoking Cessation Date was within the last 15 years Hx Smoking Cessation Date 02/13/89 05/15/24 08:11 Hx Smoking Cessation Counseling Hematologic Medial History Hematologic Hx - plater hot dip: 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 Hx of Blood Transfusion No 05/15/24 08:11 [...] confused, unrespo /Reproduction History /Reproductive History - plater hot dip: /Reproductive Hx- plater hot dip Hx Now No 05/15/24 08:11 Gestational Age [...] MD Cosigner Signature: Date CC: ~ Signed [facility] Work Phone: 1(434) 679-243504-04-2025 History and physical note Author Marcus Ibrahim [facility] Note Date/Time May 17, 2024 7:45 am [facility] Medical Records Department [address] [place] [address] History & Physical Exam 05/17/2443 MR#: [id number] Acct: [id number] Name: KISHORE CHANG Rep #:[id number] : 1950 74 From: Marcus Ibrahim MD PCP: Dr. Darrin Thorpe MD Status:[facility] Location: [facility] AC15-1 HPI - General General Date of Admission: 05/17/24 Date of Service: 05/17/24 HPI Narrative KISHORE CHANG, is a 74 M who presents for surveillance colonoscopy. Patient has a history of colon polyps. He cannot recall when his last colonoscopy was performed. He has no family history of colon polyps or colon cancer [facility] Medical History Wears hearing aid [...] timely manner. Charges/Coding Visit Charges Inpatient E&M: 81796 Init Hosp L1 05/17/24 0745 <Electronically signed by Marcus Ibrahim MD> Cosigner Signature (if applicable): CC: Dr. Darrin Thorpe MD; Dr. Marcus Ibrahim MD~ Signed [facility] Work Phone: 1(823) 903-590204-04-2025 Procedure note [facility] Medical Records Department [address] [place] [address] Colonoscopy Report MR#: [id number] Acct: [id number] Name: KISHORE CHANG Rep #:[id number] : [...] present medications. Procedure Code(s): --- Professional --- 42379, Colonoscopy, flexible; with removal of tumor(s), polyp(s), or other lesion(s) by snare technique Diagnosis Code(s): --- Professional --- Z86.010, Personal history of colonic polyps K57.30, Diverticulosis of large intestine without perforation or abscess without bleeding K64.8, Other hemorrhoids D12.5, Benign neoplasm of sigmoid colon CPT copyright 2021 [employer]. All rights reserved. The codes documented in this report are preliminary and upon tree thinner review may be revised to meet current compliance requirements. Marcus Ibrahim MD 05/17/2024 9:11:53 AM This report has been signed electronically. Number of Addenda: 0 Note Initiated On: 05/17/2024 8:41 AM 05/17/24911 Date _ Marcus Ibrahim MD Cosigner Signature: Date (if indicated) CC: Dr. Darrin Thorpe MD; Dr. Marcus Ibrahim MD ~ Date Dictated: 05/17/24840 Date Transcribed: Cst: ROCÍO Pitts [facility]04-04-2025 Procedure note [facility] Medical Records Department [address] [place] [address] Operative Report - CC Letter MR#: [id number] Acct: [id number] Name: KISHORE CHANG Rep #:[id number] : 1950 74 From: Marcus Ibrahim MD PCP: Dr. Darrin Thorpe MD Status:REG [facility] 05/17/2024 Darrin Thorpe [address] [place] [address] Re : Colonoscopy procedure for Kishore Chang [...] MD ~ Date Dictated: 05/17/24840 Date Transcribed: Cst: SW Signed [facility]04-04-2025 Consult note [facility] Medical Records Department [address] [place] [address] Anesthesia Postop Eval II 05/17/24908 MR#: [id number] Acct: [id number] Name: KISHORE CHANG Rep #:[id number] : 1950 74 From: Sidney John PCP: Dr. Darrin Thorpe MD Status:REG SDC Y Race: [facility] Location: [place] [address] Anesthesia Postop Eval I Sum Postop Eval Completion status Anesthesia document: Postop Eval 1 completed: Yes Anesthesia Postop Eval I Summary Anesthesia Postop Eval I Summary: Anesthesia Postop Eval I: Assessment Summary Airway patent Yes 05/17/24 09:05 FUNNEL COATER.MDOT Spontaneous unlabored Yes 05/17/24 09:05 FUNNEL COATER.MDOT respirations Mental status Awake,Calm 05/17/24 09:05 FUNNEL COATER.MDOT nausea No 05/17/24 09:05 FUNNEL COATER.MDOT Vomiting No 05/17/24 09:05 FUNNEL COATER.MDOT Anesthesia Postop Eval I: Fluid Summary Crystalloid volume administer 30 05/17/24 09:05 FUNNEL COATER.MDOT (ml) Colloids volume administered ( ml) Blood Product volume administered (ml) Total IV fluid infused 30 05/17/24 09:05 LAURA Anesthesia Postop Eval I: Summary Notes Anesthesia Complication No 05/17/24 09:05 LAURA Anesthesia Complication Comment: Post-operative progress note Anesthesia: Postop Eval II Evaluation Mental status: Awake and Calm Pain Level: 0 nausea: No Vomiting: No Complications Anesthesia Complication: No 05/17/24909 > Date _ Sidney Carbajaligndaniel Signature: CC: ~ Signed [facility]04-04-2025 Consult note [facility] Medical Records Department [address] [place] [address] Anesthesia Postop Eval I 05/17/24904 MR#: [id number] Acct: [id number] Name: KISHORE CHANG Rep #:[id number] : 1950 74 From: Sidney John PCP: Dr. Darrin Thorpe MD Status:REG [facility] Y Race: [facility] Location: [place] [address] Anesthesia: Postop Eval I Current Vital Signs [...] completed: Yes 05/17/24904 > Date _ Sidney John Cosigner Signature: CC: ~ Signed [facility]04-04-2025 Consult note [facility] Medical Records Department [address] [place] [address] Pre-Anesthesia Evaluation 05/17/24 0758 MR#: [id number] Acct: [id number] Name: KISHORE CHANG Rep #:[id number] : 1950 74 From: Steve Snider MD PCP: Dr. Darrin Thorpe MD Status:REG SDC Y Race: [facility] Location: [place] [address] ASA Classification* ASA Classification ASA Classification: 2 [...] CSCOPE OA Anesthesia History Anesthesia History - plater hot dip: Anesthesia History - plater hot dip Hx Hospitalization No 05/15/24 08:11 Any Problems [...] sips of water?: Yes PONV PONV - plater hot dip: PONV - plater hot dip Female No 05/15/24 08:11 HX of Motion [...] 05/17/24 07:28 Respiratory Assessment Respiratory Assessment - plater hot dip: Respiratory Tract Infection Hx - plater hot dip Hx Respiratory Tract Infection No 05/15/24 08:11 STOP Sleep Apnea STOP Sleep Apnea - plater hot dip: STOP Sleep Apnea - plater hot dip Hx Hypertension Yes: CONTROLLED WITH MEDS 05/15/24 [...] Tobacco Use History Tobacco Use History - plater hot dip: Tobacco Use History - plater hot dip Tobacco Use Smoking Status Never smoker 05/15/24 08:11 Hx Tobacco Use No 05/15/24 08:11 Years Smoking Packs Smoked per Day Smoking Cessation Date was within the last 15 years Hx Smoking Cessation Date 02/13/89 05/15/24 08:11 Hx Smoking Cessation Counseling Hematologic Medial History Hematologic Hx - plater hot dip: 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 05/17/24805 daysi [place]> Date _ Steve Enamorado Signature: Date CC: ~ Signed [facility]04-04-2025 History and physical note [facility] Medical Records Department [address] [place] [address] History & Physical Exam 05/17/24 0743 MR#: [id number] Acct: [id number] Name: KISHORE CHANG Rep #:[id number] : 1950 74 From: Marcus Ibrahim MD PCP: Dr. Darrin Thorpe MD Status:[facility] Location: [place] [address] HPI - General General Date of Admission: 05/17/24 Date of Service: 05/17/24 HPI Narrative KISHORE CHANG, is a 74 M who presents for surveillance colonoscopy. Patient has a history of colon polyps. He cannot recall when his last colonoscopy was performed. He has no family history of colon polyps or colon cancer [facility] Medical History Wears hearing aid [...] timely manner. Charges/Coding Visit Charges Inpatient E&M: 70139 Init Hosp L1 05/17/24 0745 Cosigner Signature (if applicable): CC: Dr. Darrin Thorpe MD; Dr. Marcus Ibrahim MD~ Signed [facility]04-04-2025 [facility] Medical Records Department [address] [place] [address] History Physical Exam 05/17/24 0743 MR#: [id number] Acct: [id number] Name: KISHORE CHANG Rep #: [id number] : 1950 74 From: Marcus Ibrahim MD PCP: Dr. Darrin Thorpe MD Status:[facility] Location: [place] [address] HPI - General General Date of Admission: 05/17/24 Date of Service: 05/17/24 HPI Narrative KISHORE CHANG, is a 74 M who presents for surveillance colonoscopy. Patient has a history of colon polyps. He cannot recall when his last colonoscopy was performed. He has no family history of colon polyps or colon cancer [facility] Medical History Wears hearing aid [...] manner. Charges/Coding Visit Charges Inpatient E M: 90918 Init Hosp L1 05/17/24 0745 Cosigner Signature (if applicable): CC: Dr. Darrin Thorpe MD; Dr. Marcus Ibrahim MD [facility] Evaluation note* Diagnosis Onset Date Resolution Status Admit Date Foreign body in ear acute April 16, 2024 12:13pm Encounter for screening for malignant neoplasm of colon acute Apri l 2024 7:15am [facility] Work Phone: Consult note Author Sidney John [facility] Note Date/Time May 17, 2024 9:05 am [facility] Medical Records Department [address] [place] [address] Anesthesia Postop Eval I 05/17/24904 MR#: [id number] Acct: [id number] Name: KISHORE CHANG Rep #:[id number] : 1950 74 From: Sidney John PCP: Dr. Darrin Thorpe MD Status:REG SDC Y Race: [facility] Location: [place] [address] Anesthesia: Postop Eval I Current Vital Signs [...] Sidney Enamorado Signature: Date CC: ~ Signed [facility] Work Phone: Consult note Author Sidney John [facility] Note Date/Time May 17, 2024 9:10 am [facility] Medical Records Department [address] [place] [address] Anesthesia Postop Eval II 05/17/24908 MR#: [id number] Acct: [id number] Name: KISHORE CHANG Rep #:[id number] : 1950 74 From: Sidney John PCP: Dr. Darrin Thorpe MD Status:REG [facility] Y Race: [facility] Location: [place] [address] Anesthesia Postop Eval I Sum Postop Eval Completion status Anesthesia document: Postop Eval 1 completed: Yes Anesthesia Postop Eval I Summary Anesthesia Postop Eval I Summary: Anesthesia Postop Eval I: Assessment Summary Airway patent Yes 05/17/24 09:05 FUNNEL COATER.MDOT Spontaneous unlabored Yes 05/17/24 09:05 FUNNEL COATER.MDOT respirations Mental status Awake,Calm 05/17/24 09:05 FUNNEL COATER.MDOT nausea No 05/17/24 09:05 FUNNEL COATER.MDOT Vomiting No 05/17/24 09:05 FUNNEL COATER.MDOT Anesthesia Postop Eval I: Fluid Summary Crystalloid volume administer 30 05/17/24 09:05 FUNNEL COATER.MDOT (ml) Colloids volume administered ( ml) Blood Product volume administered (ml) Total IV fluid infused 30 05/17/24 09:05 FUNNEL COATER.MDOT Anesthesia Postop Eval I: Summary Notes Anesthesia Complication No 05/17/24 09:05 FUNNEL COATER.MDOT Anesthesia Complication Comment: Post-operative progress note Anesthesia: Postop Eval II Evaluation Mental status: Awake and Calm Pain Level: 0 nausea: No Vomiting: No Complications Anesthesia Complication: No 05/17/24909 <Electronically signed by Sidney John > Date _ Sidney Enamorado Signature: Date CC: ~ Signed [facility] Work Phone: Consult note Author Cristiana Koo [facility] Note Date/Time May 17, 2024 10:0 0am [facility] Medical Records Department [address] [place] [address] Anesthesia Postop Eval II 05/17/24927 MR#: [id number] Acct: [id number] Name: KISHORE CHANG Rep #:[id number] : 1950 74 From: Cristiana Koo PCP: Dr. Darrin Thorpe MD Status:REG [facility] Y Race: UTD Location: [place] [address] Anesthesia Postop Eval I Sum Postop Eval Completion status Anesthesia document: Postop Eval 1 completed: Yes Anesthesia Postop Eval I Summary Anesthesia Postop Eval I Summary: Anesthesia Postop Eval I: Assessment Summary Airway patent Yes 05/17/24 09:05 FUNNEL COATER.MDOT Spontaneous unlabored Yes 05/17/24 09:05 FUNNEL COATER.MDOT respirations Mental status Awake,Calm 05/17/24 09:10 FUNNEL COATER.MDOT nausea No 05/17/24 09:10 FUNNEL COATER.MDOT Vomiting No 05/17/24 09:10 FUNNEL COATER.MDOT Anesthesia Postop Eval I: Fluid Summary Crystalloid volume administer 30 05/17/24 09:05 FUNNEL COATER.MDOT (ml) Colloids volume administered ( ml) Blood Product volume administered (ml) Total IV fluid infused 30 05/17/24 09:05 FUNNEL COATER.MDOT Anesthesia Postop Eval I: Summary Notes Anesthesia Complication No 05/17/24 09:10 FUNNEL COATER.MDOT Anesthesia Complication Comment: Post-operative progress note Anesthesia: Postop Eval II Evaluation Mental status: Awake Pain Level: 0 nausea: No Vomiting: No 05/17/24927 <Electronically signed by Cristiana quigley> Date _ Cristiana Hayes Enamorado Signature: Date CC: ~ Signed [facility] Work Phone: Evaluation noteNo assessment information available [facility] Work Phone: Evaluation note* Diagnosis Onset Date Resolution Status Chest pain acute Hypertension chronic [facility] Work Phone: Evaluation note* Diagnosis Onset Date Resolution Status Hypertension chronic [facility] Work Phone: Evaluation note* Diagnosis Onset Date Resolution Status Hypertension chronic Acute nasopharyngitis [common cold] acute Encounter for immunization a cute Encounter for screening for COVID-19 acute Essential hypertension acute CESAR (obstructive sleep apnea) acute [facility] Work Phone: Evaluation note* Diagnosis Onset Date Resolution Status Essential hypertension acute CESAR (obstructive sleep apnea) acute [facility] Work Phone: Evaluation note* Diagnosis Onset Date Resolution Status Subconjunctival hemorrhage a cute [facility] Work Phone: Evaluation note* Diagnosis Onset Date Resolution Status Admit Date Essential hypertension acute Au 2024 8:38am Hypertension chronic September 19, 2024 8:38am [facility] Work Phone: Hospital Discharge instructionsAdditional Instructions Your heart workup was normal today. Your lab work was all very reassuring as well as your EKG. I am concerned you could have inflammation of your stomach given a stomach ulcer that is causing your pain. Please follow-up with the GI doctor, let them know you are seen in the ER. You may take exdz-jqy-xfheutb antacid such as Tums, Mylanta or Maalox as well for breakthrough symptoms. You been started on a daily antacid medication to further help with your symptoms. If you develop worsening pain, black or blood in your stool or other chest pain/further concerns please return to the emergency room.[facility] Work Phone: Reason for referral (narrative)No reason for referral information availableWUniversity [facility] Work Phone: Summary Purpose Family History No Family History Records FoundNo Family History Records Found Advance Directives No Advanced Directives Records Found Advance Directive Response Recorded Date/ Time Living Will No September 14, 2021 3:19pm Power of Senior Fire Protection Engineer No September 14 3:19pm Advance Directive Response Recorded Date/ Time Living Will No September 14, 2021 2:19pm Power of Senior Fire Protection Engineer No September 14 2:19pm Advance Directive Response Recorded Date/ Time Living Will Yes May 15, 2024 8:11am Do you have a Healthcare Power of Senior Fire Protection Engineer? Yes May 15, 2024 8:11am Name of Medical Power of Senior Fire Protection Engineer May 15, 2024 8:11am Advance Directive Response Recorded Date/ Time Living Will No September 14, 2021 3:19pm Do you have a Healthcare Power of Senior Fire Protection Engineer? No September 14, 2021 3:19pm Advance Directive Response Recorded Date/ Time Living Will No September 14, 2021 3:19pm Do you have a Healthcare Power of Senior Fire Protection Engineer? No September 14, 2021 3:19pm Do you have a Healthcare Power of Senior Fire Protection Engineer? No October 20, 2024 8:20am Chief Complaint [...] section and content) DATE CREATED AUTHOR 08/08/2017 [facility] ([place]) DATE CREATED AUTHOR AUTHOR'S ORGANIZ ATION 11/01/2024 [facility] Goals (unrecognized section and content) Goals may [...] Care Provider, Referring P rovider Active Yony Ernst PA, PA Attending Provider Active Team Status: Inactive [...] Care Provider Active Start: March 26, 2024 [facility] Attending Provider Active Start: [facility]2024 Team Status: Inactive Member Role Status Dates [...] End: October 20, 2024 Dr. Dottie Rausch , DO Emergency Provider Active Start: October 20, [...] BE BASED ON THE PRIMARY CLINICAL RECORDS. [facility]. provides no warranty or guarantee of the accuracy or completeness of information in this document.
[2024-11-02] MEDS: 0.9% Normal Saline (1000mL) 1,000 ML 1000 ML IV (13:40)
[2024-11-02 13:52] LABS: Anion Gap 13 (5-15); BUN 15 mg/dL (4-19); BUN/Creat Ratio 19.3 RATIO (10-20); Calcium,Total 8.8 mg/dL (7.6-11.0); Carbon Dioxide 20.3 mmol/L (21.0-32.0); Chloride 104 mmol/L (98-108); Estimated Creatinine Clearance 101.12 ml/min (50-250); Glucose 94 mg/dL (70-99); Potassium 3.7 mmol/L (3.3-5.1)
--- NOTE | 2024-11-02 13:57 | EX.ED.DYSGE1 ---
HPI History of Present Illness Chief Complaint: Dizziness [facility] Medical History (Updated 11/02/24 @ 15:[address] Darrin Chavez, DO) Mild CAD Wears hearing aid Wears glasses Alcohol use High cholesterol Migraine headache Shortness of breath on exertion Non-smoker Leg cramps History of echocardiogram History of stress test Cardiology follow-up encounter Essential hypertension COVID-19 (02/20/21) Home Medications ?Medication ?Instructions ?Recorded ?Last Taken ?Type aspirin 81 mg tablet,delayed 81 mg PO DAILY 09/15/21 05/13/24 History release (Adult Low Dose Aspirin) Oral appliance #1 ea 01/24/22 Unknown Rx multivitamin (Daily Multi-Vitamin 1 tab PO DAILY 05/15/24 05/13/24 History tablet) amlodipine 5 mg tablet 5 mg PO DAILY #90 tabs 09/19/24 Unknown Rx losartan 50 mg tablet 50 mg PO DAILY #90 tabs 09/19/24 Unknown Rx pantoprazole 20 mg tablet,delayed 20 mg PO DAILY #14 tabs 10/20/24 Unknown Rx release rosuvastatin 10 mg tablet (Crestor) 10 mg PO QDAY #90 tabs 11/01/24 Unknown Rx Allergy/AdvReac Type Severity Reaction Status Date / Time No Known Allergies Allergy Verified 11/02/24 12:33 Surgical History Hx of oral surgery History of colonoscopy with polypectomy (2019) History of tonsillectomy Social History household members: spouse current occupational status: retired Smoking Status: Former smoker how long ago did patient quit smokin + years ago alcohol intake: current alcohol intake frequency: a few times a month substance use type: does not use caffeine: Yes Type: coffee Number of servings: 2 EXAM Physical Exam Const Vital Signs: 11/02/24 12:28 11/02/24 13:28 11/02/24 14:00 Temperature 98.3 F Temperature Source Oral Pulse Rate 67 74 70 Pulse Rate [Lying] Pulse Rate [Sitting (for 1 minute prior to obtaining)] Pulse Rate [Standing (for 1 minute prior to obtaining)] Respiratory Rate 16 17 19 H Blood Pressure 129/78 H 115/73 130/76 H Blood Pressure [Lying] Blood Pressure [Sitting (for 1 minute prior to obtaining)] Blood Pressure [Standing (for 1 minute prior to obtaining)] Blood Pressure Mean 95 87 94 Blood Pressure Mean [Lying] Blood Pressure Mean [Sitting (for 1 minute prior to obtaining)] Blood Pressure Mean [Standing (for 1 minute prior to obtaining)] Pulse Ox 95 98 100 Oxygen Delivery Method Room Air Room Air 11/02/24 15:00 11/02/24 15:18 Temperature Temperature Source Pulse Rate 80 Pulse Rate [Lying] 75 Pulse Rate [Sitting (for 1 minute prior to obtaining)] 71 Pulse Rate [Standing (for 1 minute prior to obtaining)] 80 Respiratory Rate Blood Pressure 126/77 H Blood Pressure [Lying] 128/72 H Blood Pressure [Sitting (for 1 minute prior to obtaining)] 130/79 H Blood Pressure [Standing (for 1 minute prior to obtaining)] 134/80 H Blood Pressure Mean 93 Blood Pressure Mean [Lying] 90 Blood Pressure Mean [Sitting (for 1 minute prior to obtaining)] 96 Blood Pressure Mean [Standing (for 1 minute prior to obtaining)] 98 Pulse Ox Oxygen Delivery Method MDM MDM MDM Narrative Medical decision making narrative: Differential diagnosis includes dehydration, electrolyte abnormality, peripheral vertigo, stroke, intracranial bleeding, cardiac dysrhythmia, urinary tract infection, and anxiety. EKG will be obtained to assess for cardiac dysrhythmia and cardiac ischemia. CT scan of the brain will be obtained to assess for intracranial bleeding and stroke. CBC will be obtained to assess for leukocytosis and anemia. Basic metabolic profile will be obtained to assess for electrolyte abnormality and renal function. Urinalysis will be obtained to assess for urinary tract infection and hematuria. Orthostatic vital signs will be obtained to assess for hypovolemia and dehydration. Lab Data Attestation: I reviewed the patient's lab results. Lab results narrative: CBC was reviewed and was within normal limits. Basic metabolic profile was reviewed and was within normal limits. Urinalysis was reviewed. There is no evidence of urinary tract infection or hematuria. Labs: Laboratory Results - last 24 hr 11/02/24 11/02/24 12:48 14:44 WBC 7.3 RBC 4.99 Hgb 15.1 Hct 44.2 MCV 88.6 MCH 30.3 MCHC 34.2 RDW Std Deviation 41.1 RDW Coeff of Olga 12.6 Plt Count 271 MPV 8.9 Immature Gran % (Auto) 0.400 Neut % (Auto) 60.9 Lymph % (Auto) 24.3 Brule % (Auto) 9.7 Eos % (Auto) 4.0 Baso % (Auto) 0.7 Absolute Neuts (auto) 4.4 Absolute Lymphs (auto) 1.76 Nucleated RBC % 0 Sodium 137 Potassium 3.7 Chloride 104 Carbon Dioxide 20.3 L Anion Gap 13 BUN 15 Creatinine 0.79 Estim Creat Clear Calc 101.12 Est GFR (MDRD) Non-Af 95 BUN/Creatinine Ratio 19.3 Glucose 94 Calcium 8.8 Urine Color Yellow Urine Clarity Clear Urine pH 6.5 Ur Specific [place] 1.010 Urine Protein 15 H Urine Glucose (UA) Normal Urine Ketones 15 H Urine Occult Blood Negative Urine Nitrite Negative Urine Bilirubin Negative Urine Urobilinogen Normal Ur Leukocyte Esterase Negative Urine RBC 0 SEEN Urine WBC 0 SEEN Ur Squamous Epith Cells 0 SEEN Urine Bacteria 0 SEEN Urine Mucus 0 SEEN Radiography Diagnostic Testing: Clinical Impression(s) from Imaging Studies Brain CT 11/02/24 13:18 IMPRESSION: No acute intracranial abnormality. Reading Location: [facility] CT scan of the brain was obtained. There is no acute intracranial abnormality. This was interpreted by the radiologist and was also independently reviewed by myself. EKG Initial EKG: Attestation: I personally reviewed and interpreted this EKG as follows: Interpretation: Sinus Rhythm (67) and No Acute Injury Pattern Comments: EKG was obtained. On my independent interpretation, it showed a normal sinus rhythm with a rate of 67. NC interval, QRS interval, and QTc intervals were all normal. [place] was normal. There are no acute ST or T wave changes. Prior EKG tracings: available for review Prior: Unchanged (10/20/2024) Treatment and Re-Evaluation :: Patient was given IV fluids here. Patient was able to ambulate here in the emergency without difficulty. Patient was advised of his findings. Patient is feeling better on reevaluation. Patient was instructed to follow-up with his primary care physician in 5 to 7 days. Patient was instructed to return if worse in any way. Patient understood and was agreeable with the plan. All questions were answered. Discharge Plan Triage Chief Complaint: Dizziness ED Provider: Darrin Chavez Dx/Rx/DC Orders Clinical Impression: Vertigo, Essential hypertension Instructions: ED Vertigo, Unspecified Prescriptions: No Action aspirin [Adult Low Dose Aspirin] 81 mg tablet,delayed release (DR/EC) 81 mg PO DAILY (DME) Oral appliance See Rx Instructions .ROUTE .MEDSUPPLY Qty: 1 0RF Rx Instructions: As directed amlodipine 5 mg tablet 5 mg PO DAILY Qty: 90 3RF losartan 50 mg tablet 50 mg PO DAILY Qty: 90 3RF multivitamin [Daily Multi-Vitamin] Tablet 1 tab PO DAILY pantoprazole 20 mg tablet,delayed release (DR/EC) 20 mg PO DAILY Qty: 14 0RF rosuvastatin [Crestor] 10 mg tablet 10 mg PO QDAY Qty: 90 3RF Primary Care Provider: Darrin Thorpe Referrals: Darrin Thorpe MD [Primary Care Provider, Family Practice] - 5-7 Days Print Language: [place] Disposition Disposition: Home, Self Care
[2024-11-02 14:00] VITALS: BP 130/76; PULSE 70; RESP 19; O2SAT 100
[2024-11-02 14:48] LABS: Mucous, Urine 0 SEEN /hpf (<or=2+); Red Blood Cells-Urine 0 SEEN /hpf (0-5); Squamous Epithelial Cells - UA 0 SEEN /hpf (0-5)
[2024-11-02 14:52] LABS: Color, Urine Yellow (Yellow); Glucose, Dipstick Normal (Normal); Ketone-Dipstick 15 mg/dl (Negative); Leukocyte Esterase-Dipstick Negative /ul (Negative); Nitrite-Dipstick Negative (Negative); Occult Blood-Urine Negative /ul (Negative); Protein-Dipstick 15 mg/dl (Negative); Specific Gravity, Urine 1.010 (1.002-1.030); Urine Bilirubin Dipstick Negative (Negative)
[2024-11-02 15:00] VITALS: BP 126/77; PULSE 80
[2024-11-02 15:18] VITALS: BP 128/72; BP 130/79; BP 134/80; PULSE 71; PULSE 75; PULSE 80
[2024-11-02 15:53] VITALS: BP 126/81; PULSE 80; RESP 15; TEMP 36.7; O2SAT 98
== END 2024-11-02 16:00 | disposition home or self-care (01) ==
PROVIDERS: Emergency Provider Emergency Medicine; PCP Family Medicine; Visit Provider Emergency Medicine
DX: R42 Dizziness and giddiness (principal); I10 Essential (primary) hypertension; I25.10 Atherosclerotic heart disease of native coronary artery without angina pectoris; E78.00 Pure hypercholesterolemia, unspecified; Z79.82 Long term (current) use of aspirin; Z79.899 Other long term (current) drug therapy; Z87.891 Personal history of nicotine dependence
CPT/HCPCS: 70450; 80048; 81001; 85025; 93005; 96360; 96361; 99285; A4216

== ENCOUNTER → 2024-11-26 | Outpatient (CLI) | payer OTHER, MEDICARE, SELFPAY ==
[2024-11-27 19:08] LABS: H. PYLORI STOOL AG Negative (Negative)
== END | disposition home or self-care (01) ==
LOC: LABSPEC 11:56
PROVIDERS: PCP Family Medicine; Referring Provider Nurse Practitioner Acute Care; Visit Provider Nurse Practitioner Acute Care
DX: R10.13 Epigastric pain (principal); R14.3 Flatulence
CPT/HCPCS: 87338

== ENCOUNTER 2024-12-13 08:59 | Day surgery (SDC) | payer OTHER, MEDICARE, SELFPAY ==
--- NOTE | 2024-12-11 14:20 | PAT.ANE_ITS ---
Pre-Assessment Diagnosis/Proposed Procedure Planned Operative Procedure(s): Egd Anesthesia History Anesthesia History - washroom attendant: Anesthesia History - washroom attendant Hx Hospitalization No 12/11/24 10:14 Any Problems With Anesthesia No 12/11/24 10:14 Cholinesterase deficiency No 12/11/24 10:14 You/Your Family Experience No 12/11/24 10:14 fever (hyperthermia) with Relationship Recent Exposure to Contagious No 05/17/24 07:28 Disease Does patient have nerve No 12/11/24 10:14 stimulator Patient instructed to have device shut off --Does patient have Pacemaker or ICD? When Was Last Pacemaker Check QUESTION #4 FULL TEXT: You/Your Family Experience fever (hyperthermia) with Anesthesia Last Oral Intake Last Oral intake: Last Oral Intake NPO since Meds taken in AM with sips of water? Meds patient instructed to take am of surgery PONV PONV - washroom attendant: PONV - washroom attendant Female No 12/11/24 10:14 HX of Motion Sickness No 12/11/24 10:14 HX of N/V After Surgery No 12/11/24 10:14 Non-Smoker Yes 12/11/24 10:14 Duration of Surgery greater No 12/11/24 10:14 than 60 minutes Number of Risk Factors 1 12/11/24 10:14 PONV Score Low Risk 12/11/24 10:14 Height & Weight Height & Weight: Anesthesia: Height & Weight Height 5 ft 11 in 11/25/24 10:43 Respiratory Assessment Respiratory Assessment - washroom attendant: Respiratory Tract Infection Hx - washroom attendant Hx Respiratory Tract Infection No 12/11/24 10:14 STOP Sleep Apnea STOP Sleep Apnea - washroom attendant: STOP Sleep Apnea - washroom attendant Hx Hypertension Yes 12/11/24 10:14 Hx Sleep Apnea No 12/11/24 10:14 CPAP BIPAP Do you snore loudly (louder No 12/11/24 10:14 than talking or can be heard Do you often feel tired/ No 12/11/24 10:14 fatigued/ sleepy during daytime? Has anyone observed you stop No 12/11/24 10:14 breathing during sleep? STOP Results Negative 12/11/24 10:14 QUESTION #5 FULL TEXT : Do you snore loudly (louder than talking or can be heard through closed doors)? 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 Specify any problems Hx of Preganancy in last 3 N/A 12/11/24 10:14 Months Nurse Filling Out Transfusion [facility] 12/11/24 10:14 & Questions: Date: 12/11/24 12/11/24 10:14 Time: 10:20 12/11/24 10:14 Patient unable to answer at this time (ie. confused, unrespo /Reproduction History /Reproductive History - washroom attendant: /Reproductive Hx- washroom attendant Hx Now Gestational Age (in weeks): EDC: Hx Hx Para Hx Section SAB No 05/15/24 08:11 PFSH Medical History Mild CAD Wears hearing aid Wears glasses Alcohol use High cholesterol Migraine headache Shortness of breath on exertion Non-smoker Leg cramps History of echocardiogram History of stress test Cardiology follow-up encounter Essential hypertension COVID-19 (02/20/21) Home Medications Medication Instructions Recorded Last Taken Type aspirin 81 mg tablet,delayed 81 mg PO DAILY 09/15/21 1 History release (Adult Low Dose Aspirin) Oral appliance #1 ea 01/24/22 Unknown Rx multivitamin (Daily Multi-Vitamin 1 tab PO DAILY 05/1505/13/24 History tablet) amlodipine 5 mg tablet 5 mg PO DAILY #90 tabs 09/19 Unknown Rx losartan 50 mg tablet 50 mg PO DAILY #90 tabs 09/06 Unknown Rx rosuvastatin 10 mg tablet (Crestor) 10 mg PO QDAY #90 tabs 11/01/24 Unknown Rx pantoprazole 40 mg tablet,delayed 40 mg PO QDAY #90 ta bs 11/25/24 Unknown Rx release Allergy/AdvReac Type Severity Reaction Status Date / Time No Known Allergies Allergy Verified 12/11/24 10:13 Surgical History Hx of oral surgery History of colonoscopy with polypectomy (2019) History of tonsillectomy Social History household members: spouse current occupational status: retired Smoking Status: Former smoker how long ago did patient quit smokin + years ago alcohol intake: current alcohol intake frequency: a few times a month substance use type: does not use caffeine: Yes Type: coffee Number of servings: 2 Audit: Pertinent Findings Pertinent Findings EKG Perinent findings: 11/02/2024. Sinus rhythm 67 bpm. Echo (EF%) pertinent findings: 09/15/2021. Normal size function EF 65%. Consult pertinent findings: Cardiology 09/19/2024. Hypertension. Controlled with current medications. Recommendation Anesthesia Recommendation Anesthesia recommendation: OPTIMIZED for anesthesia
[2024-12-13] VITALS (7 sets, daily range): BP systolic 107–112; BP diastolic 72–77; PULSE 71–80; RESP 16–18; TEMP 36.4–36.8; O2SAT 93–96; BMI 30.4
--- NOTE | 2024-12-13 09:18 | PCM.PRE.AN2 ---
ASA Classification* ASA Classification ASA Classification: 2 Assessment & Plan Anesthesia* Anesthesia Assessment Anesthesia Assessment: Discussed sedation and/or anesthesia options, risks, benefits, and alternatives with patient/parents/legal guardian/POA. Questions invited. The patient/parents/legal guardian/POA seems to understand and agrees to proceed with anesthesia plan. Reviewed the physical assessment, medical history, allergy history and patient home medications list prior to surgery/procedure/anesthetic and documented any changes. Performed airway and anesthesia risk assessments. Anesthesia Type Anesthesia Type: MAC Anesthesia Focused Assessment* Airway Assessment Mouth opens: >3 cm Mallampati Score: II Labs Anesthesia Preop lab: CBC WBC, (4.4-11.0) 7.3 K/mm3 11/02/24, 12:48 RBC, (4.6-6.2) 4.99 M/mm3 11/02/24, 12:48 Hgb, (13.0-16.5) 15.1 g/dL 11/02/24, 12:48 Hct, (40-54) 44.2 % 11/02/24, 12:48 Plt Count, (150-450) 271 K/mm3 11/02/24, 12:48 CHEMISTRY Potassium, (3.3-5.1) 3.7 mmol/L 11/02/24, 12:48 Sodium, (133-145) 137 mmol/L 11/02/24, 12:48 BUN, (4-19) 15 mg/dL 11/02/24, 12:48 Creatinine, (0.70-1.20) 0.79 mg/dL 11/02/24, 12:48 Glucose, (70-99) 94 mg/dL 11/02/24, 12:48 TSH, (0.358-3.74) 2.45 uIU/mL 06/27/23, 16:30 COAG Pre-Assessment Diagnosis/Proposed Procedure Planned Operative Procedure(s): Egd Anesthesia History Anesthesia History - liability claims representative: Anesthesia History - liability claims representative Hx Hospitalization No 12/11/24 10:14 Any Problems With Anesthesia No 12/11/24 10:14 Cholinesterase deficiency No 12/11/24 10:14 You/Your Family Experience No 12/11/24 10:14 fever (hyperthermia) with Relationship Recent Exposure to Contagious No 05/17/24 07:28 Disease Does patient have nerve No 12/11/24 10:14 stimulator Patient instructed to have device shut off --Does patient have Pacemaker or ICD? When Was Last Pacemaker Check QUESTION #4 FULL TEXT: You/Your Family Experience fever (hyperthermia) with Anesthesia Last Oral Intake Last Oral intake: Last Oral Intake NPO since Meds taken in AM with sips of water? Meds patient instructed to take am of surgery PONV PONV - liability claims representative: PONV - liability claims representative Female No 12/11/24 10:14 HX of Motion Sickness No 12/11/24 10:14 HX of N/V After Surgery No 12/11/24 10:14 Non-Smoker Yes 12/11/24 10:14 Duration of Surgery greater No 12/11/24 10:14 than 60 minutes Number of Risk Factors 1 12/11/24 10:14 PONV Score Low Risk 12/11/24 10:14 Height & Weight Height & Weight: Anesthesia: Height & Weight Height 5 ft 11 in 11/25/24 10:43 Respiratory Assessment Respiratory Assessment - liability claims representative: Respiratory Tract Infection Hx - liability claims representative Hx Respiratory Tract Infection No 12/11/24 10:14 STOP Sleep Apnea STOP Sleep Apnea - liability claims representative: STOP Sleep Apnea - liability claims representative Hx Hypertension Yes 12/11/24 10:14 Hx Sleep Apnea No 12/11/24 10:14 CPAP BIPAP Do you snore loudly (louder No 12/11/24 10:14 than talking or can be heard Do you often feel tired/ No 12/11/24 10:14 fatigued/ sleepy during daytime? Has anyone observed you stop No 12/11/24 10:14 breathing during sleep? STOP Results Negative 12/11/24 10:14 QUESTION #5 FULL TEXT : Do you snore loudly (louder than talking or can be heard through closed doors)? 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 Specify any problems Hx of Preganancy in last 3 N/A 12/11/24 10:14 Months Nurse Filling Out Transfusion [facility] 12/11/24 10:14 & Questions: Date: 12/11/24 12/11/24 10:14 Time: 10:20 12/11/24 10:14 Patient unable to answer at this time (ie. confused, unrespo /Reproduction History /Reproductive History - liability claims representative: /Reproductive Hx- liability claims representative Hx Now Gestational Age (in weeks): EDC: Hx Hx Para Hx Section SAB No 05/15/24 08:11 Active Medications Active Medications: Current Medications Generic Name Dose Route Start Last Admin Trade Name Freq PRN Reason Stop Dose Admin Lactated Ringer's 1,000 mls @ 15 mls/hr 12/13/24 09:30 IV .Q48H JENNIFER PFSH Medical History Mild CAD Wears hearing aid Wears glasses Alcohol use High cholesterol Migraine headache Shortness of breath on exertion Non-smoker Leg cramps History of echocardiogram History of stress test Cardiology follow-up encounter Essential hypertension COVID-19 (02/20/21) Home Medications Medication Instructions Recorded Last Taken Type aspirin 81 mg tablet,delayed 81 mg PO DAILY 09/15/21 12/08/24 History release (Adult Low Dose Aspirin) Oral appliance #1 ea 01/24/22 Unknown Rx multivitamin (Daily Multi-Vitamin 1 tab PO DAILY 05/15/24 05/13/24 History tablet) amlodipine 5 mg tablet 5 mg PO DAILY #90 tabs 09/19/24 Unknown Rx losartan 50 mg tablet 50 mg PO DAILY #90 tabs 09/19/24 Unknown Rx rosuvastatin 10 mg tablet (Crestor) 10 mg PO QDAY #90 tabs 11/01/24 Unknown Rx pantoprazole 40 mg tablet,delayed 40 mg PO QDAY #90 tabs 11/25/24 Unknown Rx release Allergy/AdvReac Type Severity Reaction Status Date / Time No Known Allergies Allergy Verified 12/11/24 10:13 Surgical History Hx of oral surgery History of colonoscopy with polypectomy (2019) History of tonsillectomy Social History household members: spouse current occupational status: retired Smoking Status: Former smoker how long ago did patient quit smokin + years ago alcohol intake: current alcohol intake frequency: a few times a month substance use type: does not use caffeine: Yes Type: coffee Number of servings: 2 Review of Systems (Anesthesia) ROS Narrative System reviewed and no additional complaints, except as documented.
[2024-12-13] MEDS: Lactated Ringers 1,000 ML 15 ML IV (09:37)
--- NOTE | 2024-12-13 10:00 | EGD_PTH ---
PATIENT: GURINDER MI LOC: EN U#:[id number] AGE/SX: 74/M ROOM: RE12/13/[address]: Dr. Rudy Laureano DO : 1950 BED: DIS: 12/13/2024 SPEC #: [id number] RECD: 12/13/24 13:28 STATUS: JEWEL REDylan #: [id number] JAYCEE: 12/13/24 10:[address]: Rudy Laureano DEPT: SURGICAL PATHOLOGY RECD BY: Kleber Clayton ENTERED: 12/13/24 15:19 SP TYPE: EGD BIOPSY LORENA DR: Dr. Darrin Thorpe MD Tissues: A - Gastric mucous membrane B - Esophagus, NOS Procedures: Surgery Specimen Level IV HEADER OPERATION: EGD, biopsy PRE-OP DIAGNOSIS: Epigastric pain, dyspepsia, flatulence TISSUE SUBMITTED: A- Gastric body biopsy, B- Distal esophagus biopsy MICROSCOPIC DIAGNOSIS A. Gastric body, biopsy: - Oxyntic mucosa with slight chronic inflammation. - Negative for Helicobacter-like organisms (H&E). B. Distal esophagus, biopsy: - No specific pathologic change. MICROSCOPIC DESCRIPTION Slides are reviewed. GROSS DESCRIPTION A. Received in fixative is one container labeled with the patient's name and designated "Gastric body biopsy." The specimen consists of three irregular fragments of mcclain tissue that measure 0.4 to 0.8 cm. The specimen is totally submitted in one cassette. B. Received in fixative is one container labeled with the patient's name and designated "Distal esophagus biopsy." The specimen consists of one irregular fragment of mcclain tissue that measures 0.3 cm. The specimen is totally submitted in one cassette. Nv 12/13/2024 CPT:79454u3
--- NOTE | 2024-12-13 10:28 | PCM.HP.STD ---
HPI - General General Date of Admission: 12/13/24 Date of Service: 12/13/24 Chief Complaint: Abdominal pain, dyspepsia HPI Narrative GURINDER MI, is a 74 M who presents [ Chief Complaint: abdominal pain Details: - saw Dr. Thorpe - cardiology, cardiac etiology r/o - no history of EGD - dull, constant, epigastric, denies any radiation, no change with PO intake - denies any dysphagia to solids or liquids, rare dysphagia to large capsules/gel caps - denies any nausea or emesis - increased flatulence - Crestor is new, symptoms preceded - no change with pantoprazole 20mg x2 weeks, although no further episodes of sharp pain - NSAIDS - no more than 1-2x a month - Alcohol - 0-2 drinks a week - denies any change in bowel habits - denies any BRBPR or melena - weight loss of 10lbs over the past 6 weeks, believes this was intentional - still has his GB - denies any family h/o esophageal or gastric CA - h/o indigestion, treated with OTC PPI, noted improvement with weight loss ] [facility] Medical History Mild CAD Wears hearing aid Wears glasses Alcohol use High cholesterol Migraine headache Shortness of breath on exertion Non-smoker Leg cramps History of echocardiogram History of stress test Cardiology follow-up encounter Essential hypertension COVID-19 (02/20/21) Home Medications Medication Instructions Recorded Last Taken Type aspirin 81 mg tablet,delayed 81 mg PO DAILY 09/15/21 12/08/24 History release (Adult Low Dose Aspirin) Oral appliance #1 ea 01/24/22 Unknown Rx multivitamin (Daily Multi-Vitamin 1 tab PO DAILY 05/15/24 05/13/24 History tablet) amlodipine 5 mg tablet 5 mg PO DAILY #90 tabs 09/19/24 12/13/24 Rx losartan 50 mg tablet 50 mg PO DAILY #90 tabs 09/19/24 12/13/24 Rx rosuvastatin 10 mg tablet (Crestor) 10 mg PO QDAY #90 tabs 11/01/24 Unknown Rx pantoprazole 40 mg tablet,delayed 40 mg PO QDAY #90 tabs 11/25/24 12/13/24 Rx release Allergy/AdvReac Type Severity Reaction Status Date / Time No Known Allergies Allergy Verified 12/11/24 10:13 Surgical History Hx of oral surgery History of colonoscopy with polypectomy (2019) History of tonsillectomy Social History household members: spouse current occupational status: retired Smoking Status: Former smoker how long ago did patient quit smokin + years ago alcohol intake: current alcohol intake frequency: a few times a month substance use type: does not use caffeine: Yes Type: coffee Number of servings: 2 ROS Constitutional Constitutional: Denies fatigue, fever(s), poor appetite, weight gain or weight loss Gastrointestinal Gastrointestinal: Denies belching, bloating, change in bowel habits, change in stool character, chewing difficulty, coffee ground emesis, constipation, cramping, diarrhea, dyspepsia, dysphagia, early satiety, excessive flatus, fecal incontinence, heartburn, hematemesis, hematochezia, hemorrhoids, loose stools, melena, nausea, odynophagia, rectal bleeding, tenesmus, vomiting or weight changes Vital Signs Vital Signs Vital Signs: 12/13/24 09:37 12/13/24 09:37 Temperature 98 F Temperature Source Temporal Pulse Rate 72 Respiratory Rate 16 Respiratory Pattern Normal Blood Pressure 112/72 Blood Pressure Mean 85 Blood Pressure Source Monitor Blood Pressure Position Semi-Fowlers Blood Pressure Location Left Arm Pulse Ox 94 Oxygen Delivery Method Room Air Weight Weight: 218 lb 4.122 oz Body Mass Index (BMI) 30.4 Physical Exam Const alert, oriented x3, no apparent distress and healthy appearing General Appearance: cooperative GI normal to inspection, nondistended, normoactive bowel sounds, soft to palpation, non-tender and non-distended Percussion: normal to percussion Rectal Exam: deferred Assessment & Plan Assessment/Plan (1) Dyspepsia: (2) Epigastric pain: PLAN: Assessment and Plan Assessment and Plan (1) Epigastric pain: Status: Acute (2) Dyspepsia: Status: Acute (3) Flatulence: Status: Acute Orders: Orders H. PYLORI STOOL AG Today R10.13 - Epigastric pain, R14.3 - Flatulence Medications: New pantoprazole take once a day in the morning, 30 minutes prior to first meal 40 mg PO QDAY 90 tabs 0RF Plan 74-year-old male presents for initial consultation of atypical chest pain, and epigastric pain. He was seen in the emergency department on 10/20/2024 with PMH of hypertension and GERD presenting with chest pain in the epigastric/xiphoid area. EKG was negative for ischemic changes and he noted symptomatic improvement with Mylanta. Labs in the emergency department revealed WBC 9.2, hemoglobin 17.4, normal BUN, transaminases, lipase and troponin. He was discharged home on pantoprazole 20 mg daily. He was seen in the emergency department again on 11/02/2024 with complaints of dizziness. Orthostatic vitals were unremarkable. Labs revealed a hemoglobin of 15.1 (baseline) and unremarkable BMP. He was given IV fluids and discharged. He has since seen Dr. Thorpe (telegrapher agent) in follow-up, and cardiac etiology has been ruled out. He is continuing to experience dull epigastric tenderness. He completed a 2-week trial of pantoprazole 20 mg daily after his initial emergency room visit and denies any recurrent episodes of sharp epigastric pain. He does experience infrequent episodes of dysphagia in the lower esophagus with large pills/capsules. Denies any dysphagia with food or liquids. He denies any nausea, vomiting, fevers, or radiation of pain. He does endorse an intentional weight loss of 10 pounds over the past 4 to 6 weeks. I have recommended stool collection for H. pylori and he will resume pantoprazole but at a higher dose of 40 mg once daily. I have scheduled him for an EGD. Patient Instructions: H. pylori stool testing. Pantoprazole 40mg once daily, take 30 minutes prior to first meal. Do not start until stool collection has been completed. EGD.
--- NOTE | 2024-12-13 10:58 | PCM.POST.ANE ---
Anesthesia: Postop Eval I Current Vital Signs Temperature: 97.5 F Pulse Rate: 77 Blood Pressure: 110/76 Respiratory Rate: 16 Pulse Ox: 95 Oxygen Delivery Method: Room Air Assessment Airway patent: Yes Spontaneous unlabored respirations: Yes Mental status: Awake and Calm nausea: No Vomiting: No Anesthesia Complication: No Fluid Hydration Crystalloid volume administer (ml): 400 Total IV fluid infused: 400 Progress Note Anesthesia document: Postop Eval 1 completed: Yes
--- NOTE | 2024-12-13 10:59 | OP.EGD_ITS ---
Patient Name: Kishore Chang Procedure Date: 12/13/2024 10:28 AM Date of : 1950 Age: 74 Procedure: Upper GI endoscopy Indications: Functional Dyspepsia, Heartburn, Suspected esophageal reflux Providers: Rudy Laureano DO Referring MD: Darrin Thorpe Medicines: Monitored Anesthesia Care Patient Profile: This is a 74 year old male. Refer to note in patient chart for documentation of history and physical. Patient has symptoms of acute epigastric abdominal pain, acute dyspepsia and acute heartburn. Complications: No immediate complications. Procedure: Pre-Anesthesia Assessment: - Prior to the procedure, a History and Physical was performed, and patient medications and allergies were reviewed. The patient is competent. The risks and benefits of the procedure and the sedation options and risks were discussed with the patient. All questions were answered and informed consent was obtained. Patient identification and proposed procedure were verified by the physician in the pre-procedure area. Mental Status Examination: alert and oriented. Airway Examination: normal oropharyngeal airway and neck mobility. Respiratory Examination: clear to auscultation. CV Examination: normal. Prophylactic Antibiotics: The patient does not require prophylactic antibiotics. Prior Anticoagulants: The patient has taken no anticoagulant or antiplatelet agents except for NSAID medication. ASA Grade Assessment: II - A patient with mild systemic disease. After reviewing the risks and benefits, the patient was deemed in satisfactory condition to undergo the procedure. The anesthesia plan was to use monitored anesthesia care (MAC). Immediately prior to administration of medications, the patient was re-assessed for adequacy to receive sedatives. The heart rate, respiratory rate, oxygen saturations, blood pressure, adequacy of pulmonary ventilation, and response to care were monitored throughout the procedure. The physical status of the patient was re-assessed after the procedure. After obtaining informed consent, the endoscope was passed under direct vision. Throughout the procedure, the patient's blood pressure, pulse, and oxygen saturations were monitored continuously. The Endoscope was introduced through the mouth, and advanced to the third part of the duodenum. Small bowel enteroscopy was deemed necessary. The upper GI endoscopy was accomplished with ease. The patient tolerated the procedure well. Scope In: 10:39:10 AM Scope Out: 10:43:56 AM Total Procedure Duration Time 0 hours 4 minutes 46 seconds Findings: The Z-line was irregular and was found 40 cm from the incisors. Biopsies were taken with a cold forceps for histology. Verification of patient identification for the specimen was done. Estimated blood loss was minimal. Patchy mildly erythematous mucosa without bleeding was found in the gastric body. Biopsies were taken with a cold forceps for histology. Biopsies were taken with a cold forceps for Helicobacter pylori testing. No gross lesions were noted in the entire examined duodenum. Impression: - Z-line irregular, 40 cm from the incisors. Biopsied. - Erythematous mucosa in the gastric body. Biopsied. - No gross lesions in the entire examined duodenum. Recommendation: - Await pathology results. - Continue present medications. Procedure Code(s): --- Professional --- 63168, Small intestinal endoscopy, enteroscopy beyond second portion of duodenum, not including ileum; with biopsy, single or multiple CPT copyright 2021 [employer]. All rights reserved. The codes documented in this report are preliminary and upon mastic sprayer review may be revised to meet current compliance requirements. Rudy Laureano DO 12/13/2024 10:59:06 AM This report has been signed electronically. Number of Addenda: 0 Note Initiated On: 12/13/2024 10:28 AM
--- NOTE | 2024-12-13 10:59 | OP.PROVAT_ITS ---
12/13/2024 Darrin Thorpe [address] [address] [facility] [address] [facility] [address] [place] [address] Re : Upper GI endoscopy procedure for Kishore Chang Dear Dr. Thorpe This procedure was performed on Friday, December 13, 2024. My impressions and recommendations are as follows: Impressions : - Z-line irregular, 40 cm from the incisors. Biopsied. - Erythematous mucosa in the gastric body. Biopsied. - No gross lesions in the entire examined duodenum. Recommendations : - Await pathology results. - Continue present medications. My findings are described in the full procedure note, which is enclosed. If I can be of further assistance, please feel free to contact me at . Sincerely, Rudy Laureano, 12/13/2024 10:59:06 AM This report has been signed electronically.
--- NOTE | 2024-12-13 11:07 | PCM.POSTANE2 ---
Anesthesia Postop Eval I Sum Postop Eval Completion status Anesthesia document: Postop Eval 1 completed: Yes Anesthesia Postop Eval I Summary Anesthesia Postop Eval I Summary: Anesthesia Postop Eval I: Assessment Summary Airway patent Yes 12/13/24 10:59 [email or web address] Spontaneous unlabored Yes 12/13/24 10:59 [email or web address] respirations Mental status Awake,Calm 12/13/24 10:59 [email or web address] nausea No 12/13/24 10:59 [email or web address] Vomiting No 12/13/24 10:59 [email or web address] Anesthesia Postop Eval I: Fluid Summary Crystalloid volume administer 400 12/13/24 10:59 [email or web address] (ml) Colloids volume administered ( ml) Blood Product volume administered (ml) Total IV fluid infused 400 12/13/24 10:59 [email or web address] Anesthesia Postop Eval I: Summary Notes Anesthesia Complication No 12/13/24 10:59 [email or web address] Anesthesia Complication Comment: Post-operative progress note Anesthesia: Postop Eval II Evaluation Mental status: Awake Pain Level: 0 nausea: No Vomiting: No
== END 2024-12-13 11:25 | disposition home or self-care (01) ==
LOC: EN 08:59 → AC 09:22
PROVIDERS: PCP Family Medicine; Referring Provider Family Medicine; Visit Provider Internal Medicine Gastroenterology
DX: R10.13 Epigastric pain (principal); Z79.82 Long term (current) use of aspirin; I25.10 Atherosclerotic heart disease of native coronary artery without angina pectoris; R14.3 Flatulence; I10 Essential (primary) hypertension; Z87.891 Personal history of nicotine dependence; E78.00 Pure hypercholesterolemia, unspecified; Z79.899 Other long term (current) drug therapy; K22.89 Other specified disease of esophagus; L53.8 Other specified erythematous conditions; K29.50 Unspecified chronic gastritis without bleeding
CPT/HCPCS: 44361; 88305; J2405